=== PATIENT | male | born 1965 | race Caucasian/White ===

== ENCOUNTER → 2017-10-03 09:58 | Outpatient (CLI) | payer BC, SELFPAY ==
--- NOTE | 2017-10-03 10:10 | XR_ITS ---
XR finger RT min 2V COMPARISON: None HISTORY: Right thumb pain TECHNIQUE: 3 views right thumb FINDINGS: The first metacarpal proximal and distal phalanx appear intact with no evidence of recent or old fracture. The soft tissues are normal. There is no significant arthritic change. IMPRESSION: Negative right thumb
== END ==
PROVIDERS: PCP Family Medicine; Referring Provider Family Medicine; Visit Provider Family Medicine
DX: M79.644 Pain in right finger(s) (principal)
CPT/HCPCS: 73140

== ENCOUNTER 2019-11-25 13:50 | Observation (INO) | payer BC, SELFPAY ==
[2019-11-25 13:59] VITALS: BP 154/100; PULSE 93; RESP 16; TEMP 37.3; O2SAT 94; BMI 45.1
[2019-11-25 14:17] VITALS: BP 154/100; PULSE 93; RESP 16; TEMP 37.3; O2SAT 94; BMI 45.1
--- NOTE | 2019-11-25 14:27 | XR_ITS ---
PROCEDURE: XR CHEST 2V CLINICAL HISTORY: COUGH/SOA COMPARISON: CR CXR CHEST(2 VIEWS-NOT PORTABLE) from 04/26/2014 CR CXR CHEST(2 VIEWS-NOT PORTABLE) from 04/26/2016 FINDINGS: The cardiomediastinal silhouette and pulmonary vascularity are within normal limits. The lungs are clear without infiltrates, suspicious nodules, or pleural effusions. No acute bony abnormalities. IMPRESSION: No acute findings. The Dictated b Constantino Booth MD 11/25/2019 15:05 Constantino Booth MD in [place] 11/25/2019 15:05
--- NOTE | 2019-11-25 14:27 | PC.NURSE ---
RADIOLOGY NOTIFIED OF CHEST XRAY
--- NOTE | 2019-11-25 14:33 | HMH.EDUTC ---
[facility] [place] Disposition Clinical Impression: Dyspnea Qualifiers: Dyspnea type: unspecified Qualified Code(s): R06.00 - Dyspnea, unspecified Disposition: Still a Patient Condition on Discharge: Undetermined Referrals: Didier Sal MD [Primary Care Provider] - Time of Disposition: 14:51 Medical Decision Making - Albert Inquiry Pt receiving controlled substance: No Vital Signs: 11/25/19 13:59 11/25/19 14:17 Temperature 99.2 F 99.2 F Temperature Source Oral Oral Pulse Rate [Right] 93 H 93 H Respiratory Rate 16 16 Blood Pressure [Right Arm] 154/100 H 154/100 H Blood Pressure Mean [Right Arm] 118 118 Blood Pressure Source [Right Arm] Automatic Cuff Blood Pressure Position [Right Arm] Sitting Sitting 02 Sat by Pulse Oximetry 94 L 94 L Oxygen Delivery Method Room Air Room Air Orders (Tests/Meds): ED MEDICATIONS Discontinued Medications Generic Name Dose Route Start Last Admin Trade Name Freq PRN Reason Stop Dose Admin Albuterol/Ipratropium 3 ml 11/25/19 14:09 11/25/19 14:13 Duoneb 3ml Neb IH 11/25/19 14:10 3 ml ONCE ONE Administration ORDERS Category Date Time Status Chest XR 2 view (NOT portable) [XR chest 2V] Stat Exams 11/25/19 14:27 Ordered Medical Decision Narrative: Patient felt somewhat better after DuoNeb, but then sent for CXR. Had episode upon return where he could not catch his breath. Transferred to ER for cardiac workup. [facility] [place] HPI - General Stated complaint: trouble swallowing Time Seen by Provider: 11/25/19 14:33 Mode of Arrival: Ambulatory Source of Information: Patient Limitations: No Limitations Description of Symptoms (Recalled from Triage Doc. by RN): pt advises he was eating breakfast this morning and started having a raspy voice and sore throat. Advises since then he has also alicia having some acid reflux and feels like he can't breath. But denies any SOA HEENT Symptoms (Recalled from RN notes): Yes Resp Symptoms (Recalled from RN notes): Yes Skin Symptoms (Recalled from RN notes): No MS Symptoms (Recalled from RN notes): No Functional Status (Recalled from RN notes): WNL - History of Present Illness Provider Complaint: Patient eating breakfast this am and started having sore throat, scratchy throat, raspy voice. Some difficulty swallowing. Used inhaler with a little relief. No fever. No cough. Denies ear pain. Denies vomiting or diarrhea. Has acid reflux and that is maybe a little worse. Onset (ago): day(s) (1) Relieving factors: none Exacerbating factors: none Associated symptoms: denies other symptoms Treatments prior to arrival: none - Related Data Allergies Allergy/AdvReac Type Severity Reaction Status Date / Time No Known Allergies Allergy Unverified 04/07/17 14:04 - Worker's Comp Is this a Worker's Comp case?: No [facility] History - Hepatitis A Screen Drug use history?: No High risk sexual behaviors?: No History of sexually transmitted infection?: No Currently employed?: No Childcare worker?: No Do you have indoor plumbing?: Yes Do you have electricity?: Yes Attestation statement:: This patient has been screened for Hepatitis A risk factors. I have reviewed the patient's past medical history: Yes - Social History Alcohol Intake: never Occupational Status: other ROS Obtained: Yes All systems reviewed & no additional complaints - ENT Ears, Nose, Mouth, and Throat: Reports pain with swallowing, Reports sore throat, Reports throat swelling Physical Exam - General General appearance: alert, in no apparent distress - Head Head exam: atraumatic, normocephalic, normal inspection - Eye Eye exam: Present: normal appearance, PERRL, EOMI - ENT ENT exam: Present: normal exam, normal oropharynx, mucous membranes moist, TM's normal bilaterally, normal external ear exam - Neck Neck exam: Present: normal inspection, full ROM, trachea midline. Absent: meningismus, lymphadenopathy - Chest Chest inspection: Present: nor
[2019-11-25 14:47] VITALS: BP 154/85; PULSE 87; RESP 16; TEMP 36.8; O2SAT 97; BMI 45.1
--- NOTE | 2019-11-25 14:50 | PC.NURSE ---
PATIENT C/O SOA AND INABILITY TO CATCH HIS BREATH. SEND TO ER PER YOLI WATSON FOR FURTHER EVALUATION. Delon DIETZ RN NOTIFIED
--- NOTE | 2019-11-25 14:54 | HMH.EDGENADL ---
ED Disposition Clinical Impression: Epiglottitis Sinusitis Qualifiers: Sinusitis location: sphenoidal Chronicity: acute Recurrence: recurrent Qualified Code(s): J01.31 - Acute recurrent sphenoidal sinusitis Disposition: Admitted as Observation Condition on Discharge: Good - Critical Care Critical Care Time: No Attestation: On 11/25/19, the high probability of a clinically significant, sudden or life threatening deterioration of the following system(s) required my full and direct attention, intervention and personal management. The time I documented below is in addition to time spent performing reported procedures but includes the following listed in this critical care notation. Medical Decision Making - Medical Records Medical records reviewed: Yes: I reviewed the patient's medical records. - Albert Inquiry Pt receiving controlled substance: No Vital Signs: 11/25/19 13:59 11/25/19 14:17 11/25/19 14:47 Temperature 99.2 F 99.2 F 98.2 F Temperature Source Oral Oral Oral Pulse Rate [Right] 93 H 93 H 87 Respiratory Rate 16 16 16 Blood Pressure [Right Arm] 154/100 H 154/100 H 154/85 H Blood Pressure Mean [Right Arm] 118 118 108 Blood Pressure Source [Right Arm] Automatic Cuff Automatic Cuff Blood Pressure Position [Right Arm] Sitting Sitting Sitting 02 Sat by Pulse Oximetry 94 L 94 L 97 Oxygen Delivery Method Room Air Room Air Room Air 11/25/19 18:06 Temperature Temperature Source Pulse Rate [Right] 93 H Respiratory Rate 16 Blood Pressure [Right Arm] 158/99 H Blood Pressure Mean [Right Arm] 118 Blood Pressure Source [Right Arm] Blood Pressure Position [Right Arm] Sitting 02 Sat by Pulse Oximetry 98 Oxygen Delivery Method Room Air - Lab Data Lab results reviewed: Yes: I reviewed the patient's lab results. Lab Results 11/25/19 15:06: WBC 13.5 H, RBC 5.71, Hgb 17.3, Hct 51.2, MCV 89.7, MCH 30.3, MCHC 33.8, RDW 14.7, Plt Count 217, MPV 7.4, Neut % (Auto) 77.9, Lymph % (Auto) 15.7, Metcalfe % (Auto) 4.4, Eos % (Auto) 1.5, Baso % (Auto) 0.5, Neut # (Auto) 10.5 H, Lymph # (Auto) 2.1, Metcalfe # (Auto) 0.6, Eos # (Auto) 0.2, Baso # (Auto) 0.1 11/25/19 15:06: Sodium 136, Potassium 4.4, Chloride 105, Carbon Dioxide 23, Anion Gap 12.4, BUN 16, Creatinine 0.80, Estimated Creat Clear 110, Estimated GFR 101, Est GFR ( Amer) 122, Glucose 126 H, Calcium 8.9, Total Bilirubin 0.5, AST 26, ALT 27, Alkaline Phosphatase 67, Troponin I < 0.01, Total Protein 7.5, Albumin 4.0, Globulin 3.5 H, Albumin/Globulin Ratio 1.1 11/25/19 15:17: Group A Strep Rapid Negative Result diagrams: 11/25/19 15:06 11/25/19 15:06 Orders (Tests/Meds): ED MEDICATIONS Generic Name Dose Route Start Last Admin Trade Name Freq PRN Reason Stop Dose Admin Ceftriaxone Sodium 1 gm/ 50 mls @ 100 mls/hr 11/25/19 18:15 11/25/19 18:27 Sodium Chloride IV 12/09/19 18:14 100 mls/hr Q24H LUZ Administration Protocol Sodium Chloride 8 ml 11/25/19 15:12 Sodium Chloride 0.9% 10ml Vial IV 12/25/19 15:11 NEEDED PRN dilute pepcid Discontinued Medications Generic Name Dose Route Start Last Admin Trade Name Freq PRN Reason Stop Dose Admin Albuterol/Ipratropium 3 ml 11/25/19 14:09 11/25/19 14:13 Duoneb 3ml Neb IH 11/25/19 14:10 3 ml ONCE ONE Administration Famotidine 20 mg 11/25/19 15:12 11/25/19 15:18 Pepcid 20mg/2ml Vial IV 11/25/19 15:13 20 mg ONCE ONE Administration Azithromycin 500 mg/ Sodium 250 mls @ 250 mls/hr 11/25/19 15:12 11/25/19 15:18 Chloride IV 11/25/19 15:13 250 mls/hr ONCE ONE Administration Protocol Ioversol 75 ml 11/25/19 17:35 11/25/19 17:36 Rad-Optiray 350 100ml Vial IV 11/25/19 17:36 75 ml ONCE ONE Administration Protocol Methylprednisolone Sodium Succinate 125 mg 11/25/19 15:12 11/25/19 15:18 Solu-Medrol 125mg/2ml Vial IV 11/25/19 15:13 125 mg ONCE ONE Administration Sodium Chloride 10 ml 11/25/19 17:35 11/25/19 17:36 R
--- NOTE | 2019-11-25 15:10 | ECG_ITS ---
APPROVED REPORT Exam: Resting ECG HR:78 bpm ECG Measurements Heart Rate 78 AXES OR 198 P 20 QRSd 88 QRS 38 QT 376 T 86 QTc 428 <Conclusion> Normal sinus rhythm Nonspecific T wave abnormality Abnormal ECG Electronically signed by : Jarod Raman, 11/26/2019 08:26:10
--- NOTE | 2019-11-25 15:11 | XR_ITS ---
PROCEDURE: XR SOFT TISSUE NECK CLINICAL INDICATION: sore throat, soa COMPARISON: No exams were available for comparison FINDINGS: There is mild prominence of the epiglottis. No prevertebral soft tissue thickening or prevertebral mass. No subglottic narrowing. No soft tissue gas IMPRESSION: Mild prominence of the epiglottis please correlate with clinical findings otherwise negative Dictated b Constantino Booth MD 11/25/2019 17:18 Constantino Booth MD in [facility] 11/25/2019 17:18
[2019-11-25 15:16] LABS: Basophils # 0.1 K/mm3 (0-0.2); Basophils % 0.5 % (0.1-2.0); Eosinophils # 0.2 K/mm3 (0.0-0.4); Eosinophils % 1.5 % (0.1-12.0); Hematocrit 51.2 % (42.0-52.0); Hemoglobin 17.3 g/dL (14.1-18.0); Lymphocytes # 2.1 K/mm3 (0.7-4.5); Lymphocytes % 15.7 % (10-50); Mean Corpuscular HGB Conc 33.8 g/dL (31.8-35.4); Mean Corpuscular Hemoglobin 30.3 pg (27.0-31.2); Mean Corpuscular Volume 89.7 fl (80-94); Mean Platelet Volume 7.4 fl (7.4-10.4); Monocytes # 0.6 K/mm3 (0.1-1.0); Monocytes % 4.4 % (1.7-9.3); Neutrophils # 10.5 K/mm3 (1.8-7.8); Neutrophils % 77.9 % (37.0-80.0); Platelet Count 217 K/mm3 (142-424); Red Blood Count 5.71 M/mm3 (4.60-6.20); Red Cell Distribution Width 14.7 % (11.5-17.5); White Blood Count 13.5 K/mm3 (4.8-10.8)
[2019-11-25 15:24] LABS: Chloride 105 mmol/L (98-107); Potassium 4.4 mmoL/L (3.5-5.1); Sodium 136 mmol/L (136-145)
[2019-11-25 15:27] LABS: Alanine Aminotransferase 27 U/L (12-78); Albumin/Globulin Ratio 1.1 (1.1-1.8); Alkaline Phosphatase 67 U/L (38-126); Anion Gap 12.4 mEq/L (5-15); Aspartate Amino Transferase 26 U/L (17-59); Bilirubin,Total 0.5 mg/dl (0.2-1.3); Blood Urea Nitrogen 16 mg/dl (9-20); Calcium 8.9 mg/dl (8.4-10.2); Carbon Dioxide 23 mmol/L (22.0-30.0); Creatinine Clearance Estimated 110 mL/min (50-200); Estimated Glomerular Filt Rate 101 ml/min (>60); GFR (African American) 122 ML/MIN (>60); Globulin 3.5 g/dL (1.3-3.2); Glucose 126 mg/dl (74-100); Total Protein,Serum 7.5 g/dl (6.3-8.2)
[2019-11-25 15:40] LABS: Strep Scrn Group A (Rapid) Negative (Negative)
[2019-11-25 15:41] LABS: Troponin I < 0.01 ng/ml (0.00-0.034)
--- NOTE | 2019-11-25 15:42 | PC.NURSE ---
pt going to rad
--- NOTE | 2019-11-25 17:20 | CT_ITS ---
PROCEDURE: CT SOFT TISSUE NECK W CON CLINICAL HISTORY: possible epiglottitis Sore throat, shortness of air, enlarged epiglottis on plain film COMPARISON: No exams were available for comparison TECHNIQUE: Oral Contrast: None IV Contrast: 75 mL Optiray 350 Axial images obtained with sagittal and coronal reformats. All CT scans at the facility use one or more dose reduction, viz: automated exposure control, ma/kV adjustment per patient size (including targeted exams where dose is matched to indication, i.e. head), or iterative reconstruction technique. FINDINGS: There is an air-fluid level in the sphenoid sinus. Unremarkable nasopharynx. There is mild mucosal thickening of the oropharynx. The epiglottis is slightly prominent. No subglottic narrowing evident. Scattered small nodes are present in the neck. No evidence of tonsillar abscess. Lung apices are clear IMPRESSION: 1. Mildly enlarged epiglottis which could be due to some mild underlying inflammation. 2. No evidence of para tonsillar abscess 3. Sphenoid sinusitis Dictated b Constantino Booth MD 11/26/2019 07:29 Constantino Booth MD in [place] 11/26/2019 07:29
--- NOTE | 2019-11-25 18:04 | PC.NURSE ---
speaking with DOREEN
--- NOTE | 2019-11-25 18:05 | PC.NURSE ---
Dr. Sal pagesunita
[2019-11-25 18:06] VITALS: BP 158/99; PULSE 93; RESP 16; O2SAT 98
--- NOTE | 2019-11-25 18:19 | PC.NURSE ---
paged dr arechiga
--- NOTE | 2019-11-25 18:25 | PC.NURSE ---
speaking with Dr. Sal
--- NOTE | 2019-11-25 18:28 | PC.NURSE ---
called house for bed assignment
--- NOTE | 2019-11-25 18:34 | PC.NURSE ---
notified lab of covid swabfor admission
--- NOTE | 2019-11-25 18:38 | PC.NURSE ---
lab at bedside to do covid swab
[2019-11-25 18:50] LABS: Adenovirus,PCR Not Detected (NotDetected); Bordetella Pertussis Not Detected (NotDetected); Chlamydophila Pneumoniae, PCR Not Detected (NotDetected); Coronavirus 19, PCR Not Detected (NotDetected); Coronavirus 229E Not Detected (NotDetected); Coronavirus NL63 Not Detected (NotDetected); Coronavirus OC43 Not Detected (NotDetected); Coronovirus HKU1,PCR Not Detected (NotDetected); Human Metapneumovirus Not Detected (NotDetected); Influenza A, PCR Not Detected (NotDetected); Influenza AH1, 2009 Not Detected (NotDetected); Influenza AH1, PCR Not Detected (NotDetected); Influenza AH3,PCR Not Detected (NotDetected); Influenza B, PCR Not Detected (NotDetected); Mycoplasma Pneumoniae, PCR Not Detected (NotDetected); Parainfluenza 1, PCR Not Detected (NotDetected); Parainfluenza 2, PCR Not Detected (NotDetected); Parainfluenza 3, PCR Not Detected (NotDetected); Parainfluenza 4, PCR Not Detected (NotDetected); Respiratory Syncytial Virus Not Detected (NotDetected); Rhinovirus/Enterovirus Not Detected (NotDetected)
[2019-11-25 20:39] VITALS: BP 152/84; PULSE 82; RESP 16; TEMP 36.8; O2SAT 98
[2019-11-25 20:50] VITALS: BP 158/89; PULSE 90; RESP 20; TEMP 36.6; O2SAT 96; BMI 47.9
--- NOTE | 2019-11-25 20:50 | PC.NURSE ---
patient arrived to floor with assistance from helena WEBB
[2019-11-26 03:48] VITALS: BP 166/93; PULSE 84; RESP 22; TEMP 36.6; O2SAT 96
--- NOTE | 2019-11-26 04:39 | PC.NURSE ---
Pt slept well since admission w/o reported complaints to staff. Pt using CPAP from home. Family remains at bedside. Airway in patent and pt is tolerating IV solu. VSS.
[2019-11-26 05:33] VITALS: BMI 47.9
[2019-11-26 08:00] VITALS: BP 145/77; PULSE 89; RESP 18; TEMP 36.6; O2SAT 96
--- NOTE | 2019-11-26 08:17 | HMH.HPDC ---
General - General Admission date:: 11/25/19 Discharge date: 11/26/19 *Admission Date: 11/25/19 *Chief complaint: sore throat, shortness of breath *History of present illness: Mr. Vu is a 54-year-old male with a history of sleep apnea, tobacco use, GERD, and eczema. He has been feeling poorly for the last few weeks. He states he always struggles with sinus congestion and a few weeks ago had an episode of shortness of breath that was relieved with his inhaler. He states yesterday morning he felt fine, but as the day progressed, he developed a sore throat and a raspy voice. He then developed a cough and had some episodes where he felt like his throat was swelling and he could not breathe. He took some Motrin which did not help. He had an episode where he felt he could move no air and decided he needed to go to the emergency room. He was evaluated and his chest x-ray was normal. He was given a neb treatment. He then had a neck x-ray showing a swollen epiglottis. He had a CT of the neck showing a mildly enlarged epiglottis with some underlying inflammation. There were no peritonsillar abscesses. It also showed sphenoid sinusitis. The patient was admitted and given steroids and IV antibiotics. This morning he is feeling much better and is anxious to go home. He has had no further episodes of shortness of breath and feels like the swelling in his throat has resolved. [facility] History I have reviewed the patient's past medical history: Yes Medical History: Reports:: Gastroesophageal Reflux Disease(GERD) *Have you ever received a pneumonia vaccine?: No *Have you received a flu vaccine this season?: No Other Medical History: Reports: Other (Sleep apnea, Tobacco use, chronic left knee pain, eczema, ED) Other Surgeries: Yes: Other (Right hand tendon repair, decompression right elbow) - *Social History Last grade of school completed: Some college Smoking Status: Current every day smoker Tobacco Type: cigarettes # Packs/Day (cigarettes): 1 Alcohol Intake: never *Occupational Status:: employed Household Members: spouse, children *Travel in the last 8 weeks: None Family Hx:: Cancer, Diabetes, Heart Attack, Stroke Review of Systems - Constitutional Denies chills, Denies fever(s), Denies weakness - Eyes Denies blurry vision, Denies double vision - ENT Reports hoarseness, Reports nasal congestion, Reports sinus pressure, Reports sore throat, Reports throat swelling - *Cardiovascular Reports shortness of breath, Denies chest pain - *Respiratory Reports cough, Reports shortness of breath - *Gastrointestinal Reports heartburn, Denies abdominal pain, Denies loose stools, Denies nausea, Denies vomiting - *Genitourinary Denies difficulty urinating, Denies painful urination - *Musculoskeletal Reports joint pain (chronic) - *Neurologic Denies headache(s), Denies dizziness, Denies weakness Exam Vital signs and Labs for Last 24 Hours: Temp Pulse Resp BP Pulse Ox 97.8 F 84 22 166/93 H 96 11/26/19 03:48 11/26/19 03:48 11/26/19 03:48 11/26/19 03:48 11/26/19 03:48 Laboratory Results - last 24 hr 11/25/19 15:06: WBC 13.5 H, RBC 5.71, Hgb 17.3, Hct 51.2, MCV 89.7, MCH 30.3, MCHC 33.8, RDW 14.7, Plt Count 217, MPV 7.4, Neut % (Auto) 77.9, Lymph % (Auto) 15.7, Tillman % (Auto) 4.4, Eos % (Auto) 1.5, Baso % (Auto) 0.5, Neut # (Auto) 10.5 H, Lymph # (Auto) 2.1, Tillman # (Auto) 0.6, Eos # (Auto) 0.2, Baso # (Auto) 0.1 11/25/19 15:06: Sodium 136, Potassium 4.4, Chloride 105, Carbon Dioxide 23, Anion Gap 12.4, BUN 16, Creatinine 0.80, Estimated Creat Clear 110, Estimated GFR 101, Est GFR ( Amer) 122, Glucose 126 H, Calcium 8.9, Total Bilirubin 0.5, AST 26, ALT 27, Alkaline Phosphatase 67, Troponin I < 0.01, Total Protein 7.5, Albumin 4.0, Globulin 3.5 H, Albumin/Globulin Ratio 1.1 11/25/19 15:17: Group A Strep Rapid Negative 11/25/19 18:37: Chlamy pneumoniae PCR Not detected, Adenovirus (PCR) Not detected, B. pertussis DNA (P
--- NOTE | 2019-11-26 08:45 | P.CONPHA_ITS ---
[facility] Pharmacy VTE Monitoring - Patient Demographics Admission date: 11/25/19 Report Date: 11/26/19 Time: 08:45 Allergies/Adverse Reactions: Patient Allergies No Known Allergies Allergy (Unverified 04/07/17 14:04) Height: 1.78 m Weight: 151.953 kg Patient Problems: Current Active Problems Epiglottitis (Acute) Sinusitis (Acute) - VTE Risk Labs: VTE Related Lab Results Hgb 17.3 g/dL (14.1-18.0) 11/25/19 15:06 Hct 51.2 % (42.0-52.0) 11/25/19 15:06 Plt Count 217 K/mm3 (142-424) 11/25/19 15:06 BUN 16 mg/dl (9-20) 11/25/19 15:06 Creatinine 0.80 mg/dl (0.66-1.25) 11/25/19 15:06 Estimated Creat Clear 110 mL/min (50-200) 11/25/19 15:06 VTE Score: 6 VTE Risk Level: Moderate Risk - Prophylaxis VTE Prophylaxis Ordered?: Yes Types of VTE Prophylaxis: TEDS Knee High Location of Applied Device: Bilateral Lower Extremeties
--- NOTE | 2019-11-26 10:39 | HMH.PHAINT ---
DISCHARGE COUNSELING COMPLETED.
== END 2019-11-26 09:41 | disposition home or self-care (01) ==
LOC: UTC 14:03 → ER 14:46 → 2ND 20:52
PROVIDERS: Admitting Provider Family Medicine; Emergency Provider Emergency Medicine; PCP Family Medicine; Visit Provider Family Medicine
DX: J05.10 Acute epiglottitis without obstruction (principal); J32.9 Chronic sinusitis, unspecified; Z72.0 Tobacco use; Z79.899 Other long term (current) drug therapy
CPT/HCPCS: 70360; 70491; 71046; 80053; 84484; 85025; 87430; 87581; 87633; 87798; 93005; 96365; 96367; 96375; 99284; G0378; J0456; Q9967

== ENCOUNTER → 2019-12-22 15:02 | Outpatient (POV) | payer BC, SELFPAY ==
[2019-12-22 15:48] VITALS: BP 177/124; PULSE 91; RESP 20; TEMP 36.5; O2SAT 94; BMI 47.3
--- NOTE | 2019-12-22 15:49 | HMH.PMCON ---
Assessment and Plan (1) Knee pain, left Current visit: Yes Status: Chronic Category: Medical Code(s): M25.562 - Pain in left knee (2) Osteoarthritis of left knee Current visit: Yes Status: Chronic Category: Medical Code(s): M17.12 - Unilateral primary osteoarthritis, left knee - Assessment and plan all Dx Assessment and Plan for all problems:: We will schedule the patient for a left intra-articular knee injection. If the patient's pain returns, he and I did discuss possible left knee RFA. We will plan to see him back in the clinic after his injection to reassess his symptoms. He has been instructed to contact clinic if he has any concerns before his next appointment. The patient and I specifically discussed risk factors for COVID19. These risks include, but are not limited to age greater than 60, heart or lung disease, diabetes, immunosuppression, and travel. We also discussed NSAIDs may worsen COVID19 infection or symptoms. Patient should not use NSAIDs to treat COVID19 signs or symptoms. Patient was also informed that any type of corticosteroid of any form (oral or injection) will decrease the patient's immune system response and may increase the likelihood of COVID19 infection and symptoms[address] Dr. Fatima has reviewed this note and agrees with this plan of care. This note was dictated using voice recognition software and make contain errors or omissions. HPI - Data of Consult Patient: new to practice Consult date: 12/22/19 Requesting Physician: Joan Louie APRN Primary Care Provider: Didier Sal MD - Consult Narrative Reason for consult: Left knee pain History of present illness: Mr. Vu is a 54 year old male presents today for consultation for left knee pain. Patient says this pain has been ongoing for greater than 2 years. Patient says he has not had any type of trauma, falls, or injury. He says that his pain is left medial on his knee. He has tried oral anti-inflammatories with no relief. Patient says that he was stepping down from a ladder and stepped in the wrong direction making his knee pain worse. He says that it is temporarily relieved with ice and heat therapy. He did try an intra-articular knee injection in the past and it did give him short-term relief up to 80%, however, for only 1 day. Patient does rate his pain a 6 out of 10 today. He has tried physical therapy along with a continued home stretching program. He does have imaging of his knee. CC: Joan Louie APRN [facility] History I have reviewed the patient's past medical history: Yes Medical History: Reports:: Arrhythmia, Gastroesophageal Reflux Disease(GERD) *Have you ever received a pneumonia vaccine?: No *Have you received a flu vaccine this season?: No Other Medical History: Reports: Other (Sleep apnea, Tobacco use, chronic left knee pain, eczema, ED) Other Surgeries: Yes: Other (Right hand tendon repair, decompression right elbow) - *Social History Last grade of school completed: Advanced degree Smoking Status: Current every day smoker Tobacco Type: cigarettes # Packs/Day (cigarettes): 1 Alcohol Intake: never *Occupational Status:: employed Housing: house Household Members: spouse, children *Travel in the last 8 weeks: None Family Hx:: Unable to obtain Review of Systems - Constitutional Comments: Review of Systems General: No recent weight changes, no fever, no sleep disturbances Respiratory: No cough, no shortness of air, no recurring pulmonary infections Cardiovascular/peripheral vascular: No chest pain, no palpitations, no edema, no shortness of breath Gastrointestinal: No new onset incontinence, normal bowel movements reported Genitourinary: No new onset incontinence Musculoskeletal: Knee pain left Psychiatric: Normal mood/affect Neurological: [Denies weakness in extremities], [denies balance issues] Meds Home Medications Medication Instructions Recorded Confirmed Type Gluco
== END ==
PROVIDERS: PCP Family Medicine; Visit Provider Clinical Nurse Specialist Family Health
DX: M17.12 Unilateral primary osteoarthritis, left knee (principal)
CPT/HCPCS: 99202

== ENCOUNTER → 2020-02-29 12:14 | Outpatient (CLI) | payer BC, SELFPAY ==
[2020-02-29 15:10] LABS: Coronavirus 19 IgG Antibody Positive (Negative); Coronavirus 19 IgM Antibody Negative (Negative)
== END ==
PROVIDERS: Visit Provider Family Medicine
DX: Z01.818 Encounter for other preprocedural examination (principal); G47.33 Obstructive sleep apnea (adult) (pediatric)
CPT/HCPCS: 36415; 86328

== ENCOUNTER → 2020-03-01 20:05 | Outpatient (CLI) | payer BC, SELFPAY | PROVIDERS: PCP Family Medicine; Visit Provider Family Medicine | DX: G47.33 Obstructive sleep apnea (adult) (pediatric) (principal); R06.83 Snoring | CPT/HCPCS: 95811 ==

== ENCOUNTER 2020-04-23 09:58 | Emergency (ER) | payer BC, SELFPAY ==
[2020-04-23 10:30] VITALS: BP 176/98; PULSE 74; RESP 19; TEMP 36.9; O2SAT 96; BMI 45.1
--- NOTE | 2020-04-23 10:57 | HMH.EDUTC ---
[facility] [place] Impression: Sinusitis Qualifiers: Sinusitis location: unspecified location Chronicity: unspecified Qualified Code(s): J32.9 - Chronic sinusitis, unspecified Disposition: Home, Self-Care Condition on Discharge: Good Instructions: Sinusitis, DI for Sinusitis Additional Instructions: *Monitor Temp, Over the counter Motrin or Tylenol as directed/as needed Tylenol every 4 hours and Motrin every 6 hours (as long as your family doctor has told you that you can take it) for fever or pain. and straight to ER if unable to lower temp less than 101.0 after medication given *Warm salt water gargles may help to soothe the throat *Throat Lozenges *Warm fluids like tea with honey may help to soothe the throat *Sleep elevated *Humidifier/Vaporizer *Flonase 2 sprays in each nostril daily but be aware that it may take 2-3 days before you notice improvement *Continue with previously prescribed medications and we added Cefdinir Start this medication as soon as possible Follow up IMMEDIATELY for new or worsening symptoms or no Noticeable improvement over the next 48-72 hours. 911 for difficulty breathing or swallowing You were tested for today for COVID19 your test result should be back in the next 24-48 hours, you may call to the [facility] to see if your test results are back in the next 48 hours [phone] [facility] hours are 9am-9pm You was given a handout with instructions for Self Quarantine and Self isolation for while you wait on test results and what to do if they are positive If you are positive the Health Dept will be contacting you also Prescriptions: Cefdinir [Omnicef 300mg Capsule] 300 mg PO BID #20 cap Transmission Status: Received [id number] Referrals: Bert Rodney MD [Primary Care Provider] - As needed Time of Disposition: 11:07 Medical Decision Making - Albert Inquiry Pt receiving controlled substance: No Albert was queried for this patient: No Vital Signs: 04/23/20 10:30 04/23/20 11:09 Temperature 98.4 F 98.4 F Temperature Source Oral Pulse Rate 74 Pulse Rate [Right Brachial] 74 Respiratory Rate 19 19 Blood Pressure 176/98 H Blood Pressure [Right Arm] 176/98 H Blood Pressure Mean [Right Arm] 124 Blood Pressure Source [Right Arm] Automatic Cuff Blood Pressure Position [Right Arm] Sitting 02 Sat by Pulse Oximetry 96 Oxygen Delivery Method Room Air Orders (Tests/Meds): ED MEDICATIONS Discontinued Medications Generic Name Dose Route Start Last Admin Trade Name Jayden PRN Reason Stop Dose Admin Methylprednisolone Sodium Succinate 125 mg 04/23/20 11:03 04/23/20 11:06 Methylprednisolone Sod Succ 125mg Vial IM 04/23/20 11:04 125 mg ONCE ONE Administration Medical Decision Narrative: Patient states that he has bad sinus infections several times a year and has had to be admitted in the past with them so he come in before they got too bad this time to try to get them under control. Patient currently taking Zpack and has one day left and Medrol dose pack Discussed with pharmacy and agreed will give SoluMedrol 125mg IM x 1 dose and add Cefdnir to medications to try to help clear infection [facility] [place] - General Stated complaint: SOA Time Seen by Provider: 04/23/20 10:57 Mode of Arrival: Ambulatory Source of Information: Patient Limitations: No Limitations Description of Symptoms (Recalled from Triage Doc. by RN): PATIENT C/O SOA AND COUGH X 3 DAYS HEENT Symptoms (Recalled from RN notes): Yes Resp Symptoms (Recalled from RN notes): Yes Skin Symptoms (Recalled from RN notes): No MS Symptoms (Recalled from RN notes): No Functional Status (Recalled from RN notes): WNL - History of Present Illness Provider Complaint: Patient state that he was recently treated for Sinus infection and was given Zpack and steriods State that he was having headaches like he commonly has with sinus infection so then they called him in some Tramadol States that helped with h
[2020-04-23 11:09] VITALS: BP 176/98; PULSE 74; RESP 19; TEMP 36.9; O2SAT 96
== END 2020-04-23 11:39 | disposition home or self-care (01) ==
PROVIDERS: Emergency Provider Nurse Practitioner; PCP Family Medicine
DX: Z20.822 Contact with and (suspected) exposure to COVID-19 (principal); J32.9 Chronic sinusitis, unspecified; K21.9 Gastro-esophageal reflux disease without esophagitis
CPT/HCPCS: 96372; 99202; G0463; U0003

== ENCOUNTER 2020-05-06 14:34 | Emergency (ER) | payer BC, SELFPAY ==
[2020-05-06 14:40] VITALS: BP 162/96; PULSE 84; RESP 22; TEMP 36.5; O2SAT 97; BMI 45.1
--- NOTE | 2020-05-06 15:22 | HMH.EDUTC ---
[facility] [place] Clinical Impression: Exposure to COVID-19 virus, COPD with exacerbation Disposition: Home, Self-Care Condition on Discharge: Good Instructions: DI for COVID-19 (Suspected or Confirmed ), Preventing the Spread of Coronavirus Discharge Instructions Additional Instructions: Drink plenty of fluids. Take tylenol for pain or fever. Return if you begin to have difficulty breathing. Follow up with your regular doctor. GO TO THE ER FOR ANY WORSENING SYMPTOMS Don't start the antibiotics and steroids unless you get sicker. Prescriptions: methylPREDNISolone [Medrol] 4 mg PO DIRECTED 6 Days #21 tab.[email or web address] Transmission Status: [id number] Azithromycin [Z-Doe 250mg Tab*] 250 mg PO UD DOSE PK #6 tab Transmission Status: Received by [id number] Referrals: Didier Sal MD [Primary Care Provider] - Time of Disposition: 15:28 Medical Decision Making - Medical Records Medical records reviewed: No: I reviewed the patient's medical records. - Albert Inquiry Pt receiving controlled substance: No Vital Signs: 05/06/20 14:40 05/06/20 15:27 Temperature 97.7 F 97.7 F Temperature Source Oral Pulse Rate 84 Pulse Rate [Right Brachial] 84 Respiratory Rate 22 22 Blood Pressure 162/96 H Blood Pressure [Right Arm] 162/96 H Blood Pressure Mean [Right Arm] 118 Blood Pressure Source [Right Arm] Automatic Cuff Blood Pressure Position [Right Arm] Sitting 02 Sat by Pulse Oximetry 97 Oxygen Delivery Method Room Air Orders (Tests/Meds): ED MEDICATIONS Discontinued Medications Generic Name Dose Route Start Last Admin Trade Name Urbanoq PRN Reason Stop Dose Admin Methylprednisolone Sodium Succinate 125 mg 05/06/20 15:39 05/06/20 15:40 Methylprednisolone Sod Succ 125mg Vial IM 05/06/20 15:40 125 mg ONCE ONE Administration ORDERS Category Date Time Status Covid-19 Nasal PCR ([facility]) Routine Lab 05/06/20 14:55 Received [facility] [place] HPI - General Stated complaint: Covid Test Time Seen by Provider: 05/06/20 15:22 Mode of Arrival: Ambulatory Source of Information: Patient Limitations: No Limitations Description of Symptoms (Recalled from Triage Doc. by RN): COVID TEST FOR POSSIBLE EXPOSURE. DENIES SYMPTOMS HEENT Symptoms (Recalled from RN notes): No Resp Symptoms (Recalled from RN notes): No Skin Symptoms (Recalled from RN notes): No MS Symptoms (Recalled from RN notes): No Functional Status (Recalled from RN notes): WNL - History of Present Illness Provider Complaint: He is here for a covid test. He has been exposed approx 4 days ago. He states that he is having a head ache and worsening cough over the past 2 days. He has a history of copd and he has exacerbations this time of year almost every year anyway. - Related Data Home Medications Medication Instructions Recorded Confirmed Glucosam/Joel-Msm1/C/Montez/Bosw 1 cap PO DAILY 11/25/19 11/25/19 [Osteo Bi-Flex Caplet] Meloxicam 7.5 mg PO DAILY 11/25/19 11/25/19 Previous Rx's Medication Instructions Recorded Azithromycin [Zithromax 250mg 250 mg PO DIRECTED #6 tab 11/26/19 tab] Cefdinir [Omnicef 300mg Capsule] 300 mg PO BID #14 cap 11/26/19 dexAMETHasone [Dexamethasone] 2 mg PO BID #10 tab 11/26/19 Cefdinir [Omnicef 300mg Capsule] 300 mg PO BID #20 cap 04/23/20 Azithromycin [Z-Doe 250mg Tab*] 250 mg PO UD DOSE PK #6 tab 05/06/20 methylPREDNISolone [Medrol] 4 mg PO DIRECTED 6 Days #21 05/06/20 tab.[email or web address] Allergies Allergy/AdvReac Type Severity Reaction Status Date / Time No Known Allergies Allergy Verified 04/23/20 10:56 - Worker's Comp Is this a Worker's Comp case?: No [facility] History - Hepatitis A Screen Drug use history?: No High risk sexual behaviors?: No History of sexually transmitted infection?: No Currently employed?: No Childcare worker?: No Do you have indoor plumbing?: Yes Do you have electricity?: Yes Attestation statement:: Th
[2020-05-06 15:27] VITALS: BP 162/96; PULSE 84; RESP 22; TEMP 36.5; O2SAT 97
== END 2020-05-06 15:55 | disposition home or self-care (01) ==
PROVIDERS: Emergency Provider Nurse Practitioner Family; PCP Family Medicine
DX: Z20.822 Contact with and (suspected) exposure to COVID-19 (principal); J44.1 Chronic obstructive pulmonary disease with (acute) exacerbation; K21.9 Gastro-esophageal reflux disease without esophagitis; F17.210 Nicotine dependence, cigarettes, uncomplicated
CPT/HCPCS: 96372; 99202; G0463; U0003

== ENCOUNTER 2020-07-16 17:20 | Emergency (ER) | payer BC, SELFPAY ==
[2020-07-16 17:21] VITALS: BP 207/123; PULSE 69; RESP 20; TEMP 36.6; O2SAT 91; BMI 50.2
--- NOTE | 2020-07-16 17:26 | ECG_ITS ---
APPROVED REPORT Exam: Resting ECG HR:66 bpm ECG Measurements Heart Rate 66 AXES [place] 200 P 16 QRSd 90 QRS 47 QT 392 T 58 QTc 410 Conclusion Normal sinus rhythm Normal ECG Electronically signed by : Jarod Raman, 07/18/2020 13:24:06
--- NOTE | 2020-07-16 17:28 | HMH.EDGENADL ---
ED Disposition Condition on Discharge: Good - Critical Care Critical Care Time: No <Shahid Leos - Last Filed: 07/16/20 19:45> <Jam Swenson - Last Filed: 07/16/20 21:48> Clinical Impression: Bronchitis Dyspnea Qualifiers: Dyspnea type: shortness of breath Qualified Code(s): R06.02 - Shortness of breath Hypertension Qualifiers: Hypertension type: unspecified Qualified Code(s): I10 - Essential (primary) hypertension Disposition: Home, Self-Care Instructions: DI for Shortness of Breath Additional Instructions: see pcp for follow up in am Referrals: Didier Sal MD [Primary Care Provider] - Attestation: On 07/16/20, the high probability of a clinically significant, sudden or life threatening deterioration of the following system(s) required my full and direct attention, intervention and personal management. The time I documented below is in addition to time spent performing reported procedures but includes the following listed in this critical care notation. Medical Decision Making - Medical Records Medical records reviewed: Yes: I reviewed the patient's medical records. - Albert Inquiry Pt receiving controlled substance: No - Lab Data Result diagrams: 07/16/20 17:42 07/16/20 17:42 <DericShahid - Last Filed: 07/16/20 19:45> - Lab Data Lab results reviewed: Yes: I reviewed the patient's lab results. Result diagrams: 07/16/20 17:42 07/16/20 17:42 - JAIME Score for Non-Stemi Age of Patient: 50-59 years old Heart Rate: 50-69 bpm Systolic Blood Pressure: 200 mmhg or higher Serum Creatinine: 0.80-1.19 mg/dl CHF Killip Class: I-No CHF Other Risk Factors: None Non-Stemi Risk Score: 51 <Jam Swenson - Last Filed: 07/16/20 21:48> Vital Signs: 07/16/20 17:21 07/16/20 17:40 07/16/20 18:01 Temperature 97.9 F Temperature Source Oral Pulse Rate 52 L 65 Pulse Rate [Left Radial] 69 Respiratory Rate 20 13 25 H Blood Pressure 187/96 H Blood Pressure [Right Arm] 207/123 H Blood Pressure Mean 140 Blood Pressure Mean [Right Arm] 151 Blood Pressure Source [Right Arm] Automatic Cuff Blood Pressure Position [Right Arm] Sitting 02 Sat by Pulse Oximetry 91 L 94 L 93 L Oxygen Delivery Method Room Air 07/16/20 18:15 Temperature Temperature Source Pulse Rate 64 Pulse Rate [Left Radial] Respiratory Rate 12 Blood Pressure Blood Pressure [Right Arm] Blood Pressure Mean Blood Pressure Mean [Right Arm] Blood Pressure Source [Right Arm] Blood Pressure Position [Right Arm] 02 Sat by Pulse Oximetry 97 Oxygen Delivery Method - Lab Data Lab Results 07/16/20 17:42: WBC 12.7 H, RBC 5.47, Hgb 16.4, Hct 48.4, MCV 88.5, MCH 29.9, MCHC 33.8, RDW 14.8, Plt Count 225, MPV 8.0, Neut % (Auto) 65.9, Lymph % (Auto) 25.8, [place] % (Auto) 5.2, Eos % (Auto) 2.4, Baso % (Auto) 0.7, Neut # (Auto) 8.4 H, Lymph # (Auto) 3.3, [place] # (Auto) 0.7, Eos # (Auto) 0.3, Baso # (Auto) 0.1 07/16/20 17:42: Sodium 138, Potassium 3.9, Chloride 109 H, Carbon Dioxide 21 L, Anion Gap 11.9, BUN 14, Creatinine 0.80, Estimated Creat Clear 109, Estimated GFR 101, Est GFR ( Amer) 122, Glucose 165 H, Calcium 9.1, Total Bilirubin 0.5, AST 23, ALT 31, Alkaline Phosphatase 65, Troponin I < 0.01, Total Protein 7.6, Albumin 4.2, Globulin 3.4 H, Albumin/Globulin Ratio 1.2 07/16/20 17:42: NT-Pro-B Natriuret Pep 137 H 07/16/20 17:42: Chlamy pneumoniae PCR Not detected, Adenovirus (PCR) Not detected, B. pertussis DNA (PCR) Not detected, Coronavirus OC43 (PCR) Not detected, Coronavirus HKU1 (PCR) Not detected, Coronavirus 229E (PCR) Not detected, SARS-CoV-2 (PCR) Not detected, Coronavirus NL63 (PCR) Not detected, Human Metapneumovir PCR Not detected, Influenza A (H1) PCR Not detected, Influ A (H1N1/09) PCR Not detected, Influenza A (H3) PCR Not detected, Influenza Type A (PCR) Not detected, Influenza Type B (PCR) Not detected, M. pneumoniae (PCR) Not detected, Parainfluenza 1 (PCR) Not detected, Parainfl
[2020-07-16 17:40] VITALS: PULSE 52; RESP 13; O2SAT 94
--- NOTE | 2020-07-16 17:49 | XR_ITS ---
PROCEDURE: XR CHEST PORTABLE CLINICAL HISTORY: dyspnea COMPARISON: CR CXR CHEST(2 VIEWS-NOT PORTABLE) from 04/26/2014 CR CXR CHEST(2 VIEWS-NOT PORTABLE) from 04/26/2016 CR XR CHEST 2V from 11/25/[address] ANGIO CHEST from 07/16/2020 FINDINGS: AP portable view of the chest demonstrates no focal consolidation, pleural effusions or pneumothorax. The heart is mildly enlarged, likely accentuated by AP technique. Central pulmonary vasculature is within normal limits. Visualized osseous structures are unremarkable. IMPRESSION: No focal consolidation or pleural effusions. Dictated by: Vilma Galdamez 07/17/2020 09:21 Vilma Galdamez in [place] 07/17/2020 09:21
--- NOTE | 2020-07-16 17:49 | CT_ITS ---
PROCEDURE: CT ANGIO CHEST CLINCIAL INDICATION: dyspnea with L sided rib pain COMPARISON: No exams were available for comparison TECHNIQUE: IV Contrast: 70ML Isovue 370 Axial images obtained with sagittal and coronal reformats. All CT scans at the facility use one or more dose reduction, viz: automated exposure control, ma/kV adjustment per patient size (including targeted exams where dose is matched to indication, i.e. head), or iterative reconstruction technique. FINDINGS: Limited study due to phase of IV contrast and significant beam hardening artifact over the pulmonary arteries. There is no evidence of occlusive pulmonary emboli in the bilateral main pulmonary arteries. Nonocclusive emboli cannot be excluded on the segmental and subsegmental branches. The heart size is normal. No pericardial effusions. Atherosclerotic vascular calcification of the coronary arteries are noted. There is no significant mediastinal or hilar adenopathy. No focal consolidation, pleural effusions or pneumothorax. Minor bibasal atelectasis noted. Calcified granuloma in the right lower lobe. Minor peribronchial thickening of the bilateral lower lobe bronchials, may represent [id number] airway disease. The central tracheobronchial tree is patent. No suspicious lung nodules are noted. Degenerative changes of the visualized thoracic spine. IMPRESSION: Limited study due to phase of IV contrast. No central pulmonary embolism. Minor peribronchial thickening of the bilateral lower lobe bronchials, may represent [id number] airway disease. Dictated by: Vilma Galdamez 07/17/2020 09:33 Vilma Galdamez in [place] 07/17/2020 09:33
[2020-07-16 18:01] VITALS: BP 187/96; PULSE 65; RESP 25; O2SAT 93
[2020-07-16 18:03] LABS: Chloride 109 mmol/L (98-107); Potassium 3.9 mmoL/L (3.5-5.1); Sodium 138 mmol/L (136-145)
[2020-07-16 18:04] LABS: Basophils # 0.1 K/mm3 (0-0.2); Basophils % 0.7 % (0.1-2.0); Eosinophils # 0.3 K/mm3 (0.0-0.4); Eosinophils % 2.4 % (0.1-12.0); Hematocrit 48.4 % (42.0-52.0); Hemoglobin 16.4 g/dL (14.1-18.0); Lymphocytes # 3.3 K/mm3 (0.7-4.5); Lymphocytes % 25.8 % (10-50); Mean Corpuscular HGB Conc 33.8 g/dL (31.8-35.4); Mean Corpuscular Hemoglobin 29.9 pg (27.0-31.2); Mean Corpuscular Volume 88.5 fl (80-94); Monocytes # 0.7 K/mm3 (0.1-1.0); Monocytes % 5.2 % (1.7-9.3); Neutrophils # 8.4 K/mm3 (1.8-7.8); Neutrophils % 65.9 % (37.0-80.0); Platelet Count 225 K/mm3 (142-424); Red Blood Count 5.47 M/mm3 (4.60-6.20); Red Cell Distribution Width 14.8 % (11.5-17.5); White Blood Count 12.7 K/mm3 (4.8-10.8)
[2020-07-16 18:06] LABS: Alanine Aminotransferase 31 U/L (12-78); Albumin Level 4.2 g/dl (3.5-5.0); Albumin/Globulin Ratio 1.2 (1.1-1.8); Alkaline Phosphatase 65 U/L (38-126); Anion Gap 11.9 mEq/L (5-15); Aspartate Amino Transferase 23 U/L (17-59); Bilirubin,Total 0.5 mg/dl (0.2-1.3); Blood Urea Nitrogen 14 mg/dl (9-20); Carbon Dioxide 21 mmol/L (22.0-30.0); Creatinine Clearance Estimated 109 mL/min (50-200); Estimated Glomerular Filt Rate 101 ml/min (>60); GFR (African American) 122 ML/MIN (>60); Globulin 3.4 g/dL (1.3-3.2); Total Protein,Serum 7.6 g/dl (6.3-8.2)
[2020-07-16 18:07] LABS: Calcium 9.1 mg/dl (8.4-10.2); Glucose 165 mg/dl (74-100)
[2020-07-16 18:15] VITALS: PULSE 64; RESP 12; O2SAT 97
[2020-07-16 18:16] LABS: NT Pro Brain Natriuretic Pep. 137 pg/mL (0-125)
[2020-07-16 18:19] LABS: Troponin I < 0.01 ng/ml (0.00-0.034)
[2020-07-16 18:56] LABS: Adenovirus,PCR Not Detected (NotDetected); Bordetella Pertussis Not Detected (NotDetected); Chlamydophila Pneumoniae, PCR Not Detected (NotDetected); Coronavirus 19, PCR Not Detected (NotDetected); Coronavirus 229E Not Detected (NotDetected); Coronavirus NL63 Not Detected (NotDetected); Coronavirus OC43 Not Detected (NotDetected); Coronovirus HKU1,PCR Not Detected (NotDetected); Human Metapneumovirus Not Detected (NotDetected); Influenza A, PCR Not Detected (NotDetected); Influenza AH1, 2009 Not Detected (NotDetected); Influenza AH1, PCR Not Detected (NotDetected); Influenza AH3,PCR Not Detected (NotDetected); Influenza B, PCR Not Detected (NotDetected); Mycoplasma Pneumoniae, PCR Not Detected (NotDetected); Parainfluenza 1, PCR Not Detected (NotDetected); Parainfluenza 2, PCR Not Detected (NotDetected); Parainfluenza 3, PCR Not Detected (NotDetected); Parainfluenza 4, PCR Not Detected (NotDetected); Respiratory Syncytial Virus Not Detected (NotDetected); Rhinovirus/Enterovirus Not Detected (NotDetected)
[2020-07-16 19:00] VITALS: PULSE 62; O2SAT 97
--- NOTE | 2020-07-16 20:53 | PC.NURSE ---
at bedside. 2nd troponin drawn and sent to lab.
[2020-07-16 21:30] LABS: Troponin I < 0.01 ng/ml (0.00-0.034)
[2020-07-16 21:50] VITALS: BP 174/90; PULSE 61; RESP 22; TEMP 36.6; O2SAT 98
== END 2020-07-16 22:04 | disposition home or self-care (01) ==
PROVIDERS: Emergency Medicine; Emergency Provider Emergency Medicine; PCP Family Medicine
DX: R06.02 Shortness of breath (principal); I16.0 Hypertensive urgency; J44.9 Chronic obstructive pulmonary disease, unspecified; K21.9 Gastro-esophageal reflux disease without esophagitis; F17.210 Nicotine dependence, cigarettes, uncomplicated
CPT/HCPCS: 71045; 71275; 80053; 83880; 84484; 85025; 87581; 87633; 87798; 93005; 99283; Q9967

== ENCOUNTER → 2020-10-16 09:58 | Outpatient (CLI) | payer BC, SELFPAY ==
--- NOTE | 2020-10-16 10:11 | CA_ITS ---
APPROVED REPORT EXAM: Comprehensive 2D, Doppler, and color-flow Echocardiogram Dressage Instructor: YOBANY Reyes, RVS Ht: 5 ft 10 in Wt: 320lbs BSA: 2.55 BP: 187/96 mmHg Indications: COPD, Shortness of Breath, Obesity, Hypertension, Smoker Echo Enhancing Agent Comments: Technically limited exam due to extreme body habitus with lung impedence 2D Dimensions IVSd 0.98 cm LVEF (Visual) 61.00 % PWd 1.01 cm LA Volume 77.10 mL LVDd 5.65 cm LA Volume Index 30.20 mL/m2 (M/F) 16-34 LVDs 3.78 cm Left Atrium 4.13 cm LVOT 1.92 cm (M/F) 1.5-2.5 M-Mode Dimensions RVDd 4.43 cm (0.9-2.6) LA Diam 3.81 cm (1.9-4.0) LVDd 4.92 cm (3.5-5.7) Ao Diam 4.04 cm (2.0-3.7) LVDs 3.40 cm (3.5-5.7) IVSd 1.25 cm (0.6-1.1) PWd 1.34 cm (0.6-1.1) EF (Teich) 58.40% EPSs 0.54 cm FS 30.90% EDV (Teich) 113.90 mL TAPSE 1.78 (<1.7) ESV (Teich) 47.40 mL LV Diastology E Decel Time 203.00 (160-240 msec) E/A Ratio 1.07 MED E' 6.50 (< 7 cm/sec) MED A' 7.70 cm/s E'/MED E' Ratio 12.26 (>14) LAT E' 8.30 (<10 cm/sec) LAT A' 11.60 cm/s E/LAT E' Ratio 9.60 (>14) Aortic Valve LVOT Max 104.00 (70-110 cm/s) LVOT VTI 22.16 cm AoV Peak Jose. 120.00 (50-130 cm/s) AO Peak GR. 5.80 mmHg AO Mean GR. 2.90 (<5 mmHg) AO VTI 20.46 (18-25 cm) MAMTA (VTI) 3.14 (2.5-4.5 cm2) Mitral Valve MV A Velocity 75.00 (40-130 cm/s) E/A Ratio 1.07 MV Decel. Time 203.00 (160-240 ms) Pulmonary Valve PV Peak Velocity 101.00 (50-150 cm/s) Tricuspid Valve TR P. Velocity 120.00 cm/s Left Ventricle Left atrium is mildly enlarged, left ventricle is normal size, mild concentric left ventricular hypertrophy, visually estimated ejection fraction 55% with no regional wall motion abnormality, grade 1 diastolic dysfunction seen without tissue Doppler evidence of raise left atrial pressure. Right Ventricle Right atrium and right ventricle mildly enlarged with normal contractility. Aortic Valve Aortic valve is minimally thickened and fibrosed, there is no aortic stenosis or aortic insufficiency. Mitral Valve Mitral valve grossly normal, there is trace mitral regurgitation. Tricuspid Valve Tricuspid grossly normal, there is trace tricuspid regurgitation, tricuspid regurgitation jet velocity is inadequate for calculation of the right ventricular systolic pressure. Pulmonic Valve Pulmonic valve is poorly visualized. Great Vessels Aortic root is normal size. Pericardium No significant pericardial effusion noted. Conclusion 1. Normal left ventricular size, preserved left ventricular systolic function, visually estimated ejection fraction 55% with no regional wall motion abnormality, there is mild concentric left ventricular hypertrophy seen. Grade 1 diastolic dysfunction seen without tissue Doppler evidence of raise left atrial pressure. 2. Trace mitral and tricuspid regurgitation. 3. No significant pericardial effusion noted. Electronically signed by : Sea Gaitan, 10/16/2020 18:30:08
== END ==
PROVIDERS: PCP Family Medicine; Visit Provider Physician Assistant
DX: R06.02 Shortness of breath (principal)
CPT/HCPCS: 93306; 94060; 94726; 94729

== ENCOUNTER → 2020-11-16 09:35 | Outpatient (CLI) | payer BC, SELFPAY ==
--- NOTE | 2020-11-16 10:13 | XR_ITS ---
PROCEDURE: XR HIP RT 2-3V W/PELVIS CLINICAL INDICATION: RT HIP PAIN COMPARISON: No exams were available for comparison FINDINGS: Minimal osteoarthritic changes noted of the right hip. No acute fracture or dislocation. No lytic or blastic change. AP view of the pelvis also shows mild osteoarthritis of the left hip. IMPRESSION: Mild osteoarthritis of the hips Dictated by: Constantino Booth MD 11/16/2020 12:39 Constantino Booth MD in [place] 11/16/2020 12:39
--- NOTE | 2020-11-16 10:13 | XR_ITS ---
PROCEDURE: XR KNEE RT 3V CLINICAL INDICATION: RT KNEE PAIN COMPARISON: CR KNEE3L KNEE-3 VIEWS-LT from 11/08/2015 FINDINGS: No fracture or dislocation. No lytic or blastic change. There is normal mineralization. There are mild osteoarthritic changes of the medial compartment with slight decrease in the joint space minimal osteophyte formation medially. Other findings:None. IMPRESSION: Mild osteoarthritis medial compartment Dictated by: Constantino Booth MD 11/16/2020 12:40 Constantino Booth MD in [place] 11/16/2020 12:40
[2020-11-16 10:30] LABS: Basophils # 0.1 K/mm3 (0-0.2); Basophils % 0.9 % (0.1-2.0); Eosinophils # 0.3 K/mm3 (0.0-0.4); Eosinophils % 2.3 % (0.1-12.0); Hematocrit 51.4 % (42.0-52.0); Hemoglobin 17.6 g/dL (14.1-18.0); Mean Corpuscular HGB Conc 34.3 g/dL (31.8-35.4); Mean Corpuscular Hemoglobin 29.6 pg (27.0-31.2); Mean Corpuscular Volume 86.2 fl (80-94); Mean Platelet Volume 7.9 fl (7.4-10.4); Monocytes # 0.6 K/mm3 (0.1-1.0); Monocytes % 4.3 % (1.7-9.3); Neutrophils # 8.6 K/mm3 (1.8-7.8); Neutrophils % 68.5 % (37.0-80.0); Platelet Count 222 K/mm3 (142-424); Red Blood Count 5.96 M/mm3 (4.60-6.20); Red Cell Distribution Width 14.6 % (11.5-17.5); White Blood Count 12.6 K/mm3 (4.8-10.8)
[2020-11-16 11:38] LABS: Alanine Aminotransferase 30 U/L (12-78); Albumin Level 4.2 g/dl (3.5-5.0); Albumin/Globulin Ratio 1.3 (1.1-1.8); Alkaline Phosphatase 79 U/L (38-126); Anion Gap 13.8 mEq/L (5-15); Aspartate Amino Transferase 27 U/L (17-59); Bilirubin,Total 0.8 mg/dl (0.2-1.3); Blood Urea Nitrogen 22 mg/dl (9-20); Carbon Dioxide 24 mmol/L (22.0-30.0); Chloride 106 mmol/L (98-107); Chol/HDL Ratio 4.8 (1-3.5); Cholesterol 188 mg/dl (140-200); Estimated Glomerular Filt Rate 88 ml/min (>60); GFR (African American) 106 ML/MIN (>60); Globulin 3.3 g/dL (1.3-3.2); Glucose 116 mg/dl (74-100); HDL Cholesterol 39 mg/dl (40-60); Potassium 4.8 mmoL/L (3.5-5.1); Sodium 139 mmol/L (136-145); Total Protein,Serum 7.5 g/dl (6.3-8.2); Triglycerides 201 mg/dl (30-150); VLDL Cholesterol 40 mg/dL (0-40)
[2020-11-16 11:49] LABS: NT Pro Brain Natriuretic Pep. 61.2 pg/mL (0-125)
[2020-11-16 11:50] LABS: Direct LDL Cholesterol 105.37 mg/dL (100-129)
[2020-11-16 12:10] LABS: Prostate Specific Ag Screen 0.9 ng/ml (0.0-4.0); Thyroid Stimulating Hormone 2.11 uIU/mL (0.465-4.68)
== END ==
PROVIDERS: PCP Family Medicine; Visit Provider Physician Assistant
DX: M25.551 Pain in right hip (principal); M25.561 Pain in right knee
CPT/HCPCS: 36415; 73502; 73562; 80053; 80061; 83880; 84443; 85025; G0103

== ENCOUNTER → 2021-01-09 08:25 | Outpatient (CLI) | payer BC, SELFPAY ==
--- NOTE | 2021-01-09 08:29 | XR_ITS ---
PROCEDURE: XR KNEE RT 4V CLINICAL INDICATION: right knee pain COMPARISON: CR KNEE3L KNEE-3 VIEWS-LT from 11/08/2015 CR XR KNEE RT 3V from 11/16/2020 FINDINGS: No fracture or dislocation. No lytic or blastic change. There is normal mineralization. Mild osteoarthritic changes are present involving the medial compartment. Other findings:Tiny area of calcification overlying the inferior aspect of the patellar tendon nonspecific. IMPRESSION: Mild osteoarthritis not significantly changed Dictated by: Constantino Booth MD 01/09/2021 12:22 Constantino Booth MD in [place] 01/09/2021 12:22
== END ==
PROVIDERS: PCP Family Medicine; Visit Provider Orthopaedic Surgery
DX: M25.561 Pain in right knee (principal)
CPT/HCPCS: 73564

== ENCOUNTER → 2021-03-02 10:26 | Outpatient (CLI) | payer BC, SELFPAY ==
--- NOTE | 2021-03-02 10:26 | MR_ITS ---
PROCEDURE INFORMATION: Exam: MR Right Lower Extremity Joint Without Contrast, Knee Exam date and time: 03/02/2021 10:26 AM Age: 56 years old Clinical indication: Pain; Knee; Right; Additional info: Right knee pain, evaluate for meniscal tear TECHNIQUE: Imaging protocol: MR of the Right lower extremity joint without contrast. Exam focused on the knee. COMPARISON: CR XR KNEE RT 4V 01/09/2021 8:34 AM FINDINGS: Bones and cartilage: Mild tricompartmental osteoarthritis. Moderate effusion. Small Pelayo's cyst. Joint spaces: No joint effusion. Medial meniscus: There is a horizontal oblique tear extending to superior articular surface of the posterior horn of the medial meniscus. The body of the meniscus is extruded medial to the joint line and partially macerated. Lateral meniscus: Unremarkable. No tear. Anterior cruciate ligament: Unremarkable. No tear. Posterior cruciate ligament: Unremarkable. No tear. Medial capsule and supporting structures: Unremarkable. No tear. Lateral capsule and supporting structures: Unremarkable. No tear. Extensor mechanism of knee: Unremarkable. No tear. Muscles: Unremarkable. Soft tissues: Unremarkable. IMPRESSION: 1. There is a horizontal oblique tear extending to superior articular surface of the posterior horn of the medial meniscus. The body of the meniscus is extruded medial to the joint line and partially macerated. 2. Mild tricompartmental osteoarthritis. 3. Moderate effusion. Small Pelayo's cyst.
== END ==
PROVIDERS: PCP Family Medicine; Visit Provider Orthopaedic Surgery
DX: M17.11 Unilateral primary osteoarthritis, right knee (principal)
CPT/HCPCS: 73721

== ENCOUNTER → 2021-04-05 15:27 | Outpatient (CLI) | payer BC, SELFPAY ==
[2021-04-05 16:08] LABS: Adenovirus,PCR Not Detected (NotDetected); Bordetella Pertussis Not Detected (NotDetected); Chlamydophila Pneumoniae, PCR Not Detected (NotDetected); Coronavirus 19, PCR Not Detected (NotDetected); Coronavirus 229E Not Detected (NotDetected); Coronavirus NL63 Not Detected (NotDetected); Coronavirus OC43 Not Detected (NotDetected); Coronovirus HKU1,PCR Not Detected (NotDetected); Human Metapneumovirus Not Detected (NotDetected); Influenza A, PCR Not Detected (NotDetected); Influenza AH1, 2009 Not Detected (NotDetected); Influenza AH1, PCR Not Detected (NotDetected); Influenza AH3,PCR Not Detected (NotDetected); Influenza B, PCR Not Detected (NotDetected); Mycoplasma Pneumoniae, PCR Not Detected (NotDetected); Parainfluenza 1, PCR Not Detected (NotDetected); Parainfluenza 2, PCR Not Detected (NotDetected); Parainfluenza 3, PCR Not Detected (NotDetected); Parainfluenza 4, PCR Not Detected (NotDetected); Respiratory Syncytial Virus Not Detected (NotDetected); Rhinovirus/Enterovirus Not Detected (NotDetected)
[2021-04-05 16:24] LABS: Basophils # 0.1 K/mm3 (0-0.2); Basophils % 0.6 % (0.1-2.0); Eosinophils # 0.2 K/mm3 (0.0-0.4); Eosinophils % 1.8 % (0.1-12.0); Hematocrit 48.6 % (42.0-52.0); Hemoglobin 16.9 g/dL (14.1-18.0); Lymphocytes # 3.2 K/mm3 (0.7-4.5); Lymphocytes % 26.9 % (10-50); Mean Corpuscular HGB Conc 34.7 g/dL (31.8-35.4); Mean Corpuscular Hemoglobin 29.9 pg (27.0-31.2); Mean Corpuscular Volume 86.2 fl (80-94); Mean Platelet Volume 8.8 fl (7.4-10.4); Monocytes # 0.5 K/mm3 (0.1-1.0); Monocytes % 4.5 % (1.7-9.3); Neutrophils # 7.8 K/mm3 (1.8-7.8); Neutrophils % 66.2 % (37.0-80.0); Platelet Count 255 K/mm3 (142-424); Red Blood Count 5.63 M/mm3 (4.60-6.20); Red Cell Distribution Width 14.2 % (11.5-17.5); White Blood Count 11.8 K/mm3 (4.8-10.8)
== END ==
PROVIDERS: PCP Family Medicine; Visit Provider Physician Assistant
DX: Z20.822 Contact with and (suspected) exposure to COVID-19 (principal)
CPT/HCPCS: 36415; 85025; 87581; 87632; 87798; C9803; U0003; U0005

== ENCOUNTER 2021-11-11 11:10 | Emergency (ER) | payer BC, SELFPAY ==
[2021-11-11 11:55] VITALS: BP 157/100; PULSE 68; RESP 20; TEMP 36.9; O2SAT 95; BMI 45.9
--- NOTE | 2021-11-11 12:15 | HMH.EDUTC ---
[facility] [place] Disposition Clinical Impression: Skin problem Disposition: Home, Self-Care Condition on Discharge: Good Instructions: DI for Boils, Acetaminophen (Alternative Therapy), Ibuprofen Additional Instructions: *Start antibiotic(s) immediately and be sure to take as ordered for the FULL length of time although you may be feeling better or start to see improvement in the next 24-48 hours *Monitor closely. Outlined redness so that you can monitor easier. Follow up immediately for new or worsening symptoms including but not limited to redness, swelling, streaking from site fever or chills. *Warm compress 15 minutes 3-4 times day *Never squeeze or pop these on your own. Seek immediate medical attention next time this occurs *Monitor Temp. Tylenol every 4 hours as needed and ibuprofen every 6 hours as needed (as long as your primary care doctor has told you that it is ok to take both. For fever, aches, pain. ER if no less that 101 despite Tylenol and ibuprofen Follow up with your family doctor/primary care physician in the next 48-72 hours if no improvement Follow up with Dermatology as recommended Straight to ER if any life threatening symptoms Prescriptions: clindamycin HCL [Cleocin HCl] 300 mg PO Q8H 7 Days #21 cap Transmission Status: Received by [facility] #[id number] Referrals: Didier Sal MD [Primary Care Provider] - As needed Will Lerma MD [Referring] - As needed Medical Decision Making - Albert Inquiry Pt receiving controlled substance: No Albert was queried for this patient: No Vital Signs: 11/11/21 11:55 11/11/21 12:44 Temperature 98.4 F 98.4 F Temperature Source Oral Pulse Rate 68 Pulse Rate [Right Brachial] 68 Respiratory Rate 20 20 Blood Pressure 157/100 H Blood Pressure [Right Arm] 157/100 H Blood Pressure Mean [Right Arm] 119 Blood Pressure Source [Right Arm] Automatic Cuff Blood Pressure Position [Right Arm] Sitting 02 Sat by Pulse Oximetry 95 Oxygen Delivery Method Room Air - Physician Consults Physician Consulted: Dr Lerma Time: 12:37 Reason -: Other (Dermatology) Comment/Response: Spoke with Staff at [facility] Dermatology and referral faxed will discuss and call back [facility] [place] HPI - General Stated complaint: boil/abcess Time Seen by Provider: 11/11/21 12:15 Mode of Arrival: Ambulatory Source of Information: Patient Limitations: No Limitations Description of Symptoms (Recalled from Triage Doc. by RN): PATIENT C/O BOIL TO HEAD X 3 DAYS HEENT Symptoms (Recalled from RN notes): Yes Resp Symptoms (Recalled from RN notes): No Skin Symptoms (Recalled from RN notes): No MS Symptoms (Recalled from RN notes): No Functional Status (Recalled from RN notes): WNL - History of Present Illness Provider Complaint: Patient states that he has raised area on back of head State that he has had some of the areas on the back of his head for years and has been having areas like this on and off for years and seen derm once but they was unsure what it was States that he tried to poke the area but all that came out was blood no pus - Related Data Home Medications Medication Instructions Recorded Confirmed Glucosam/Joel-Msm1/C/Montez/Bosw 1 cap PO DAILY 11/25/19 03/12/21 [Osteo Bi-Flex Caplet] Meloxicam 7.5 mg PO DAILY 11/25/19 03/12/21 furosemide 20 mg tablet 20 mg PO Q OTHER DAY 01/09/21 03/12/21 lisinopril 5 mg tablet 5 mg PO DAILY 01/09/21 03/12/21 tramadol 50 mg tablet 50 mg PO DAILY 01/09/21 03/12/21 Previous Rx's Medication Instructions Recorded clindamycin HCL [Cleocin HCl] 300 mg PO Q8H 7 Days #21 cap 11/11/21 Allergies Allergy/AdvReac Type Severity Reaction Status Date / Time No Known Allergies Allergy Verified 03/12/21 14:16 - Worker's Comp Is this a Worker's Comp case?: No [facility] History - Hepatitis A Screen Attestation statement:: This patient has been screened for Hepatitis A risk factors. I have reviewed the patient's past medical history: Yes Medic
[2021-11-11 12:44] VITALS: BP 157/100; PULSE 68; RESP 20; TEMP 36.9; O2SAT 95
== END 2021-11-11 12:48 | disposition home or self-care (01) ==
PROVIDERS: Emergency Provider Nurse Practitioner; PCP Family Medicine
DX: L98.9 Disorder of the skin and subcutaneous tissue, unspecified (principal)
CPT/HCPCS: 99212; G0463

== ENCOUNTER → 2023-01-17 08:26 | Outpatient (CLI) | payer BC, SELFPAY ==
[2023-01-17 09:44] LABS: Basophils # 0.1 K/mm3 (0-0.2); Basophils % 0.4 % (0.1-2.0); Eosinophils # 0.1 K/mm3 (0.0-0.4); Eosinophils % 0.6 % (0.1-12.0); Hematocrit 56.8 % (42.0-52.0); Lymphocytes # 3.1 K/mm3 (0.7-4.5); Lymphocytes % 22.8 % (10-50); Mean Corpuscular HGB Conc 31.8 g/dL (31.8-35.4); Mean Corpuscular Hemoglobin 27.9 pg (27.0-31.2); Mean Corpuscular Volume 87.6 fl (80-94); Mean Platelet Volume 8.7 fl (7.4-10.4); Monocytes % 7.7 % (1.7-9.3); Neutrophils # 9.2 K/mm3 (1.8-7.8); Neutrophils % 68.4 % (37.0-80.0); Platelet Count 251 K/mm3 (142-424); Red Blood Count 6.48 M/mm3 (4.60-6.20); Red Cell Distribution Width 15.6 % (11.5-17.5); White Blood Count 13.4 K/mm3 (4.8-10.8)
[2023-01-17 09:48] LABS: Alanine Aminotransferase 22 U/L (12-78); Albumin Level 4.4 g/dl (3.5-5.0); Albumin/Globulin Ratio 1.4 (1.1-1.8); Alkaline Phosphatase 47 U/L (38-126); Anion Gap 12.7 mEq/L (5-15); Aspartate Amino Transferase 19 U/L (17-59); Bilirubin,Total 0.6 mg/dl (0.2-1.3); Blood Urea Nitrogen 27 mg/dl (9-20); Carbon Dioxide 29 mmol/L (22.0-30.0); Chloride 103 mmol/L (98-107); Chol/HDL Ratio 4.5 (1-3.5); Cholesterol 184 mg/dl (140-200); Estimated Glomerular Filt Rate 77 ml/min (>60); GFR (African American) 94 ML/MIN (>60); Globulin 3.1 g/dL (1.3-3.2); Glucose 105 mg/dl (74-100); HDL Cholesterol 41 mg/dl (40-60); Potassium 4.7 mmoL/L (3.5-5.1); Sodium 140 mmol/L (136-145); Total Protein,Serum 7.5 g/dl (6.3-8.2); Triglycerides 126 mg/dl (30-150); Uric Acid 5.5 mg/dl (3.5-8.5); VLDL Cholesterol 25 mg/dL (0-40)
[2023-01-17 10:17] LABS: Thyroid Stimulating Hormone 2.04 uIU/mL (0.465-4.68)
[2023-01-17 10:31] LABS: Creatinine,Urine Random 25 mg/dL (Not Estab.); Hemoglobin A1C 5.5 % (4.0-6.0)
[2023-01-17 10:38] LABS: Microalbumin < 6.000 mg/L (0-16.7)
== END ==
LOC: LAB 08:27
PROVIDERS: PCP Family Medicine; Visit Provider Family Medicine
DX: E11.9 Type 2 diabetes mellitus without complications (principal); E87.1 Hypo-osmolality and hyponatremia; I10 Essential (primary) hypertension; Z72.0 Tobacco use; Z79.84 Long term (current) use of oral hypoglycemic drugs
CPT/HCPCS: 36415; 80053; 80061; 82043; 82570; 83036; 84443; 84550; 85025

== ENCOUNTER 2023-04-16 08:35 | Observation (INO) | payer BC, SELFPAY ==
[2023-04-16] VITALS (17 sets, daily range): BP systolic 129–178; BP diastolic 76–98; PULSE 55–67; RESP 13–24; TEMP 36.7–36.8; O2SAT 95–98; BMI 40.1; BMI 40.4
--- NOTE | 2023-04-16 08:35 | ECG_ITS ---
APPROVED REPORT Exam: Resting ECG HR:60 bpm ECG Measurements Heart Rate 60 AXES VT 210 P 49 QRSd 89 QRS 68 QT 383 T 73 QTc 383 Conclusion SINUS RHYTHM WITH FIRST DEGREE AV BLOCK ABNORMAL ECG UNCONFIRMED REPORT Electronically signed by : Jarod Raman MD 04/17/2023 07:48:19
--- NOTE | 2023-04-16 08:46 | XR_ITS ---
FINAL REPORT CLINICAL HISTORY: cp COMPARISON: 11/25/2019 FINDINGS: The heart size is at the upper limits of normal. The mediastinum is normal. There is no focal infiltrate or edema. There are mild chronic appearing changes noted bilaterally, stable since the prior exam. There are no pleural effusions. There is no pneumothorax. There is no osseous abnormality. IMPRESSION: No acute cardiopulmonary process Reviewed, Interpreted and Dictated by Pepe Stark MD Transcribed by Stephanie Becerra Authenticated and [facility]
--- NOTE | 2023-04-16 08:46 | CT_ITS ---
FINAL REPORT TECHNIQUE: thin section axial CT with and without IV contrast supplemented with multiplanar 3-D reconstruction of the head. This study was performed with techniques to keep radiation doses as low as reasonably achievable, (ALARA)individualized dose reduction techniques using automated exposure control or adjustment of mA and/or kV according to the patient's size were employed. CLINICAL HISTORY: dizziness/COLLADO behind R eye COMPARISON: None FINDINGS: CTA: The cranial circulation is unremarkable. There is no significant stenosis, aneurysm or occlusion. IMPRESSION: No acute process. Reviewed, Interpreted and Dictated by Pepe Stark MD Transcribed by Stephanie Becerra Authenticated and [facility]
--- NOTE | 2023-04-16 08:46 | CT_ITS ---
FINAL REPORT TECHNIQUE: NASCET technique utilized for stenosis evaluation. CLINICAL HISTORY: dizziness/COLLADO behind R eye COMPARISON: None FINDINGS: RIGHT CAROTID: No significant stenosis is seen of the cervical common or internal carotid artery. There is mild calcification present in the proximal right internal carotid artery. LEFT CAROTID: No significant stenosis seen of the cervical common or internal carotid artery. There is mild calcification present in the proximal left internal carotid artery. VERTEBRALS: The vertebrals are patent, with a dominant left vertebral artery. No significant stenosis is present. IMPRESSION: No significant arterial abnormality. Reviewed, Interpreted and Dictated by Pepe Stark MD Transcribed by Stephanie Becerra Authenticated and . [facility]
--- NOTE | 2023-04-16 08:46 | CT_ITS ---
FINAL REPORT TECHNIQUE: multiple axial CT images were performed from the foramen magnum to the vertex without enhancement. CLINICAL HISTORY: dizziness/COLLADO behind R eye COMPARISON: None FINDINGS: There is mild to moderate atrophy present, greater than expected for the patient's chronologic age. There is no evidence of hemorrhage. No masses are identified. No extra-axial fluid is seen. No parenchymal abnormalities are present. There is mild mucoperiosteal thickening in the maxillary and sphenoid sinuses without air-fluid levels. IMPRESSION: Mild to moderate atrophy, somewhat greater than expected for the patient's chronologic age. Reviewed, Interpreted and Dictated by Pepe Stark MD Transcribed by Stephanie Becerra Authenticated and . [facility]
--- NOTE | 2023-04-16 08:50 | HMH.EDCP ---
Discharge Plan Disposition Patient Disposition: Admitted Condition: Good Prescriptions Prescriptions: No Action lisinopril 5 mg tablet 5 mg PO DAILY tramadol 50 mg tablet 50 mg PO DAILY furosemide 20 mg tablet 20 mg PO Q OTHER DAY clindamycin HCl 300 MG capsule 300 mg PO Q8H 7 Days Qty: 21 0RF meloxicam 7.5 MG tablet 7.5 mg PO DAILY [id number] 1 EACH tablet 1 cap PO DAILY Referrals Follow up/Referrals: Didier Sal MD [Primary Care Provider] - See instructions Clinical Impressions Clinical Impression: Dizziness Chest pain Qualifiers: Chest pain type: unspecified Qualified Code(s): R07.9 - Chest pain, unspecified Discharge ED Provider: Bhakti Kinney General Chief Complaint: Chest Pain Stated Complaint: Chest Pain Time Seen by Provider: 04/16/23 08:42 History of Present Illness HPI narrative: This 58-year-old male presents to the ER with concerns of chest pain, upper back pain, dizziness. Patient states he has had a small dizzy spell for years and was previously diagnosed with vertigo. He states that for the last 3 days he has been having worse dizzy spells than normal including when he sits down. He also states he is having upper back aches and generalized chest discomfort radiating to both arms.. He denies shortness of breath. He states the dizziness is worse with walking. Patient states he came to the ER today because he felt like he was going to fall over at work. He does not have a known history of cardiac abnormalities, he does take blood pressure medication. No history of known hyperlipidemia. He additionally states he had an episode of significant sweating 2 days ago associated with his symptoms. Patient states he is not having any nausea or vomiting. He states initially he thought his symptoms were related to potentially having influenza as they felt flulike, however he is concerned something else is going on. He additionally describes a headache behind his eyes with pressure specifically behind his right eye. Related Data Home Medications Medication Instructions Recorded Confirmed glucosamine 750 dm-yyedvfmvwnk-vos 1 cap PO DAILY Pain 11/25/19 03/12/21 no1 644 mg-C 30 mg-luz 1 mg tablet meloxicam 7.5 mg tablet 7.5 mg PO DAILY Pain/INFLAMMATION 11/25/19 03/12/21 furosemide 20 mg tablet 20 mg PO Q OTHER DAY 01/09/21 03/12/21 lisinopril 5 mg tablet 5 mg PO DAILY 01/09/21 03/12/21 tramadol 50 mg tablet 50 mg PO DAILY 01/09/21 03/12/21 Previous Rx's Medication Instructions Recorded clindamycin HCl 300 mg capsule 300 mg PO Q8H 7 days #21 caps 11/11/21 Allergies Allergy/AdvReac Type Severity Reaction Status Date / Time No Known Allergies Allergy Verified 03/12/21 14:16 [facility] Disclaimer: The information contained in this section may have been updated after the patient was seen, as this information can be updated by other users. Social History Smoking Status: Never smoker alcohol intake: never current occupational status: other Travel in the last 8 weeks: None household members: spouse and children housing: house current occupation: [employer] current occupational exposures/hazards: No caffeine: Yes ROS Obtained: Yes All systems reviewed & no additional complaints except as documented Constitutional Constitutional: Denies chills, Denies fever(s), Denies headache(s), Reports malaise and Denies weakness Eyes Eyes: Denies change in vision ENT Ears, Nose, Mouth, and Throat: Reports dizziness, Denies headache(s), Denies nasal congestion and Denies sore throat Cardiovascular Cardiovascular: Reports chest pain, Denies dyspnea and Denies leg edema Respiratory Respiratory: Denies cough and Denies dyspnea Gastrointestinal Gastrointestingal: Denies constipation, diarrhea, nausea or vomiting Genitourinary Male Genitourinary: Denies difficulty urinating Musculoskeletal Musculoskeletal: Denies arthralgias, Reports back pain, Reports myalgias, Denies numbness and Denies tingling Integumentary/Breasts Skin/Breast: Denies change in pigmentation Neurologic Neurologic: Reports dizziness, Denies headache(s), Denies numbness, Denies tingling and Denies weakness Physical Exam General General appearance: alert and in no apparent distress Head Head exam: atraumatic and normocephalic Eye Eye exam: Present PERRL, EOMI and other (Equal lateral nystagmus both directions, no vertical nystagmus) ENT ENT exam: Present mucous membranes moist Neck Neck exam: Present normal inspection and full ROM Chest Chest inspection: Present symmetric chest wall rise Respiratory Respiratory exam: Present normal lung sounds bilaterally; Absent respiratory distress, wheezes or stridor Cardiovascular Cardiovascular exam: Present regular rate and normal rhythm Abdominal Exam Abdominal exam: Present soft; Absent distention, tenderness, guarding or rebound Extremities Exam Extremities exam: Present full ROM Back Exam Back exam: Absent tenderness Neurological Exam Neurological exam: Present alert, oriented X3, CN II-XII intact and other (Negative pronator drift, normal [id number], normal [id number]); Absent motor sensory deficit Psychiatric Psychiatric exam: Present normal affect and normal mood Skin Skin exam: Present warm and dry HEART Score HEART Score HEART Score assessment performed?: Yes History (anamnesis): Moderately suspicious ECG: Non-specific disturbance Age: 45-65 years Risk factors: 1-2 risk factors Troponin: </= normal limit HEART Score: 4 Critical Care Critical Care Time Critical Care Time: No Medical Decision Making Albert Inquiry Pt receiving controlled substance: No Vital Signs Vital Signs: 04/16/23 08:42 04/16/23 09:00 04/16/23 09:31 Temperature 98.2 F Temperature Source Oral Pulse Rate 62 61 Pulse Rate [Left Radial] 60 Respiratory Rate 20 18 Blood Pressure 159/92 H 151/90 H Blood Pressure [Right Arm] 178/98 H Blood Pressure Mean 103 108 Blood Pressure Mean [Right Arm] 124 02 Sat by Pulse Oximetry 98 96 96 Oxygen Delivery Method Room Air Room Air Room Air 04/16/23 10:14 04/16/23 10:31 04/16/23 11:42 Temperature Temperature Source Pulse Rate 58 L 60 63 Pulse Rate [Left Radial] Respiratory Rate 18 Blood Pressure 147/87 H 163/90 H 151/94 H Blood Pressure [Right Arm] Blood Pressure Mean 101 105 113 Blood Pressure Mean [Right Arm] 02 Sat by Pulse Oximetry 97 96 95 Oxygen Delivery Method Room Air Room Air 04/16/23 12:01 04/16/23 13:20 04/16/23 13:31 Temperature Temperature Source Pulse Rate 60 60 60 Pulse Rate [Left Radial] Respiratory Rate 20 20 18 Blood Pressure 169/95 H 136/82 129/83 Blood Pressure [Right Arm] Blood Pressure Mean 114 100 95 Blood Pressure Mean [Right Arm] 02 Sat by Pulse Oximetry 95 95 95 Oxygen Delivery Method 04/16/23 14:01 Temperature Temperature Source Pulse Rate 60 Pulse Rate [Left Radial] Respiratory Rate 18 Blood Pressure 147/89 H Blood Pressure [Right Arm] Blood Pressure Mean 106 Blood Pressure Mean [Right Arm] 02 Sat by Pulse Oximetry 96 Oxygen Delivery Method Room Air Lab Data Labs: Lab Results 04/16/23 08:53: WBC 10.6, RBC 6.18, Hgb 18.0, Hct 54.0 H, MCV 87.5, MCH 29.1, MCHC 33.3, RDW 15.4, Plt Count 213, MPV 8.5, Neut % (Auto) 67.3, Lymph % (Auto) 22.8, Spink % (Auto) 7.3, Eos % (Auto) 2.0, Baso % (Auto) 0.6, Neut # (Auto) 7.2, Lymph # (Auto) 2.4, Spink # (Auto) 0.8, Eos # (Auto) 0.2, Baso # (Auto) 0.1, Sodium 137, Potassium 4.8, Chloride 106, Carbon Dioxide 23, Anion Gap 12.8, BUN 19, Creatinine 0.90, Estimated Creat Clear 163, Estimated GFR 87, Est GFR ( Amer) 105, Glucose 106 H, Calcium 8.5, Total Bilirubin 0.8, AST 31, ALT 27, Alkaline Phosphatase 52, Troponin I < 0.01, Total Protein 7.8, Albumin 4.5, Globulin 3.3 H, Albumin/Globulin Ratio 1.4 04/16/23 09:09: SARS-CoV-2 (PCR) Not detected, Influenza A Untype (PCR) Not detected, Influenza Type B (PCR) Not detected 04/16/23 13:12: Troponin I < 0.01, C-Reactive Protein 13.9 H 04/16/23 08:53 04/16/23 08:53 Response Orders (Tests/Meds): ED MEDICATIONS Generic Name Dose Route Start Last Admin Trade Name Freq PRN Reason Stop Dose Admin Metoprolol Tartrate 5 mg 04/16/23 11:49 Metoprolol Tartrate 5mg/5ml Vial IV Q15M PRN CTA Coronary Procedure Sodium Chloride 10 ml 04/16/23 10:05 04/16/23 10:06 Sodium Chloride 0.9% 10ml Syr (Rad Only) IV 05/16/23 10:04 10 ml NEEDED PRN Administration Maintain IV Site Discontinued Medications Generic Name Dose Route Start Last Admin Trade Name Freq PRN Reason Stop Dose Admin Aspirin 324 mg 04/16/23 08:46 04/16/23 09:23 Aspirin 81mg Chewable Tablet PO 04/16/23 08:47 324 mg ONCE ONE Administration Lactated Ringer's 1,000 mls @ 999 mls/hr 04/16/23 08:46 04/16/23 09:23 Lactated Ringer's 1000 Ml Bag IV 04/16/23 09:46 999 mls/hr .Q1H1M ONE Administration Sodium Chloride 1,000 mls @ 999 mls/hr 04/16/23 12:00 04/16/23 13:03 Sod Chlor 0.9% 1000ml Bag IV 04/16/23 13:00 999 mls/hr .Q1H1M LUZ Administration Iopamidol 100 ml 04/16/23 10:05 04/16/23 10:06 Iopamidol-370 (76%);100ml Bottle IV 04/16/23 10:06 100 ml ONCE ONE Administration Iopamidol 85 ml 04/16/23 12:53 04/16/23 12:54 Iopamidol-370 (76%);100ml Bottle IV 04/16/23 12:54 85 ml ONCE ONE Administration Metformin HCl 1,000 mg 04/16/23 12:06 04/16/23 13:00 Metformin 500mg Tablet PO 04/16/23 12:07 1,000 mg ONCE ONE Administration Metoprolol Tartrate 0 mg 04/16/23 11:49 04/16/23 13:02 Metoprolol Tartrate 50mg Tablet PO 04/16/23 11:50 50 mg ONCE ONE Administration Protocol Nicotine 21 mg 04/16/23 15:00 Nicotine 21mg/24hr Patch TD 04/16/23 15:01 ONCE ONE Nitroglycerin 0 mg 04/16/23 11:49 04/16/23 12:26 Nitroglycerin 0.4mg Sl Tablet SL 04/16/23 11:50 0.4 mg ONCE ONE Administration Protocol Sodium Chloride 50 ml 04/16/23 10:05 04/16/23 10:06 0.9 % Sodium Chloride 50 Ml Vial IV 04/16/23 10:06 50 ml ONCE ONE Administration Sodium Chloride 50 ml 04/16/23 12:53 04/16/23 12:54 0.9 % Sodium Chloride 50 Ml Vial IV 04/16/23 12:54 50 ml ONCE ONE Administration Sodium Chloride 10 ml 04/16/23 12:53 04/16/23 12:54 Sodium Chloride 0.9% 10ml Syr (Rad Only) IV 04/16/23 12:54 10 ml ONCE ONE Administration ORDERS Category Date Time Status CT angio coronary artery Stat Cat Scan 04/16/23 11:[address] angio head Stat Cat Scan 04/16/23 08:[address] angio neck Stat Cat Scan 04/16/23 08:[address] head/brain wo con Stat Cat Scan 04/16/23 08:46 Completed Cardiology Consult [Consult to Cardiology] [CONS] Cons 04/16/23 11:17 Active Routine CXR --portable [XR chest portable] Stat Exams 04/16/23 08:46 Completed CBC w/Auto Diff [Complete Blood Count Auto Diff] Stat Lab 04/16/23 08:53 Completed CMP [Comprehensive Metabolic Panel] Stat Lab 04/16/23 08:53 Completed CRP [C-Reactive Protein] Stat Lab 04/16/23 13:12 Completed Erythrocyte Sedimentation Rate Stat Lab 04/16/23 14:28 Received Rapid PCR Covid and Flu A/B Stat Lab 04/16/23 09:09 Completed Trop I [Troponin I] Stat Lab 04/16/23 08:53 Completed Troponin I Q3H Lab 04/16/23 13:12 Completed Troponin I Q3H Lab 04/16/23 15:00 Ordered CA echo doppler complete Routine Y 04/16/23 11:49 Completed ECG initial Besson Routine Y 04/16/23 08:35 Completed ECG repeat same Besson Routine Y 04/16/23 09:05 Completed MDM Narrative Medical Decision Narrative: In summary, this 58year old male presents to the emergency department today with concerns of chest pain, back pain, dizziness for the last 3 days. He also describes generalized malaise and a headache behind his right eye. On initial evaluation patient is hemodynamically stable, afebrile, resting comfortably though he states he feels unwell. Patient has lateral nystagmus in both directions, no focal neurologic deficits, cardiopulmonary exam reassuring. Differential diagnosis includes but is not limited to ACS, viral syndrome, BPPV, I also considered posterior stroke but did not make the patient a stroke alert because the symptoms have been going on for multiple days, electrolyte abnormality, dehydration. Based on these concerns, I ordered appropriate labs, imaging, viral testing, cardiac workup. ECG personally interpreted demonstrates sinus rhythm, rate 60, normal axis, patient has trace ST elevation in lead II, 3, aVF without reciprocal changes. Repeat EKG 30 minutes later is stable, no dynamic changes, sinus bradycardia, rate 56, similar elevations in lead II, 3, aVF without reciprocal changes. Normal axis. Patient received aspirin, IV fluids for treatment. Labs personally reviewed demonstrate CBC with no leukocytosis or anemia, CMP with no actionable electrolyte abnormalities, blood glucose 106, no findings of kidney or liver dysfunction, initial troponin less than 0.01, COVID, influenza negative. XR personally interpreted demonstrates no acute intrathoracic abnormality on my personal interpretation, see radiology read for final interpretation. CT imaging personally interpreted demonstrate no acute intracranial abnormality such as a bleed or mass, I do not appreciate any obvious stenosis or other vascular abnormality on CTA head or neck. See radiology reads for full interpretations. CT head does demonstrate findings consistent with sinusitis which is consistent with patient stating he has pressure behind his eyes, however he does not have fevers or other findings that necessitate antibiotic treatment. I had an interactive discussion with cardiology. They are recommending cardiac CT and echo. Patient was placed in ED observation at 1130 for these tests as well as serial troponin which will help determine disposition. Patient was reevaluated frequently and on the electric tool repairer while awaiting results. Repeat troponin shows the second troponin to also be less than 0.01, no significant delta. Cardiac CT was reviewed and discussed with cardiology. They are concerned that it demonstrates significant LAD disease and patient has a high calcium score. After these findings, they would like to admit the patient for cardiac cath tomorrow and recommend admission to the hospitalist. I discussed this plan with Dr. Rodney who is admitting on behalf of Dr. Sal and he is in agreement with this. Patient is amenable to this plan. He will be admitted. Total time in observation was 3 hours and 30 minutes.
[2023-04-16 09:05] LABS: Basophils # 0.1 K/mm3 (0-0.2); Lymphocytes # 2.4 K/mm3 (0.7-4.5); Red Cell Distribution Width 15.4 % (11.5-17.5)
--- NOTE | 2023-04-16 09:05 | ECG_ITS ---
APPROVED REPORT Exam: Resting ECG HR:56 bpm ECG Measurements Heart Rate 56 AXES VT 211 P 27 QRSd 93 QRS 66 QT 406 T 73 QTc 398 Conclusion SINUS BRADYCARDIA WITH FIRST DEGREE AV BLOCK ABNORMAL ECG UNCONFIRMED REPORT Electronically signed by : Jarod Raman MD 04/17/2023 07:48:13
[2023-04-16 09:10] LABS: Chloride 106 mmol/L (98-107)
[2023-04-16 09:11] LABS: Potassium 4.8 mmoL/L (3.5-5.1); Sodium 137 mmol/L (136-145)
[2023-04-16 09:13] LABS: Alanine Aminotransferase 27 U/L (12-78); Aspartate Amino Transferase 31 U/L (17-59); Blood Urea Nitrogen 19 mg/dl (9-20); Creatinine Clearance Estimated 163 mL/min (50-200); Estimated Glomerular Filt Rate 87 ml/min (>60); GFR (African American) 105 ML/MIN (>60)
[2023-04-16 09:14] LABS: Albumin Level 4.5 g/dl (3.5-5.0); Albumin/Globulin Ratio 1.4 (1.1-1.8); Alkaline Phosphatase 52 U/L (38-126); Anion Gap 12.8 mEq/L (5-15); Bilirubin,Total 0.8 mg/dl (0.2-1.3); Calcium 8.5 mg/dl (8.4-10.2); Carbon Dioxide 23 mmol/L (22.0-30.0); Globulin 3.3 g/dL (1.3-3.2); Glucose 106 mg/dl (74-100); Total Protein,Serum 7.8 g/dl (6.3-8.2)
[2023-04-16 09:18] LABS: Coronavirus 19, PCR Not Detected (NotDetected); Influenza A, PCR Not Detected (NotDetected); Influenza B, PCR Not Detected (NotDetected)
[2023-04-16] MEDS: LACTATED RINGERS 1000ML 1,000 ML 999 ML IV (09:23)
[2023-04-16] MEDS: ASPIRIN 81MG CHEWABLE TABLET 324 MG PO (09:23)
[2023-04-16 09:27] LABS: Basophils % 0.6 % (0.1-2.0); Eosinophils # 0.2 K/mm3 (0.0-0.4); Lymphocytes % 22.8 % (10-50); Mean Corpuscular HGB Conc 33.3 g/dL (31.8-35.4); Mean Corpuscular Hemoglobin 29.1 pg (27.0-31.2); Mean Corpuscular Volume 87.5 fl (80-94); Mean Platelet Volume 8.5 fl (7.4-10.4); Monocytes # 0.8 K/mm3 (0.1-1.0); Monocytes % 7.3 % (1.7-9.3); Neutrophils # 7.2 K/mm3 (1.8-7.8); Neutrophils % 67.3 % (37.0-80.0); Platelet Count 213 K/mm3 (142-424); Red Blood Count 6.18 M/mm3 (4.60-6.20); White Blood Count 10.6 K/mm3 (4.8-10.8)
[2023-04-16 09:31] LABS: Troponin I < 0.01 ng/ml (0.00-0.034)
[2023-04-16] MEDS: SODIUM CHLORIDE 0.9% 10ML SYR (RAD ONLY) 10 ML IV ×2 (10:06→12:54)
[2023-04-16] MEDS: IOPAMIDOL-370 (76%);100ML BOTTLE 100 ML IV (10:06)
[2023-04-16] MEDS: 0.9 % SODIUM CHLORIDE 50 ML VIAL IV ×2 (10:06→12:54)
--- NOTE | 2023-04-16 11:17 | PC.NURSE ---
called for cards consult
--- NOTE | 2023-04-16 11:38 | PC.NURSE ---
Ginger was at bedside
--- NOTE | 2023-04-16 11:49 | CA_ITS ---
APPROVED REPORT EXAM: Comprehensive 2D, Doppler, and color-flow Echocardiogram Clerical Adviser: Elvie Soliz RVT Ht: 5 ft 10 in Wt: 280lbs BSA: 2.41 BP: 151/94 mmHg Indications: CP,DIZZINESS,SMOKER,HTN TDS-PT BODY HABITUS AND OVERLAYING LUNG 2D Dimensions LA Volume 88.20 mL LA Volume Index 36.60 mL/m2 (M/F) 16-34 M-Mode Dimensions RVDd 3.52 cm (0.9-2.6) LA Diam 4.23 cm (1.9-4.0) LVDd 5.35 cm (3.5-5.7) LVDs 3.52 cm (3.5-5.7) IVSd 1.88 cm (0.6-1.1) PWd 1.08 cm (0.6-1.1) EF (Teich) 62.70% FS 34.20% EDV (Teich) 138.30 mL TAPSE 3.17 (<1.7) ESV (Teich) 51.60 mL LV Diastology E Decel Time 200 (160-240 msec) E/A Ratio 0.7 Aortic Valve MAMTA Index 1.90 cm2/m2 AoV Peak Jose. 146.0 (50-130 cm/s) AO Peak GR. 8.60 mmHg AO Mean GR. 4.70 (<5 mmHg) AO VTI 32.2 (18-25 cm) MAMTA (VTI) 4.70 (2.5-4.5 cm2) Mitral Valve MV E Max Jose. 58.0 (40-130 cm/s) MV A Velocity 79.0 (40-130 cm/s) E/A Ratio 0.74 MV PHT 59.0 ms Pulmonary Valve PV Peak Velocity 105.0 (50-150 cm/s) Left Ventricle The left ventricle is normal size. The left ventricular systolic function is normal. The left ventricular ejection fraction is within the normal range. There is increased LV wall thickness. There is normal LV segmental wall motion. The left ventricular diastolic function is normal. LVEF is 65%. Right Ventricle The right ventricle is normal size. The right ventricular systolic function is normal. Atria The left atrium size is normal. The right atrium size is normal. There is no Doppler evidence of interatrial shunt. Aortic Valve The aortic valve opens well. The aortic valve is trileaflet. There is no aortic valvular stenosis. Trace aortic regurgitation. Mitral Valve The mitral valve is normal in structure. Trace mitral regurgitation. Tricuspid Valve The tricuspid valve leaflets are thin and pliable. Trace tricuspid regurgitation. There is insufficient TR jet to estimate RVSP. Pulmonic Valve The pulmonary valve is normal in structure. Trace pulmonic regurgitation. Great Vessels The aortic root is normal in size. The ascending aorta is normal in size. IVC is normal in size and collapses >50% with inspiration. Pericardium There is no pericardial effusion. Other Information Study Quality: Technically Difficult Conclusion Technically difficult study due to poor acoustic windows. Normal biventricular systolic function. No significant valvular stenosis or regurgitation. No evidence of dissection in the aortic root or proximal segment of the ascending aorta. Electronically signed by : Joanie Moran MD 04/16/2023 22:08:54
--- NOTE | 2023-04-16 11:53 | CT_ITS ---
APPROVED REPORT Sales Systems Engineer: CLINICAL INDICATION Chest Pain TECHNIQUE Image Acquisition: A 128 slice MDCT scanner ([employer] View) was used for data acquisition. A noncontrast coronary calcium scan was performed. A CT attenuation threshold of 130 Hounsfield units (HU) was used for the detection of calcium in contiguous voxels of 1 sq mm in area to be counted as individual lesions. Bolus tracking in the ascending aorta with a threshold of 180 HU was performed. Immediately afterwards, ECG synchronized cardiac CT was then performed from the cardiac base to apex using retrospective gating with ECG tube current modulation. A total of 85 mL of Isovue 370 mg/mL contrast medium was administered at 5 mL/sec followed by a saline flush using a biphasic injection protocol. A tube voltage of 120 KVp was used. The patient received the following medications prior to the cardiac CT. 0.8 mg of sublingual nitroglycerin The average heart rate at the time of acquisition was 60 bpm and regular. Image Reconstruction Transaxial images were reconstructed at 0.67 mm slide thickness. Data was reviewed interactively on an advanced workstation capable of 2 and 3-dimensional displays in all conventional reconstruction formats, including multiplanar reformations, maximum intensity projections, curved multiplanar reformations, and volume rendered reconstructions. When applicable, selected routine images describing the relevant coronary anatomy and pathology were saved and sent to PACS. Complications None Technical Quality Overall image quality was poor. Coronary artery opacification was suboptimal Total DLP (Dose-Length Product) is 1626.1 mGy-cm. The reported value represents the total of one or more individual components during the CT acquisition of this date and at this time, and as such, the same value may appear in more than one CT report depending on the interpreting/reporting physicians. COMPARISON None FINDINGS CT Coronary Calcium Scoring LMA (Left Main Artery) = 0 LAD (Left Anterior Descending) = 86 LCX (Left Coronary Circumflex) = 2 RCA (Right Coronary Artery) = 17 Total Calcium Score = 105 using the AJ-130 method. The observed calcium score of 105 is at 76th percentile for subjects of the same age, sex, and race/ethnicity. The interpretation of the calcium heart score is based on the following continuum*: 0 = no calcified plaque detected (risk of coronary artery disease is very low ??? less than 5%) 1-10 = calcium detected in extremely minimal levels (risk of coronary diseases is still low ??? less than 10%) 11-100 = mild levels of plaque detected with certainty (mild or minimal narrowing of heart arteries is likely) 101-400 = definite,at least moderate levels of plaque detected (relatively high risk of a heart attack within 3-5 years) >401-999 = extensive levels of plaque detected (high risk of heart attack, high levels of vascular disease are present, high likelihood of at least one significant coronary narrowing) *The calcium heart score quantifies the burden of coronary calcification/plaque in the coronary arteries. The calcium heart score is not able to evaluate the presence or burden of non-calcified (i.e. soft) plaque. There is no identifiable calcification in the aortic valve, mitral annulus or mitral valve, pericardium, or myocardium. Coronary CT Angiography The coronary arterial system is right dominant. Quantitative Stenosis Grading: Left Main (LM): The left main originates normally from the left sinus of Valsalva. The LM bifurcates into the left anterior descending artery and left circumflex artery. The LM is patent with no evidence of atherosclerosis. Left Anterior Descending (LAD) and Diagonal Branches: The LAD gives off 3 diagonal branches. There is mixed calcified/non-calcified plaque in the proximal and mid LAD present, as well as the ostial and , with up to approximately 50-70% stenosis noted in the mid-LAD segment. This degree of luminal stenosis may be underestimated as visualized on the CT, considering the suboptimal CT quality and opacification. The remainder of the LAD and its branches are patent with no evidence of atherosclerosis. There is no evidence of LAD bridge. Left Circumflex (LCX) and Obtuse Marginals (OM): The LCX gives off 2 Obtuse Marginal (OM) branches. There is minimal calcification in the LCX with no evidence of luminal stenosis. Right Coronary Artery (RCA): The RCA originates normally from the right sinus of Valsalva. The RCA gives off a posterior descending artery (PDA) and posterolateral (PL) branches. There is calcification in the proximal and distal RCA, but overall no evidence of significant luminal stenosis. Non-Coronary Cardiac Findings: Analysis of the left ventricular (LV) structure and function was performed after 3-D reconstruction of the LV from axial images, with user-corrected automatic contouring for assessment of LV volumes and user-defined reconstruction from oblique planes for measurement of 3-D cardiac structure and function. LVEDV: 239 mL LVESV: 64 mL SV: 175 mL LVEF: 73 % -The left ventricle is in size with normal left ventricular systolic function. -There is no left atrial appendage filling defect. Two right pulmonary veins and two left pulmonary veins drain normally into the left atrium. -No pericardial thickening or calcification. -Central and branch pulmonary arteries in the [id number] are unremarkable. -Thoracic aorta within the visualized thoracic aortic-branches in the [id number] is unremarkable. Extracardiac Structures No significant extra-cardiac findings. IMPRESSION -Suboptimal study due to poor image quality and suboptimal opacification. -Presence of coronary calcification with an Agatston score = 105 using the AJ-130 method. -The observed calcium score of 105 is at 76th percentile for subjects of the same age, sex, and race/ethnicity. -Possible evidence of significant flow-limiting atherosclerosis of the LAD. -CAD-RADS 4A. Management recommendations per ACC/AHA guidelines*, as clinically appropriate. *Recommendations: CAD RADS 0: Reassurance. Consider non-atherosclerotic causes of chest pain. CAD RADS 1: Consider non-atherosclerotic causes of chest pain. Consider preventive therapy and risk factor modification. CAD RADS 2: Consider non-atherosclerotic causes of chest pain. Consider preventive therapy and risk factor modification, particularly for patients with nonobstructive plaque in multiple segments. CAD RADS 3: Consider further functional testing. Consider symptom-guided anti-ischemic and preventive pharmacotherapy as well as risk factor modification per published guideline statements. CAD RADS 4A: Consider further functional testing or invasive coronary angiography with revascularization per published guideline statements. Consider symptom-guided anti-ischemic and preventive pharmacotherapy as well as risk factor modification per published guideline statements. CAD RADS 4B: Invasive coronary angiography recommended with revascularization per published guideline statements. Consider symptom-guided anti-ischemic and preventive pharmacotherapy as well as risk factor modification per published guideline statements. CAD RADS 5: Consider invasive angiography and/or viability assessment with revascularization per published guideline statements. Consider symptom-guided anti-ischemic and preventive pharmacotherapy as well as risk factor modification per published guideline statements. CRITICAL RESULT None COMMUNICATION Per this written report The coronary and cardiac findings of this CCTA were reviewed, reported, and signed by Jan Moran MD (Regional Engineer) Conclusion Electronically signed by : Joanie Moran MD 04/16/2023 14:48:09
[2023-04-16] MEDS: NITROGLYCERIN 0.4MG SL TABLET SL (12:26)
--- NOTE | 2023-04-16 12:40 | EXP.CARD.CON ---
History of Present Illness History of Present Illness Consult date: 04/16/23 Requesting physician: Bhakti Kinney Chief complaint: chest pain History of present illness: 58-year-old white male with past medical history of hypertension, adl-jlintnf-bgnivajiy diabetes mellitus and 1 pack/day smoker greater than 20 years presented to emergency department with complaints of chest pain,upper back pain and dizziness x 3 days. Patient reports pain is sharp in nature and radiates to back and bilateral arms present both with activity and rest. Dizziness has been intermittent x 3 days and worse this morning prompting him to come to ER. Upon presentation to ER patient was found to be hypertensive with a systolic blood pressure greater than 170. EKG shows sinus bradycardia with a first-degree AV block rate 56 without acute ischemic changes noted. Labs as follow: WBC 10.6, hemoglobin 18, sodium 137, potassium 4.8, creatinine 0.9, troponin 0.01. Chest x-ray and CTA head/neck negative for acute process. Cardiology was asked to evaluate patient while in ER. [facility] Disclaimer: The information contained in this section may have been updated after the patient was seen, as this information can be updated by other users. Medical History (Updated 04/16/23 @ 15:58 by SHIRLEY Ojeda) Arthritis Diastolic dysfunction Eczema GERD (gastroesophageal reflux disease) Hyperlipidemia Obesity Sleep apnea Tobacco use Type 2 diabetes mellitus Surgical History (Updated 04/16/23 @ 15:58 by SHIRLEY Ojeda) History of medial meniscus repair of right knee S/P decompression of ulnar nerve at elbow Family History (Updated 04/16/23 @ 15:58 by SHIRLEY Ojeda) Other Cancer Social History Smoking Status: Never smoker alcohol intake: never current occupational status: other Travel in the last 8 weeks: None household members: spouse and children housing: house current occupation: [employer] current occupational exposures/hazards: No caffeine: Yes Review of Systems Constitutional Constitutional: Denies headache(s) and Denies weakness ENT Ears, Nose, Mouth, and Throat: Reports dizziness and Denies headache(s) *Cardiovascular Cardiovascular: Reports chest pain *Musculoskeletal Musculoskeletal: Denies numbness and Denies tingling *Neurologic Neurologic: Reports dizziness, Denies headache(s), Denies numbness, Denies tingling and Denies weakness Exam Data for Last 24 hours Vital signs and Labs for Last 24 Hours: Temp Pulse Resp BP Pulse Ox O2 Del Method 98.2 F 63 18 151/94 H 95 Room Air 04/16/23 08:42 04/16/23 11:42 04/16/23 11:42 04/16/23 11:42 04/16/23 11:42 04/16/23 10:31 Laboratory Results - last 24 hr 04/16/23 08:53: WBC 10.6, RBC 6.18, Hgb 18.0, Hct 54.0 H, MCV 87.5, MCH 29.1, MCHC 33.3, RDW 15.4, Plt Count 213, MPV 8.5, Neut % (Auto) 67.3, Lymph % (Auto) 22.8, Wilkinson % (Auto) 7.3, Eos % (Auto) 2.0, Baso % (Auto) 0.6, Neut # (Auto) 7.2, Lymph # (Auto) 2.4, Wilkinson # (Auto) 0.8, Eos # (Auto) 0.2, Baso # (Auto) 0.1, Sodium 137, Potassium 4.8, Chloride 106, Carbon Dioxide 23, Anion Gap 12.8, BUN 19, Creatinine 0.90, Estimated Creat Clear 163, Estimated GFR 87, Est GFR ( Amer) 105, Glucose 106 H, Calcium 8.5, Total Bilirubin 0.8, AST 31, ALT 27, Alkaline Phosphatase 52, Troponin I < 0.01, Total Protein 7.8, Albumin 4.5, Globulin 3.3 H, Albumin/Globulin Ratio 1.4 04/16/23 09:09: SARS-CoV-2 (PCR) Not detected, Influenza A Untype (PCR) Not detected, Influenza Type B (PCR) Not detected I & O for Last 24 hours: Intake & Output 04/13/23 04/14/23 04/15/23 04/16/23 23:59 23:59 23:59 23:59 Weight 280 lb Constitutional Constitutional: no acute distress *Routine Respiratory Exam Respiratory: Present CTA bilaterally and symmetric chest movement *Routine Cardiovascular Exam Cardiovascular: Present RRR, Normal S1 and Normal S2 *Routine Abdominal Exam Abdominal: Present soft and normoactive bowel sounds; Absent tenderness *Routine Extremities Exam Extremities: Present full ROM and normal capillary refill; Absent edema *Routine Skin Exam Skin: Present intact, dry and warm Detailed Neck Exam: Thyroids Thyroid: Absent bruit Meds Home Medications and Allergies Home Medications Medication Instructions Recorded Confirmed Type glucosamine 750 [id number] 1 cap PO DAILY Pain 11/25/19 03/12/21 History no1 644 mg-C 30 mg-luz 1 mg tablet meloxicam 7.5 mg tablet 7.5 mg PO DAILY Pain/INFLAMMATION 11/25/19 03/12/21 History furosemide 20 mg tablet 20 mg PO Q OTHER DAY 01/09/21 03/12/21 History lisinopril 5 mg tablet 5 mg PO DAILY 01/09/21 03/12/21 History tramadol 50 mg tablet 50 mg PO DAILY 01/09/21 03/12/21 History clindamycin HCl 300 mg capsule 300 mg PO Q8H 7 days #21 caps 11/11/21 Rx New Prescriptions to Start Prescriptions: Allergies Allergy/AdvReac Type Severity Reaction Status Date / Time No Known Allergies Allergy Verified 03/12/21 14:16 Assessment and Plan *Assessment and plan (1) Hypertension: Status: Acute Qualifiers: Hypertension type: unspecified Qualified Code(s): I10 - Essential (primary) hypertension Category: Medical Code(s): I10 - Essential (primary) hypertension (2) Chest pain: Status: Acute Category: Medical Code(s): R07.9 - Chest pain, unspecified (3) Unstable angina: Status: Acute Category: Medical Code(s): I20.0 - Unstable angina (4) Tobacco use: Status: Acute Category: Social Hx Code(s): Z72.0 - Tobacco use (5) Diabetes mellitus: Status: Acute Category: Medical Code(s): E11.9 - Type 2 diabetes mellitus without complications (6) Obesity: Status: Acute Category: Medical Code(s): E66.9 - Obesity, unspecified (7) Hyperlipidemia: Status: Acute Category: Medical Code(s): E78.5 - Hyperlipidemia, unspecified Plan Unstable angina CCS 3 -EKG negative for acute ischemic changes -Trop negative -CCTA 04/16: Calcium score 105 with possible flow-limiting disease to LAD noted -Recommend admission for unstable angina and abnormal CCTA with plan for left heart catheterization tomorrow morning. Discussed risk versus benefits with patient he is agreeable to proceed. -Echocardiogram is pending Hypertension -Uncontrolled with systolic greater than 160 -Increase lisinopril to 20 mg p.o. daily -CCTA was performed and is negative for acute dissection Diabetes mellitus -Consider addition of Jardiance 10 mg p.o. daily Hyperlipidemia -LDL goal less than 55, LDL is 110. -Start high-dose statin Current tobacco use -Smoking cessation advised CV summary 04/08/2023: Patient will be admitted and will proceed with left heart catheterization tomorrow to further evaluate for ischemic disease. Echocardiogram is pending.
[2023-04-16] MEDS: IOPAMIDOL-370 (76%);100ML BOTTLE 85 ML IV (12:54)
[2023-04-16] MEDS: METFORMIN 500MG TABLET 1000 MG PO (13:00)
[2023-04-16] MEDS: METOPROLOL TARTRATE 50MG TABLET PO (13:02)
[2023-04-16] MEDS: 0.9 % SODIUM CHLORIDE 1000ML 1,000 ML 999 ML IV (13:03)
[2023-04-16 13:49] LABS: Troponin I < 0.01 ng/ml (0.00-0.034)
[2023-04-16 14:32] LABS: C-Reactive Protein 13.9 mg/L (0-4)
[2023-04-16 15:25] LABS: Erythrocyte Sedimentation Rate 11 mm/hr (0-20)
--- NOTE | 2023-04-16 15:48 | P.HP_ITS ---
History of Present Illness *Admission Date: 04/16/23 *Reason for visit:: chest pain *History of present illness: 58-year-old white male with past medical history of hypertension, [id number] diabetes mellitus and 1 pack/day smoker greater than 20 years presented to emergency department with complaints of chest pain,upper back pain and dizziness x 3 days. Patient reports pain is sharp in nature and radiates to back and bilateral arms present both with activity and rest. Dizz iness has been intermittent x 3 days and worse this morning prompting him to come to ER. Upon presentation to ER patient was found to be hypertensive with a systolic blood pressure greater than 170. EKG shows sinus bradycardia with a first-degree AV block rate 56 without acute ischemic changes noted. Labs as follow: WBC 10.6, hemoglobin 18, sodium 137, potassium 4.8, creatinine 0.9, troponin 0.01. Chest x-ray and CTA head/neck negative for acute process. Cardiology was asked to evaluate patient while in ER. (above as per Cardiology) [facility] Disclaimer: The information contained in this section may have been updated after the patient was seen, as this information can be updated by other users. Medical History (Updated 04/16/23 @ 16:54 by TRACEY Rios) Allergies Arthritis Diastolic dysfunction Eczema GERD (gastroesophageal reflux disease) Hyperlipidemia Obesity Sleep apnea Tobacco use Type 2 diabetes mellitus Surgical History (Updated 04/16/23 @ 16:54 by TRACEY Rios) History of esophagogastroduodenoscopy (EGD) History of medial meniscus repair of right knee S/P decompression of ulnar nerve at elbow Family History (Updated 04/16/23 @ 16:54 by TRACEY Rios) Liver cancer Colon cancer Family history of diabetes mellitus type II Lung cancer Cancer Social History (Updated 04/16/23 @ 16:54 by TRACEY Rios) Smoking Status: Current every day smoker tobacco type: cigarettes packs per day: 1 alcohol intake: never current occupational status: employed and other Travel in the last 8 weeks: None household members: spouse and children housing: house current occupation: [employer] current occupational exposures/hazards: No caffeine: Yes Review of Systems Constitutional Constitutional: Reports excessive sweating, Reports fatigue, Reports headache(s) and Denies weakness Eyes Eyes: Denies blurry vision and Denies diplopia ENT Ears, Nose, Mouth, and Throat: Reports dizziness, Reports headache(s), Reports nasal congestion and Reports sinus pressure *Cardiovascular Cardiovascular: Reports chest pain, Reports diaphoresis, Reports dyspnea, Reports leg edema and Reports lightheadedness *Respiratory Respiratory: Denies chest congestion, Reports cough and Reports dyspnea *Gastrointestinal Gastrointestinal: Denies abdominal pain, Denies diarrhea, Denies nausea and Denies vomiting *Genitourinary Genitourinary: Denies difficulty urinating and Denies dysuria *Musculoskeletal Musculoskeletal: Reports muscle weakness, Denies myalgias, Denies numbness and Denies tingling *Neurologic Neurologic: Reports dizziness, Reports headache(s), Denies numbness, Denies tingling and Denies weakness Endocrine Endocrine: Reports excessive sweating and Reports fatigue Meds Home Medications and Allergies Home Medications Medication Instructions Recorded Confirmed Type furosemide 20 mg tablet 20 mg PO DAILY 01/09/21 04/16/23 History lisinopril 5 mg tablet 20 mg PO DAILY 01/09/21 04/16/23 History albuterol sulfate 90 mcg/actuation See Rx Instructions .Route .COMPLEX 04/16/23 04/16/23 History aerosol inhaler empagliflozin 25 mg tablet 25 mg PO DAILY 04/16/23 04/16/23 History (Jardiance) ipratropium 20 mcg-albuterol 100 1 puff inhalation Q4H 04/16/23 04/16/23 History mcg/actuation mist for inhalation (Combivent Respimat) loratadine 10 mg tablet 10 mg PO DAILY PRN Allergy Symptoms 04/16/23 04/16/23 History metformin 1,000 mg tablet,extended 1,000 mg PO DAILY 04/16/23 04/16/23 History release 24hr (osmotic) metformin 500 mg tablet,extended 500 mg PO HS 04/16/23 04/16/23 History release 24 hr metoprolol succinate 100 mg 100 mg PO DAILY 04/16/23 04/16/23 History tablet,extended release 24 hr montelukast 10 mg tablet 10 mg PO HS 04/16/23 04/16/23 History New Prescriptions to Start Prescriptions: Allergies Allergy/AdvReac Type Severity Reaction Status Date / Time No Known Allergies Allergy Verified 03/12/21 14:16 Exam Data for Last 24 hours Vital signs and Labs for Last 24 Hours: Temp Pulse Resp BP Pulse Ox O2 Del Method 98.2 F 60 18 147/89 H 96 Room Air 04/16/23 08:42 04/16/23 14:01 04/16/23 14:01 04/16/23 14:01 04/16/23 14:01 04/16/23 14:01 Laboratory Results - last 24 hr 04/16/23 08:53: WBC 10.6, RBC 6.18, Hgb 18.0, Hct 54.0 H, MCV 87.5, MCH 29.1, MCHC 33.3, RDW 15.4, Plt Count 213, MPV 8.5, Neut % (Auto) 67.3, Lymph % (Auto) 22.8, [place] % (Auto) 7.3, Eos % (Auto) 2.0, Baso % (Auto) 0.6, Neut # (Auto) 7.2, Lymph # (Auto) 2.4, [place] # (Auto) 0.8, Eos # (Auto) 0.2, Baso # (Auto) 0.1, Sodium 137, Potassium 4.8, Chloride 106, Carbon Dioxide 23, Anion Gap 12.8, BUN 19, Creatinine 0.90, Estimated Creat Clear 163, Estimated GFR 87, Est GFR ( Amer) 105, Glucose 106 H, Calcium 8.5, Total Bilirubin 0.8, AST 31, ALT 27, Alkaline Phosphatase 52, Troponin I < 0.01, Total Protein 7.8, Albumin 4.5, Globulin 3.3 H, Albumin/Globulin Ratio 1.4 04/16/23 09:09: SARS-CoV-2 (PCR) Not detected, Influenza A Untype (PCR) Not detected, Influenza Type B (PCR) Not detected 04/16/23 13:12: Troponin I < 0.01, C-Reactive Protein 13.9 H 04/16/23 14:28: ESR 11 I & O for Last 24 hours: Intake & Output 04/14/23 04/15/23 04/16/23 04/17/23 11:59 11:59 11:59 11:59 Weight 280 lb Constitutional Constitutional: no acute distress *Routine HEENT Exam Head: Present normocephalic and atraumatic Eye: Present EOMI and PERRL ENT: Present mucous membranes moist *Routine Neck Exam Neck: Present supple and full ROM *Routine Respiratory Exam Respiratory: Present CTA bilaterally *Routine Cardiovascular Exam Cardiovascular: Present RRR *Routine Abdominal Exam Abdominal: Present soft and normoactive bowel sounds; Absent tenderness *Routine Rectal Exam Rectal:: deferred *Routine Genitalia Exam Genitalia:: deferred *Routine Extremities Exam Extremities: Absent cyanosis, clubbing or edema *Routine Skin Exam Skin: Present intact; Absent erythema *Routine Neurological Exam Neurological: Present alert and oriented X3 H&P: Result Impressions CXR - No acute cardiopulmonary process Head CT - Mild to moderate atrophy, somewhat greater than expected for the patient's chronologic age. Head CTA - No acute process. Neck CTA - No significant arterial abnormality. Coronary CT angiography?poor study due to poor image quality, calcium score is 105, possible evidence of significant flow-limiting atherosclerosis of the LAD Assessment and Plan *Assessment and plan (1) Unstable angina: Status: Acute Category: Medical Code(s): I20.0 - Unstable angina (2) Dizziness: Status: Acute Category: Medical Code(s): R42 - Dizziness and giddiness (3) Chest pain: Status: Acute Qualifiers: Chest pain type: unspecified Qualified Code(s): R07.9 - Chest pain, unspecified Category: Medical Code(s): R07.9 - Chest pain, unspecified (4) Type 2 diabetes mellitus: Status: Acute Category: Medical Code(s): E11.9 - Type 2 diabetes mellitus without complications (5) Hyperlipidemia: Status: Acute Category: Medical Code(s): E78.5 - Hyperlipidemia, unspecified (6) Obesity: Status: Acute Category: Medical Code(s): E66.9 - Obesity, unspecified (7) Tobacco use: Status: Acute Category: Social Hx Code(s): Z72.0 - Tobacco use Plan Cardiology plans to do a heart cath tomorrow. Will discuss further care with Dr. Rodney.
[2023-04-16] MEDS: NICOTINE 21MG/24HR PATCH 21 MG TD (15:52)
[2023-04-16 15:58] LABS: Troponin I < 0.01 ng/ml (0.00-0.034)
[2023-04-16] MEDS: LISINOPRIL 20MG TABLET 20 MG PO (16:04)
--- NOTE | 2023-04-16 16:16 | PC.NURSE ---
SPOKE TO SAMMI IN ADMISSIONS TO PLACE PATIENT IN A BED ASSIGNMENT, ROOM 200.
--- NOTE | 2023-04-16 16:21 | PC.NURSE ---
report called to weston on second floor
[2023-04-16] MEDS: ATORVASTATIN 40MG TABLET 80 MG PO (20:32)
[2023-04-16] MEDS: ACETAMINOPHEN 325MG TAB 650 MG PO (21:11)
[2023-04-17] VITALS (19 sets, daily range): BP systolic 132–176; BP diastolic 59–104; PULSE 52–71; RESP 1–20; TEMP 36.4–36.9; O2SAT 2–98; BMI 39.2
--- NOTE | 2023-04-17 04:08 | PC.NURSE ---
HAS USED HIS CPAP ALL NIGHT. NAD. NPO SINCE MN. SPOUSE AT BEDSIDE.
[2023-04-17] MEDS: AMLODIPINE 5MG TABLET 5 MG PO (06:42)
--- NOTE | 2023-04-17 06:44 | PC.NURSE ---
PATIENTS BP ELEVATED, 159/111. DR DOMINGO AND DR TRAMMELL NOTIFIED. RECEIVED ORDER FROM DR DOMINGO TO ADMINISTER AMLODIPINE 5 MG PO NOW X 1 DOSE.
--- NOTE | 2023-04-17 07:12 | HMH.PHAINT1 ---
Pharmacy Intervention Comments: MEDICATION RECONCILIATION COMPLETED ON PATIENT USING EXTERNAL FILL HISTORY FROM PHARMACY. -LIEN MARTIN, MAGALYD
--- NOTE | 2023-04-17 07:17 | IR_ITS ---
APPROVED REPORT Patient Location: Inpatient Gallery Intern: ABILIO Rich RT (R) PROCEDURES Left heart catheterization Left ventriculogram Selective coronary angiogram Drug-eluting stent deployment to the mid LAD INDICATION Coronary artery disease, Unstable angina, Informed consent was obtained prior to the procedure. COMPLICATIONS NONE Estimated Blood Loss: LESS THAN 10 ML TECHNIQUE One percent lidocaine used to anesthetize the right anterior aspect of the wrist. The right radial artery was accessed via the Seldinger technique. A 6 Brazilian sheath was placed in the right radial artery. 2.5 mg of Verapamil, 800 mcg of nitroglycerin, 1mg Lidocaine and 5000 U Heparin were given through the arterial sheath. The papa catheter was also used to perform left heart catheterization, left ventriculogram and selective coronary angiogram. At the end the diagnostic angiogram therapeutic heparin was administered giving a therapeutic ACT and the guide catheter was placed in left main artery followed by Choice PT extra-support wire being placed down the LAD. A 3.5 x 18 mm [place] frontier stent was deployed at 16 flex reducing the stenosis. Proximally there was significant stepdown from the stent which accentuated the mid LAD stenosis. An additional 4 mm x 18 mm [place] frontier stent was placed proximal to the for stent yet still overlapping it and deployed at 20 flex. The balloon was advanced and deployed at 14 flex between the 2 stents. Stenosis was then identified distal to the 3.5 mm stent which resolved after the administration of 1000 mcg of intracoronary nitroglycerin. A 3.75 x 8 mm noncompliant balloon was then deployed in the midportion of the 3.5 mm stent deployed at 22 flex to post dilate the stenotic area. ARNOLDO-3 flow was present before and after the procedure. At the end of the procedure the apparatus was removed the sheath was removed and hemostasis was achieved using TR banding patient was transferred to the postop holding in stable condition ANGIOGRAPHIC RESULTS The left main artery Normal The left anterior descending artery Has proximal mild 10% stenosis with a mid vessel concentric 70 to 80% stenosis distal to the third diagonal artery. There is an additional 60 to 70% stenosis immediately distal to the fourth diagonal artery and the distal LAD. The circumflex artery Is nondominant and has 10 and 20% diffuse stenoses The right coronary artery Is a massively large dominant vessel and has proximal and mid vessel 10 to 20% stenoses The [place] ventriculogram reveals Hyperdynamic at 70 to 75% The left ventricular end-diastolic pressure Severely elevated at 30 mmHg IMPRESSION Severe mid LAD disease as described above Successful stenting of the mid LAD severe disease reduced to less than 10% with 2 contiguous drug-eluting stents Hyperdynamic ventricle Severely elevated LVEDP PLAN 1. Dual antiplatelet therapy with Effient and aspirin 2. LDL less than 55 to be achieved with high intensity statin 3. Recommend sleep study 4. Refer to heme-onc for polycythemia 5. Renal ultrasound to evaluate for possible renal mass causing the polycythemia 6. Recommend sleep study for suspected obstructive sleep apnea causing the polycythemia 7. Cardiac rehabilitation 8. Avoidance of tobacco products 9. Control of hypertension Electronically signed by : Vinayak Lambert MD 04/17/2023 14:45:41
[2023-04-17] MEDS: ACETAMINOPHEN 325MG TAB 650 MG PO (07:50)
--- NOTE | 2023-04-17 08:01 | P.PN_ITS ---
Subjective *Date: 04/17/23 *Time: 08:41 Interval history: Patient states he is still having some chest pain off and on. The dizziness is better. He did not rest well. Has been NPO this am for heart cath. He would like a nicotine patch. Medical Exam Vital signs and Labs for Last 24 Hours: Vital Signs Temp Pulse Pulse Resp BP BP Pulse Ox 04/17/23 07:53 04/17/23 06:27 04/17/23 05:00 04/17/23 04:00 65 04/17/23 04:00 97.6 F 64 18 167/97 H 97 04/17/23 03:00 04/17/23 00:56 04/17/23 00:00 61 04/17/23 00:00 98.0 F 63 20 147/85 H 95 04/16/23 23:00 04/16/23 21:00 04/16/23 20:00 96 04/16/23 20:00 98.3 F 67 20 150/81 H 96 04/16/23 16:14 04/16/23 18:35 04/16/23 17:00 04/16/23 16:37 98.2 F 61 16 162/93 H 97 04/16/23 15:31 13 164/89 H 04/16/23 15:25 24 162/89 H 04/16/23 15:01 13 160/97 H 04/16/23 14:31 55 L 134/76 95 04/16/23 16:33 98.0 F 60 17 164/89 H 04/16/23 14:01 60 18 147/89 H 96 04/16/23 13:31 60 18 129/83 95 04/16/23 13:20 60 20 136/82 95 04/16/23 12:01 60 20 169/95 H 95 04/16/23 11:42 63 18 151/94 H 95 04/16/23 10:31 60 163/90 H 96 04/16/23 10:14 58 L 147/87 H 97 04/16/23 09:31 61 151/90 H 96 04/16/23 09:00 62 18 159/92 H 96 04/16/23 08:42 98.2 F 60 20 178/98 H 98 O2 Del Method 04/17/23 07:53 Room Air 04/17/23 06:27 Room Air 04/17/23 05:00 CPAP 04/17/23 04:00 04/17/23 04:00 CPAP 04/17/23 03:00 CPAP 04/17/23 00:56 CPAP 04/17/23 00:00 04/17/23 00:00 CPAP 04/16/23 23:00 CPAP 04/16/23 21:00 CPAP 04/16/23 20:00 Room Air 04/16/23 20:00 Room Air 04/16/23 16:14 Room Air 04/16/23 18:35 Room Air 04/16/23 17:00 Room Air 04/16/23 16:37 Room Air 04/16/23 15:31 04/16/23 15:25 04/16/23 15:01 04/16/23 14:31 Room Air 04/16/23 16:33 Room Air 04/16/23 14:01 Room Air 04/16/23 13:31 04/16/23 13:20 04/16/23 12:01 04/16/23 11:42 04/16/23 10:31 Room Air 04/16/23 10:14 Room Air 04/16/23 09:31 Room Air 04/16/23 09:00 Room Air 04/16/23 08:42 Room Air Intake and Output 04/16/23 04/17/23 04/17/23 19:59 03:59 11:59 Intake Total 240 / 480 240 / 480 Output Total 0 / 0 Balance 240 / 480 240 / 480 0 / 480 Intake: Intake, Oral Amount 240 / 480 240 / 480 Output: Output, Urine Amount 0 / 0 Other: Number of Unmeasured Voids 1 Weight 282 lb 1 oz 273 lb 14.4 oz Patient Weight 04/17/23 11:59 Weight 273 lb 14.4 oz Laboratory Results - last 24 hr 04/16/23 08:53: WBC 10.6, RBC 6.18, Hgb 18.0, Hct 54.0 H, MCV 87.5, MCH 29.1, MCHC 33.3, RDW 15.4, Plt Count 213, MPV 8.5, Neut % (Auto) 67.3, Lymph % (Auto) 22.8, [place] % (Auto) 7.3, Eos % (Auto) 2.0, Baso % (Auto) 0.6, Neut # (Auto) 7.2, Lymph # (Auto) 2.4, [place] # (Auto) 0.8, Eos # (Auto) 0.2, Baso # (Auto) 0.1, Sodium 137, Potassium 4.8, Chloride 106, Carbon Dioxide 23, Anion Gap 12.8, BUN 19, Creatinine 0.90, Estimated Creat Clear 163, Estimated GFR 87, Est GFR ( Amer) 105, Glucose 106 H, Calcium 8.5, Total Bilirubin 0.8, AST 31, ALT 27, Alkaline Phosphatase 52, Troponin I < 0.01, Total Protein 7.8, Albumin 4.5, Globulin 3.3 H, Albumin/Globulin Ratio 1.4 04/16/23 09:09: SARS-CoV-2 (PCR) Not detected, Influenza A Untype (PCR) Not detected, Influenza Type B (PCR) Not detected 04/16/23 13:12: Troponin I < 0.01, C-Reactive Protein 13.9 H 04/16/23 14:28: ESR 11 04/16/23 15:10: Troponin I < 0.01 I & O for Labs for Last 24 Hours: Intake & Output 04/14/23 04/15/23 04/16/23 04/17/23 11:59 11:59 11:59 11:59 Intake Total 480 / 480 Output Total 0 / 0 Balance 480 / 480 Weight 280 lb 273 lb 14.4 oz Constitutional: Present no acute distress Respiratory: Present CTA bilaterally Cardiac: Present Reg Rate and Rhythm GI: Present soft and normal bowel sounds; Absent distention or tenderness Extremities: Absent edema, clubbing or cyanosis Skin: Present intact Neuro: Present alert and awake Assessment and Plan *Assessment and plan (1) Unstable angina: Status: Acute Category: Medical Code(s): I20.0 - Unstable angina (2) Dizziness: Status: Acute Category: Medical Code(s): R42 - Dizziness and giddiness (3) Chest pain: Status: Acute Qualifiers: Chest pain type: unspecified Qualified Code(s): R07.9 - Chest pain, unspecified Category: Medical Code(s): R07.9 - Chest pain, unspecified (4) Type 2 diabetes mellitus: Status: Acute Category: Medical Code(s): E11.9 - Type 2 diabetes mellitus without complications (5) Hyperlipidemia: Status: Acute Category: Medical Code(s): E78.5 - Hyperlipidemia, unspecified (6) Obesity: Status: Acute Category: Medical Code(s): E66.9 - Obesity, unspecified (7) Tobacco use: Status: Acute Category: Social Hx Code(s): Z72.0 - Tobacco use Plan Awaiting heart cath. Will order a nicotine patch. Dr. Sal entry - Saw patient, agree with above note.
--- NOTE | 2023-04-17 08:10 | PC.NURSE ---
primary tech note: nurse notified about pt's 0800 BP.
[2023-04-17] MEDS: NICOTINE 21MG/24HR PATCH 21 MG TD (09:11)
[2023-04-17] MEDS: LISINOPRIL 20MG TABLET 20 MG PO ×2 (09:15→11:47)
--- NOTE | 2023-04-17 09:36 | EXP.CARD.PN ---
Subjective Subjective Date: 04/17/23 Time: 08:00 Principal diagnosis: unstable angina, abnormal testing Interval history: Patient doing well this morning. Reports has had ongoing chest pressure throughout the evening. Blood pressure is acceptable. Morning labs reviewed. Patient is awaiting left heart catheterization. Troponins remain negative. Exam Data for Last 24 hours Vital signs and Labs for Last 24 Hours: Temp Pulse Resp BP Pulse Ox O2 Del Method 98.4 F 67 18 153/98 H 93 L Room Air 04/17/23 08:00 04/17/23 08:00 04/17/23 08:00 04/17/23 08:00 04/17/23 08:00 04/17/23 08:00 Laboratory Results - last 24 hr 04/16/23 09:09: SARS-CoV-2 (PCR) Not detected, Influenza A Untype (PCR) Not detected, Influenza Type B (PCR) Not detected 04/16/23 13:12: Troponin I < 0.01, C-Reactive Protein 13.9 H 04/16/23 14:28: ESR 11 04/16/23 15:10: Troponin I < 0.01 I & O for Last 24 hours: Intake & Output 04/14/23 04/15/23 04/16/23 04/17/23 23:59 23:59 23:59 23:59 Intake Total 240 / 480 240 / 240 Output Total 0 / 0 Balance 240 / 480 240 / 240 Weight 282 lb 1 oz 273 lb 14.4 oz Constitutional Constitutional: no acute distress *Routine Respiratory Exam Respiratory: Present CTA bilaterally and symmetric chest movement *Routine Cardiovascular Exam Cardiovascular: Present RRR, Normal S1 and Normal S2 *Routine Abdominal Exam Abdominal: Present soft and normoactive bowel sounds; Absent tenderness *Routine Extremities Exam Extremities: Present full ROM and normal capillary refill; Absent edema *Routine Skin Exam Skin: Present intact, dry and warm Detailed Neck Exam: Thyroids Thyroid: Absent bruit Progress Note: A&P Assessment and plan (1) Unstable angina: Status: Acute (2) Dizziness: Status: Acute (3) Chest pain: Status: Acute (4) Type 2 diabetes mellitus: Status: Acute (5) Hyperlipidemia: Status: Acute (6) Obesity: Status: Acute (7) Tobacco use: Status: Acute Assessment and Plan Assessment and Plan for All Diagnoses:: Unstable angina CCS 3 -EKG negative for acute ischemic changes -Trop negative -CCTA 04/16: Calcium score 105 with possible flow-limiting disease to LAD noted -Left heart catheterization scheduled for this morning. Discussed risk versus benefits with patient he is agreeable to proceed. -Echocardiogram 03/2023: Normal biventricular systolic function, no significant valvular stenosis or regurgitation, no evidence of dissection in the aortic root or proximal segment of the ascending aorta Hypertension -Uncontrolled with systolic greater than 160 -Increase lisinopril to 20 mg p.o. daily -CCTA was performed and is negative for acute dissection Diabetes mellitus -Consider addition of Jardiance 10 mg p.o. daily Hyperlipidemia -LDL goal less than 55, LDL is 110. -Start high-dose statin Current tobacco use -Smoking cessation advised CV summary 04/17/2023: We will proceed with left heart catheterization today to further evaluate chest pain given patient's history of hypertension and abnormal CCTA.
--- NOTE | 2023-04-17 11:36 | PC.NURSE ---
Ginger notified of BP 176/101. New orders received. Give Lisinopril 20 mg PO once now.
--- NOTE | 2023-04-17 12:22 | PC.NURSE ---
primary tech note: nurse notified of patient's 1200 vital signs
[2023-04-17] MEDS: diphenhydrAMINE 50MG/ML VIAL 50 MG IV (14:06)
[2023-04-17] MEDS: HEPARIN 1,000 UNITS/ML 10ML VIAL (CATH LAB) 10000 UNIT IV ×2 (14:06→14:25)
[2023-04-17] MEDS: VERAPAMIL 2.5MG/ML 2ML VIAL 2.5 MG IV (14:06)
[2023-04-17] MEDS: NITROGLYCERIN 800MCG/8ML SYR (CATH LAB) 800 MCG IA (14:06)
[2023-04-17] MEDS: FENTANYL 100MCG/2ML VIAL 50 MCG IV (14:07)
[2023-04-17] MEDS: LIDOCAINE 1% 10ML MDV 20 ML IJ (14:07)
[2023-04-17] MEDS: MIDAZOLAM HCL 1MG/1ML 5ML VIAL 1 MG IV (14:07)
[2023-04-17] MEDS: HEPARIN 1,000 UNITS/500ML NS (CATH LAB) 3000 UNIT IV (14:07)
[2023-04-17] MEDS: 0.9 % SODIUM CHLORIDE 500 ML 25 ML IV (14:07)
[2023-04-17] MEDS: ASPIRIN 325MG TABLET 325 MG PO (14:59)
[2023-04-17] MEDS: PRASUGREL 10MG TAB 60 MG PO (14:59)
[2023-04-17] MEDS: IOPAMIDOL-370 (76%);100ML BOTTLE 110 ML IV (15:09)
[2023-04-17 15:13] LABS: CATHL Activated Clotting Time 371 SEC (74-125)
[2023-04-17] MEDS: MORPHINE 4MG/ML SYRINGE 4 MG IV ×4 (15:15→20:14)
--- NOTE | 2023-04-17 15:23 | ECG_ITS ---
APPROVED REPORT Exam: Resting ECG HR:56 bpm ECG Measurements Heart Rate 56 AXES AR 192 P 10 QRSd 90 QRS 40 QT 414 T 57 QTc 406 Conclusion SINUS BRADYCARDIA BORDERLINE ECG UNCONFIRMED REPORT Electronically signed by : Jarod Raman MD 04/18/2023 08:43:48
--- NOTE | 2023-04-17 15:56 | PC.NURSE ---
Pt continues to C/O chest pain with a rating of 9. Pt states it feels like something heavy is on his chest. director of labor and delivery called. New orders received per Petra for Echo. MD Lambert will be up to see pt.
--- NOTE | 2023-04-17 15:57 | CA_ITS ---
APPROVED REPORT EXAM: Limited 2D Echocardiogram Flash Welder: Elvie Soliz RVT Ht: 5 ft 10 in Wt: 273lbs BSA: 2.38 BP: 146/80 mmHg Indications: S/P CATH LOOK FOR PERICARDIAL EFFUSION,CP M-Mode Dimensions RVDd 1.84 cm (0.9-2.6) LA Diam 4.23 cm (1.9-4.0) LVDd 5.02 cm (3.5-5.7) LVDs 2.92 cm (3.5-5.7) IVSd 1.18 cm (0.6-1.1) PWd 0.92 cm (0.6-1.1) EF (Teich) 72.50% FS 41.80% EDV (Teich) 119.30 mL ESV (Teich) 32.80 mL Other Information Study Quality: Fair Conclusion This is a limited TTE to evaluate for pericardial effusions. Limited windows were obtained. The left ventricle is normal in size. There is marked increase in LV wall thickness (IVSd 1.9 cm). There is normal LV systolic function. No regional wall motion abnormalities are noted. LVEF is 65%. No evidence of systolic anterior motion (PETER) of the MV leaflets. In the setting of marked increased LV wall thickness, further outpatient evaluation is recommended with cardiac MRI (HCM protocol). Electronically signed by : Joanie Moran MD 04/18/2023 23:56:46
--- NOTE | 2023-04-17 16:20 | PC.NURSE ---
New orders received from MD Lambert. Morphine 4 mg IV Q1hr prn for pain.
[2023-04-17] MEDS: NITROGLYCERIN 1 GM OINTMENT TD (17:45)
--- NOTE | 2023-04-17 18:51 | PC.NURSE ---
radial site closure device removed without complications
[2023-04-17] MEDS: ATORVASTATIN 40MG TABLET 80 MG PO (20:15)
--- NOTE | 2023-04-17 20:51 | PC.NURSE ---
patient c/o CP and SOA at 2019 - administered morphine per JUN and applied 2L NC for comfort - O2 sat @ 95% IV replaced - new 20g in LFA saline locked
[2023-04-18] VITALS: BP 156/91; PULSE 58; PULSE 66; RESP 18; TEMP 36.6; O2SAT 95
[2023-04-18 01:30] VITALS: BP 135/88; PULSE 56; RESP 16; O2SAT 93
[2023-04-18] MEDS: MORPHINE 4MG/ML SYRINGE 4 MG IV ×2 (02:46→07:39)
[2023-04-18] MEDS: NITROGLYCERIN 1 GM OINTMENT TD ×2 (02:54→09:30)
--- NOTE | 2023-04-18 02:55 | PC.NURSE ---
pt c/o CP after awakening and ambulating to the toilet. morphine was administered per MAR, then nitro paste was administered to the right chest. patient reports relief.
[2023-04-18 04:00] VITALS: BP 135/72; PULSE 56; PULSE 60; RESP 18; TEMP 36.8; O2SAT 95; BMI 39.2
[2023-04-18] MEDS: ACETAMINOPHEN 325MG TAB 650 MG PO (04:31)
[2023-04-18 06:52] LABS: Chloride 104 mmol/L (98-107); Sodium 133 mmol/L (136-145)
[2023-04-18 06:53] LABS: Potassium 3.9 mmoL/L (3.5-5.1)
[2023-04-18 06:55] LABS: Basophils # 0.1 K/mm3 (0-0.2); Basophils % 0.5 % (0.1-2.0); Blood Urea Nitrogen 23 mg/dl (9-20); Creatinine Clearance Estimated 159 mL/min (50-200); Eosinophils # 0.2 K/mm3 (0.0-0.4); Eosinophils % 1.5 % (0.1-12.0); Estimated Glomerular Filt Rate 87 ml/min (>60); GFR (African American) 105 ML/MIN (>60); Hematocrit 52.5 % (42.0-52.0); Hemoglobin 17.7 g/dL (14.1-18.0); Lymphocytes # 2.1 K/mm3 (0.7-4.5); Lymphocytes % 18.4 % (10-50); Mean Corpuscular HGB Conc 33.7 g/dL (31.8-35.4); Mean Corpuscular Hemoglobin 29.4 pg (27.0-31.2); Mean Corpuscular Volume 87.2 fl (80-94); Mean Platelet Volume 7.8 fl (7.4-10.4); Monocytes # 0.8 K/mm3 (0.1-1.0); Monocytes % 7.3 % (1.7-9.3); Neutrophils # 8.4 K/mm3 (1.8-7.8); Neutrophils % 72.4 % (37.0-80.0); Platelet Count 224 K/mm3 (142-424); Red Blood Count 6.03 M/mm3 (4.60-6.20); Red Cell Distribution Width 15.4 % (11.5-17.5); White Blood Count 11.6 K/mm3 (4.8-10.8)
[2023-04-18 06:56] LABS: Anion Gap 11.9 mEq/L (5-15); Calcium 8.4 mg/dl (8.4-10.2); Carbon Dioxide 21 mmol/L (22.0-30.0); Glucose 109 mg/dl (74-100)
[2023-04-18 08:00] VITALS: BP 165/91; PULSE 50; PULSE 65; RESP 20; TEMP 36.3; O2SAT 95
--- NOTE | 2023-04-18 09:06 | P.PN_ITS ---
Subjective *Date: 04/18/23 *Time: 09:06 Interval history: Patient feels much better this morning. NTG helped his pain. Medical Exam Vital signs and Labs for Last 24 Hours: Vital Signs Temp Pulse Pulse Resp BP BP Pulse Ox 04/18/23 08:00 04/18/23 08:00 97.4 F L 65 20 165/91 H 95 04/18/23 04:00 98.3 F 56 L 18 135/72 95 04/18/23 04:00 60 04/18/23 00:00 66 04/18/23 01:30 56 L 16 135/88 93 L 04/17/23 21:00 58 L 16 139/73 95 04/17/23 20:00 55 L 16 152/85 H 95 04/17/23 19:00 58 L 16 132/59 L 96 04/18/23 00:00 97.9 F 58 L 18 156/91 H 95 04/17/23 20:00 60 04/18/23 06:22 04/18/23 04:51 04/18/23 03:00 04/18/23 01:00 04/17/23 23:00 04/17/23 20:00 55 L 2 L 04/17/23 20:50 04/17/23 18:00 56 L 16 140/86 96 04/17/23 18:48 04/17/23 17:29 54 L 16 159/85 H 98 04/17/23 17:00 04/17/23 17:04 55 L 16 155/70 H 95 04/17/23 16:30 55 L 16 140/73 96 04/17/23 16:00 60 04/17/23 16:00 52 L 17 167/73 H 95 04/17/23 15:45 52 L 1 L 161/93 H 95 04/17/23 15:30 56 L 17 141/76 H 95 04/17/23 15:15 98.2 F 57 L 17 135/83 95 04/17/23 15:00 60 18 139/83 95 04/17/23 14:55 60 18 159/85 H 95 04/17/23 14:55 60 04/17/23 14:50 60 18 168/100 H 95 04/17/23 12:11 70 04/17/23 12:39 04/17/23 12:00 98.2 F 71 18 176/104 H 93 L 04/17/23 10:56 O2 Del Method O2 Flow Rate 04/18/23 08:00 Room Air 96 04/18/23 08:00 Room Air 04/18/23 04:00 Nasal Cannula 2 04/18/23 04:00 04/18/23 00:00 04/18/23 01:30 Nasal Cannula 2 04/17/23 21:00 Nasal Cannula 2 04/17/23 20:00 04/17/23 19:00 Room Air 04/18/23 00:00 Room Air 04/17/23 20:00 04/18/23 06:22 Room Air 04/18/23 04:51 Nasal Cannula 2 04/18/23 03:00 Room Air 04/18/23 01:00 CPAP 04/17/23 23:00 CPAP 04/17/23 20:00 Room Air, Nasal Cannula 04/17/23 20:50 Nasal Cannula 2 04/17/23 18:00 Room Air 04/17/23 18:48 Room Air 04/17/23 17:29 Room Air 04/17/23 17:00 Room Air 04/17/23 17:04 Room Air 04/17/23 16:30 Nasal Cannula 1 04/17/23 16:00 04/17/23 16:00 Nasal Cannula 1 04/17/23 15:45 Nasal Cannula 1 04/17/23 15:30 Nasal Cannula 1.5 04/17/23 15:15 Room Air 04/17/23 15:00 04/17/23 14:55 04/17/23 14:55 04/17/23 14:50 04/17/23 12:11 04/17/23 12:39 Room Air 04/17/23 12:00 Room Air 04/17/23 10:56 Room Air Intake and Output 04/17/23 04/18/23 04/18/23 23:59 07:59 15:59 Intake Total 590 / 1090 260 / 620 360 / 620 Output Total 0 / 200 0 / 0 0 / 0 Balance 590 / 890 260 / 620 360 / 620 Intake: Intake, Oral Amount 590 / 1070 240 / 600 360 / 600 Intake, Other Amount 20 / 20 Output: Output, Urine Amount 0 / 200 0 / 0 0 / 0 Other: Intake, Other Source Saline Solution Number of Voids 0 Number of Unmeasured Voids 1 1 Weight 273 lb 14.084 oz Patient Weight 04/18/23 23:59 Weight 273 lb 14.084 oz Laboratory Results - last 24 hr 04/17/23 15:18: Activated Clotting Time 371 H* 04/18/23 06:14: WBC 11.6 H, RBC 6.03, Hgb 17.7, Hct 52.5 H, MCV 87.2, MCH 29.4, MCHC 33.7, RDW 15.4, Plt Count 224, MPV 7.8, Neut % (Auto) 72.4, Lymph % (Auto) 18.4, [place] % (Auto) 7.3, Eos % (Auto) 1.5, Baso % (Auto) 0.5, Neut # (Auto) 8.4 H, Lymph # (Auto) 2.1, [place] # (Auto) 0.8, Eos # (Auto) 0.2, Baso # (Auto) 0.1, Sodium 133 L, Potassium 3.9, Chloride 104, Carbon Dioxide 21 L, Anion Gap 11.9, BUN 23 H, Creatinine 0.90, Estimated Creat Clear 159, Estimated GFR 87, Est GFR ( Amer) 105, Glucose 109 H, Calcium 8.4 I & O for Labs for Last 24 Hours: Intake & Output 04/15/23 04/16/23 04/17/23 04/18/23 23:59 23:59 23:59 23:59 Intake Total 240 / 480 830 / 1090 620 / 620 Output Total 200 / 200 0 / 0 Balance 240 / 480 630 / 890 620 / 620 Weight 282 lb 1 oz 273 lb 14.4 oz 273 lb 14.084 oz Constitutional: Present no acute distress Respiratory: Present normal respiratory effort Cardiac: Present Reg Rate and Rhythm GI: Present normal bowel sounds; Absent tenderness Extremities: Present normal inspection and full ROM Skin: Present intact; Absent erythema Neuro: Present Grossly Intact and moves all extremities Assessment and Plan *Assessment and plan (1) Unstable angina: Status: Acute Category: Medical Code(s): I20.0 - Unstable angina (2) Dizziness: Status: Acute Category: Medical Code(s): R42 - Dizziness and giddiness (3) Chest pain: Status: Acute Qualifiers: Chest pain type: unspecified Qualified Code(s): R07.9 - Chest pain, unspecified Category: Medical Code(s): R07.9 - Chest pain, unspecified (4) Type 2 diabetes mellitus: Status: Acute Qualifiers: Diabetes mellitus tank terminal gauger insulin use: without tank terminal gauger use Diabetes mellitus complication status: without complication Qualified Code(s): E11.9 - Type 2 diabetes mellitus without complications Category: Medical Code(s): E11.9 - Type 2 diabetes mellitus without complications (5) Hyperlipidemia: Status: Acute Qualifiers: Hyperlipidemia type: mixed hyperlipidemia Qualified Code(s): E78.2 - Mixed hyperlipidemia Category: Medical Code(s): E78.5 - Hyperlipidemia, unspecified (6) Obesity: Status: Acute Qualifiers: Obesity type: due to excess calories Obesity classification: adult class 2 (BMI 35 - 39.9) Serious obesity comorbidity presence: unspecified whether serious comorbidity present Body mass index: BMI 39.0-39.9 Qualified Code(s): E66.09 - Other obesity due to excess calories; Z68.39 - Body mass index [BMI] 39.0-39.9, adult Category: Medical Code(s): E66.9 - Obesity, unspecified (7) Tobacco use: Status: Acute Category: Social Hx Code(s): Z72.0 - Tobacco use (8) CAD (coronary artery disease): Status: Acute Qualifiers: Coronary Disease-Associated Artery/Lesion type: [place] artery [place] vs. transplanted heart: [place] heart Associated angina: with unstable angina Qualified Code(s): I25.110 - Atherosclerotic heart disease of [place] coronary artery with unstable angina pectoris Category: Medical Code(s): I25.10 - Atherosclerotic heart disease of [place] coronary artery without angina pectoris Plan Patient doing well after having 2 stents placed in [place] yesterday. OK for discharge today, f/u with cardiology in 1 week and at [facility] in 3 weeks. Discussed smoking cessation.
[2023-04-18] MEDS: PRASUGREL 10MG TAB 10 MG PO (09:29)
[2023-04-18] MEDS: LISINOPRIL 20MG TABLET 20 MG PO (09:29)
[2023-04-18] MEDS: NICOTINE 21MG/24HR PATCH 21 MG TD (09:29)
[2023-04-18] MEDS: ASPIRIN EC 81MG TABLET 81 MG PO (09:29)
--- NOTE | 2023-04-18 10:02 | HMH.PHAINT1 ---
Pharmacy Intervention Comments: DISCHARGE MEDICATION COUNSELING PROVIDED. DISCUSSED STARTING THE FOLLOWING: -ASPIRIN (BLOOD THINNER, DAILY, TAKE WITH FOOD, BLEED/BRUISE RISK/APPEARANCE, BUMP HEAD = GO TO ER TO RULE OUT BLEED) -CEFDINIR (ANTIBIOTIC, TWICE DAILY, TAKE WITH FOOD, N/V/D POSSIBLE) -ISOSORBIDE MONO (FOR CHEST PAIN, DAILY, DIZZINESS/LIGHTHEADEDNESS/LOW BP, HEADACHE POSSIBLE) -NICOTINE PATCH (FOR SMOKING CESSATION, DAILY, REMOVE OLD PATCH BEFORE PLACING NEW ONE, ROTATE SITES DAILY, IRRITATION/REDNESS/PAIN AT APPLICATION SITE, REMOVE PRIOR TO IMAGING) -NITROGLYCERIN (FOR CHEST PAIN, EVERY 5 MINUTES X 3 DOSES NEEDED FOR CHEST PAIN, CALL EMS IF CP UNRESOLVED) -PRASUGREL (BLOOD THINNER, DAILY, BLEED/BRUISE RISK/APPEARANCE, BUMP HEAD = GO TO ER TO RULE OUT BLEED, SHORTNESS OF BREATH POSSIBLE) -ROSUVASTATIN (FOR CHOLESTEROL, DAILY, BEST AT BEDTIME, WATCH FOR MUSCLE PAIN/WEAKNESS AND DISCUSS WITH MD IF THIS OCCURS) PATIENT VERBALIZED NO QUESTIONS AT THIS TIME.
--- NOTE | 2023-04-22 14:59 | CARE MANAGER ---
Unable to call patient about hospital discharge as he was readmitted.
--- NOTE | 2023-04-24 22:52 | EXP.DC.SUM ---
General Admission date:: 04/16/23 Discharge date: 04/18/23 HPI HPI HPI: 58-year-old white male with past medical history of hypertension, ewh-[id number] diabetes mellitus and 1 pack/day smoker greater than 20 years presented to emergency department with complaints of chest pain,upper back pain and dizziness x 3 days. Patient reports pain is sharp in nature and radiates to back and bilateral arms present both with activity and rest. Dizziness has been intermittent x 3 days and worse this morning prompting him to come to ER. Upon presentation to ER patient was found to be hypertensive with a systolic blood pressure greater than 170. EKG shows sinus bradycardia with a first-degree AV block rate 56 without acute ischemic changes noted. Labs as follow: WBC 10.6, hemoglobin 18, sodium 137, potassium 4.8, creatinine 0.9, troponin 0.01. Chest x-ray and CTA head/neck negative for acute process. Cardiology was asked to evaluate patient while in ER. (above as per Cardiology) Hospital Course Hospital Course Hospital Course: The patient's chest x-ray showed nothing acute, his head CT showed mild to moderate atrophy, his head CTA and neck CTA showed no abnormality, his coronary CT angiography showed a calcium score 105 with possible evidence of significant flow-limiting atherosclerosis of the LAD. He was admitted with plans to do a heart cath. The heart cath was performed on 04/17/2023. The patient had severe mid LAD disease and had 2 stents placed. He had a hyperdynamic ventricle and a severely elevated LVEDP. Cardiology recommended dual antiplatelet therapy with Effient and aspirin, high intensity statin, sleep study, hematology referral for polycythemia, a renal ultrasound to evaluate for possible renal mass causing the polycythemia, and cardiac rehabilitation along with avoidance of tobacco products. The patient did continue with some chest pain off and on. His dizziness improved. The patient had a limited echo which showed an LVEF of 65% and a marked increase in left ventricular wall thickness. He did have to receive some nitroglycerin for chest pain post cath. By 04/18/2023, he was feeling better and the nitroglycerin did help with the chest pain. It was felt he could be discharged with follow-up with cardiology in 1 week. Smoking cessation was discussed with the patient. Exam Data for Last 24 hours Vital signs and Labs for Last 24 Hours: Temp Pulse Resp BP Pulse Ox O2 Del Method O2 Flow Rate 97.4 F L 65 20 165/91 H 95 Room Air 96 04/18/23 08:00 04/18/23 08:00 04/18/23 08:00 04/18/23 08:00 04/18/23 08:00 04/18/23 08:00 04/18/23 08:00 Narrative: Constitutional Constitutional: no acute distress *Routine HEENT Exam Head: Present normocephalic and atraumatic Eye: Present EOMI and PERRL ENT: Present mucous membranes moist *Routine Neck Exam Neck: Present supple and full ROM *Routine Respiratory Exam Respiratory: Present CTA bilaterally *Routine Cardiovascular Exam Cardiovascular: Present RRR *Routine Abdominal Exam Abdominal: Present soft and normoactive bowel sounds; Absent tenderness *Routine Rectal Exam Rectal:: deferred *Routine Genitalia Exam Genitalia:: deferred *Routine Extremities Exam Extremities: Absent cyanosis, clubbing or edema *Routine Skin Exam Skin: Present intact; Absent erythema *Routine Neurological Exam Neurological: Present alert and oriented X3 DS: Diagnosis Discharge Diagnosis (1) Unstable angina: Status: Acute Code(s): I20.0 - Unstable angina (2) Dizziness: Status: Acute Code(s): R42 - Dizziness and giddiness (3) Chest pain: Status: Acute Code(s): R07.9 - Chest pain, unspecified Qualifiers: Chest pain type: unspecified Qualified Code(s): R07.9 - Chest pain, unspecified (4) Type 2 diabetes mellitus: Status: Acute Code(s): E11.9 - Type 2 diabetes mellitus without complications Qualifiers: Diabetes mellitus care home insulin use: without care home use Diabetes mellitus complication status: without complication Qualified Code(s): E11.9 - Type 2 diabetes mellitus without complications (5) Hyperlipidemia: Status: Acute Code(s): E78.5 - Hyperlipidemia, unspecified Qualifiers: Hyperlipidemia type: mixed hyperlipidemia Qualified Code(s): E78.2 - Mixed hyperlipidemia (6) Obesity: Status: Acute Code(s): E66.9 - Obesity, unspecified Qualifiers: Obesity type: due to excess calories Obesity classification: adult class 2 (BMI 35 - 39.9) Serious obesity comorbidity presence: unspecified whether serious comorbidity present Body mass index: BMI 39.0-39.9 Qualified Code(s): E66.09 - Other obesity due to excess calories; Z68.39 - Body mass index [BMI] 39.0-39.9, adult (7) Tobacco use: Status: Acute Code(s): Z72.0 - Tobacco use (8) CAD (coronary artery disease): Status: Acute Code(s): I25.10 - Atherosclerotic heart disease of [place] coronary artery without angina pectoris Qualifiers: Coronary Disease-Associated Artery/Lesion type: [place] artery [place] vs. transplanted heart: [place] heart Associated angina: with unstable angina Qualified Code(s): I25.110 - Atherosclerotic heart disease of [place] coronary artery with unstable angina pectoris Meds Home Medications and Allergies Home Medications Medication Instructions Recorded Confirmed Type furosemide 20 mg tablet 20 mg PO DAILY 01/09/21 04/21/23 History albuterol sulfate 90 mcg/actuation 2 puff inhalation Q6HP PRN 04/16/23 04/21/23 History aerosol inhaler Shortness Of Breath empagliflozin 25 mg tablet 25 mg PO DAILY 04/16/23 04/21/23 History (Jardiance) ipratropium 20 mcg-albuterol 100 1 puff inhalation DAILYP PRN 04/16/23 04/22/23 History mcg/actuation mist for inhalation Breathing Problems (Combivent Respimat) loratadine 10 mg tablet 10 mg PO DAILY 04/16/23 04/21/23 History metformin 500 mg tablet,extended 1,000 mg PO DAILYDM Diabetes 04/16/23 04/22/23 History release 24 hr metoprolol succinate 100 mg 100 mg PO DAILY 04/16/23 04/21/23 History tablet,extended release 24 hr montelukast 10 mg tablet 10 mg PO PM 04/16/23 04/21/23 History lisinopril 20 mg tablet 20 mg PO DAILY 04/17/23 04/21/23 History aspirin 81 mg tablet,delayed 81 mg PO DAILY #30 tabs 04/18/23 04/21/23 Rx release cefdinir 300 mg capsule 300 mg PO Q12H #14 caps 04/18/23 04/21/23 Rx isosorbide mononitrate 30 mg 30 mg PO DAILY #30 tabs 04/18/23 04/21/23 Rx tablet,extended release 24 hr nitroglycerin 0.4 mg sublingual 0.4 mg sublingual Q5M PRN chest 04/18/23 04/21/23 Rx tablet pain #20 tabs prasugrel 10 mg tablet (Effient) 10 mg PO DAILY #30 tabs 04/18/23 04/21/23 Rx rosuvastatin 20 mg tablet 20 mg PO DAILY #30 tabs 04/18/23 04/21/23 Rx metformin 500 mg tablet,extended 500 mg PO 1200 04/22/23 04/22/23 History release 24 hr nicotine 21 mg/24 hr daily 1 patch topical DAILY 04/22/23 04/22/23 History transdermal patch New Prescriptions to Start Prescriptions: aspirin [place] cefdinir [place] isosorbide mononitrate [place] nitroglycerin [place] prasugrel [Effient] [place] rosuvastatin [place] Allergies Allergy/AdvReac Type Severity Reaction Status Date / Time green tea Allergy Anaphylaxis Verified 04/21/23 18:05 Discharge Plan Disposition Patient Disposition: Home, Self-Care Condition: Good Follow up Plan Follow up with: Didier Sal MD [Primary Care Provider] - 05/08/23 (Please call the office for a follow up appt. ) Vinayak Lambert MD [Staff Physician] - 1 week (The office will call you with a follow up appt. ) Prescriptions/Medication Reconciliation: New aspirin 81 mg tablet,delayed release (DR/EC) 81 mg PO DAILY Qty: 30 0RF prasugrel [Effient] 10 mg tablet 10 mg PO DAILY Qty: 30 0RF isosorbide mononitrate 30 mg tablet extended release 24 hr 30 mg PO DAILY Qty: 30 0RF nitroglycerin 0.4 mg tablet, sublingual 0.4 mg sublingual Q5M PRN (Reason: chest pain) Qty: 20 0RF Rx Instructions: do not exceed 3 doses per episode rosuvastatin 20 mg tablet 20 mg PO DAILY Qty: 30 0RF cefdinir 300 mg capsule 300 mg PO Q12H Qty: 14 0RF Continued furosemide 20 mg tablet 20 mg PO DAILY metoprolol succinate 100 mg Tablet Extended Release 24 Hr 100 mg PO DAILY montelukast 10 mg Tablet 10 mg PO PM albuterol sulfate 90 mcg/actuation HFA aerosol inhaler 2 puff inhalation Q6HP PRN (Reason: Shortness Of Breath) Patient Comments: INHALE 1 PUFF BY MOUTH EVERY 4 HOURS NEEDED metformin 500 mg Tablet Extended Release 24 Hr 1,000 mg PO DAILYDM Rx Instructions: Take 1000mg in morning and 500mg at lunch loratadine 10 mg Tablet 10 mg PO DAILY Jardiance 25 mg Tablet 25 mg PO DAILY Combivent Respimat 20-100 mcg/actuation Mist 1 puff INHALATION DAILYP PRN (Reason: Breathing Problems) lisinopril 20 mg tablet 20 mg PO DAILY Patient Comments: TAKE 1 TABLET BY MOUTH EVERY DAY No Action nicotine 21 mg/24 hr patch 24 hour 1 patch topical DAILY Patient Comments: APPLY 1 PATCH ON THE SKIN DAILY DIRECTED metformin 500 mg tablet extended release 24 hr 500 mg PO 1200 Patient Comments: TAKE 3 TABLETS BY MOUTH EVERY DAY Other Ambulatory Orders: Blood Urea Nitrogen (Routine) Timeframe: 1 Week Facility: [facility] - Location: Laboratory Ordered By: Vinayak Lambert Creatinine,Serum (Routine) Timeframe: 1 Week Facility: [facility] - Location: Laboratory Ordered By: Vinayak Lambert Hemoglobin and Hematocrit (Routine) Timeframe: 1 Week Facility: [facility] - Location: Laboratory Ordered By: Vinayak Lambert Problem Reconciliation Problems Reviewed?: Yes Patient Discharge Instructions ACTIVITY: Limited activity DIET: continue same diet Patient Instructions: DI for Angina, DI for Cardiac Catheterization, DI for Surgical Site Infection Providers Primary Care Provider: Didier Sal Admit Provider: Bert Rodney Attending Provider: Didier Sal
== END 2023-04-18 10:07 | disposition home or self-care (01) ==
LOC: ER 15:09 → 2ND 16:15
PROVIDERS: Internal Medicine; Nurse Practitioner; Admitting Provider Family Medicine; Emergency Provider Emergency Medicine; PCP Family Medicine; Visit Provider Family Medicine
DX: I10 Essential (primary) hypertension (principal); R07.9 Chest pain, unspecified; I25.110 Atherosclerotic heart disease of native coronary artery with unstable angina pectoris; F17.210 Nicotine dependence, cigarettes, uncomplicated; E11.9 Type 2 diabetes mellitus without complications; E66.9 Obesity, unspecified; E78.5 Hyperlipidemia, unspecified; Z68.39 Body mass index [BMI] 39.0-39.9, adult; Z79.84 Long term (current) use of oral hypoglycemic drugs; Z79.899 Other long term (current) drug therapy
CPT/HCPCS: 36415; 70450; 70496; 70498; 71045; 75571; 75574; 80048; 80053; 84484; 85025; 85347; 85651; 86140; 87636; 92928; 93005; 93306; 93308; 93458; 99152; 99153; 99285; C1725; C1760; C1769; C1876; C9600; G0378; J1644; Q9967

== ENCOUNTER 2023-04-21 14:49 | Observation (INO) | payer BC, SELFPAY ==
[2023-04-21] VITALS (9 sets, daily range): BP systolic 00–164; BP diastolic 00–89; PULSE 55–68; RESP 16–20; TEMP 36.6; O2SAT 93–98; BMI 38.7; BMI 39.9
--- NOTE | 2023-04-21 14:55 | ED_ITS ---
Discharge Plan Disposition Patient Disposition: Admitted Chief Complaint: Headache Clinical Impressions Clinical Impression: Myocardial injury, Slurred speech Discharge ED Provider: Eliecer Gill HPI <Eliecer Gill MD - Last Filed: 04/21/23 15:21> General Chief Complaint: Headache Stated Complaint: Weakness Time Seen by Provider: 04/21/23 14:55 History of Present Illness HPI narrative: 58-year-old male history of hypertension, hyperlipidemia, CAD, type 2 diabetes, recent heart catheterization and 2 stents placed last week presenting with shortness of breath, headache, right upper extremity pain, left lower extremity cramping. Patient states that he has had cramping in his right upper and left lower extremities since admission to the hospital. His blood pressure has been up and down, not stable, per him and his . Patient started taking new medications for his heart 1 day prior to arrival, started having bad laura aura. Primarily in the left side, but radiates down his neck. Denies weakness anywhere in his body. States that when his blood pressure gets high he feels as if he has slurred speech and feels short of breath. Not currently having the symptoms. Related Data Home Medications Medication Instructions Recorded Confirmed furosemide 20 mg tablet 20 mg PO DAILY Fluid 01/09/21 04/21/23 albuterol sulfate 90 mcg/actuation 2 puff inhalation Q6HP PRN 04/16/23 04/21/23 aerosol inhaler Shortness Of Breath empagliflozin 25 mg tablet 25 mg PO DAILY Diabetes 04/16/23 04/21/23 (Jardiance) ipratropium 20 mcg-albuterol 100 1 puff inhalation QID Breathing 04/16/23 04/21/23 mcg/actuation mist for inhalation Problems (Combivent Respimat) loratadine 10 mg tablet 10 mg PO DAILY Allergy Symptoms 04/16/23 04/21/23 metformin 1,000 mg tablet,extended 1,000 mg PO DAILY Diabetes 04/16/23 04/21/23 release 24hr (osmotic) metformin 500 mg tablet,extended 500 mg PO HS Diabetes 04/16/23 04/21/23 release 24 hr metoprolol succinate 100 mg 100 mg PO DAILY High Blood Pressure 04/16/23 04/21/23 tablet,extended release 24 hr montelukast 10 mg tablet 10 mg PO PM Breathing Problems 04/16/23 04/21/23 lisinopril 20 mg tablet 20 mg PO DAILY High Blood Pressure 04/17/23 04/21/23 Previous Rx's Medication Instructions Recorded aspirin 81 mg tablet,delayed 81 mg PO DAILY #30 tabs 04/18/23 release cefdinir 300 mg capsule 300 mg PO Q12H #14 caps 04/18/23 isosorbide mononitrate 30 mg 30 mg PO DAILY #30 tabs 04/18/23 tablet,extended release 24 hr nitroglycerin 0.4 mg sublingual 0.4 mg sublingual Q5M PRN chest 04/18/23 tablet pain #20 tabs prasugrel 10 mg tablet (Effient) 10 mg PO DAILY #30 tabs 04/18/23 rosuvastatin 20 mg tablet 20 mg PO DAILY #30 tabs 04/18/23 Allergies Allergy/AdvReac Type Severity Reaction Status Date / Time No Known Allergies Allergy Verified 03/12/21 14:16 PFS <Eliecer Gill MD - Last Filed: 04/21/23 15:21> PFS Disclaimer: The information contained in this section may have been updated after the patient was seen, as this information can be updated by other users. Medical History (Updated 04/21/23 @ 16:40 by Abdi Irwin MD) Allergies Arthritis CAD (coronary artery disease) Diastolic dysfunction Eczema GERD (gastroesophageal reflux disease) Hyperlipidemia Obesity Sleep apnea Tobacco use Type 2 diabetes mellitus Surgical History (Updated 04/16/23 @ 16:54 by TRACEY Rios) History of esophagogastroduodenoscopy (EGD) History of medial meniscus repair of right knee S/P decompression of ulnar nerve at elbow Family History (Updated 04/16/23 @ 16:54 by TRACEY Rios) Other Cancer Colon cancer Family history of diabetes mellitus type II Liver cancer Lung cancer Social History (Updated 04/16/23 @ 16:54 by TRACEY Rios) Smoking Status: Unknown if ever smoked alcohol intake: never current occupational status: employed and other Travel in the last 8 weeks: None household members: spouse and children housing: house current occupation: [employer] current occupational exposures/hazards: No caffeine: Yes <Eliecer Gill MD - Last Filed: 04/21/23 15:21> ROS Obtained: Yes All systems reviewed & no additional complaints except as documented Physical Exam <Eliecer Gill MD - Last Filed: 04/21/23 15:21> General General appearance: alert Neck Neck exam: Present trachea midline Chest Chest inspection: Present normal inspection and symmetric chest wall rise Respiratory Respiratory exam: Present normal lung sounds bilaterally; Absent respiratory distress, wheezes, stridor, accessory muscle use or prolonged expiratory phase Cardiovascular Cardiovascular exam: Present regular rate and normal rhythm Extremities Exam Extremities exam: Present other (Tender and bruised from catheterization, but pulses intact); Absent edema Neurological Exam Neurological exam: Present alert, oriented X3 and CN II-XII intact Skin Skin exam: Present warm and dry; Absent cyanosis, diaphoresis or pallor HEART Score <Eliecer Gill MD - Last Filed: 04/21/23 15:21> HEART Score HEART Score assessment performed?: No Critical Care <Eliecer Gill MD - Last Filed: 04/21/23 15:21> Critical Care Time Critical Care Time: No <Abdi Irwin MD - Last Filed: 04/21/23 16:40> Critical Care Time Critical Care Time: Yes Attestation: On 04/21/23, the high probability of a clinically significant, sudden or life threatening deterioration of the following system(s) required my full and direct attention, intervention and personal management. The time I documented below is in addition to time spent performing reported procedures but includes the following listed in this critical care notation. Total Time Total Critical Care Time: 35 Medical Decision Making <Eliecer Gill MD - Last Filed: 04/21/23 15:21> Medical Records Medical records reviewed: Yes I reviewed the patient's medical records. Albert Inquiry Pt receiving controlled substance: No Albert was queried for this patient: No Vital Signs Vital Signs: 04/21/23 14:50 04/21/23 15:06 04/21/23 15:30 Temperature 97.9 F Temperature Source Oral Pulse Rate 65 62 Pulse Rate [Right Radial] 68 Respiratory Rate 16 Blood Pressure 164/87 H 153/84 H Blood Pressure [Right Arm] 00/00 L Blood Pressure Source [Right Arm] Automatic Cuff Blood Pressure Position [Right Arm] Sitting 02 Sat by Pulse Oximetry 98 96 96 Oxygen Delivery Method Room Air Room Air 04/21/23 16:00 04/21/23 16:30 Temperature Temperature Source Pulse Rate 61 60 Pulse Rate [Right Radial] Respiratory Rate Blood Pressure 156/80 H 145/81 H Blood Pressure [Right Arm] Blood Pressure Source [Right Arm] Blood Pressure Position [Right Arm] 02 Sat by Pulse Oximetry 96 96 Oxygen Delivery Method Lab Data Labs: Lab Results 04/21/23 15:05: WBC 10.8, RBC 5.99, Hgb 17.8, Hct 52.3 H, MCV 87.3, MCH 29.7, MCHC 34.1, RDW 15.1, Plt Count 220, MPV 10.3, Neut % (Auto) 64.8, Lymph % (Auto) 25.2, [place] % (Auto) 6.6, Eos % (Auto) 2.4, Baso % (Auto) 0.9, Neut # (Auto) 7.0, Lymph # (Auto) 2.7, [place] # (Auto) 0.7, Eos # (Auto) 0.3, Baso # (Auto) 0.1, Sodium 139, Potassium 4.0, Chloride 105, Carbon Dioxide 28, Anion Gap 10.0, BUN 19, Creatinine 0.80, Estimated Creat Clear 176, Estimated GFR 100, Est GFR ( Amer) 121, Glucose 106 H, Calcium 8.5, Total Bilirubin 0.5, AST 27, ALT 25, Alkaline Phosphatase 55, Troponin I 0.68 H, NT-Pro-B Natriuret Pep 330 H, Total Protein 7.2, Albumin 4.3, Globulin 2.9, Albumin/Globulin Ratio 1.5 04/21/23 15:05 04/21/23 15:05 Response Orders (Tests/Meds): ED MEDICATIONS Discontinued Medications Generic Name Dose Route Start Last Admin Trade Name Jayden PRN Reason Stop Dose Admin Aspirin 324 mg 04/21/23 15:00 04/21/23 15:19 Aspirin 81mg Chewable Tablet PO 04/21/23 15:01 324 mg ONCE ONE Administration Hydralazine HCl 10 mg 04/21/23 14:56 04/21/23 15:05 Hydralazine 20mg/Ml Vial IV 04/21/23 14:57 10 mg ONCE ONE Administration ORDERS Category Date Time Status CT head/brain wo con Stat Cat Scan 04/21/23 14:56 Completed XR chest portable Stat Exams 04/21/23 14:56 Completed Brain Natriuretic Peptide Stat Lab 04/21/23 15:05 Completed Complete Blood Count Auto Diff Stat Lab 04/21/23 15:05 Completed Comprehensive Metabolic Panel Stat Lab 04/21/23 15:05 Completed Troponin I Q3H Lab 04/21/23 18:00 Ordered Troponin I Q3H Lab 04/21/23 21:00 Ordered Troponin I Stat Lab 04/21/23 15:05 Completed ECG initial Besson Routine Y 04/21/23 15:01 Completed MDM Narrative Medical Decision Narrative: 58-year-old male history of hypertension, hyperlipidemia, CAD, type 2 diabetes, recent heart catheterization and 2 stents placed last week presenting with shortness of breath, headache, right upper extremity pain, left lower extremity cramping. Patient states that he has had cramping in his right upper and left lower extremities since admission to the hospital. His blood pressure has been up and down, not stable, per him and his . Patient started taking new medications for his heart 1 day prior to arrival, started having bad migraines. Primarily in the left side, but radiates down his neck. Denies weakness anywhere in his body. States that when his blood pressure gets high he feels as if he has slurred speech and feels short of breath. Not currently having the symptoms. To be noted the patient recently catheterization numerous medication changes which is clouding this presentation. History was obtained via conversation with patient and . On arrival, patient hemodynamically stable, alert, oriented x4, appropriate, GCS 15, moving all extremities spontaneously, pupils equal and reactive to light. Full physical exam performed and significant for NIHSS 0. Cardiac exam within normal limits. Patient is hypertensive 200/100. Nontachycardic. Pulses equal and symmetric. Right upper extremity is bruised and tender, but appears within normal limits otherwise. Abdomen soft nontender. Differential includes migraine, hypertensive headache, hypertensive crisis, ACS, NC, intracranial hemorrhage, among others. Patient was given hydralazine 10 mg IV for symptomatic management and correction of underlying abnormalities. Patient was placed in observation beginning at 3 PM in order to reevaluate after medications, delta troponins and determine need for admission versus home-going. The patient was provided hydralazine, serial exams, troponins while awaiting results. Prior to labs and imaging returning, printed off to oncoming physician, Dr. Irwin. <Abdi Irwin MD - Last Filed: 04/21/23 16:40> Vital Signs Vital Signs: 04/21/23 14:50 04/21/23 15:06 04/21/23 15:30 Temperature 97.9 F Temperature Source Oral Pulse Rate 65 62 Pulse Rate [Right Radial] 68 Respiratory Rate 16 Blood Pressure 164/87 H 153/84 H Blood Pressure [Right Arm] 00/00 L Blood Pressure Source [Right Arm] Automatic Cuff Blood Pressure Position [Right Arm] Sitting 02 Sat by Pulse Oximetry 98 96 96 Oxygen Delivery Method Room Air Room Air 04/21/23 16:00 04/21/23 16:30 Temperature Temperature Source Pulse Rate 61 60 Pulse Rate [Right Radial] Respiratory Rate Blood Pressure 156/80 H 145/81 H Blood Pressure [Right Arm] Blood Pressure Source [Right Arm] Blood Pressure Position [Right Arm] 02 Sat by Pulse Oximetry 96 96 Oxygen Delivery Method Lab Data Lab results reviewed: Yes I reviewed the patient's lab results. Labs: Lab Results 04/21/23 15:05: WBC 10.8, RBC 5.99, Hgb 17.8, Hct 52.3 H, MCV 87.3, MCH 29.7, MCHC 34.1, RDW 15.1, Plt Count 220, MPV 10.3, Neut % (Auto) 64.8, Lymph % (Auto) 25.2, [place] % (Auto) 6.6, Eos % (Auto) 2.4, Baso % (Auto) 0.9, Neut # (Auto) 7.0, Lymph # (Auto) 2.7, [place] # (Auto) 0.7, Eos # (Auto) 0.3, Baso # (Auto) 0.1, Sodium 139, Potassium 4.0, Chloride 105, Carbon Dioxide 28, Anion Gap 10.0, BUN 19, Creatinine 0.80, Estimated Creat Clear 176, Estimated GFR 100, Est GFR ( Amer) 121, Glucose 106 H, Calcium 8.5, Total Bilirubin 0.5, AST 27, ALT 25, Alkaline Phosphatase 55, Troponin I 0.68 H, NT-Pro-B Natriuret Pep 330 H, Total Protein 7.2, Albumin 4.3, Globulin 2.9, Albumin/Globulin Ratio 1.5 Response Orders (Tests/Meds): ED MEDICATIONS Discontinued Medications Generic Name Dose Route Start Last Admin Trade Name Freq PRN Reason Stop Dose Admin Aspirin 324 mg 04/21/23 15:00 04/21/23 15:19 Aspirin 81mg Chewable Tablet PO 04/21/23 15:01 324 mg ONCE ONE Administration Hydralazine HCl 10 mg 04/21/23 14:56 04/21/23 15:05 Hydralazine 20mg/Ml Vial IV 04/21/23 14:57 10 mg ONCE ONE Administration ORDERS Category Date Time Status CT head/brain wo con Stat Cat Scan 04/21/23 14:56 Completed XR chest portable Stat Exams 04/21/23 14:56 Completed Brain Natriuretic Peptide Stat Lab 04/21/23 15:05 Completed Complete Blood Count Auto Diff Stat Lab 04/21/23 15:05 Completed Comprehensive Metabolic Panel Stat Lab 04/21/23 15:05 Completed Troponin I Q3H Lab 04/21/23 18:00 Ordered Troponin I Q3H Lab 04/21/23 21:00 Ordered Troponin I Stat Lab 04/21/23 15:05 Completed ECG initial [place] Routine Y 04/21/23 15:01 Completed MDM Narrative Medical Decision Narrative: 58-year-old male history of hypertension, hyperlipidemia, CAD, type 2 diabetes, recent heart catheterization and 2 stents placed last week presenting with shortness of breath, headache, right upper extremity pain, left lower extremity cramping. Patient states that he has had cramping in his right upper and left lower extremities since admission to the hospital. His blood pressure has been up and down, not stable, per him and his . Patient started taking new medications for his heart 1 day prior to arrival, started having bad migraines. Primarily in the left side, but radiates down his neck. Denies weakness anywhere in his body. States that when his blood pressure gets high he feels as if he has slurred speech and feels short of breath. Not currently having the symptoms. To be noted the patient recently catheterization numerous medication changes which is clouding this presentation. History was obtained via conversation with patient and . On arrival, patient hemodynamically stable, alert, oriented x4, appropriate, GCS 15, moving all extremities spontaneously, pupils equal and reactive to light. F ull physical exam performed and significant for NIHSS 0. Cardiac exam within normal limits. Patient is hypertensive 200/100. Nontachycardic. Pulses equal and symmetric. Right upper extremity is bruised and tender, but appears within normal limits otherwise. Abdomen soft nontender. Differential includes migraine, hypertensive headache, hypertensive crisis, ACS, NC, intracranial hemorrhage, among others. Patient was given hydralazine 10 mg IV for symptomatic management and correction of underlying abnormalities. Patient was placed in observation beginning at 3 PM in order to reevaluate after medications, delta troponins and determine need for admission versus home-going. The patient was provided hydralazine, serial exams, troponins while awaiting results. Prior to labs and imaging returning, printed off to oncoming physician, Dr. Irwin. This is Dr. Irwin I took over from Dr. León around 4 PM. I personally evaluated the patient and did a comprehensive neurologic exam on him which is normal NIH of 0 nonfocal specifically no evidence of any dysarthria. However patient subjectively claims that he is having some difficulty speaking and slurring his speech. CT scan performed given his headache and his neurologic complaint which I personally evaluated which shows no acute intracranial hemorrhage however radiology is concern for possible subacute infarct for this reason we will keep the patient for an inpatient MRI. Additionally patient's troponin appears very mildly elevated which is nonspecific in the setting of a recent left heart cath. No evidence of acute ongoing ischemia EKG is nonischemic this is not consistent with a stent rethrombosis likely secondary to microinfarction or vasospasm after recent stenting. Nonetheless we will get serial troponins. He is not in any discomfort at the moment I spoke with Dr. Aden who is on-call for Dr. Sal who agreed to admit the patient for further evaluation and treatment. I also discussed the case with Dr. Lambert who agrees with this plan.
--- NOTE | 2023-04-21 14:56 | XR_ITS ---
FINAL REPORT CLINICAL HISTORY: soa recent cath COMPARISON: None FINDINGS: SINGLE VIEW CHEST The heart size is normal. The mediastinum is within normal limits. No acute pulmonary abnormality is identified. There is no evidence of pneumothorax. The bony thorax is intact. IMPRESSION: No acute cardiopulmonary process. Reviewed, Interpreted and Dictated by Esteban Figueroa III, MD Transcribed by Stephanie Becerra Authenticated and [facility]
--- NOTE | 2023-04-21 14:56 | CT_ITS ---
FINAL REPORT CLINICAL HISTORY: COLLADO recent cath, rule out bleed COMPARISON: 04/16/2023 FINDINGS: Axial images of the head were obtained without contrast. Coronal and sagittal reformatted images were also obtained.This study was performed with techniques to keep radiation doses as low as reasonably achievable (ALARA). Individualized dose reduction techniques using automated exposure control or adjustment of mA and/or kV according to the patient's size were employed. There is no evidence of intracranial hemorrhage or mass. There is a new right periventricular low-attenuation focus consistent with a acute or subacute infarct. This measures 14 mm in diameter. The ventricular size is within normal limits. There is no evidence of shift of the midline structures. No abnormal extra axial fluid collection is identified. No skull abnormality is seen on the bone window images. There is mild mucosal thickening in multiple paranasal sinuses. IMPRESSION: New right periventricular low-attenuation focus, measuring 14 mm in diameter, likely acute or subacute infarct. Recommend MRI of the head for further evaluation. Reviewed, Interpreted and Dictated by Esteabn Figueroa III, MD Transcribed by Stephanie Becerra Authenticated and [facility]
--- NOTE | 2023-04-21 15:01 | ECG_ITS ---
APPROVED REPORT Exam: Resting ECG HR:69 bpm ECG Measurements Heart Rate 69 AXES NV 191 P 38 QRSd 90 QRS 66 QT 373 T 72 QTc 391 Conclusion SINUS RHYTHM NORMAL ECG UNCONFIRMED REPORT Electronically signed by : Jarod Raman MD 04/23/2023 20:37:49
[2023-04-21] MEDS: HYDRALAZINE 20MG/ML VIAL 10 MG IV (15:05)
--- NOTE | 2023-04-21 15:13 | PC.NURSE ---
PT GONE TO CT
--- NOTE | 2023-04-21 15:16 | PC.NURSE ---
Pt returned from RAD
[2023-04-21 15:17] LABS: Basophils # 0.1 K/mm3 (0-0.2); Basophils % 0.9 % (0.1-2.0); Eosinophils # 0.3 K/mm3 (0.0-0.4); Eosinophils % 2.4 % (0.1-12.0); Hematocrit 52.3 % (42.0-52.0); Hemoglobin 17.8 g/dL (14.1-18.0); Lymphocytes # 2.7 K/mm3 (0.7-4.5); Lymphocytes % 25.2 % (10-50); Mean Corpuscular HGB Conc 34.1 g/dL (31.8-35.4); Mean Corpuscular Hemoglobin 29.7 pg (27.0-31.2); Mean Corpuscular Volume 87.3 fl (80-94); Mean Platelet Volume 10.3 fl (7.4-10.4); Monocytes # 0.7 K/mm3 (0.1-1.0); Monocytes % 6.6 % (1.7-9.3); Neutrophils % 64.8 % (37.0-80.0); Platelet Count 220 K/mm3 (142-424); Red Blood Count 5.99 M/mm3 (4.60-6.20); Red Cell Distribution Width 15.1 % (11.5-17.5); White Blood Count 10.8 K/mm3 (4.8-10.8)
[2023-04-21] MEDS: ASPIRIN 81MG CHEWABLE TABLET 324 MG PO (15:19)
[2023-04-21 15:24] LABS: Alanine Aminotransferase 25 U/L (12-78); Albumin Level 4.3 g/dl (3.5-5.0); Albumin/Globulin Ratio 1.5 (1.1-1.8); Alkaline Phosphatase 55 U/L (38-126); Aspartate Amino Transferase 27 U/L (17-59); Bilirubin,Total 0.5 mg/dl (0.2-1.3); Blood Urea Nitrogen 19 mg/dl (9-20); Calcium 8.5 mg/dl (8.4-10.2); Carbon Dioxide 28 mmol/L (22.0-30.0); Chloride 105 mmol/L (98-107); Creatinine Clearance Estimated 176 mL/min (50-200); Estimated Glomerular Filt Rate 100 ml/min (>60); GFR (African American) 121 ML/MIN (>60); Globulin 2.9 g/dL (1.3-3.2); Glucose 106 mg/dl (74-100); Sodium 139 mmol/L (136-145); Total Protein,Serum 7.2 g/dl (6.3-8.2)
[2023-04-21 15:36] LABS: NT Pro Brain Natriuretic Pep. 330 pg/mL (0-125)
[2023-04-21 15:37] LABS: Troponin I 0.68 ng/ml (0.00-0.034)
--- NOTE | 2023-04-21 15:56 | PC.NURSE ---
Dr. Irwin at BS to update pt/visitor on POC
--- NOTE | 2023-04-21 16:42 | PC.NURSE ---
Report called to ALEX Bonds at this time.
[2023-04-21] MEDS: PRASUGREL 10MG TAB 10 MG PO (18:58)
[2023-04-21] MEDS: NICOTINE 21MG/24HR PATCH 21 MG TD (20:54)
[2023-04-21 21:07] LABS: Troponin I 0.69 ng/ml (0.00-0.034)
[2023-04-21 23:51] LABS: Troponin I 0.75 ng/ml (0.00-0.034)
[2023-04-22] VITALS: BP 156/97; PULSE 63; PULSE 68; RESP 17; TEMP 36.9; O2SAT 95
[2023-04-22] MEDS: ACETAMINOPHEN 325MG TAB 650 MG PO ×2 (00:01→13:01)
[2023-04-22 04:00] VITALS: BP 131/80; PULSE 61; PULSE 64; RESP 17; TEMP 37; O2SAT 96; BMI 40.1
--- NOTE | 2023-04-22 04:46 | PC.NURSE ---
Pt is A&Ox4 and currently tolerating RA. Pt has complained of right wrist pain and discomfort this shift. gave pt an icepack and advised pt to prop on pillow while sleeping. Pt was treated per MAR and denies pain at this time. lab called for critical troponin levels of 0.69, and 0.75 both of which were reported to MD concrete foreman. at bedside. Pt denies pain and needs at this time.
[2023-04-22 05:22] LABS: POC Glucose,Bedside 97 (70-110)
--- NOTE | 2023-04-22 07:00 | MR_ITS ---
FINAL REPORT CLINICAL HISTORY: ACUTE STROKE. slurred speech FINDINGS: Multiplanar MR imaging of the brain was performed without contrast. There is no evidence of intracranial hemorrhage or mass. The ventricular size is normal. There is increased T2 signal in the cerebral white matter consistent with mild to moderate chronic ischemic/gliotic changes. There is no evidence of shift of the midline structures. No abnormal extra-axial fluid collection is identified. There is a 13 mm focus of restricted diffusion in the right centrum semiovale consistent with an acute infarct. Normal major vessel vascular flow voids are seen. IMPRESSION: Acute infarct in the right centrum semiovale. Reviewed, Interpreted and Dictated by Esteban Figueroa III, MD Transcribed by Deisy Campos Authenticated and [facility]
[2023-04-22 07:21] LABS: Basophils # 0.1 K/mm3 (0-0.2); Basophils % 0.8 % (0.1-2.0); Eosinophils # 0.2 K/mm3 (0.0-0.4); Eosinophils % 2.5 % (0.1-12.0); Hematocrit 52.4 % (42.0-52.0); Hemoglobin 17.4 g/dL (14.1-18.0); Lymphocytes # 2.3 K/mm3 (0.7-4.5); Lymphocytes % 24.7 % (10-50); Mean Corpuscular HGB Conc 33.3 g/dL (31.8-35.4); Mean Corpuscular Hemoglobin 29.4 pg (27.0-31.2); Mean Corpuscular Volume 88.3 fl (80-94); Mean Platelet Volume 8.4 fl (7.4-10.4); Monocytes # 0.7 K/mm3 (0.1-1.0); Monocytes % 7.1 % (1.7-9.3); Neutrophils # 5.9 K/mm3 (1.8-7.8); Neutrophils % 64.8 % (37.0-80.0); Platelet Count 189 K/mm3 (142-424); Red Blood Count 5.93 M/mm3 (4.60-6.20); Red Cell Distribution Width 15.2 % (11.5-17.5); White Blood Count 9.1 K/mm3 (4.8-10.8)
[2023-04-22 07:32] LABS: Anion Gap 9.9 mEq/L (5-15); Blood Urea Nitrogen 16 mg/dl (9-20); Calcium 8.4 mg/dl (8.4-10.2); Carbon Dioxide 23 mmol/L (22.0-30.0); Chloride 106 mmol/L (98-107); Creatinine Clearance Estimated 183 mL/min (50-200); Estimated Glomerular Filt Rate 100 ml/min (>60); GFR (African American) 121 ML/MIN (>60); Glucose 96 mg/dl (74-100); Potassium 3.9 mmoL/L (3.5-5.1); Sodium 135 mmol/L (136-145)
[2023-04-22 07:38] VITALS: BP 162/86; PULSE 72; RESP 17; TEMP 36.6; O2SAT 95
--- NOTE | 2023-04-22 08:37 | HMH.PHAINT1 ---
Pharmacy Intervention Comments: Home med list verified with patient's at bedside, list of medications provided by , and external pharmacy list.
[2023-04-22] MEDS: PRASUGREL 10MG TAB 10 MG PO (08:52)
[2023-04-22] MEDS: NICOTINE 21MG/24HR PATCH 21 MG TD (08:52)
[2023-04-22] MEDS: METOPROLOL SUCCINATE XL 100MG TABLET 100 MG PO (11:49)
[2023-04-22] MEDS: LORATADINE 10MG TABLET 10 MG PO (11:49)
[2023-04-22] MEDS: LISINOPRIL 20MG TABLET 20 MG PO (11:49)
[2023-04-22] MEDS: EMPAGLIFLOZIN 10MG TABLET 20 MG PO (11:49)
[2023-04-22] MEDS: TRAMADOL 50MG TABLET 50 MG PO (11:49)
--- NOTE | 2023-04-22 12:01 | EXP.HP ---
History of Present Illness *Admission Date: 04/21/23 *Reason for visit:: headache, slurred speech *History of present illness: 58-year-old male history of hypertension, hyperlipidemia, CAD, type 2 diabetes, recent heart catheterization and 2 stents placed last week presenting with shortness of breath, headache, right upper extremity pain, left lower extremity cramping. Patient states that he has had cramping in his right upper and left lower extremities since admission to the hospital. His blood pressure has been up and down, not stable, per him and his . Patient started taking new medications for his heart 1 day prior to arrival, started having bad migraines. Primarily in the left side, but radiates down his neck. Denies weakness anywhere in his body. States that when his blood pressure gets high he feels as if he has slurred speech and feels short of breath. Not currently having the symptoms. (above as per ER physician) Has had slurred speech off and on since last Thursday. On Thursday, he noticed liquid falling out of his mouth on the left side. [facility] Disclaimer: The information contained in this section may have been updated after the patient was seen, as this information can be updated by other users. Medical History (Updated 04/22/23 @ 12:06 by SHIRLEY Ojeda) Allergies Arthritis CAD (coronary artery disease) Diastolic dysfunction Eczema GERD (gastroesophageal reflux disease) Hyperlipidemia Obesity Sleep apnea Tobacco use Type 2 diabetes mellitus Surgical History (Updated 04/22/23 @ 12:04 by SHIRLEY Ojeda) History of esophagogastroduodenoscopy (EGD) History of medial meniscus repair of right knee S/P decompression of ulnar nerve at elbow Status post coronary artery stent placement Family History Liver cancer Colon cancer Family history of diabetes mellitus type II Lung cancer Cancer Social History (Updated 04/22/23 @ 14:19 by SHIRLEY Ojeda) Smoking Status: Current every day smoker tobacco type: cigarettes packs per day: 1 alcohol intake: never current occupational status: employed and other Travel in the last 8 weeks: None household members: spouse and children housing: house current occupation: [employer] current occupational exposures/hazards: No caffeine: Yes Review of Systems Constitutional Constitutional: Reports fatigue, Denies fever(s), Reports headache(s) and Reports weakness Eyes Eyes: Denies blurry vision and Denies diplopia ENT Ears, Nose, Mouth, and Throat: Reports headache(s), Reports nasal congestion, Denies sore throat and Reports vertigo *Cardiovascular Cardiovascular: Reports chest pain, Reports dyspnea, Denies irregular heart rhythm, Denies leg edema and Denies palpitations *Respiratory Respiratory: Reports cough and Reports dyspnea *Gastrointestinal Gastrointestinal: Denies abdominal pain, Denies loose stools, Denies nausea and Denies vomiting *Genitourinary Genitourinary: Denies difficulty urinating and Denies dysuria *Musculoskeletal Musculoskeletal: Denies arthralgias and Denies muscle weakness *Neurologic Neurologic: Reports abnormal speech, Reports headache(s), Reports vertigo and Reports weakness Endocrine Endocrine: Reports fatigue and Denies palpitations Meds Home Medications and Allergies Home Medications Medication Instructions Recorded Confirmed Type furosemide 20 mg tablet 20 mg PO DAILY 01/09/21 04/21/23 History albuterol sulfate 90 mcg/actuation 2 puff inhalation Q6HP PRN 04/16/23 04/21/23 History aerosol inhaler Shortness Of Breath empagliflozin 25 mg tablet 25 mg PO DAILY 04/16/23 04/21/23 History (Jardiance) ipratropium 20 mcg-albuterol 100 1 puff inhalation DAILYP PRN 04/16/23 04/22/23 History mcg/actuation mist for inhalation Breathing Problems (Combivent Respimat) loratadine 10 mg tablet 10 mg PO DAILY 04/16/23 04/21/23 History metformin 500 mg tablet,extended 1,000 mg PO DAILYDM Diabetes 04/16/23 04/22/23 History release 24 hr metoprolol succinate 100 mg 100 mg PO DAILY 04/16/23 04/21/23 History tablet,extended release 24 hr montelukast 10 mg tablet 10 mg PO PM 04/16/23 04/21/23 History lisinopril 20 mg tablet 20 mg PO DAILY 04/17/23 04/21/23 History aspirin 81 mg tablet,delayed 81 mg PO DAILY #30 tabs 04/18/23 04/21/23 Rx release cefdinir 300 mg capsule 300 mg PO Q12H #14 caps 04/18/23 04/21/23 Rx isosorbide mononitrate 30 mg 30 mg PO DAILY #30 tabs 04/18/23 04/21/23 Rx tablet,extended release 24 hr nitroglycerin 0.4 mg sublingual 0.4 mg sublingual Q5M PRN chest 04/18/23 04/21/23 Rx tablet pain #20 tabs prasugrel 10 mg tablet (Effient) 10 mg PO DAILY #30 tabs 04/18/23 04/21/23 Rx rosuvastatin 20 mg tablet 20 mg PO DAILY #30 tabs 04/18/23 04/21/23 Rx metformin 500 mg tablet,extended 500 mg PO 1200 04/22/23 04/22/23 History release 24 hr nicotine 21 mg/24 hr daily 1 patch topical DAILY 04/22/23 04/22/23 History transdermal patch New Prescriptions to Start Prescriptions: Allergies Allergy/AdvReac Type Severity Reaction Status Date / Time green tea Allergy Anaphylaxis Verified 04/21/23 18:05 Exam Data for Last 24 hours Vital signs and Labs for Last 24 Hours: Temp Pulse Resp BP Pulse Ox O2 Del Method 97.9 F 72 17 162/86 H 95 Room Air 04/22/23 07:38 04/22/23 07:38 04/22/23 07:38 04/22/23 07:38 04/22/23 07:38 04/22/23 11:00 Laboratory Results - last 24 hr 04/21/23 15:05: WBC 10.8, RBC 5.99, Hgb 17.8, Hct 52.3 H, MCV 87.3, MCH 29.7, MCHC 34.1, RDW 15.1, Plt Count 220, MPV 10.3, Neut % (Auto) 64.8, Lymph % (Auto) 25.2, Price % (Auto) 6.6, Eos % (Auto) 2.4, Baso % (Auto) 0.9, Neut # (Auto) 7.0, Lymph # (Auto) 2.7, Price # (Auto) 0.7, Eos # (Auto) 0.3, Baso # (Auto) 0.1, Sodium 139, Potassium 4.0, Chloride 105, Carbon Dioxide 28, Anion Gap 10.0, BUN 19, Creatinine 0.80, Estimated Creat Clear 176, Estimated GFR 100, Est GFR ( Amer) 121, Glucose 106 H, Calcium 8.5, Total Bilirubin 0.5, AST 27, ALT 25, Alkaline Phosphatase 55, Troponin I 0.68 H, NT-Pro-B Natriuret Pep 330 H, Total Protein 7.2, Albumin 4.3, Globulin 2.9, Albumin/Globulin Ratio 1.5 04/21/23 18:22: Troponin I 0.69 H 04/21/23 23:15: Troponin I 0.75 H 04/22/23 05:15: POC Glucose 97 04/22/23 06:27: WBC 9.1, RBC 5.93, Hgb 17.4, Hct 52.4 H, MCV 88.3, MCH 29.4, MCHC 33.3, RDW 15.2, Plt Count 189, MPV 8.4, Neut % (Auto) 64.8, Lymph % (Auto) 24.7, Price % (Auto) 7.1, Eos % (Auto) 2.5, Baso % (Auto) 0.8, Neut # (Auto) 5.9, Lymph # (Auto) 2.3, Price # (Auto) 0.7, Eos # (Auto) 0.2, Baso # (Auto) 0.1, Sodium 135 L, Potassium 3.9, Chloride 106, Carbon Dioxide 23, Anion Gap 9.9, BUN 16, Creatinine 0.80, Estimated Creat Clear 183, Estimated GFR 100, Est GFR ( Amer) 121, Glucose 96, Calcium 8.4 I & O for Last 24 hours: Intake & Output 04/20/23 04/21/23 04/22/23 04/23/23 11:59 11:59 11:59 11:59 Intake Total 630 / 630 Output Total 0 / 0 Balance 630 / 630 Weight 280 lb 3.32 oz Constitutional Constitutional: no acute distress *Routine HEENT Exam Head: Present normocephalic and atraumatic Eye: Present EOMI and PERRL ENT: Present mucous membranes moist *Routine Neck Exam Neck: Present supple and full ROM *Routine Respiratory Exam Respiratory: Present CTA bilaterally *Routine Cardiovascular Exam Cardiovascular: Present RRR *Routine Abdominal Exam Abdominal: Present soft and normoactive bowel sounds; Absent tenderness *Routine Rectal Exam Rectal:: deferred *Routine Genitalia Exam Genitalia:: deferred *Routine Extremities Exam Extremities: Absent cyanosis, clubbing or edema *Routine Skin Exam Skin: Present intact; Absent erythema *Routine Neurological Exam Neurological: Present alert, oriented X3 and CN II-XII intact; Absent sensory deficit, motor deficit, facial asymmetry or normal speech (Patient has to speak very slowly or his words become slurred) H&P: Result Impressions CXR - nothing acute Head CT -New right periventricular low-attenuation focus, measuring 14 mm in diameter, likely acute or subacute infarct. Recommend MRI of the head for further evaluation. Brain MRI - Acute infarct in the right centrum semiovale. Assessment and Plan *Assessment and plan (1) Acute CVA (cerebrovascular accident): Status: Acute Category: Medical Code(s): I63.9 - Cerebral infarction, unspecified (2) Myocardial injury: Status: Acute Category: Medical Code(s): I5A - Non-ischemic myocardial injury (non-traumatic) (3) Slurred speech: Status: Acute Category: Medical Code(s): R47.81 - Slurred speech (4) Status post coronary artery stent placement: Status: Acute Category: Surgical Code(s): Z95.5 - Presence of coronary angioplasty implant and graft (5) CAD (coronary artery disease): Status: Acute Qualifiers: Associated angina: with unstable angina Coronary Disease-Associated Artery/Lesion type: [place] artery [place] vs. transplanted heart: [place] heart Qualified Code(s): I25.110 - Atherosclerotic heart disease of [place] coronary artery with unstable angina pectoris Category: Medical Code(s): I25.10 - Atherosclerotic heart disease of [place] coronary artery without angina pectoris (6) Tobacco use: Status: Acute Category: Social Hx Code(s): Z72.0 - Tobacco use (7) Obesity: Status: Acute Qualifiers: Body mass index: BMI 39.0-39.9 Obesity classification: adult class 2 (BMI 35 - 39.9) Obesity type: due to excess calories Serious obesity comorbidity presence: unspecified whether serious comorbidity present Qualified Code(s): E66.09 - Other obesity due to excess calories; Z68.39 - Body mass index [BMI] 39.0-39.9, adult Category: Medical Code(s): E66.9 - Obesity, unspecified (8) Hyperlipidemia: Status: Acute Qualifiers: Hyperlipidemia type: mixed hyperlipidemia Qualified Code(s): E78.2 - Mixed hyperlipidemia Category: Medical Code(s): E78.5 - Hyperlipidemia, unspecified (9) Type 2 diabetes mellitus: Status: Acute Qualifiers: Diabetes mellitus complication status: without complication Diabetes mellitus nut sorter operator insulin use: without long-term use Qualified Code(s): E11.9 - Type 2 diabetes mellitus without complications Category: Medical Code(s): E11.9 - Type 2 diabetes mellitus without complications (10) Diabetes mellitus: Status: Acute Category: Medical Code(s): E11.9 - Type 2 diabetes mellitus without complications (11) Hypertension: Status: Acute Qualifiers: Hypertension type: unspecified Qualified Code(s): I10 - Essential (primary) hypertension Category: Medical Code(s): I10 - Essential (primary) hypertension Plan MRI shows patient has had an infarct. He has no residual effects other than his tongue feels swollen on the left side and he is having difficulty with speech and swallowing. Will have speech therapy evaluate. He may be able to be discharged later today. Will need to limit salt, control BP, stop smoking, and add exercise. Will discuss further care with Dr. Sal. Dr. Sal entry - Saw patient, agree with above note.
--- NOTE | 2023-04-22 15:08 | HMH.SLDYSPHA ---
Speech & Language Evaluation Speech/Language Dysphagia Evaluation Start: 04/22/23 14:57 Freq: ONCE Status: Active Protocol: Document 04/22/23 14:57 AV (Rec: 04/22/23 15:07 DILLONOLGA [email or web address]) Dysphagia Assess/Goals/Plan Assessment Date of Evaluation: 04/22/23 Evaluation Type Initial Certification Assessment/Problems stroke protocol per MD order Does Patient Qualify for Service Yes Qualify/Failure Comment Based on CSE and informal cog- lx assessment, swallowing and mastication/manipulation of the bolus appear to be WFL, pt expressed concerns with slurred speech and CORRESPONDENCE SECTION SUPERVISOR will address throughout admission. Recommendations PHYSICIAN CERTIFICATION: The specified therapy services are required, authorized, and reviewed every 30 days. Pt will be seen # times/week 2 for # weeks 4 Diet Recommendations Normal Liquid Type Recommendations Normal/Thin SL Swallow Guidelines Alt bite w/sip thru meal, Standard Aspiration Prec.,Eat at slow rate Dysphagia Swallow Precautions/Strategies Sitting Upright (90 deg),Small Bites and Sips,Alternate Liquids/Solids Plan Anticipate reaching STG in # weeks 2 Anticipate reaching LTG in # weeks 4 Pt/Guardian verbally ack understanding Yes of dx/prognosis/goals G -code Required No STG-Other Comment/Non-Specific Pt will complete DDK drills to increase intelligibility with 80% accuracy across three consecutive sessions, Pt will complete oral motor exercises to increase oral motor strength across 10 drills with 80% accuracy across three consecutive sessions. Education Instructions provided Discussed CSE results, diet recommendations, and how to address slurring with pt and both of which expressed understanding. Pt/Caregiver able to recall information Able to recall/restate Reinforcement needed No Speech & Language HPI History Present Illness Description of Patient Problem CORRESPONDENCE SECTION SUPERVISOR pulled following information, 58-year-old male history of hypertension, hyperlipidemia, CAD, type 2 diabetes, recent heart catheterization and 2 stents placed last week presenting with shortness of breath, headache, right upper extremity pain, left lower extremity cramping. Patient states that he has had cramping in his right upper and left lower extremities since admission to the hospital. His blood pressure has been up and down, not stable, per him and his . Patient started taking new medications for his heart 1 day prior to arrival, started having bad migraines. Primarily in the left side, but radiates down his neck. Denies weakness anywhere in his body. States that when his blood pressure gets high he feels as if he has slurred speech and feels short of breath. Not currently having the symptoms. (above as per ER physician) Has had slurred speech off and on since last Thursday. On Thursday, he noticed liquid falling out of his mouth on the left side. Brain MRI impressions: Acute infarct in the right centrum semiovale. Rehab Services Assessed Speech therapy Is this evaluation r/t stroke? Yes Language Primary Language Bulgarian General Information General Current Food Consistancy Regular,Thin Liquids Dentition Upper & Lower Dentures Oxygen Status Room Air Patient Orientation Person,Place,Time,Situation Ability to Follow Directions Excellent Communication Ability Mild Impairment Dysphagia:Food Presentation Evaluation Food Type Pureed,Mechanical Soft,Regular ,Liquid,Pudding Dysphagia Evaluation Summary Pt was seen sitting upright at the bedside and he was A&O x4 . He was given all bolus consistencies x3 to address fatigue and observe for consistency. He was given the following with no overt s/sxs of aspiration: thin liquids ( open cup/straw sip, two consecutive sips from open cup /straw sips), puree ( applesauce), pudding, mechanical soft (nutrigrain bar), and regular solids ( grhaam cracker). He had difficulty completing DDK rate drills and some oral motor tasks. It is recommended he be seen for speech intelligibility and slurred speech. Stroke Dysphagia Assessment PHYSICIAN CERTIFICATION: I certify the specified therapy services for Alfred Vu are required, authorized, and reviewed every 30 days.
[2023-04-22 15:20] VITALS: BP 159/93; PULSE 55; RESP 18; TEMP 36.5; O2SAT 96
[2023-04-22 16:00] VITALS: PULSE 55
--- NOTE | 2023-04-23 13:08 | CARE MANAGER ---
Called and spoke with patient regarding recent discharge. Patient states he is doing well, no concerns at time of call. plans to call and schedule f/u appts today.
--- NOTE | 2023-04-24 23:10 | EXP.DC.SUM ---
General Admission date:: 04/21/23 Discharge date: 04/22/23 HPI HPI HPI: 58-year-old male history of hypertension, hyperlipidemia, CAD, type 2 diabetes, recent heart catheterization and 2 stents placed last week presenting with shortness of breath, headache, right upper extremity pain, left lower extremity cramping. Patient states that he has had cramping in his right upper and left lower extremities since admission to the hospital. His blood pressure has been up and down, not stable, per him and his . Patient started taking new medications for his heart 1 day prior to arrival, started having bad migraines. Primarily in the left side, but radiates down his neck. Denies weakness anywhere in his body. States that when his blood pressure gets high he feels as if he has slurred speech and feels short of breath. Not currently having the symptoms. (above as per ER physician) Has had slurred speech off and on since last Thursday. On Thursday, he noticed liquid falling out of his mouth on the left side. Hospital Course Hospital Course Hospital Course: The patient's chest x-ray showed nothing acute. He had a head CT which showed a new right periventricular low-attenuation focus measuring 14 mm in diameter. The radiologist felt this was likely an acute or subacute infarct and recommended an MRI of the head. The patient had a brain MRI which did show an acute infarct in the right centrum semiovale. He had no extremity weakness but did have some residual effects where the left side of his tongue felt swollen and he was having some difficulty with speech and swallowing. Speech therapy was ordered to evaluate the patient. Dr. Sal had a long discussion with him about limiting salt, controlling blood pressure, smoking cessation, and adding exercise. He was seen and evaluated by speech therapy and had no signs of aspiration but did have difficulty completing DDK rate drills and oral motor tasks. It was recommended he be seen for speech intelligibility and slurred speech on an outpatient basis. He will follow-up with Dr. Sal in the office. Exam Data for Last 24 hours Vital signs and Labs for Last 24 Hours: Temp Pulse Resp BP Pulse Ox O2 Del Method 97.7 F 55 L 18 159/93 H 96 Room Air 04/22/23 15:20 04/22/23 16:00 04/22/23 15:20 04/22/23 15:20 04/22/23 15:20 04/22/23 15:20 I & O for Last 24 hours: Intake & Output 04/22/23 04/23/23 04/24/23 04/25/23 11:59 11:59 11:59 11:59 Intake Total 630 / 630 470 / 470 Output Total 0 / 0 Balance 630 / 630 470 / 470 Weight 280 lb 3.32 oz Narrative: Constitutional Constitutional: no acute distress *Routine HEENT Exam Head: Present normocephalic and atraumatic Eye: Present EOMI and PERRL ENT: Present mucous membranes moist *Routine Neck Exam Neck: Present supple and full ROM *Routine Respiratory Exam Respiratory: Present CTA bilaterally *Routine Cardiovascular Exam Cardiovascular: Present RRR *Routine Abdominal Exam Abdominal: Present soft and normoactive bowel sounds; Absent tenderness *Routine Rectal Exam Rectal:: deferred *Routine Genitalia Exam Genitalia:: deferred *Routine Extremities Exam Extremities: Absent cyanosis, clubbing or edema *Routine Skin Exam Skin: Present intact; Absent erythema *Routine Neurological Exam Neurological: Present alert, oriented X3 and CN II-XII intact; Absent sensory deficit, motor deficit, facial asymmetry or normal speech (Patient has to speak very slowly or his words become slurred) DS: Diagnosis Discharge Diagnosis (1) Acute CVA (cerebrovascular accident): Status: Acute Code(s): I63.9 - Cerebral infarction, unspecified (2) Myocardial injury: Status: Acute Code(s): I5A - Non-ischemic myocardial injury (non-traumatic) (3) Slurred speech: Status: Acute Code(s): R47.81 - Slurred speech (4) Status post coronary artery stent placement: Status: Acute Code(s): Z95.5 - Presence of coronary angioplasty implant and graft (5) CAD (coronary artery disease): Status: Acute Code(s): I25.10 - Atherosclerotic heart disease of [place] coronary artery without angina pectoris Qualifiers: Coronary Disease-Associated Artery/Lesion type: [place] artery [place] vs. transplanted heart: [place] heart Associated angina: with unstable angina Qualified Code(s): I25.110 - Atherosclerotic heart disease of [place] coronary artery with unstable angina pectoris (6) Tobacco use: Status: Acute Code(s): Z72.0 - Tobacco use (7) Obesity: Status: Acute Code(s): E66.9 - Obesity, unspecified Qualifiers: Obesity type: due to excess calories Obesity classification: adult class 2 (BMI 35 - 39.9) Serious obesity comorbidity presence: unspecified whether serious comorbidity present Body mass index: BMI 39.0-39.9 Qualified Code(s): E66.09 - Other obesity due to excess calories; Z68.39 - Body mass index [BMI] 39.0-39.9, adult (8) Hyperlipidemia: Status: Acute Code(s): E78.5 - Hyperlipidemia, unspecified Qualifiers: Hyperlipidemia type: mixed hyperlipidemia Qualified Code(s): E78.2 - Mixed hyperlipidemia (9) Type 2 diabetes mellitus: Status: Acute Code(s): E11.9 - Type 2 diabetes mellitus without complications Qualifiers: Diabetes mellitus salvage determiner insulin use: without longterm use Diabetes mellitus complication status: without complication Qualified Code(s): E11.9 - Type 2 diabetes mellitus without complications (10) Diabetes mellitus: Status: Acute Code(s): E11.9 - Type 2 diabetes mellitus without complications (11) Hypertension: Status: Acute Code(s): I10 - Essential (primary) hypertension Qualifiers: Hypertension type: unspecified Qualified Code(s): I10 - Essential (primary) hypertension Meds Home Medications and Allergies Home Medications Medication Instructions Recorded Confirmed Type furosemide 20 mg tablet 20 mg PO DAILY 01/09/21 04/21/23 History albuterol sulfate 90 mcg/actuation 2 puff inhalation Q6HP PRN 04/16/23 04/21/23 History aerosol inhaler Shortness Of Breath empagliflozin 25 mg tablet 25 mg PO DAILY 04/16/23 04/21/23 History (Jardiance) ipratropium 20 mcg-albuterol 100 1 puff inhalation DAILYP PRN 04/16/23 04/22/23 History mcg/actuation mist for inhalation Breathing Problems (Combivent Respimat) loratadine 10 mg tablet 10 mg PO DAILY 04/16/23 04/21/23 History metformin 500 mg tablet,extended 1,000 mg PO DAILYDM Diabetes 04/16/23 04/22/23 History release 24 hr metoprolol succinate 100 mg 100 mg PO DAILY 04/16/23 04/21/23 History tablet,extended release 24 hr montelukast 10 mg tablet 10 mg PO PM 04/16/23 04/21/23 History lisinopril 20 mg tablet 20 mg PO DAILY 04/17/23 04/21/23 History aspirin 81 mg tablet,delayed 81 mg PO DAILY #30 tabs 04/18/23 04/21/23 Rx release cefdinir 300 mg capsule 300 mg PO Q12H #14 caps 04/18/23 04/21/23 Rx isosorbide mononitrate 30 mg 30 mg PO DAILY #30 tabs 04/18/23 04/21/23 Rx tablet,extended release 24 hr nitroglycerin 0.4 mg sublingual 0.4 mg sublingual Q5M PRN chest 04/18/23 04/21/23 Rx tablet pain #20 tabs prasugrel 10 mg tablet (Effient) 10 mg PO DAILY #30 tabs 04/18/23 04/21/23 Rx rosuvastatin 20 mg tablet 20 mg PO DAILY #30 tabs 04/18/23 04/21/23 Rx metformin 500 mg tablet,extended 500 mg PO 1200 04/22/23 04/22/23 History release 24 hr nicotine 21 mg/24 hr daily 1 patch topical DAILY 04/22/23 04/22/23 History transdermal patch New Prescriptions to Start Prescriptions: Allergies Allergy/AdvReac Type Severity Reaction Status Date / Time green tea Allergy Anaphylaxis Verified 04/21/23 18:05 Discharge Plan Disposition Patient Disposition: Home, Self-Care Condition: Fair Follow up Plan Follow up with: Didier Sal MD [Primary Care Provider] - 2 weeks Vinayak Lambert MD [Staff Physician] - 1 week (CALL 04/23/2023 FOR FOLOW UP ) Prescriptions/Medication Reconciliation: Continued furosemide 20 mg tablet 20 mg PO DAILY nicotine 21 mg/24 hr patch 24 hour 1 patch topical DAILY Patient Comments: APPLY 1 PATCH ON THE SKIN DAILY DIRECTED metformin 500 mg tablet extended release 24 hr 500 mg PO 1200 Patient Comments: TAKE 3 TABLETS BY MOUTH EVERY DAY metoprolol succinate 100 mg Tablet Extended Release 24 Hr 100 mg PO DAILY montelukast 10 mg Tablet 10 mg PO PM albuterol sulfate 90 mcg/actuation HFA aerosol inhaler 2 puff inhalation Q6HP PRN (Reason: Shortness Of Breath) Patient Comments: INHALE 1 PUFF BY MOUTH EVERY 4 HOURS NEEDED metformin 500 mg Tablet Extended Release 24 Hr 1,000 mg PO DAILYDM Rx Instructions: Take 1000mg in morning and 500mg at lunch loratadine 10 mg Tablet 10 mg PO DAILY Jardiance 25 mg Tablet 25 mg PO DAILY Combivent Respimat 20-100 mcg/actuation Mist 1 puff INHALATION DAILYP PRN (Reason: Breathing Problems) lisinopril 20 mg tablet 20 mg PO DAILY Patient Comments: TAKE 1 TABLET BY MOUTH EVERY DAY aspirin 81 mg tablet,delayed release (DR/EC) 81 mg PO DAILY Qty: 30 0RF prasugrel [Effient] 10 mg tablet 10 mg PO DAILY Qty: 30 0RF isosorbide mononitrate 30 mg tablet extended release 24 hr 30 mg PO DAILY Qty: 30 0RF nitroglycerin 0.4 mg tablet, sublingual 0.4 mg sublingual Q5M PRN (Reason: chest pain) Qty: 20 0RF Rx Instructions: do not exceed 3 doses per episode rosuvastatin 20 mg tablet 20 mg PO DAILY Qty: 30 0RF cefdinir 300 mg capsule 300 mg PO Q12H Qty: 14 0RF Problem Reconciliation Problems Reviewed?: Yes Patient Discharge Instructions ACTIVITY: Limited activity DIET: low salt diet and cardiac Additional Instructions: Patient needs to have outpatient speech therapy at [facility] Patient Instructions: DI for Stroke-Ischemic Providers Primary Care Provider: Didier Sal Admit Provider: Jarod Raman Attending Provider: Didier Sal
== END 2023-04-22 17:49 | disposition home or self-care (01) ==
LOC: ER 15:38 → 2ND 16:40
PROVIDERS: Admitting Provider Internal Medicine Adolescent Medicine; Emergency Provider Emergency Medicine; PCP Family Medicine; Visit Provider Family Medicine
DX: I5A Non-ischemic myocardial injury (non-traumatic) (principal); R13.19 Other dysphagia; R47.81 Slurred speech; R53.1 Weakness; Z95.5 Presence of coronary angioplasty implant and graft; I25.110 Atherosclerotic heart disease of native coronary artery with unstable angina pectoris; F17.210 Nicotine dependence, cigarettes, uncomplicated; E66.09 Other obesity due to excess calories; I63.89 Other cerebral infarction; E11.9 Type 2 diabetes mellitus without complications; I10 Essential (primary) hypertension; Z68.41 Body mass index [BMI] 40.0-44.9, adult; Z79.899 Other long term (current) drug therapy
CPT/HCPCS: 36415; 70450; 70551; 71045; 80048; 80053; 82962; 83880; 84484; 85025; 92610; 93005; 99285; G0378

== ENCOUNTER 2023-06-04 09:30 | Outpatient (CLI) | payer BC, SELFPAY ==
--- NOTE | 2023-06-04 10:02 | MR_ITS ---
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 TECHNIQUE Image Acquisition: Cardiac magnetic resonance (CMR) was performed on Siemens Espree MRI 1.5T scanner. Software platform sequences were performed using the Siemens [employer] MR B19 platform. A set of three-plane, low-resolution, large [id number] localizers were initially acquired. Then axial, coronal, sagittal TrueFISP, as well as axial HASTE images, were obtained. These were followed by gated TrueFISP breathold cinematic sequences obtained in the short axis with 8 mm slices and 2 mm gaps, 2-chamber (vertical long axis), 3-chamber, 4-chamber (horizontal long axis). Functional parameters were calculated by offline analysis on an independent workstation ([employer] Imaging Platform, [employer]). Contrast: Not administered, per patient request (patient declined administration of IV gadolinium). FINDINGS MORPHOLOGY AND FUNCTION Left ventricle: The left ventricle is normal in size. The indexed left ventricular end-diastolic volume (LVEDVi) is 58 ml/m2 (reference range 57-105 ml/m2 in males, 56-96 ml/m2 in females). Normal left ventricular systolic function is present. There is increased left ventricular wall thickness, measuring up to 14.9 mm in the basal anteroseptal LV wall. There are no regional wall motion abnormalities noted. LVEF is calculated at 66.6% (reference range 57-77%). Right ventricle: The right ventricle is normal in size. The indexed right ventricular end-diastolic volume (RVEDVi) is 69 ml/m2 (reference range 61-121 ml/m2 in males, 48-112 ml/m2 in females). Normal right ventricular systolic function is present. RVEF is calculated at 57.3% (reference range 52-72% in males, 51-71% in females). Atria: The left atrium is normal in size. The maximum indexed left atrial volume is 30 ml/m2 (reference range 26-52 ml/m2 in males, 27-53 ml/m2 in females). The right atrium is normal in size. The maximum indexed right atrial volume is 23 ml/m2 (reference range 18-90 ml/m2). Aorta: The diameter of the aortic annulus is normal, measuring 24 mm (coronal view reference range 21-30 mm in males, 19-27 mm in females). The diameter of the aortic sinus is normal, measuring 30 mm (coronal view reference range 25-42 mm in males, 24-36 mm in females). The diameter of the sinotubular junction is normal, measuring 29 mm (coronal view reference range 18-32 mm in males, 18-28 mm in females). The diameters of the ascending and descending thoracic aorta are normal. Main pulmonary artery: The main pulmonary artery diameter is normal. Pericardium: The pericardial thickness is normal. The pericardial thickness measures 3.1 cm (normal < 4.0 cm). There is no pericardial effusion. VALVES Mitral regurgitation is present. Systolic anterior motion of the mitral valve is not visualized. Ratio of pulmonary to systemic flow, Qp:Qs ratio = 1.1 (normal < or = 1.2), demonstrating no evidence of hemodynamically significant shunt. TISSUE CHARACTERIZATION Myocardial Fibrosis and/or edema: cannot be assessed as the patient declined administration of IV gadolinium. Therefore, no LGE data is available. OTHER No other significant findings are noted. However, this exam is focused on the cardiac structure and function. IMPRESSION Normal LV size with normal LV systolic function. LVEDVi= 58 ml/m2 and LVEF= 66.6%. Asymmetric increase in LV wall thickness, up to 14.9 mm in the basal anteroseptal LV wall. Normal RV size with normal RV systolic function. RVEDVi= 69 ml/m2 and RVEF= 57.3%. No atrial enlargement. Mitral regurgitation is present. No evidence of systolic anterior motion (PETER) of the MV leaflets. Ratio of pulmonary to systemic flow, Qp:Qs ratio = 1.1 (normal < or = 1.2), demonstrating no evidence of hemodynamically significant shunt. LGE data is not available as the patient declined administration of IV gadolinium. The above findings suggest the presence of normal biventricular systolic function with marked increase in LV wall thickness, closely approaching - but not conclusively meeting - HCM criteria, up to 14.9 mm (i.e. < 15 mm) noted in the basal anteroseptal LV wall. The results are concerning for possible infiltrative disease, but are not fully diagnostic in the absence of gadoinium kinetics assessment (patient had declined administration of IV gadolinium). IV gadolinium evaluation vs. serial imaging/clinical evaluation is strongly recommended. COMPARISON None CRITICAL RESULT None COMMUNICATION Per this written report The findings of this cardiac MR were reviewed, reported, and signed by Jan Moran MD (Digital Marketing Lead). Conclusion Electronically signed by : Joanie Moran MD 06/12/2023 20:33:47
[2023-06-04 10:21] LABS: Blood Urea Nitrogen 22 mg/dl (9-20); Estimated Glomerular Filt Rate 77 ml/min (>60); GFR (African American) 93 ML/MIN (>60)
[2023-06-04 10:57] LABS: Hematocrit 52.3 % (42.0-52.0); Hemoglobin 17.6 g/dL (14.1-18.0)
== END 2023-06-04 23:59 ==
PROVIDERS: Internal Medicine; PCP Family Medicine; Visit Provider Internal Medicine
DX: I11.9 Hypertensive heart disease without heart failure (principal); I25.10 Atherosclerotic heart disease of native coronary artery without angina pectoris; I25.2 Old myocardial infarction; Q20.8 Other congenital malformations of cardiac chambers and connections; R06.00 Dyspnea, unspecified; R07.9 Chest pain, unspecified; Z95.5 Presence of coronary angioplasty implant and graft; E11.9 Type 2 diabetes mellitus without complications; E78.5 Hyperlipidemia, unspecified; E66.9 Obesity, unspecified; Z68.41 Body mass index [BMI] 40.0-44.9, adult; Z79.84 Long term (current) use of oral hypoglycemic drugs; F17.210 Nicotine dependence, cigarettes, uncomplicated
CPT/HCPCS: 36415; 75557; 82565; 84520; 85014; 85018

== ENCOUNTER 2023-12-26 07:53 | Outpatient (CLI) | payer BC, SELFPAY ==
--- NOTE | 2023-12-26 08:26 | XR_ITS ---
PROCEDURE INFORMATION: Exam: XR Chest Exam date and time: 12/26/2023 8:18 AM Age: 58 years old Clinical indication: Cough and shortness of breath; Additional info: Cough, congestion, SOA TECHNIQUE: Imaging protocol: Radiologic exam of the chest. Views: 2 views. COMPARISON: CR XR CHEST PORTABLE 04/21/2023 3:10 PM FINDINGS: Lungs: Unremarkable. No consolidation. Pleural spaces: Unremarkable. No pleural effusion. No pneumothorax. Heart/Mediastinum: Unremarkable. No cardiomegaly. Bones/joints: Unremarkable. IMPRESSION: No acute findings.
== END 2023-12-26 23:59 | disposition home or self-care (01) ==
LOC: RAD 07:55
PROVIDERS: PCP Family Medicine; Visit Provider Family Medicine
DX: R93.89 Abnormal findings on diagnostic imaging of other specified body structures (principal)
CPT/HCPCS: 71046

== ENCOUNTER 2024-02-04 10:07 | Outpatient (CLI) | payer BC, SELFPAY ==
--- NOTE | 2024-02-04 10:08 | MR_ITS ---
APPROVED REPORT Senior Informatica Etl Developer: CLINICAL INDICATION Increased LV wall thickness. HCM evaluation. CMR re-evaluation with presence of gadolinium. TECHNIQUE Image Acquisition: Cardiac magnetic resonance (CMR) was performed on Siemens Espree MRI 1.5T scanner. Software platform sequences were performed using the Siemens TrademarkFly MR B19 platform. A set of three-plane, low-resolution, large [id number] localizers were initially acquired. Then axial, coronal, sagittal TrueFISP, as well as axial HASTE images, were obtained. These were followed by gated TrueFISP breathold cinematic sequences obtained in the short axis with 8 mm slices and 2 mm gaps, 2-chamber (vertical long axis), 3-chamber, 4-chamber (horizontal long axis). A bolus of contrast was injected intravenously with first-pass sequences obtained in the short axis and four-chamber planes. After approximately 10 minutes, a TI manager photo sequence was performed to determine the optimal TI time. Using the optimized TI time, delayed contrast enhancement segmented inversion???recovery TurboFLASH sequences were obtained in the short axis, 2-chamber, 3-chamber, and 4-chamber projections. 2D-velocity phase mapping was performed. Functional parameters were calculated by offline analysis on an independent workstation ([employer] Imaging Platform, Revolution PrepIJoobili). Contrast: ProHance??? (Gadoteridol) FINDINGS MORPHOLOGY AND FUNCTION Left ventricle: The left ventricle is normal in size. The indexed left ventricular end-diastolic volume (LVEDVi) is 66 ml/m2 (reference range 57-105 ml/m2 in males, 56-96 ml/m2 in females). Normal left ventricular systolic function is present. There is marked asymmetric increase in the LV wall thickness. Maximum LV wall thickness is 15.3 mm in the basal septal LV wall. There are no regional wall motion abnormalities noted. LVEF is calculated at 66.3% (reference range 57-77%). Right ventricle: The right ventricle is normal in size. The indexed right ventricular end-diastolic volume (RVEDVi) is 73 ml/m2 (reference range 61-121 ml/m2 in males, 48-112 ml/m2 in females). Normal right ventricular systolic function is present. RVEF is calculated at 52.0% (reference range 52-72% in males, 51-71% in females). Atria: The left atrium is normal in size. The maximum indexed left atrial volume is 29 ml/m2 (reference range 26-52 ml/m2 in males, 27-53 ml/m2 in females). The right atrium is normal in size. The maximum indexed right atrial volume is 45 ml/m2 (reference range 18-90 ml/m2). Aorta: The diameter of the aortic annulus is normal, measuring 25 mm (coronal view reference range 21-30 mm in males, 19-27 mm in females). The diameter of the aortic sinus is normal, measuring 33 mm (coronal view reference range 25-42 mm in males, 24-36 mm in females). The diameter of the sinotubular junction is normal, measuring 29 mm (coronal view reference range 18-32 mm in males, 18-28 mm in females). The diameters of the ascending and descending thoracic aorta are normal. Main pulmonary artery: The main pulmonary artery diameter is normal. Pericardium: The pericardial thickness is normal. The pericardial thickness measures 1.5 mm (normal < 4.0 mm). There is no pericardial effusion. VALVES The valvular morphologies in the visualized sequences appear normal. There is no significant valvular stenosis or regurgitation of the mitral, aortic, tricuspid, or pulmonic valve noted visually. Systolic anterior motion of the mitral valve is not visualized. Ratio of pulmonary to systemic flow, Qp:Qs ratio = 1.0. (normal < or = 1.2, hemodynamically significant shunt > 1.5), demonstrating no evidence of hemodynamically significant shunt. TISSUE CHARACTERIZATION Resting Perfusion: Normal myocardial blood flow at rest. No evidence of resting hypoperfusion. Myocardial Fibrosis and/or edema: Abnormal gadolinium kinetics are present. Late gadolinium enhancement (LGE) is noted in the posterior RV insertion point. There is also patchy LGE noted in the basal septal and inferior septal LV cain. The total LGE burden is < 5% of the total myocyte thickness. OTHER No other significant findings are noted. However, this exam is focused on the cardiac structure and function. IMPRESSION Normal LV size with normal LV systolic function. LVEDVi= 66 ml/m2 and LVEF= 66.3%. marked asymmetric increase in the LV wall thickness. Maximum LV wall thickness is 15.3 mm in the basal septal LV wall. No evidence of systolic anterior motion (PETER) of the MV leaflets or LVOT obstruction at rest. Normal RV size with normal RV systolic function. RVEDVi= 73 ml/m2 and RVEF= 52.0%. No atrial enlargement. Late gadolinium enhancement (LGE) is noted in the posterior RV insertion point. There is also patchy LGE noted in the basal septal and inferior septal LV cain. The total LGE burden is < 5% of the total myocyte thickness. Perfusion analysis demonstrates normal blood flow at rest with no evidence of resting hypoperfusion. Ratio of pulmonary to systemic flow, Qp:Qs ratio = 1.0 (normal < or = 1.2, hemodynamically significant shunt > 1.5), demonstrating no evidence of hemodynamically significant shunt. Overall, this study meets CMR criteria for hypertrophic cardiomyopathy (HCM), including presence of asymmetric increase in LV wall thickness, meeting HCM criteria (i.e. > 15 mm) with maximum thickness noted in the basal septal LV wall up to 15.3 mm, as well as presence of patchy septal LGE (< 5% of total LGE burden) and LGE in the RV insertion point. This study does not demonstrate CMR criteria for ICD for primary prevention. Heart rhythm monitoring and exercise stress echo are suggested. Genetic testing is recommended. Screening of first-degree family members with TTE is also recommended. COMPARISON This CMR is compared to prior study from 06/04/2013, during which CMR was performed without contrast (patient had declined), which showed borderline increase in LV wall thickness up to 14.9 mm. LGE data could not be evaluated in the setting of no contrast administration. Overall, compared to the prior study, the overall findings are unchanged. The additional data from LGE, including presence and patchy distribution + LGE of RV insertion point, further confirms the diagnosis of HCM. CRITICAL RESULT None COMMUNICATION Per this written report The findings of this cardiac MR were reviewed, reported, and signed by Jan Moran MD (Physician Office Nurse). Conclusion Electronically signed by : Joanie Moran MD 02/09/2024 00:54:28
[2024-02-04] MEDS: GADOTERIDOL INJ 20ML SYRINGE 20 ML IV (11:48)
[2024-02-04] MEDS: GADOTERIDOL INJ 10ML SYRINGE 9 ML IV (11:48)
[2024-02-04] MEDS: 0.9 % SODIUM CHLORIDE 50 ML VIAL 25 ML IV (11:48)
[2024-02-04] MEDS: SODIUM CHLORIDE 0.9% 10ML SYR (RAD ONLY) 10 ML IV (11:48)
== END 2024-02-04 23:59 | disposition home or self-care (01) ==
LOC: RAD 10:08
PROVIDERS: PCP Family Medicine; Visit Provider Physician Assistant
DX: I42.1 Obstructive hypertrophic cardiomyopathy (principal); Q20.8 Other congenital malformations of cardiac chambers and connections; I25.110 Atherosclerotic heart disease of native coronary artery with unstable angina pectoris
CPT/HCPCS: 75561; A9576

== ENCOUNTER 2024-02-09 09:18 | Outpatient (CLI) | payer BC, SELFPAY | END 2024-02-09 23:59 | disposition home or self-care (01) | PROVIDERS: PCP Family Medicine; Visit Provider Physician Assistant | DX: I51.7 Cardiomegaly (principal); I42.1 Obstructive hypertrophic cardiomyopathy; Q20.8 Other congenital malformations of cardiac chambers and connections; I25.110 Atherosclerotic heart disease of native coronary artery with unstable angina pectoris | CPT/HCPCS: 93270 ==

== ENCOUNTER 2024-02-17 07:51 | Outpatient (CLI) | payer BC, SELFPAY ==
--- NOTE | 2024-02-17 | CA_ITS ---
APPROVED REPORT Test Engineering Intern: Conclusion Electronically signed by : Joanie Moran MD 02/18/2024 14:38:12
--- NOTE | 2024-02-17 07:54 | CA_ITS ---
APPROVED REPORT EXAM: Comprehensive 2D, Doppler, and color-flow Echocardiogram Psychology Instructor: RT Dora(R) Ht: 5 ft 10 in Wt: 302lbs BSA: 2.49 BP: 131/83 mmHg Indications: COPD, ex smoker, occasional palpitations, fatigue, HTN, hyperlipidemia, CAD( 2 cardiac stents 03/2023). Modified stress echo to assess gradients secondary to abn cardiac testing. Stress Test Details HR Max Heart Rate (APMHR): 162 bpm Target HR (85% APMHR): 138 bpm BP ECG Echo Findings The Pre-Stress Echocardiogram showed normal left ventricular contractility with an estimated Ejection Fraction of about 65%. There is no evidence of LVOT obstruction at rest. The Post-Stress Echocardiogram showed Hyperdynamic left ventricular contractility with an estimated Ejection Fraction of about 70%. There is no provokable LVOT obstruction at peak stress. Other Information Study Quality: Fair Conclusion Normal biventricular LV function with good augmentation at peak stress. No evidence of LVOT obstruction at rest. No provokable LVOT gradient at peak stress. Electronically signed by : Joanie Moran MD 02/22/2024 01:34:07
== END 2024-02-17 23:59 | disposition home or self-care (01) ==
LOC: RT 07:52
PROVIDERS: PCP Family Medicine; Visit Provider Physician Assistant
DX: I51.7 Cardiomegaly (principal); I42.1 Obstructive hypertrophic cardiomyopathy; Q20.8 Other congenital malformations of cardiac chambers and connections; I25.110 Atherosclerotic heart disease of native coronary artery with unstable angina pectoris
CPT/HCPCS: 93017; 93018; 93350

== ENCOUNTER 2024-05-26 09:16 | Day surgery (SDC) | payer BC, SELFPAY ==
[2024-05-24 13:42] VITALS: BMI 42.0
[2024-05-26 10:04] VITALS: BP 134/86; PULSE 72; RESP 18; TEMP 36.4; O2SAT 96; BMI 40.3
[2024-05-26 10:08] LABS: POC Glucose,Bedside 109 (70-110)
[2024-05-26] MEDS: LACTATED RINGERS 1000ML 1,000 ML 50 ML IV (10:15)
--- NOTE | 2024-05-26 10:29 | P.PNANES_ITS ---
[facility] Disclaimer: The information contained in this section may have been updated after the patient was seen, as this information can be updated by other users. Medical History (Updated 05/26/24 @ 10:08 by Gypsy Carlson RN) Sleep apnea COPD (chronic obstructive pulmonary disease) History of stroke Deviated septum Preop cardiovascular exam History of non-ST elevation myocardial infarction (NSTEMI) HTN (hypertension) Left ventricular cardiac abnormality Coronary artery disease CAD (coronary artery disease) Allergies Diastolic dysfunction Arthritis GERD (gastroesophageal reflux disease) Eczema Sleep apnea Type 2 diabetes mellitus Hyperlipidemia Obesity Tobacco use Chest pain Skin problem Bronchitis Dyspnea Exposure to COVID-19 virus Knee pain, left Sinusitis Epiglottitis Surgical History (Updated 05/26/24 @ 10:08 by Gypsy Carlson RN) H/O hand surgery History of coronary artery stent placement Status post coronary artery stent placement History of esophagogastroduodenoscopy (EGD) S/P decompression of ulnar nerve at elbow History of medial meniscus repair of right knee Family History Other Cancer Colon cancer Family history of diabetes mellitus type II Liver cancer Lung cancer Social History (Updated 05/26/24 @ 10:08 by Gypsy Carlson RN) Smoking Status: Current every day smoker tobacco type: cigarettes packs per day: 1 alcohol intake: never substance use type: denies use current occupational status: employed Travel in the last 8 weeks: None household members: spouse and children housing: house current occupation: [employer] current occupational exposures/hazards: No caffeine: Yes [facility] Anesthesia Checklist Patient Identification Patient Identification: Arm Band Structural Data Admitted From: Home Planned Operative Procedure/s: EGD/Colonoscopy Consent for Planned Operative Procedure(s) Verified: Yes Verified Documents: Surgical Consent, History and Physical and Cardiac Clearance NPO Status Verified Time NPO: 06:30 (finished prep) Additional verifications Anesthesia Reactions: No Airway Assessment Mallampati Score:: Class II C-Spine Mobility Assessed: Yes TMJ Mobility Assessed: Yes Dentition: Edentulous Neurological Assessment Level of Consciousness: Awake, Alert and Appropriate Anesthesia Plan Anesthesia Risk discussed: Yes Anesthesia Plan: Verified ASA Class: III Anesthesia Type: MAC
--- NOTE | 2024-05-26 11:22 | P.HP_ITS ---
History of Present Illness *Admission Date: 05/26/24 *Reason for visit:: Choking/family history of colon cancer *History of present illness: Mr. Vu is a 59-year-old gentleman who is here for diagnostic upper endoscopy secondary to choking and GERD and screening colonoscopy secondary to family history (father and paternal aunt). He has never had a colonoscopy. The examination is deemed medically necessary for EGD and colonoscopy. The patient has been seen, interviewed and examined prior to the procedure by both myself and the anesthesia provider. [facility] Disclaimer: The information contained in this section may have been updated after the patient was seen, as this information can be updated by other users. Medical History (Updated 05/26/24 @ 10:08 by Gypsy Carlson RN) Sleep apnea COPD (chronic obstructive pulmonary disease) History of stroke Deviated septum Preop cardiovascular exam History of non-ST elevation myocardial infarction (NSTEMI) HTN (hypertension) Left ventricular cardiac abnormality Coronary artery disease CAD (coronary artery disease) Allergies Diastolic dysfunction Arthritis GERD (gastroesophageal reflux disease) Eczema Sleep apnea Type 2 diabetes mellitus Hyperlipidemia Obesity Tobacco use Chest pain Skin problem Bronchitis Dyspnea Exposure to COVID-19 virus Knee pain, left Sinusitis Epiglottitis Surgical History (Updated 05/26/24 @ 10:08 by Gypsy Carlson RN) H/O hand surgery History of coronary artery stent placement Status post coronary artery stent placement History of esophagogastroduodenoscopy (EGD) S/P decompression of ulnar nerve at elbow History of medial meniscus repair of right knee Family History Other Cancer Colon cancer Family history of diabetes mellitus type II Liver cancer Lung cancer Social History (Updated 05/26/24 @ 10:30 by Oneal Silverman CRNA) Smoking Status: Current every day smoker tobacco type: cigarettes packs per day: 1 alcohol intake: never substance use type: denies use current occupational status: employed Travel in the last 8 weeks: None household members: spouse and children housing: house current occupation: [employer] current occupational exposures/hazards: No caffeine: Yes Have you lived/traveled outside [place] in past 30 days?: No Contact w/someone who lives/traveled outside [place] past 30 days?: No Exposure to someone with infectious disease in past 14 days?: No Do you have a fever (greater than 100.4 F or 38 C)?: No Have you tested positive for COVID-19: Yes Exposed to someone with COVID-19 in past 14 days?: No Do you have a sore throat?: No Do you have a cough?: No Do you have any weakness?: No Are you experiencing any nausea/vomitting?: No Do you have any diarrhea?: No Are you experiencing any unusual bleeding?: No Do you have any muscle aches/pain?: No Do you have any abdominal pain?: No Are you experiencing loss of taste or smell?: No Other Medical History Have you received the Flu Vaccine for this season: No Have you received the Pneumonia Vaccine: No Review of Systems Review of Systems Review of systems (narrative): Negative *Cardiovascular Comments: Negative *Gastrointestinal Comments: Negative *Genitourinary Comments: Negative *Musculoskeletal Comments: Negative *Neurologic Comments: Negative Meds Home Medications and Allergies Home Medications ?Medication ?Instructions ?Recorded ?Confirmed ?Type albuterol sulfate 90 mcg/actuation 2 puff inhalation Q6HP PRN 04/16/23 05/26/24 History aerosol inhaler Shortness Of Breath empagliflozin 25 mg tablet 25 mg PO DAILY 04/16/23 05/26/24 History (Jardiance) ipratropium 20 mcg-albuterol 100 1 puff inhalation DAILYP PRN 04/16/23 05/26/24 History mcg/actuation mist for inhalation Breathing Problems (Combivent Respimat) loratadine 10 mg tablet 10 mg PO DAILY 04/16/23 05/26/24 History metformin 500 mg tablet,extended 1,000 mg PO DAILYDM Diabetes 04/16/23 05/26/24 History release 24 hr montelukast 10 mg tablet 10 mg PO PM 04/16/23 05/26/24 History nitroglycerin 0.4 mg sublingual 0.4 mg sublingual Q5M PRN chest 04/18/23 05/26/24 Rx tablet pain #20 tabs metformin 500 mg tablet,extended 500 mg PO 1200 04/22/23 05/26/24 History release 24 hr nicotine 21 mg/24 hr daily 1 patch topical DAILY 04/22/23 05/26/24 History transdermal patch furosemide 20 mg tablet 20 mg PO DAILY #90 tabs 04/27/23 05/26/24 Rx metoprolol succinate 100 mg 100 mg PO DAILY #90 tabs 04/27/23 05/26/24 Rx tablet,extended release 24 hr rosuvastatin 20 mg tablet 20 mg PO DAILY #90 tabs 04/27/23 05/26/24 Rx amlodipine 5 mg tablet 5 mg PO DAILY #90 tabs 06/11/23 05/26/24 Rx famotidine 40 mg tablet 40 mg PO BID 01/13/24 05/26/24 History irbesartan 300 mg tablet 300 mg PO DAILY 01/13/24 05/26/24 History fluticasone propionate 50 1 spray intranasal ONCE PRN . 02/09/24 05/26/24 History mcg/actuation nasal spray,suspension albuterol sulfate 2.5 mg/3 mL 2.5 mg (3 mL) inhalation Q4H PRN 03/22/24 05/26/24 Rx (0.083 %) solution for nebulization wheezing #75 mL [id number] 140 gram-sod sulfate 9 500 ml PO .COMPLEX colonscopy #3 ea 05/16/24 05/26/24 Rx gram-NaCl 5.2gram-KCl-C oral pwdr packs (Plenvu) aspirin 81 mg tablet,delayed 81 mg PO DAILY #30 tabs 05/19/24 05/26/24 Rx release (Adult Low Dose Aspirin) prasugrel HCl 10 mg tablet 10 mg PO DAILY 05/26/24 05/26/24 History (Effient) New Prescriptions to Start Prescriptions: Allergies Allergy/AdvReac Type Severity Reaction Status Date / Time dexamethasone Allergy Mild Other Verified 05/26/24 09:55 green tea Allergy Anaphylaxis Verified 05/26/24 09:55 isosorbide mon AdvReac Mild headache Uncoded 05/19/24 10:57 Exam Data for Last 24 hours Vital signs and Labs for Last 24 Hours: Temp Pulse Resp BP Pulse Ox O2 Del Method 97.5 F L 72 18 134/86 96 Room Air 05/26/24 10:04 05/26/24 10:04 05/26/24 10:04 05/26/24 10:04 05/26/24 10:04 05/26/24 10:04 Laboratory Results - last 24 hr 05/26/24 09:59: POC Glucose 109 I & O for Last 24 hours: Intake & Output 05/23/24 05/24/24 05/25/24 02/06/25 23:59 23:59 23:59 23:59 Weight 293 lb 281 lb *Routine HEENT Exam Head: Present normocephalic Eye: Present EOMI and PERRL ENT: Present mucous membranes moist *Routine Neck Exam Neck: Present supple *Routine Respiratory Exam Respiratory: Present CTA bilaterally *Routine Cardiovascular Exam Cardiovascular: Present RRR *Routine Abdominal Exam Abdominal: Present soft and normoactive bowel sounds; Absent tenderness *Routine Rectal Exam Rectal:: deferred *Routine Genitalia Exam Genitalia:: deferred *Routine Extremities Exam Extremities: Absent cyanosis, clubbing or edema *Routine Skin Exam Skin: Present warm; Absent rash *Routine Neurological Exam Neurological: Present alert and oriented X3 Assessment and Plan *Assessment and plan (1) Choking: Status: Acute Category: Medical Code(s): T17.308A - Unspecified foreign body in larynx causing other injury, initial encounter (2) Family history of colon cancer: Status: Acute Category: Medical Code(s): Z80.0 - Family history of malignant neoplasm of digestive organs (3) Bloating: Status: Acute Category: Medical Code(s): R14.0 - Abdominal distension (gaseous) Plan A/P: 1. Choking for upper endoscopy and family history with no prior screening for colonoscopy is the preprocedural diagnosis. The patient will be anesthetized/sedated using MAC sedation. The patient has been seen and examined. Cardiac and lung assessment prior to the examination is stable. Proceed with planned EGD and colonoscopy
[2024-05-26 11:30] VITALS: O2SAT 97
--- NOTE | 2024-05-26 11:47 | HMH.PROCNOTE ---
[facility] Procedure Note Date: 05/26/24 Time: 11:47 Procedure Note:: Upper Endoscopy Procedure Report: Esophagogastroduodenoscopy with cold biopsies and TTS balloon dilation Endoscopost: Jackson Painter II, MD Referring Physician: Didier Sal MD Date of Procedure: May 26, 2024 Equipment: Olympus GIF 190 standard upper endoscope Sedation: MAC sedation Indications: Mr. Vu is a 59-year-old gentleman with chronic GERD. The patient has been experiencing choking. He does take famotidine 40 mg daily but is still having heartburn and reflux throughout the day. Norma-Baker helps some. He does state that he had an upper endoscopy 10 years ago. He does drink a sixpack or more of beer every other day until about a year ago and has reduced this. He did have a stroke in April 2023. He states that when he sits back a certain way, he feels as if a flap closes and gets choking and feels difficulty catching his breath. He reports no globus sensation or dysphagia. Procedure: Prior to the procedure, a history and physical exam was performed, and patient's medications and allergies were reviewed. The risks, benefits and alternatives of the sedation and procedure were discussed with the patient. All questions were answered and informed consent was obtained. The patient was brought to the procedure room. Patient identification and proposed procedure were verified by the physician and the nurse. The patient was placed in a left lateral decubitus position and the scope was passed under direct vision. Throughout the procedure, the patient's blood pressure, pulse, and oxygen saturations were monitored continuously. The upper GI endoscopy was accomplished without difficulty. The patient tolerated the procedure well. Findings: The scope was passed directly into the upper esophagus and advanced to the third portion of the duodenum. The post bulbar duodenum and duodenal bulb were normal with normal mucosa and conniventes. The scope was withdrawn through a normal duodenal bulb and pylorus into the stomach. There was bile reflux with moderate linear reactive gastropathy of the antrum. There was mild chronic gastritis of the body and fundus. Biopsies were taken along the lesser curvature to rule out H. pylori. Upon retroflexion there was a 2 cm hiatal hernia. The scope was then withdrawn into the esophagus. There were 3 tongues of Chan's esophagus that extended 2 cm from the GE junction and several biopsies were obtained. There was no evidence of reflux esophagitis. There were tertiary contractions and evidence of moderate esophageal dysmotility. The entire esophagus was dilated to 60 Pashto/20 mm with a TTS hydrostatic balloon. There was mild resistance at the cricopharyngeus. There was a small Zenker's diverticulum in the posterior pharynx. The remainder of the esophageal mucosa was normal. Impression: 1. Small Zenker's diverticulum 2. Cricopharyngeal spasm 3. 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 Nonerosive GERD with moderate esophageal dysmotility and small 2 cm hiatal hernia 5. Bile reflux with linear reactive gastropathy and mild chronic gastritis Plan: I will follow-up the biopsies. I would recommend adding omeprazole to his regimen. I will discuss the findings with the patient and family and proceed with screening colonoscopy.
--- NOTE | 2024-05-26 12:05 | P.PCN_ITS ---
[facility] Procedure Note Date: 05/26/24 Time: 12:05 Procedure Note:: Colonoscopy Procedure Report: Colonoscopy with cold snare polypectomy Endoscopist: Jackson Painter II, MD Referring physician: Didier Sal MD Date of Procedure: May 26, 2024 Equipment: Olympus 190 variable stiffness pediatric colonoscope Sedation: MAC sedation Indication: Mr. Vu is a 59-year-old gentleman who is here for initial screening colonoscopy. His father had colon cancer in his 70s and his paternal aunt was diagnosed with colon cancer in her 60s. He has regular bowel function but does get some intermittent constipation and straining a couple of times weekly. He reports no rectal bleeding, change in bowel habits, abdominal pain or weight loss. Procedure: Prior to the procedure, a history and physical exam was performed, and patient's medications and allergies were reviewed. The risks, benefits and alternatives of the sedation and procedure were discussed with the patient. All questions were answered and informed consent was obtained. The patient was brought to the procedure room. Patient identification and proposed procedure were verified by the physician and the nurse. The patient was placed in a left lateral decubitus position and the scope was passed under direct vision. Throughout the procedure, the patient's blood pressure, pulse, and oxygen saturations were monitored continuously. The colonoscopy was accomplished without difficulty. The patient tolerated the procedure well. Findings: On digital rectal examination there was normal rectal tone. There were no external hemorrhoids. The prostate was 2-3+, mildly firm but symmetric without nodules. The colonoscope was introduced through the anal canal to the rectum and advanced to the cecum. The ileocecal valve and appendiceal orifice were identified. The scope was advanced a short distance into the ileum which appeared grossly normal. The scope was then withdrawn into the colon. There were 2 polyps (transverse x 1 (4 mm) and descending x 1 (4 mm)). These were both removed via cold snare polypectomy. The cecum, ascending and transverse colon and mucosa were grossly normal. There were scattered diverticuli throughout the descending and sigmoid colon (LEFT colon). The rectum itself was normal. Upon retroflexion within the rectum there were 2 internal hemorrhoids. The preparation was excellent throughout with [place] Preparation Score of 9. The cecal time was 13 minutes. Impression: 1. Diminutive colonic polyps x 2 2. Left-sided diverticulosis 3. Grade 2 internal hemorrhoids Plan: I will follow-up the polyp histology and recommend repeat surveillance colonoscopy again in 5 years based upon the adenomatous polyps and family history. I would encourage psyllium bulking fiber supplementation or fiber bowel regimen on a long-term daily maintenance basis.
[2024-05-26 12:12] VITALS: BP 99/61; PULSE 65; RESP 16; TEMP 36.5; O2SAT 92
[2024-05-26 12:21] VITALS: BP 113/70; PULSE 60; RESP 16; O2SAT 95
[2024-05-26 12:31] VITALS: BP 125/70; PULSE 63; RESP 16; O2SAT 96
[2024-05-26 12:41] VITALS: BP 132/76; PULSE 65; RESP 16; O2SAT 96
== END 2024-05-26 12:46 | disposition home or self-care (01) ==
PROVIDERS: PCP Family Medicine; Visit Provider Internal Medicine Gastroenterology
PROC: 0DJ08ZZ Inspection of Upper Intestinal Tract, Via Natural or Artificial Opening Endoscopic (ICD-10-PCS; CPT 45378; principal; 2024-05-26 11:00)
DX: T17.308A Unspecified foreign body in larynx causing other injury, initial encounter (principal); Z80.0 Family history of malignant neoplasm of digestive organs; R14.0 Abdominal distension (gaseous); K21.9 Gastro-esophageal reflux disease without esophagitis; K22.70 Barrett's esophagus without dysplasia; K31.9 Disease of stomach and duodenum, unspecified; K29.70 Gastritis, unspecified, without bleeding; K22.4 Dyskinesia of esophagus; K44.9 Diaphragmatic hernia without obstruction or gangrene; J39.2 Other diseases of pharynx; K22.5 Diverticulum of esophagus, acquired; K63.5 Polyp of colon; K57.30 Diverticulosis of large intestine without perforation or abscess without bleeding; K64.1 Second degree hemorrhoids; Z72.0 Tobacco use
CPT/HCPCS: 43239; 43249; 45385; 82962; C1726; J2704; J7120

== ENCOUNTER 2024-11-26 16:30 | Outpatient (CLI) | payer BC, SELFPAY ==
--- OUTSIDE RECORDS SUMMARY | 2024-11-28 11:53 | XMS_ITS | Clinical Summary ---
Author Organization [facility] Address [address] [place], [place] [address] Care Team Providers Care Test Baker Name Role Phone None, Physician Primary Care Provider Unavailabl e Allergies Active Allergy Reactions Criticality Noted Date Comments Green Tea Sunshine Ext 06/07/2019 Medications * This document contains [...] Name:ZAYRA ROJAS Date of :1965 Address: [address] [place] [address] Payer ID:[id number] Group ID:Not on file Type:Indemnity Address: [address] [address] [place] [address] Advance Directives Documents on File Type Date Recorded Patient Manager Medical Affairs Expl anation Power of Commanding Officer Traffic Division 08/30/2015 5:22 PM Care Teams Test Baker Relationship Specialty Start Date End Date None, Physician PCP - General 08/30/15
== END 2024-11-26 23:59 | disposition home or self-care (01) ==
LOC: LAB.DROPOF 11-28 11:52
PROVIDERS: PCP Nurse Practitioner Family; Visit Provider Nurse Practitioner Family
DX: M54.9 Dorsalgia, unspecified (principal)
CPT/HCPCS: 87086

== ENCOUNTER 2024-11-28 04:59 | Emergency (ER) | payer BC, SELFPAY ==
--- OUTSIDE RECORDS SUMMARY | 2024-01-30 06:00 | XMS_ITS ---
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 Name Role Phone Didier Sal Primary Care Provider Allergies No Known Allergies Results Component Value Reference Range Notes Glucose (In-House) Reviewed date:02/02/2024 01:51:57 PM Interpretation:115 Performing Lab: Notes/Report: 115 blood glucose 115 74 - 106 mg/dL Glycohemoglobin A1c (in hous e) Reviewed date:02/02/2024 01:51:57 PM Interpretation:5.9% Performing Lab: Notes/Report: 5.9% glycohemoglobin 5.9% 5 - 6.5 % P-Comprehensive Metabolic Pa margie (CMP) Reviewed date:02/02/2024 01:51:57 PM Interpretation:K+ 5.4, gluc 113, bun 21 Performing Lab: Notes/Report: Test performed by [employer] [facility] , [address], [place] [address] Kieran Quiñones MD, [employer] CLIA: [id number] Sodium 140 135-145 mmol/L Potassium 5.4 3.5-5.3 mmol/L Chloride 103 97-108 mmol/L CO2 24 22-32 mmol/L Glucose 113 65-99 mg/dL BUN 21 6-20 mg/dL Creatinine 1.04 0.70-1.30 mg/dL Calcium 9.1 8.6-10.4 mg/dL eGFR by Creatinine 83 >59 mL/min/1.73m2 Protein 7.1 6.0-8.3 g/dL Albumin 4.4 3.5-5.3 g/dL Alkaline Phosphatase 59 40-129 IU/L ALT (SGPT) 18 <5-55 IU/L AST (SGOT) 16 <5-46 IU/L Bilirubin, Total 0.4 <0.2-1.2 mg/dL A/G Ratio 1.6 1.1-2.5 P-Lipid Panel Reviewed date:02/02/2024 01:51:57 PM Interpretation:trigs 220, hdl 36 Performing Lab: Notes/Report: Test performed by [facility], [address] , [address], [place] [address] Kieran Quiñones MD, [employer] CLIA: [id number] Cholesterol 132 <200 mg/dL Triglycerides 220 <150 mg/dL HDL Cholesterol 36 >39 mg/dL Cholesterol / HDL Ratio 3.67 0.00-4.99 Ratio Non-HDL Cholesterol 96 <130 mg/dL LDL Cholesterol (Calculation) 52 <130 mg/dL LDL Cholesterol Levels* Less than 100 mg/dL Optimal 100 to 129 mg/dL Near Optimal/ Above Optimal 130 to 159 mg/dL Borderline High 160 to 189 mg/dL High 190 mg/dL and above Very High * Categories as recommended by the 2004 ATPIII guidelines LDL/HDL Ratio 1.4 <3.3 Ratio LDL Cholesterol Patient History Test Date: 07/13/2023 LDL Results: 43 Units: mg/dL % Change: - Test Date: 01/30/2024 LDL Results: 52 Units: mg/dL % Change: +20% P-Magnesium Reviewed date:02/02/2024 01:51:57 PM Interpretation:Normal Performing Lab: Notes/Report: Test performed by [employer] [address] [place], [place] [address] [place] , [place] [address] Kieran Quiñones MD, [employer] CLIA: [id number] Magnesium 2.4 1.6-2.4 mg/dL P-Phosphorus Reviewed date:02/02/2024 01:51:57 PM Interpretation:Normal Performing Lab: Notes/Report: Test performed by [employer] [address] [place] [address] , [place] [address] Kieran Quiñones MD, [employer] CLIA: [id number] Phosphorus 3.9 2.5-4.5 mg/dL P-PSA Reviewed date:02/02/2024 01:51:57 PM Interpretation:Normal Performing Lab: Notes/Report: Test performed by [employer] [address] [place] [address] , [address], [place] [address] Kieran Quiñones MD, [employer] CLIA: [id number] PSA 1.18 <4.00 ng/mL Please note this is an ultrasensitive PSA assay with a lower limit of detection of 0.014 ng/mL. This test is performed by the Rickey ECLIA methodology. Values obtained with different assay methods or kits cannot be directly compared. P-TSH reflex to FT4 Reviewed date:02/02/2024 01:51:57 PM Interpretation:Normal Performing Lab: Notes/Report: Test performed by [employer] [address] [facility] , [address], [place] [address] Kieran Quiñones MD, [employer] CLIA: [id number] TSH reflex to FT4 2.43 0.43-5.25 mU/L P-Microalbumin/Creatinine, R andom Urine Sample Reviewed date:02/02/2024 01:51:57 PM Interpretation:satisfactory Performing Lab: Notes/Report: Test performed by [employer] [address] [facility] , [address], [place] [address] Kieran Quiñones MD, [employer] CLIA: [id number] Albumin/Creatinine Ratio, Urine See Comment 0-30 ug/mg Unable to calculate Urine Albumin/Creatinine Ratio when urine creatinine or urine albumin fall outside established reportable range. Microalbumin, Urine, Random <0.3 Creatinine, Urine 40.9 REASON FOR VISIT check up with fasting labs Medications Medication SIG (Take, Route, Frequency, Duration) Notes Start Date End Date Status amLODIPine Besylate 10 MG 1 tablet Orall y Once a day; Duration: 30 day(s) Active Montelukast Sodium 10 MG 1 tab(s) orally once a day; Duration: 90 days Active Jardiance 25 MG 1 tablet Orally Once a day; Duration: 90 days Active Metoprolol Succinate ER 100 MG 1 tablet Orally Once a day; Duration: 90 days Active metFORMIN HCl ER 500 MG TAKE 3 TABLETS B Y MOUTH DAILY; Duration: 90 Active Combivent Respimat 20-100 MCG/ACT 1 puff(s) inhaled 4 times a day; Duration: 90 days Active Fluticasone Propionate 50 MCG/ACT 1 spray in each nostril Nasally Once a day; Duration: 90 days 10/23/2023 Active Famotidine 40 MG 1 tablet at bedtime Orally Once a day; Duration: 90 days 05/04/2023 Active Irbesartan 300 MG 1 tablet Orally Once a day; Duration: 90 days Active Prasugrel HCl 10 MG as directed Orally o nce daily; Duration: 90 days Active Rosuvastatin Calcium 20 MG 1 tablet Oral ly Once a day; Duration: 90 days Active Loratadine 10 MG 1 tab(s) orally once a day; Duration: 90 days Active Aspirin 81 81 MG 1 tablet Orally Once a day Active Furosemide 20 MG 1 tab(s) orally once a day; Duration: 90 days Active Nitroglycerin 0.4 MG as directed Sublingual Active Sildenafil Citrate 20 MG 1 to 5 tab(s) o rally once daily as needed 01/06/2022 Active Meloxicam 15 MG 1 tab(s) orally once a day; Duration: 30 days Active Albuterol Sulfate HFA 108 (90 Base) MCG/ACT 1 puff Inhalation every 4 hrs, prn 12/25/2022 Active CareTouch CPAP & BIPAP Hose 1 DIRECTED 05/04/19 18 Active Nicotine Step 1 21 MG/24HR 1 patch to sk in Transdermal Once a day; Duration: 30 day(s) Active Vital Signs Blood pressure systolic 130 mm Hg 01/30/20 24 Blood pressure diastolic 80 mm Hg 024 Heart Rate 59 /min 01/30/2024 Height 68.50 in 01/30/2024 Weight 301 lbs 01/30/2024 BMI 45.10 kg/m2 01/30/2024 Encounters Encounter Location Date [facility] [address] [id number] 01/30/2024 Didier Sal Type 2 diabetes sabrina itus without complication, without long-term current use of insulin E11.9 ; Hyperlipidemia, unspecified hyperlipidemia type E78.5 ; Hypertriglyceridemia E78.1 ; Essential (primary) hypertension I10 ; Allergic rhinitis, unspecified seasonality, unspecified trigger J30.9 ; Cramp in lower leg R25.2 ; Morbid obesity E66.01 and Prostate cancer screening Z12.5 Assessments Encounter Date Diagnosis (ICD Code) Assessment Notes Treatment Notes Treatment Clinical Notes Section Notes 01/30/2024 Type 2 diabetes sabrina itus without complication, without long-term current use of insulin (ICD-10 - E11.9) 01/30/2024 Hyperlipidemia, unspecified hyperlipidemia type (ICD-10 - E78.5) 01/30/2024 Hypertriglyceridemia (ICD-10 - E78.1) 01/30/2024 Essential (primary) hypertension (ICD-10 - I10) 01/30/2024 Allergic rhinitis, unspecified seasonality, unspecified trigger (ICD-10 - J30.9) 01/30/2024 Cramp in lower leg (ICD-10 - R25.2) 01/30/2024 Morbid obesity (ICD- 10 - E66.01) 01/30/2024 Prostate cancer screening (ICD-10 - Z12.5) Plan Of Treatment Medication Medication Name Sig Start Date Stop Date Notes Montelukast Sodium 10 MG 1 tab(s) orally once a day; Duration: 90 days Jardiance 25 MG 1 tablet Orally Once a day; Duration: 90 days Metoprolol Succinate ER 100 MG 1 tablet Orally Once a day; Duration: 90 days Next Appt Details Follow Up: 6 Months, Reason: Provider Name:Didier Fry ry, 01/24/2025 09:45:00 AM, [address], [address], [place], [place], [id number], Progress Notes * ENRIQUETA AMAROOB: 6 (59 yo M)Acc No.[id number]:01/30/2024 Progress Notes Patient: MARILOU ALLISON Provider: Andrew Sal M.D. :1965 A ge:58 Y S ex:Male Date:01/30/2024 Address:[facility] [place], [id number] Subjective: * Chief Complaints: * 1 . Check up with fasting labs. * HPI: E ndocrinology: Maintenance P clementina presents today for a check up with fasting labs. Pt sts that he has no new concerns or complaints at this time. Pt sts that he needs a refill of Metoprolol, Montelukast and Jardiance. 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 G astroenterology: Acid Reflux P t sts that the Famotidine does not seem to be helping and he always has heartburn after taking his medications. He would like to know if this can be increased or if there is another antacid that may help. * ROS: D ERMATOLOGY: no R randall. n o H lee ann. G ASTROENTEROLOGY: no N ausea. n o V omiting. n o D iarrhea.? U ROLOGY: no D ifficulty urinating. n [...] Decompression , Percutaneous coronary intervention . * Family History: F ather: alive, lung [...] tab(s) orally once a day , Taking Aspirin 81 81 MG Tablet Delayed Release 1 tablet Orally Once a day , Taking Rosuvastatin Calcium 20 MG Tablet 1 tablet Orally Once a day , Taking Prasugrel HCl 10 MG Tablet as directed Orally once daily , Taking Loratadine 10 MG Tablet 1 tab(s) orally once a day , Taking Combivent Respimat 20-100 MCG/ACT Aerosol Solution 1 puff(s) inhaled 4 times a day , Taking Metoprolol Succinate ER 100 MG Tablet Extended Release 24 Hour 1 tablet Orally Once a day , Taking Fluticasone Propionate 50 MCG/ACT Suspension 1 spray in each nostril Nasally Once a day , Taking Jardiance 25 MG Tablet 1 tablet Orally Once a day , Taking Famotidine 40 MG Tablet 1 tablet at bedtime Orally Once a day , Taking Irbesartan 300 MG Tablet 1 tablet Orally Once a day , Taking metFORMIN HCl ER 500 MG Tablet Extended Release 24 Hour TAKE 3 TABLETS BY MOUTH DAILY , Discontinued Promethazine-DM 6.25-15 MG/5ML Syrup 5 ml Orally every 6 hrs, prn , Medication List reviewed and reconciled with the patient * Allergies: N .K.D.A. Objective: * Vitals: W t:301, Temp:98.1, BP:130/80, HR:59, O2 Sat:96% on RA, Nurse:NATALIE, Ht: 68.50, BMI:45.10. * Examination: E ndocrinology: General Appearance: N AD. H eart: R SR. L ungs:?clear to auscultation. E xtremities: n o leg edema. Assessment: * Assessment: 1. T ype 2 diabetes mellitus without complication, without long-term current use of insulin - E11.9 (Primary) 2 . H yperlipidemia, unspecified hyperlipidemia type - E78.5 3 . H ypertriglyceridemia - E78.1 4 . E ssential (primary) hypertension - I10 5 . A llergic rhinitis, unspecified seasonality, unspecified trigger - J30.9 6 . C ramp in lower leg - R25.2 7 . M orbid obesity - E66.01 8 . P rostate cancer screening - Z12.5 Plan: * Treatment: Value Reference Range A /G Ratio 1.6 1.1-2.5 - * A lbumin 4.4 3.5-5.3 - g/dL * A lkaline Phosphatase 59 40-129 - IU/L * A LT (SGPT) 18 <5-55 - IU/L * A ST (SGOT) 16 <5-46 - IU/L * B ilirubin, Total 0.4 <0.2-1.2 - mg/dL * B UN 21 H 6-20 - mg/dL * C alcium 9.1 8.6-10.4 - mg/dL * C hloride 103 97-108 - mmol/L * C O2 24 22-32 - mmol/L * C reatinine 1.04 0.70-1.30 - mg/dL * G lucose 113 H 65-99 - mg/dL * P otassium 5.4 H 3.5-5.3 - mmol/L * S odium 140 135-145 - mmol/L * P rotein 7.1 6.0-8.3 - g/dL * e GFR by Creatinine 83 >59 - mL/min/1.73m2 * Rosalinda Chew 02/02/2024 1:51 :48 PM >See phone encounter ?LAB: P-TSH reflex to FT4 (Collection Date & Time - 01/30/2024 08:49 AM)? Normal* Value Reference Range T SH reflex to FT4 2.43 0.43-5.25 - mU/L * Rosalinda Chew 02/02/2024 1:51 :48 PM >See phone encounter ?LAB: P-Microalbumin/Creatinine, Random Urine Sample (Collection Date & Time - 01/30/2024 08:49 AM)?satisfactory* Value Reference Range A lbumin/Creatinine Ratio, Urine See Comment L 0-30 - ug /mg * C reatinine, Urine 40.9 - mg/dL * M icroalbumin, Urine, Random <0.3 - mg/dL * JeevanRosalinda 02/02/2024 1:51 :48 PM >See phone encounter ?LAB: Glucose (In-House) (Collection Date & Time - 01/30/2024)?115* Value Reference Range b lood glucose 115 74 - 106 mg/dL * Makayla Carter 01/30/2024 10: 03:30 AM > Rosalinda Chew 02/02/2024 1:51:48 PM >See phone encounter ?LAB: Glycohemoglobin A1c (in house) (Collection Date & Time - 01/30/2024)? 5.9%* Value Reference Range g lycohemoglobin 5.9% 5 - 6.5 % * Makayla Carter 01/30/2024 10: 03:50 AM > Rosalinda Chew 02/02/2024 1:51:48 PM >See phone encounter 2.?Hyperlipidemia, unspecified hyperlipidemia type?LAB: P-Comprehensive Metabolic Panel (CMP) (Collection Date & Time - 01/30/2024 08:49 AM)?K+ 5.4, gluc 113, bun 21* Value Reference Range A /G Ratio 1.6 1.1-2.5 - * A lbumin 4.4 3.5-5.3 - g/dL * A lkaline Phosphatase 59 40-129 - IU/L * A LT (SGPT) 18 <5-55 - IU/L * A ST (SGOT) 16 <5-46 - IU/L * B ilirubin, Total 0.4 <0.2-1.2 - mg/dL * B UN 21 H 6-20 - mg/dL * C alcium 9.1 8.6-10.4 - mg/dL * C hloride 103 97-108 - mmol/L * C O2 24 22-32 - mmol/L * C reatinine 1.04 0.70-1.30 - mg/dL * G lucose 113 H 65-99 - mg/dL * P otassium 5.4 H 3.5-5.3 - mmol/L * S odium 140 135-145 - mmol/L * P rotein 7.1 6.0-8.3 - g/dL * e GFR by Creatinine 83 >59 - mL/min/1.73m2 * Rosalinda Chew 02/02/2024 1:51 :48 PM >See phone encounter ?LAB: P-Lipid Panel (Collection Date & Time - 01/30/2024 08:49 AM)?trigs 220, hdl 36* Value Reference Range C holesterol / HDL Ratio 3.67 0.00-4.99 - Ratio * C holesterol 132 <200 - mg/dL * H DL Cholesterol 36 L >39 - mg/dL * L DL Cholesterol (Calculation) 52 <130 - mg/d L * L DL/HDL Ratio 1.4 <3.3 - Ratio * N on-HDL Cholesterol 96 <130 - mg/dL * T riglycerides 220 H <150 - mg/dL * Rosalinda Chew 02/02/2024 1:51 :48 PM >See phone encounter 3.?Hypertriglyceridemia?LAB: P-Lipid Panel (Collection Date & Time - 01/30/2024 08:49 AM)?trigs 220, hdl 36* Value Reference Range C holesterol / HDL Ratio 3.67 0.00-4.99 - Ratio * C holesterol 132 <200 - mg/dL * H DL Cholesterol 36 L >39 - mg/dL * L DL Cholesterol (Calculation) 52 <130 - mg/d L * L DL/HDL Ratio 1.4 <3.3 - Ratio * N on-HDL Cholesterol 96 <130 - mg/dL * T riglycerides 220 H <150 - mg/dL * Rosalinda Chew 02/02/2024 1:51 :48 PM >See phone encounter 4.?Essential (primary) hypertension? Refill Metoprolol Succinate ER Tablet Extended Release 24 Hour, 100 MG, 1 tablet, Orally, Once a day, 90 days, 90, Refills 1.?LAB: P-Comprehensive Metabolic Panel (CMP) (Collection Date & Time - 01/30/2024 08:49 AM)?K+ 5.4, gluc 113, bun 21* Value Reference Range A /G Ratio 1.6 1.1-2.5 - * A lbumin 4.4 3.5-5.3 - g/dL * A lkaline Phosphatase 59 40-129 - IU/L * A LT (SGPT) 18 <5-55 - IU/L * A ST (SGOT) 16 <5-46 - IU/L * B ilirubin, Total 0.4 <0.2-1.2 - mg/dL * B UN 21 H 6-20 - mg/dL * C alcium 9.1 8.6-10.4 - mg/dL * C hloride 103 97-108 - mmol/L * C O2 24 22-32 - mmol/L * C reatinine 1.04 0.70-1.30 - mg/dL * G lucose 113 H 65-99 - mg/dL * P otassium 5.4 H 3.5-5.3 - mmol/L * S odium 140 135-145 - mmol/L * P rotein 7.1 6.0-8.3 - g/dL * e GFR by Creatinine 83 >59 - mL/min/1.73m2 * Rosalinda Chew 02/02/2024 1:51 :48 PM >See phone encounter 5.?Allergic rhinitis, unspecified seasonality, unspecified trigger? Refill Montelukast Sodium Tablet, 10 MG, 1 tab(s), orally, once a day, 90 days, 90, Refills 1.??6.?Cramp in lower leg?LAB: P-Magnesium (Collection Date & Time - 01/30/2024 08:49 AM)?Normal* Value Reference Range M agnesium 2.4 1.6-2.4 - mg/dL * Rosalinda Chew 02/02/2024 1:51 :48 PM >See phone encounter ?LAB: P-Phosphorus (Collection Date & Time - 01/30/2024 08:49 AM)?Normal* Value Reference Range P hosphorus 3.9 2.5-4.5 - mg/dL * Rosalinda Chew 02/02/2024 1:51 :48 PM >See phone encounter 7.?Prostate cancer screening?LAB: P-PSA (Collection Date & Time - 01/30/2024 08:49 AM)?Normal* Value Reference Range P SA 1.18 <4.00 - ng/mL * Rosalinda Chew 02/02/2024 1:51 :48 PM >See phone encounter * Procedure Codes: 8 2950 GLUCOSE TEST, 17847 GLYCATED HEMOGLOBIN TEST, Modifiers: QW * Follow Up: 6 Months * Images: Billing Information: * Visit Code: 33057 Office Visit, Est Pt., Level 4. * Procedure Codes: 35185 GLUCOSE TEST. 65442 GLYCATED HEMOGLOBIN TEST. Modifiers: QW * Electronic signature of Annika Sal MD on 11/28/2024 at 05:06 AM EDT Sign off status: Pending * Provider: Andrew Sal M.D. Date: 1 Generated for Mike islas/Arlene/eTransmitting on: 0 11/28/2024 05:06 AM EDT History and Physical Notes * HPI (History of Present Illness) Category Sub-Category Detail Notes Category Not es Endocrinology Maintenance Pt presents toda y for a check up with fasting labs. Pt sts that he has no new concerns or complaints at this time. 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 He would like to know if this can be increased or if there is another antacid that may help Examination Category Sub-Category Detail Notes Category Not es Endocrinology Heart: RSR Lungs: clear to auscultatio n Extremities: no leg edema General Appearance: NAD
--- OUTSIDE RECORDS SUMMARY | 2024-02-17 05:10 | XMS_ITS ---
Author Organization [facility] Address [address] [facility] [address] [place] [id number] Care Team Providers Care Associate Professor Of Economics Name Role Phone Didier Sal Primary Care Provider [phone] Results Component Value Reference Range Notes P-Potassium Reviewed date:02/18/2024 10:02:31 AM Interpretation:Normal Performing Lab: Notes/Report: Test performed by [facility] [address] [place] [address] , [address], [place] [address] Kieran Quiñones MD, Guide Plant CLIA: [id number] Potassium 5.1 3.5-5.3 mmol/L REASON FOR VISIT blood work Medications Medication SIG (Take, Route, Frequency, Duration) Notes Start Date End Date Status Irbesartan 300 MG 1 tablet Orally Once a day; Duration: 90 days Active metFORMIN HCl ER 500 MG TAKE 3 TABLETS B Y MOUTH DAILY; Duration: 90 Active Montelukast Sodium 10 MG 1 tab(s) orally once a day; Duration: 90 days Active Metoprolol Succinate ER 100 MG 1 tablet Orally Once a day; Duration: 90 days Active Jardiance 25 MG 1 tablet Orally Once a day; Duration: 90 days Active Fluticasone [...] once a day; Duration: 90 days Active Combivent Respimat 20-100 MCG/ACT 1 puff(s) inhaled 4 times a day; Duration: 90 days Active CareTouch CPAP & BIPAP Hose 1 DIRECTED 05/04/19 Active Albuterol Sulfate HFA 108 (90 Base) MCG/ACT 1 puff Inhalation every 4 hrs, prn 12/25/2022 Active Furosemide 20 MG 1 tab(s) orally once a day; Duration: 90 days Active Aspirin 81 81 MG 1 tablet Orally Once a day Active Rosuvastatin Calcium 20 MG 1 tablet Oral ly Once a day; Duration: 90 days Active amLODIPine Besylate 10 MG 1 tablet Orall y Once a day; Duration: 30 day(s) Active Nicotine Step 1 21 MG/24HR 1 patch to sk in Transdermal Once a day; Duration: 30 day(s) Active Nitroglycerin 0.4 MG as directed Sublingual Active Meloxicam 15 MG 1 tab(s) orally once a day; Duration: 30 days Active Sildenafil Citrate 20 MG 1 to 5 tab(s) o rally once daily as needed 01/06/2022 Active Encounters Encounter Location Date Provider Diagnosis [facility] [address] [place] [id number] 02/17/2024 Didier Sal Hyperkalemia E87.5 Assessments Encounter Date Diagnosis (ICD Code) Assessment Notes Treatment Notes Treatment Clinical Notes Section Notes 02/17/2024 Hyperkalemia (ICD-10 - E87.5) Plan Of Treatment Next Appt Details Provider Name:Didier Fry ry, 01/24/2025 09:45:00 AM, [address], [address], [place], [phone], Progress Notes * ENRIQUETA AMAROOB: 6 (59 yo M)Acc No.[id number]:02/17/2024 Patient: MARILOU ALLISON Provider: Andrew Sal M.D. :1965 A ge:59 Y S ex:Male Date:02/17/2024 Address:[address] [place] [address] S, [id number] Subjective: * Chief Complaints: * 1 . Blood work. * Medical History: * Medications: T aking amLODIPine Besylate 10 [...] Inhalation every 4 hrs, prn , Taking Furosemide 20 MG Tablet 1 [...] inhaled 4 times a day , Taking Fluticasone Propionate 50 MCG/ACT Suspension 1 spray in each nostril Nasally Once a day , Taking Famotidine 40 MG Tablet 1 tablet at bedtime Orally Once a day , Taking Irbesartan 300 MG Tablet 1 tablet Orally Once a day , Taking metFORMIN HCl ER 500 MG Tablet Extended Release 24 Hour TAKE 3 TABLETS BY MOUTH DAILY , Taking Montelukast Sodium 10 MG Tablet 1 tab(s) orally once a day , Taking Metoprolol Succinate ER 100 MG Tablet Extended Release 24 Hour 1 tablet Orally Once a day , Taking Jardiance 25 MG Tablet 1 tablet Orally Once a day , Medication List reviewed and reconciled with the patient Objective: * Vitals: Assessment: * Assessment: 1. H yperkalemia - E87.5 Plan: * Treatment: Value Reference Range P otassium 5.1 3.5-5.3 - mmol/L * Etta Macias 02/18/2024 10:02: 17 AM > Pt informed * Images: Billing Information: * Visit Code: * Procedure Codes: * Electronic signature of Annika Sal MD on 11/28/2024 at 05:07 AM EDT Sign off status: Pending * Provider: Andrew Sal M.D. Date: 1 Generated for Mike islas/Arlene/Jennifer on: 0 11/28/2024 05:07 AM EDT
--- OUTSIDE RECORDS SUMMARY | 2024-07-25 06:00 | XMS_ITS ---
Author Organization [facility] Address [address] [facility] [address] [place], [place] [id number] Care Team Providers Care Recreation Attendant Supervisor Name Role Phone Didier Sal Primary Care Provider Allergies No Known Allergies Results Component Value Reference Range Notes P-Comprehensive Metabolic Pa margie (CMP) Reviewed date:07/26/2024 12:28:19 PM Interpretation:gluc 117 Performing Lab: Notes/Report: Test performed by [facility] , [address], [place] [address] Kieran Quiñones MD, Farm Supervisor CLIA: [id number] Sodium 140 135-145 mmol/L Potassium 4.9 3.5-5.3 [...] Interpretation:5.8 Performing Lab: Notes/Report: Test performed by [facility] [address] [place] [address] Deborah Weems, [place] [address] Kieran Quiñones MD, Farm Supervisor CLIA: [id number] Hemoglobin A1C 5.8 <5.7 % The following HbA1c ranges recommended by the [place] Diabetes Association (ADA) may be used as an aid in the diagnosis of diabetes mellitus. HbA1c Suggested Diagnosis >=6.5% Diabetic 5.7% - 6.4% Pre-Diabetic <5.7% Non-Diabetic P-Lipid Panel Reviewed date:07/26/2024 12:28:20 PM Interpretation:trigs 175 Performing Lab: Notes/Report: Test performed by [facility] [address] [place] [address] Deborah Weems, [place] [address] Kieran Quiñones MD, Farm Supervisor CLIA: [id number] Cholesterol 131 <200 mg/dL Triglycerides 175 <150 [...] Interpretation:120 Performing Lab: Notes/Report: Test performed by [facility] [address] [place] [address] , [place] [address] Kieran Quiñones MD, Farm Supervisor CLIA: [id number] Estimated Average Glucose (eAG) 120 Estimated Average [...] Provider Diagnosis [facility] [address] [facility] [address] [place], [place] [phone] 07/25/2024 Didier Sal Type 2 diabetes sabrina itus without complication, unspecified whether chcf insulin use E11.9 ; Primary hypertension I10 ; Hypertriglyceridemia E78.1 ; RAKAN (obstructive sleep apnea) G47.33 and CAD in [place] artery I25.10 Assessments Encounter Date Diagnosis (ICD Code) Assessment Notes Treatment Notes Treatment Clinical Notes Section Notes 07/25/2024 Type 2 diabetes sabrina itus without complication, unspecified whether chcf insulin use (ICD-10 - E11.9) 07/25/2024 Primary hypertension (ICD-10 - I10) 07/25/2024 Hypertriglyceridemia (ICD-10 - E78.1) 07/25/2024 RAKAN (obstructive sle ep apnea) (ICD-10 - G47.33) Patient os doing well with CPAP and should continue using it every time he sleeps 07/25/2024 CAD in [place] artery (ICD-10 - I25.10) Plan Of Treatment [...] Fry ry, 01/24/2025 09:45:00 AM, [address] [facility] [address] [facility], [address], [place], [place], [id number], Progress Notes * AMARO SIGRIDMARIOOB: 6 (59 yo M)Acc No.[id number]:07/25/2024 Progress Notes Patient: MARILOU ALLISON Provider: Andrew Sal M.D. :1965 A ge:59 Y S ex:Male Date:07/25/2024 Address:[address] [place] [address] [place]UR[place], [id number] Subjective: * Chief Complaints: * 1 . [...] 2 diabetes mellitus without complication, unspecified whether chcf insulin use - E11.9 (Primary) 2 . P rimary hypertension - I10 3 . H ypertriglyceridemia - E78.1 4 . O SA (obstructive sleep apnea) - G47.33 5. C AD in [place] artery - I25.10 Plan: * Treatment: Value [...] using it every time he sleeps??5.?CAD in [place] artery? Continue Rosuvastatin Calcium Tablet, 20 MG, 1 tablet, Orally, Once a day;?Continue Prasugrel HCl Tablet, 10 MG, as directed, Orally, once daily.?? * Labs: * L ab: Estimated Average Glucose (Collection Date & Time - 07/25/2024 09:30 AM) 1 20 Value Reference Range E stimated Average Glucose 120 - mg/dL * [facility], IT support 07/26/2024 05:30:14 : This order was created by the Interface. Rosalinda Chew 07/26/2024 12:28:13 PM > See phone encounter * Procedure Codes: 3 044F HG A1C LEVEL LT 7.0%, 3074F SYST BP LT 130 MM HG, 3079F DIAST BP 80-89 MM HG * Follow Up: 6 Months * Images: Billing Information: * Visit Code: 08420 Office Visit, Est Pt., Level 4. * Procedure Codes: 3044F HG A1C LEVEL LT 7.0%. 3074F SYST BP LT 130 MM HG. 3079F DIAST BP 80-89 MM HG. * Electronic signature of Annika Sal MD on 11/28/2024 at 05:07 AM EDT Sign off status: Pending * Provider: Andrew Sal M.D. Date: 0 07/25/2024 Generated for Mike islas/Arlene/Saryitting on: 0 11/28/2024 05:07 AM EDT History and Physical Notes * [...]
--- NOTE | 2024-11-28 05:04 | HMH.EDGENADL ---
Discharge Plan Disposition Patient Disposition: Home, Self-Care Condition: Fair Prescriptions Prescriptions: New valacyclovir 1 gram tablet 1,000 mg PO Q8H 7 Days Qty: 21 0RF gabapentin 300 mg capsule 300 mg PO TID 10 Days Qty: 30 0RF gabapentin 300 mg capsule 300 mg PO TID 10 Days Qty: 30 0RF No Action fluticasone propionate 50 mcg/actuation spray,suspension 1 spray intranasal ONCE PRN (Reason: .) guaifenesin [Mucinex] 1,200 mg tablet extended release 12hr 1,200 mg PO BID Qty: 20 0RF metoprolol succinate 100 mg tablet extended release 24 hr 100 mg PO DAILY Qty: 90 3RF furosemide 20 mg tablet 20 mg PO DAILY Qty: 90 3RF irbesartan 300 mg tablet 300 mg PO DAILY aspirin [Adult Low Dose Aspirin] 81 mg tablet,delayed release (DR/EC) 81 mg PO DAILY Qty: 30 2RF lidocaine [Aspercreme (lidocaine)] 4 % adhesive patch,medicated 1 patch topical DAILY PRN (Reason: pain) Qty: 5 0RF cyclobenzaprine 5 mg tablet 5 mg PO HS PRN (Reason: muscle spasm) 4 Days Qty: 4 0RF albuterol sulfate 2.5 mg /3 mL (0.083 %) solution for nebulization 2.5 mg inhalation Q4H PRN (Reason: wheezing) Qty: 75 4RF amlodipine 5 mg tablet 5 mg PO DAILY Qty: 90 3RF rosuvastatin 20 mg tablet 20 mg PO DAILY Qty: 90 3RF nicotine 21 mg/24 hr patch 24 hour 1 patch topical DAILY Patient Comments: APPLY 1 PATCH ON THE SKIN DAILY DIRECTED omeprazole 40 mg capsule,delayed release(DR/EC) 40 mg PO DAILY Qty: 30 12RF Rx Instructions: Please take 1 capsule p.o. daily montelukast 10 mg Tablet 10 mg PO PM albuterol sulfate 90 mcg/actuation HFA aerosol inhaler 2 puff inhalation Q6HP PRN (Reason: Shortness Of Breath) Patient Comments: INHALE 1 PUFF BY MOUTH EVERY 4 HOURS NEEDED metformin 500 mg Tablet Extended Release 24 Hr 1,000 mg PO DAILYDM Rx Instructions: Take 1000mg in morning and 500mg at lunch loratadine 10 mg Tablet 10 mg PO DAILY Jardiance 25 mg Tablet 25 mg PO DAILY Combivent Respimat 20-100 mcg/actuation Mist 1 puff INHALATION DAILYP PRN (Reason: Breathing Problems) nitroglycerin 0.4 mg tablet, sublingual 0.4 mg sublingual Q5M PRN (Reason: chest pain) Qty: 20 0RF Rx Instructions: do not exceed 3 doses per episode Referrals Follow up/Referrals: Didier Sal MD [Primary Care Provider, Medical] - See instructions Activity Restrictions/Add. Instructions Additional Instructions/Restrictions: Return to the emergency department if you develop any fevers, worsening pain despite medications at home or change in the pain location. Please follow up with your primary care provider in 2-3 days. Please return to ED if your symptoms worsen, change in location, change in severity, new symptoms develop or if you become concerned for your health. 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 He presents today due to concerns for back pain now radiating to his chest. He was seen 2 days ago at urgent care and was prescribed lidocaine patch and Flexeril for musculoskeletal back pain. He reports that the pain has been worsening and now radiating around to his chest. He also reports a concomitant rash. It is red and has some blisters on the back that is draining. He denies any fevers. Denies any numbness weakness tingling that are new. He denies any change in the pain with exertion. He denies any shortness of breath. Denies any lower extremity edema. No history of blood clots. Related Data Home Medications ?Medication ?Instructions ?Recorded ?Confirmed albuterol sulfate 90 mcg/actuation 2 puff inhalation Q6HP PRN 04/16/23 11/26/24 aerosol inhaler Shortness Of Breath empagliflozin 25 mg tablet 25 mg PO DAILY 04/16/23 11/26/24 (Jardiance) ipratropium 20 mcg-albuterol 100 1 puff inhalation DAILYP PRN 04/16/23 11/26/24 mcg/actuation mist for inhalation Breathing Problems (Combivent Respimat) loratadine 10 mg tablet 10 mg PO DAILY 04/16/23 11/26/24 metformin 500 mg tablet,extended 1,000 mg PO DAILYDM Diabetes 04/16/23 11/26/24 release 24 hr montelukast 10 mg tablet 10 mg PO PM 04/16/23 11/26/24 nicotine 21 mg/24 hr daily 1 patch topical DAILY 04/22/23 11/26/24 transdermal patch irbesartan 300 mg tablet 300 mg PO DAILY 01/13/24 11/26/24 fluticasone propionate 50 1 spray intranasal ONCE PRN . 02/09/24 11/26/24 mcg/actuation nasal spray,suspension Previous Rx's ?Medication ?Instructions ?Recorded nitroglycerin 0.4 mg sublingual 0.4 mg sublingual Q5M PRN chest 04/18/23 tablet pain #20 tabs furosemide 20 mg tablet 20 mg PO DAILY #90 tabs 04/27/23 metoprolol succinate 100 mg 100 mg PO DAILY #90 tabs 04/27/23 tablet,extended release 24 hr albuterol sulfate 2.5 mg/3 mL 2.5 mg (3 mL) inhalation Q4H PRN 03/22/24 (0.083 %) solution for nebulization wheezing #75 mL aspirin 81 mg tablet,delayed 81 mg PO DAILY #30 tabs 05/19/24 release (Adult Low Dose Aspirin) omeprazole 40 mg capsule,delayed 40 mg PO DAILY #30 caps 05/26/24 release amlodipine 5 mg tablet 5 mg PO DAILY #90 tabs 05/27/24 guaifenesin 1,200 mg tablet, 1,200 mg PO BID #20 tabs 07/03/24 extended release 12 hr (Mucinex) rosuvastatin 20 mg tablet 20 mg PO DAILY #90 tabs 11/01/24 cyclobenzaprine 5 mg tablet 5 mg PO HS PRN muscle spasm 4 days 11/26/24 #4 tabs lidocaine 4 % topical patch 1 patch topical DAILY PRN pain #5 11/26/24 (Aspercreme (lidocaine)) ea gabapentin 300 mg capsule 300 mg PO TID 10 days #30 caps 11/28/24 gabapentin 300 mg capsule 300 mg PO TID 10 days #30 caps 11/28/24 valacyclovir 1 gram tablet 1,000 mg PO Q8H 7 days #21 tabs 11/28/24 Allergies Allergy/AdvReac Type Severity Reaction Status Date / Time dexamethasone Allergy Mild Other Verified 11/26/24 15:06 green tea Allergy Anaphylaxis Verified 11/26/24 15:06 isosorbide mon AdvReac Mild headache Uncoded 11/26/24 15:06 PFSH PFSH Disclaimer: The information contained in this section may have been updated after the patient was seen, as this information can be updated by other users. Medical History Sleep apnea COPD (chronic obstructive pulmonary disease) History of stroke Deviated septum right Preop cardiovascular exam History of non-ST elevation myocardial infarction (NSTEMI) HTN (hypertension) Left ventricular cardiac abnormality Coronary artery disease CAD (coronary artery disease) Allergies Diastolic dysfunction Arthritis GERD (gastroesophageal reflux disease) Eczema Sleep apnea Type 2 diabetes mellitus Hyperlipidemia Obesity Tobacco use Chest pain Skin problem Bronchitis Dyspnea Exposure to COVID-19 virus Knee pain, left Sinusitis Epiglottitis Surgical History H/O hand surgery right History of coronary artery stent placement Status post coronary artery stent placement History of esophagogastroduodenoscopy (EGD) S/P decompression of ulnar nerve at elbow History of medial meniscus repair of right knee Family History Other Cancer Colon cancer Family history of diabetes mellitus type II Liver cancer Lung cancer Social History Smoking Status: Never smoker alcohol intake: never substance use type: denies use current occupational status: employed Travel in the last 8 weeks?: None household members: spouse and children housing: house current occupation: [employer] current occupational exposures/hazards: No caffeine: Yes Have you lived/traveled outside [place] in past 30 days?: No Contact w/someone who lives/traveled outside US past 30 days?: No Exposure to someone with infectious disease in past 14 days?: No Do you have a fever (greater than 100.4 F or 38 C)?: No Have you tested positive for COVID-19?: No Exposed to someone with COVID-19 in past 14 days?: No Do you have a sore throat?: No Do you have a cough?: No Do you have any weakness?: No Do you have any diarrhea?: No Are you experiencing any unusual bleeding?: No Do you have any muscle aches/pain?: No Do you have any abdominal pain?: No Are you experiencing loss of taste or smell?: No Other Medical History Have you received the Flu Vaccine for this season: No Have you received the Pneumonia Vaccine: No ROS Obtained: Yes All systems reviewed & no additional complaints except as documented Physical Exam General General appearance: alert, in no apparent distress and obese Head Head exam: atraumatic and normocephalic Eye Eye exam: Present PERRL and EOMI ENT ENT exam: Present normal oropharynx Neck Neck exam: Present full ROM and trachea midline Chest Chest inspection: Present symmetric chest wall rise Expanded Chest Exam Male Torso:  1. Erythematous papular macular rash with vesicles that are in various stages of draining and bursting. Respiratory Respiratory exam: Present normal lung sounds bilaterally; Absent stridor Cardiovascular Cardiovascular exam: Present regular rate and normal rhythm Abdominal Exam Abdominal exam: Present soft; Absent distention or tenderness Extremities Exam Extremities exam: Present full ROM; Absent tenderness (Entire spine palpated. No step-offs deformities or midline tenderness.) Back Exam Back exam: Present tenderness and rashes Back 1 view image:  1. Neurological Exam Neurological exam: Present alert and oriented X3 Psychiatric Psychiatric exam: Present normal mood Skin Skin exam: Present warm and dry Medical Decision Making Medical Records Screening: Per USPSTF and CDC recommendations, given the prevalence of disease in our region, it is our hospital?s policy to screen for HIV and viral Hepatitis for all patients aged 18 and over and those with ongoing risk factors. Albert Inquiry Pt receiving controlled substance: No Vital Signs: 11/28/24 05:07 Temperature 98.2 F Temperature Source Oral Pulse Rate [Right Radial] 70 Respiratory Rate 16 Blood Pressure [Right Arm] 155/90 H Blood Pressure Mean [Right Arm] 111 Blood Pressure Source [Right Arm] Automatic Cuff Blood Pressure Position [Right Arm] Supine 02 Sat by Pulse Oximetry 95 Oxygen Delivery Method Room Air Medical Decision Narrative: In summary, this 59-year-old male presents to the emergency department today with back pain chest pain rash. On initial evaluation patient is afebrile hemodynamically stable and in no acute distress. On exam is warm well-perfused. On exam, his heart is regular rate and rhythm lung sounds good auscultation bilaterally. He has a notable dermatomal distribution of a vesiculobullous erythematous rash with some vesicles bursting. Clinically consistent with shingles varicella zoster. Does appear to be in the infectious phase. Given precautions about this. When I ask where his pain is, he points directly to the rash. Reports that the pain does not go elsewhere. Patient is at increased risk for ACS, however I have extremely low suspicion that this is what is causing his pain given that he is only pointing to where the rash is hurting him. Valtrex and gabapentin Toradol for pain.. Considered x-ray and hematologic labs, but favored that it would not add anything to the clinical picture as most consistent with shingles. I reviewed his previous labs and GFR which demonstrates a normal GFR, so he should be okay for normal 1 g 3 times daily of Valtrex at home and normal gabapentin doses. At this time it was felt that the patient was safe to be discharged home. The patient was in agreement with this plan. The patient was given strict return precautions prior to being discharged from the emergency department. Critical Care Critical Care Time Critical Care Time: No
[2024-11-28 05:07] VITALS: BP 155/90; PULSE 70; RESP 16; TEMP 36.8; O2SAT 95; BMI 40.1
--- OUTSIDE RECORDS SUMMARY | 2024-11-28 05:07 | XMS_ITS | Clinical Summary ---
Author Organization [facility] Address [address] [place], [place] [id number] Care Team Providers Care Tax Adjuster Name Role Phone None, Physician Primary Care Provider Unavailabl e Allergies Active Allergy Reactions Criticality Noted Date Comments Green Tea [place] Ext 06/07/2019 Medications * This document contains information received from the source organization and may not represent a complete record from that organization. dextromethorphan -guaiFENesin (MUCINEX DM) 30-600 MG Take 1 tablet by mouth every 12 (twelve) hours. Active benzonatate (TESSALON PERLES) 100 MG capsuleIndicatio ns:Wheezing,Lowe r respiratory infection (e.g., bronchitis, pneumonia, pneumonitis, pulmonitis),Seco ndary hypertension,Upp er respiratory tract infection, unspecified type Take 2 capsules by mouth 3 (three) times daily as needed for Cough. 30 capsule 0 Active promethazine-dex tromethorphan (PROMETHAZINE-DM ) 6.25-15 MG/5ML syrupIndications :Wheezing,Lower respiratory infection (e.g., bronchitis, pneumonia, pneumonitis, pulmonitis),Seco ndary hypertension,Upp er respiratory tract infection, unspecified type Take 5 mLs by mouth four times daily as needed for Cough. 118 mL 0 Active Active Problems No known active problems Social History Tobacco Use Types Packs/Day Years Used Date Smoking Tobacco: Every Day Smokeless Tobacco: Never Sex and Gender Information Value Date Recorded Sex Assigned at Not on file Legal Sex Male 5:11 PM EDT Gender Identity Not on file Sexual Orientation Not on file Last Filed Vital Signs Vital Sign Reading Time Taken Comments Blood Pressure 175/97 06/07/2019 11:25 AM EST Pulse 81 06/07/2019 11:25 AM EST Temperature 36.7 C (98.1 F) 06/07/2019 11:25 AM EST Respiratory Rate 20 06/07/2019 11:25 AM EST Oxygen Saturation 94% 06/07/2019 11:25 AM EST Inhaled Oxygen Concentration - - Weight 147 kg (324 lb 1.2 oz) 06/07/2019 11:25 A M EST Height 177.8 cm (5' 10 ) 05/26/2017 11:10 AM EST Body Mass Index 46.5 05/26/2017 11:10 AM EST Plan of Treatment Health Maintenance Due Date Last Done Comments CT Colonography 1966 Colonoscopy 1966 Colorectal Cancer Screening 1966 FIT-DNA 1966 FIT 1966 FOBT 1966 Sigmoidoscopy 1966 Hepatitis B (HepB) Vaccine ( 1 of 3 - 19+ 3-dose series) 1985 Tdap/Td Vaccine >11 yo (1 - Tdap) 1985 Pneumococcal Vaccines >50 yo (1 of 1 - PCV) 02/08/2016 Shingles (Shingrix) (1 of 2) 02/08/2016 Annual SDOH Screening 04/20/2024 Influenza Vaccine (#1) 2024 Haemophilus Influenzae Type B (Hib) Vaccine Aged Out No longer eligible b ased on patient's age to complete this topic Hepatitis A (HepA) Vaccine Aged Out N o longer eligible based on patient's age to complete this topic Meningococcal ACWY Aged Out No longer eligible based on patient's age to complete this topic Polio (IPV) Aged Out No longer eligi ble based on patient's age to complete this topic Rotavirus (RV) Vaccine Aged Out No lo nger eligible based on patient's age to complete this topic Insurance [employer] Member Subscriber Plan / Payer (Ef fective 2015-Present) Name:Alfred Amaro Relation to Subscriber:Employee Name:ZAYRA ROJAS Date of :1965 Address: [address] [place] [address] Payer ID:[id number] Group ID:Not on file Type:Indemnity Address: [address] [address] [place] [address] Advance Directives Documents on File Type Date Recorded 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
--- OUTSIDE RECORDS SUMMARY | 2024-11-28 05:08 | XMS_ITS | Patient Health Record ---
Author Organization [facility] Address [address] [place] [id number] Care Team Providers Care Meat Supervisor Name Role Phone Didier Sal Primary Care Provider [phone] Alyce Garcia Unavailable [phone] Allergies No Known Allergies Results Component Value [...] 21 Performing Lab: Notes/Report: Test performed by [facility], [employer] [address] , [address], [place] [address] Kieran Quiñones MD, Atmospheric Physicist CLIA: [id number] Sodium 140 135-145 mmol/L Potassium 5.4 3.5-5.3 [...] 36 Performing Lab: Notes/Report: Test performed by [facility], [address] , [address], [place] [address] Kieran Quiñones MD, Atmospheric Physicist CLIA: [id number] Cholesterol 132 <200 mg/dL Triglycerides 220 <150 [...] Interpretation:Normal Performing Lab: Notes/Report: Test performed by [facility] [address] [place] [address] , [facility], [place] [address] Kieran Quiñones MD, Atmospheric Physicist CLIA: [id number] Magnesium 2.4 1.6-2.4 mg/dL P-Phosphorus Reviewed date:02/02/2024 01:51:57 PM Interpretation:Normal Performing Lab: Notes/Report: Test performed by [facility] [address] [place] [address] , [address], [place] [address] Kieran Quiñones MD, Atmospheric Physicist CLIA: [id number] Phosphorus 3.9 2.5-4.5 mg/dL P-PSA Reviewed date:02/02/2024 01:51:57 PM Interpretation:Normal Performing Lab: Notes/Report: Test performed by [facility] [address] [place] [address] , [address], [place] [address] Kieran Quiñones MD, Atmospheric Physicist CLIA: [id number] PSA 1.18 <4.00 ng/mL Please note this is an ultrasensitive PSA assay with a lower limit of detection of 0.014 ng/mL. This test is performed by the Rickey ECLIA methodology. Values obtained with different assay methods or kits cannot be directly compared. P-TSH reflex to FT4 Reviewed date:02/02/2024 01:51:57 PM Interpretation:Normal Performing Lab: Notes/Report: Test performed by [facility], [address] , [address], [place] [address] Kieran Quiñones MD, Atmospheric Physicist CLIA: [id number] TSH reflex to FT4 2.43 0.43-5.25 mU/L P-Microalbumin/Creatinine, R andom Urine Sample Reviewed date:02/02/2024 01:51:57 PM Interpretation:satisfactory Performing Lab: Notes/Report: Test performed by [facility] [address] , [address], [place] [address] Kieran Quiñones MD, Atmospheric Physicist CLIA: [id number] Albumin/Creatinine Ratio, Urine See Comment 0-30 ug/mg Unable to calculate Urine Albumin/Creatinine Ratio when urine creatinine or urine albumin fall outside established reportable range. Microalbumin, Urine, Random <0.3 Creatinine, Urine 40.9 P-Potassium Reviewed date:02/18/2024 10:02:31 AM Interpretation:Normal Performing Lab: Notes/Report: Test performed by [facility] [address] , [address], [place] [id number] Kieran Quiñones MD, Atmospheric Physicist CLIA: [id number] Potassium 5.1 3.5-5.3 mmol/L P-Comprehensive Metabolic Pa margie (CMP) Reviewed date:07/26/2024 12:28:19 PM Interpretation:gluc 117 Performing Lab: Notes/Report: Test performed by [facility] [address] [place] [address] , [place] [address] Kieran Quiñones MD, Atmospheric Physicist CLIA: [id number] Sodium 140 135-145 mmol/L Potassium 4.9 3.5-5.3 [...] Interpretation:5.8 Performing Lab: Notes/Report: Test performed by [facility] [address] [place] [address] [place] [address] Kieran Quiñones MD, Atmospheric Physicist CLIA: [id number] Hemoglobin A1C 5.8 <5.7 % The following HbA1c ranges recommended by the [place] [employer] (ADA) may be used as an aid in the diagnosis of diabetes mellitus. HbA1c Suggested Diagnosis >=6.5% Diabetic 5.7% - 6.4% Pre-Diabetic <5.7% Non-Diabetic P-Lipid Panel Reviewed date:07/26/2024 12:28:20 PM Interpretation:trigs 175 Performing Lab: Notes/Report: Test performed by [facility] [address] [place] [address] [place] [address] Kieran Quiñones MD, Atmospheric Physicist CLIA: [id number] Cholesterol 131 <200 mg/dL Triglycerides 175 <150 [...] Interpretation:120 Performing Lab: Notes/Report: Test performed by [facility] [address] , [address], [place] [address] Kieran Quiñones MD, Atmospheric Physicist CLIA: [id number] Estimated Average Glucose (eAG) 120 Estimated Average Glucose (eAG) is calculated using the equation eAG = (28.7 x HbA1c) - 46.7 based on the guidelines established by the ADA. If the patient has certain diseases including kidney disease, sickle cell anemia, thalassemia, or is taking medications such as dapsone, erythropoietin, or iron, eAG should not be evaluated. X ray : Chest Reviewed date:12/28/2023 05:13:19 PM Interpretation:No acute findings Performing Lab: Notes/Report: No acute findings Reason For Referral No Information Medications Medication SIG (Take, Route, Frequency, Duration) Notes Start Date End Date Status Furosemide 20 MG TAKE 1 TABLET BY JOHN TH EVERY DAY; Duration: 90 Active Irbesartan 300 MG 1 tablet Orally Once a day; Duration: 90 days Active Rosuvastatin Calcium 20 MG 1 tablet Oral ly Once a day; Duration: 90 days Active Metoprolol Succinate ER 100 MG TAKE 1 TABLET BY MOUTH DAILY; Duration: 90 Active Loratadine 10 MG TAKE 1 TABLET BY JOHN TH EVERY DAY; Duration: 90 Active Meloxicam 15 MG 1 tab(s) orally once a day; Duration: 30 days Active Combivent Respimat 20-100 MCG/ACT 1 puff(s) inhaled 4 times a day; Duration: 90 days Active Nitroglycerin 0.4 MG as directed Sublingual Active Jardiance 25 MG 1 tablet Orally Once a day Active Nicotine Step 1 21 MG/24HR 1 patch to sk in Transdermal Once a day; Duration: 30 day(s) Active Montelukast Sodium 10 MG 1 tab(s) orally once a day; Duration: 90 days Active metFORMIN HCl ER 500 MG TAKE 3 TABLETS B Y MOUTH DAILY; Duration: 90 Active amLODIPine Besylate 10 MG 1 tablet Orall y Once a day Active Fluticasone Propionate 50 MCG/ACT ADMINISTER 1 SPRAY IN EACH NOSTRIL ONCE DAILY; Duration: 90 Active CareTouch CPAP & BIPAP Hose 1 DIRECTED 05/04/19 18 Active Aspirin 81 81 MG 1 tablet Orally Once a day; Duration: 90 days Active Prasugrel HCl 10 MG as directed Orally o nce daily Active Sildenafil Citrate 20 MG 1 to 5 tab(s) o rally once daily as needed 01/06/2022 Active Albuterol Sulfate HFA 108 (90 Base) MCG/ACT INHALE 1 PUFF BY MOUTH EVERY 4 HOURS NEEDED; Duration: 30 Active Immunizations Vaccine Route Administration Date Status Comme nts Fluzone Quad (6months&older) IM Intramuscular 01/10/2023 Administered Fluzone PF Quad (6-35 months) Unknown 12/01/2020 Administered COVID 19 Pfizer Unknown 11/10/2020 Administered COVID 19 Pfizer Unknown 12/01/2020 Administered Problems Problem Type SNOMED Code ICD Code Onset Dates Problem Status W/U Status Risk Notes Problem Essential hypertension (61567078) Essential (primary) hypertension (I10) Active confirmed Problem Morbid obesity (330614646) Morbid obesity (E66.01) Active confirmed Problem Hypertriglyceridemia (005744320) Hypertriglyceridemia (E78.1) Active confirmed Problem Seasonal allergy (447244767) Seasonal allergies (J30.2) Active confirmed Problem Psoriasis (6739644) Psoriasis (L40.9) Active co nfirmed Problem Unstable angina (6054762) Unstable angina (I20.0) Active confirmed Problem Granuloma annulare (00202371) Granuloma annulare (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) Active confirmed Problem Excessive thirst (69489148) Polydipsia (R63.1) Active confirmed Problem Male erectile disorder (885594125) Male erectile disorder (N52.9) Active confirmed Problem Chronic pain (22808251) Other chronic pain (G89.29) Active confirmed Problem Obstructive sleep apnea syndrome (46698554) Obstructive sleep apnea syndrome (G47.33) Active confirmed Problem Gastroesophageal reflux disease (053467071) Gastroesophageal reflux disease, esophagitis presence not specified (K21.9) Active confirmed Problem Erectile dysfunction (disorder) (096281435) Erectile dysfunction, unspecified erectile dysfunction type (N52.9) Active confirmed Problem Anemia (629512783) Anemia, unspe cified type (D64.9) Active confirmed Problem Obstructive sleep apnea syndrome (65087292) RAKAN (obstructive sleep apnea) (G47.33) Active confirmed Problem Body mass index 40+ - morbidly obese (945722098) BMI 40.0-44.9, adult (Z68.41) Active confirmed Problem Osteoarthritis of knee (246736231) Primary osteoarthritis of left knee (M17.12) Active confirmed Problem Hyperlipidaemia (62383142) Hyperlipidemia, unspecified hyperlipidemia type (E78.5) Active confirmed Problem Tobacco user (027487635) Cigarette nicotine dependence without complication (F17.210) Active confirmed Problem Skin infection (35091295) Skin infection (L08.9) Active confirmed Problem Cerebrovascular accident (193512827) Cerebrovascular accident (CVA), unspecified mechanism (I63.9) Active confirmed Problem Type II diabetes mellitus without complication (918382559) Type 2 diabetes mellitus without complication, without long-term current use of insulin (E11.9) Active confirmed Problem Pain in limb (10964776) Pain in thumb joint with movement of right hand (M79.644) Active confirmed Problem Atherosclerotic hear t disease of [place] coronary artery without angina pectoris (081065405585775) Atherosclerosis of [place] coronary artery without angina pectoris, unspecified whether [place]lam[place] or transplanted heart (I25.10) Active confirmed Problem Ischemic stroke (175314603) Ischemic stroke (I63.9) Active confirmed Problem Tobacco use (842973605) Tobacco use disorder (F17.200) Active confirmed Problem MRSA (Methicillin resistant Staphylococcus aureus) infection (826612026) MRSA (methicillin resistant Staphylococcus aureus) infection (A49.02) Active confirmed Problem Pruritus ani (25819750) Perianal pruritus (L29.0) Active confirmed Problem Allergic rhinitis (60031535) Allergic rhinitis, unspecified seasonality, unspecified trigger (J30.9) Active confirmed Problem Type II diabetes mellitus without complication (999205942) Type 2 diabetes mellitus without complication, unspecified whether termite treater insulin use (E11.9) Active confirmed Problem Plain X-ray of chest abnormal (finding) (1206834906) Abnormal CXR (R93.89) Active confirmed Problem Arthritis of right knee (5495484586813977) Arthritis of knee, right (M17.11) Active confirmed Problem Diastolic dysfunctio n (6430494) Diastolic dysfunction (I51.89) Active confirmed Problem Coronary arteriosclerosis (disorder) (09847950) CAD in [place] artery (I25.10) Active confirmed Problem Primary hypertension (47720447) Primary hypertension (I10) Active confirmed Problem Mild chronic obstructive pulmonary disease (209704610) Mild chronic obstructive pulmonary disease (J44.9) Active confirmed Vital Signs Heart Rate 68 /min 07/25/2024 Blood pressure diastolic 82 mm Hg 07/25/2024 Height 68.50 in 07/25/2024 Blood pressure systolic 120 mm Hg 07/25/2024 Weight 291.2 lbs 07/25/2024 BMI 43.63 kg/m2 07/25/2024 Encounters Encounter Location Date Provider Diagnosis [facility] [address] [facility] [address] [place], [place] [id number] 01/30/2024 Didier Sal Type 2 diabetes sabrina itus without complication, without long-term current use of insulin E11.9 ; Hyperlipidemia, unspecified hyperlipidemia type E78.5 ; Hypertriglyceridemia E78.1 ; Essential (primary) hypertension I10 ; Allergic rhinitis, unspecified seasonality, unspecified trigger J30.9 ; Cramp in lower leg R25.2 ; Morbid obesity E66.01 and Prostate cancer screening Z12.5 [facility] [address] [place], [place] [id number] 02/17/2024 Didier Stanhope Hyperkalemia E87.5 [facility] [address] [place], [place] [id number] 07/25/2024 Didier Stanhope Type 2 diabetes sabrina itus without complication, unspecified whether termite treater insulin use E11.9 ; Primary hypertension I10 ; Hypertriglyceridemia E78.1 ; RAKAN (obstructive sleep apnea) G47.33 and CAD in [place] artery I25.10 [facility] [address] [place], [place] [id number] 12/08/2023 Didier Stanhope Abnormal CXR R93.89 [facility] [address] [place], [place] [id number] 12/10/2023 Didier Stanhope Heartburn R12 [facility] [address] [place], [place] [id number] 02/02/2024 Didier Stanhope [facility] [address] [place], [place] [id number] 03/09/2024 Alyce Crowdy [facility] [address] [place], [place] [id number] 04/22/2024 Alyce Crowdy [facility] [address] [place], [place] [id number] 05/27/2024 Didier Stanhope Ischemic stroke I63. 9 [facility] [address] [place] [id number] 06/10/2024 Didier Stanhope [facility] [address] [place], [place] [id number] 07/05/2024 Didier Stanhope [facility] [address] [place] [id number] 07/26/2024 Didier Sal Assessments Encounter Date Diagnosis (ICD Code) Assessment Notes Treatment Notes Treatment Clinical Notes Section Notes 12/08/2023 Abnormal CXR (ICD-10 - R93.89) 12/10/2023 Heartburn (ICD-10 - R12) 01/30/2024 Hyperlipidemia, unspecified hyperlipidemia type (ICD-10 - E78.5) 01/30/2024 Type 2 diabetes sabrina itus without complication, without long-term current use of insulin (ICD-10 - E11.9) 05/27/2024 Ischemic stroke (ICD -10 - I63.9) 07/25/2024 Type 2 diabetes sabrina itus without complication, unspecified whether termite treater insulin use (ICD-10 - E11.9) 07/25/2024 Primary hypertension (ICD-10 - I10) 02/17/2024 Hyperkalemia (ICD-10 - E87.5) 07/25/2024 Hypertriglyceridemia (ICD-10 - E78.1) 01/30/2024 Hypertriglyceridemia (ICD-10 - E78.1) 01/30/2024 Essential (primary) hypertension (ICD-10 - I10) 07/25/2024 RAKAN (obstructive sle ep apnea) (ICD-10 - G47.33) Patient os doing well with CPAP and should continue using it every time he sleeps 07/25/2024 CAD in klam[place] artery (ICD-10 - I25.10) 01/30/2024 Allergic rhinitis, unspecified seasonality, unspecified trigger (ICD-10 - J30.9) 01/30/2024 Cramp in lower leg (ICD-10 - R25.2) 01/30/2024 Morbid obesity (ICD- 10 - E66.01) 01/30/2024 Prostate cancer screening (ICD-10 - Z12.5) Plan Of Treatment Next Appt Details Provider Name:Didier strange, 01/24/2025 09:45:00 AM, [address], [address], [place], [id number], Insurance Providers Payer Name Payer Address Payer Phone Subscriber Number Group Number Insured Name Patient Relationship to Insured Coverage Start Date Coverage End Date LUIS MANUEL [employer] [address] [place] [id number] MARILOU AMARO Self - patient is the insured Medications Administered Medication Instructions Date of Administration Dosage Notes Dexamethasone 03/03/2014 1 mL Dexamethasone 04/26/2014 1 mL pt requeste sunita that he get a shot in the arm Dexamethasone 11/08/2015 1 mL Dexamethasone 06/28/2016 1 mL Medical (General) History Medical History History ICD Code Type 2 Diabetes Sleep Apnea Tobacco Abuse LT Knee Meniscus Repair LT Knee Pain Eczema Erectile Dysfunction Esophageal Reflux Arthritis, Multiple Joints Diastolic Dysfunction CVA Coronary Artery Disease, PCI with 2 sten ts placed Surgical History Surgery Date(Month/Year) RT Hand, Torn Tendons 2004 RT Elbow Decompression Percutaneous coronary intervention 2023 EGD 2024 colonoscopy 2024 Hospitalization History Reason Date(Month/Year)
[2024-11-28] MEDS: GABAPENTIN 300MG CAPSULE 300 MG PO (05:38)
[2024-11-28] MEDS: KETOROLAC 30MG/ML VIAL 15 MG IM (05:38)
[2024-11-28 05:49] VITALS: BP 127/62; PULSE 62; RESP 16; TEMP 36.8; O2SAT 100
== END 2024-11-28 05:50 | disposition home or self-care (01) ==
PROVIDERS: Emergency Provider Emergency Medicine; PCP Family Medicine
DX: B02.9 Zoster without complications (principal)
CPT/HCPCS: 96372; 99283; J1885

== ENCOUNTER 2024-12-28 14:09 | Emergency (ER) | payer BC, SELFPAY ==
--- OUTSIDE RECORDS SUMMARY | 2024-01-30 06:00 | XMS_ITS ---
Author Organization [facility] Address [address] [facility] [address] [place] [id number] Care Team Providers Care Acid Crane Operator Name Role Phone Didier Sal Primary Care Provider [phone] Allergies No Known Allergies Results Component Value [...] 21 Performing Lab: Notes/Report: Test performed by [facility] , [address], [place] [address] Kieran Quiñones MD, Cardiovascular Tech CLIA: [id number] Sodium 140 135-145 mmol/L Potassium 5.4 3.5-5.3 [...] 36 Performing Lab: Notes/Report: Test performed by [facility], [address] , [address], [place] [address] Kieran Quiñones MD, Cardiovascular Tech CLIA: [id number] Cholesterol 132 <200 mg/dL Triglycerides 220 <150 [...] Interpretation:Normal Performing Lab: Notes/Report: Test performed by [facility] [address] [place], [place] [address] [place] , [place] [address] Kieran Quiñones MD, Cardiovascular Tech CLIA: [id number] Magnesium 2.4 1.6-2.4 mg/dL P-Phosphorus Reviewed date:02/02/2024 01:51:57 PM Interpretation:Normal Performing Lab: Notes/Report: Test performed by [facility] [address] [place] [address] , [place] [address] Kieran Quiñones MD, Cardiovascular Tech CLIA: [id number] Phosphorus 3.9 2.5-4.5 mg/dL P-PSA Reviewed date:02/02/2024 01:51:57 PM Interpretation:Normal Performing Lab: Notes/Report: Test performed by [facility] [address] [place] [address] , [address], [place] [address] Kieran Quiñones MD, Cardiovascular Tech CLIA: [id number] PSA 1.18 <4.00 ng/mL Please note this is an ultrasensitive PSA assay with a lower limit of detection of 0.014 ng/mL. This test is performed by the Rickey ECLIA methodology. Values obtained with different assay methods or kits cannot be directly compared. P-TSH reflex to FT4 Reviewed date:02/02/2024 01:51:57 PM Interpretation:Normal Performing Lab: Notes/Report: Test performed by [facility] [address] [facility] , [address], [place] [address] Kieran Quiñones MD, Cardiovascular Tech CLIA: [id number] TSH reflex to FT4 2.43 0.43-5.25 mU/L P-Microalbumin/Creatinine, R andom Urine Sample Reviewed date:02/02/2024 01:51:57 PM Interpretation:satisfactory Performing Lab: Notes/Report: Test performed by [facility] [address] [facility] , [address], [place] [address] Kieran Quiñones MD, Cardiovascular Tech CLIA: [id number] Albumin/Creatinine Ratio, Urine See Comment 0-30 ug/mg [...] 01/30/2024 Encounters Encounter Location Date Provider [facility] [address] [id number] 01/30/2024 Didier Sal Type 2 diabetes sabrina [...] [address], [address], [place], [place], [id number], Progress Notes * ENRIQUETA AMAROOB: 6 (59 yo M)Acc No.[id number]:01/30/2024 Progress Notes Patient: MARILOU ALLISON Provider: Andrew Sal M.D. :1965 A ge:58 Y S ex:Male Date:01/30/2024 Address:[facility] [place], [id number] Subjective: * Chief Complaints: * 1 . Check up with fasting labs. * HPI: E ndocrinology: Maintenance P clementina presents today for a check up with fasting labs. Pt sts that he has no new concerns or complaints at this time. Pt sts that he needs a refill of Metoprolol, Montelukast and Jardiance. C ardiology: Gauger Chief P t sts that he is supposed [...] Temp:98.1, BP:130/80, HR:59, O2 Sat:96% on RA, Nurse:NATLAIE, Ht: 68.50, BMI:45.10. * Examination: E ndocrinology: [...] * Procedure Codes: 8 2950 GLUCOSE TEST, [address] GLYCATED HEMOGLOBIN TEST, Modifiers: QW * Follow Up: 6 Months * Images: Billing Information: * Visit Code: 16765 Office Visit, Est Pt., Level 4. * Procedure Codes: 51557 GLUCOSE TEST. 77316 GLYCATED HEMOGLOBIN TEST. Modifiers: QW * Electronic signature of Annika Sal MD on 12/28/2024 at 02:20 PM EDT Sign off status: Pending * Provider: Andrew Sal M.D. Date: 1 Generated for Mike islas/Arlene/eTransmitting on: 0 12/28/2024 02:20 PM EDT History and Physical Notes * HPI (History of Present Illness) Category Sub-Category Detail Notes Category Not es Endocrinology Maintenance Pt presents toda y for a check up with fasting labs. Pt sts that he has no new concerns or complaints at this time. Pt sts that he needs a refill of Metoprolol, Montelukast and Jardiance Cardiology Gauger Chief Pt sts that he i s supposed [...]
--- OUTSIDE RECORDS SUMMARY | 2024-02-17 05:10 | XMS_ITS ---
Author Organization [facility] Address [address] [facility] [address] [place] [id number] Care Team Providers Care Reverberatory Furnace Supervisor Name Role Phone Didier Sal Primary Care Provider Results Component Value Reference Range Notes P-Potassium Reviewed date:02/18/2024 10:02:31 AM Interpretation:Normal Performing Lab: Notes/Report: Test performed by [facility] [address] [place] [address] , [address], [place] [address] Kieran Quiñones MD, Supervisor Sulfuric Acid Plant CLIA: [id number] Potassium 5.1 3.5-5.3 mmol/L REASON FOR VISIT [...] Active Encounters Encounter Location Date Provider Diagnosis [facility] [address] [place] [id number] 02/17/2024 Didier Sal Hyperkalemia E87.5 Assessments Encounter Date Diagnosis (ICD Code) Assessment Notes Treatment Notes Treatment Clinical Notes Section Notes 02/17/2024 Hyperkalemia (ICD-10 - E87.5) Plan Of Treatment Next Appt Details Provider Name:Didier Fry ry, 01/24/2025 09:45:00 AM, [address], [address], [place], [id number], Progress Notes * ENRIQUETA AMAROOB: 6 (59 yo M)Acc No.[id number]:02/17/2024 Patient: MARILOU ALLISON Provider: Andrew Sal M.D. :1965 A ge:59 Y S ex:Male Date:02/17/2024 Address:[address] [place] [address] S, [id number] Subjective: * Chief Complaints: * 1 . [...] of Annika Sal MD on 12/28/2024 at 02:21 PM EDT Sign off status: Pending * Provider: Andrew Sal M.D. Date: 1 Generated for Mike islas/Arlene/Jennifer on: 0 12/28/2024 02:21 PM EDT
--- OUTSIDE RECORDS SUMMARY | 2024-07-25 06:00 | XMS_ITS ---
Author Organization [facility] Address [address] [facility] [address] [place], [place] [id number] Care Team Providers Care Instructor Industrial Design Name Role Phone Didier Sal Primary Care Provider [phone] Allergies No Known Allergies Results Component Value Reference Range Notes P-Comprehensive Metabolic Pa margie (CMP) Reviewed date:07/26/2024 12:28:19 PM Interpretation:gluc 117 Performing Lab: Notes/Report: Test performed by [facility] , [address], [place] [address] Kieran Quiñones MD, Engine Specialist CLIA: [id number] Sodium 140 135-145 mmol/L Potassium 4.9 3.5-5.3 mmol/L Chloride 104 97-108 mmol/L CO2 22 22-32 mmol/L Glucose 117 65-99 mg/dL BUN 18 6-20 mg/dL Creatinine 0.85 0.70-1.30 mg/dL Calcium 9.0 8.6-10.4 mg/dL eGFR by Creatinine 100 >59 mL/min/1.73m2 Protein 6.8 6.0-8.3 g/dL Albumin 4.3 3.5-5.3 g/dL Alkaline Phosphatase 64 40-129 IU/L ALT (SGPT) 12 <5-55 IU/L AST (SGOT) 10 <5-46 IU/L Bilirubin, Total 0.4 <0.2-1.2 mg/dL A/G Ratio 1.7 1.1-2.5 P-Hemoglobin A1C Reviewed date:07/26/2024 12:28:20 PM Interpretation:5.8 Performing Lab: Notes/Report: Test performed by [facility] [address] [place] [address] Deborah Weems, [place] [address] Kieran Quiñones MD, Engine Specialist CLIA: [id number] Hemoglobin A1C 5.8 <5.7 % The following HbA1c ranges recommended by the [place] Diabetes Association (ADA) may be used as an aid in the diagnosis of diabetes mellitus. HbA1c Suggested Diagnosis >=6.5% Diabetic 5.7% - 6.4% Pre-Diabetic <5.7% Non-Diabetic P-Lipid Panel Reviewed date:07/26/2024 12:28:20 PM Interpretation:trigs 175 Performing Lab: Notes/Report: Test performed by [facility] [address] [place] [address] Deborah Weems, [place] [address] Kieran Quiñones MD, Engine Specialist CLIA: [id number] Cholesterol 131 <200 mg/dL Triglycerides 175 <150 mg/dL HDL Cholesterol 40 >39 mg/dL Cholesterol / HDL Ratio 3.27 0.00-4.99 Ratio Non-HDL Cholesterol 91 <130 mg/dL LDL Cholesterol (Calculation) 56 <130 mg/dL LDL Cholesterol Levels* Less than [...] Results: 52 Units: mg/dL % Change: +20% Test Date: 07/25/2024 LDL Results: 56 Units: mg/dL % Change: +7% Estimated Average Glucose Reviewed date:07/26/2024 12:28:20 PM Interpretation:120 Performing Lab: Notes/Report: Test performed by [facility] [address] [place] [address] , [place] [address] Kieran Quiñones MD, Engine Specialist CLIA: [id number] Estimated Average Glucose (eAG) 120 Estimated Average Glucose (eAG) is calculated using the equation eAG = (28.7 x HbA1c) - 46.7 based on the guidelines established by the ADA. If the patient has certain diseases including kidney disease, sickle cell anemia, thalassemia, or is taking medications such as dapsone, erythropoietin, or iron, eAG should not be evaluated. REASON FOR VISIT 6 months Medications Medication SIG (Take, Route, Frequency, Duration) Notes Start Date End Date Status CareTouch CPAP & BIPAP Hose 1 DIRECTED 05/04/19 18 Active Prasugrel HCl 10 MG as directed Orally o nce daily Active Sildenafil Citrate 20 MG 1 to 5 tab(s) o rally once daily as needed 01/06/2022 Active Rosuvastatin Calcium 20 MG 1 tablet Oral ly Once a day Active Montelukast Sodium 10 MG 1 tab(s) orally once a day; Duration: 90 days Active Meloxicam 15 MG 1 tab(s) orally once a day; Duration: 30 days Active metFORMIN HCl ER 500 MG TAKE 3 TABLETS B Y MOUTH DAILY Active Nitroglycerin 0.4 MG as directed Sublingual Active Jardiance 25 MG 1 tablet Orally Once a day Active Metoprolol Succinate ER 100 MG 1 tablet Orally Once a day Active amLODIPine Besylate 10 MG 1 tablet Orall y Once a day Active Nicotine Step 1 21 MG/24HR 1 patch to sk in Transdermal Once a day; Duration: 30 day(s) Active Irbesartan 300 MG 1 tablet Orally Once a day Active Albuterol Sulfate HFA 108 (90 Base) MCG/ACT INHALE 1 PUFF BY MOUTH EVERY 4 HOURS NEEDED; Duration: 30 Active Loratadine 10 MG TAKE 1 TABLET BY JOHN TH DAILY; Duration: 90 Active Fluticasone Propionate 50 MCG/ACT ADMINISTER 1 SPRAY IN EACH NOSTRIL ONCE DAILY; Duration: 90 Active Aspirin 81 81 MG 1 tablet Orally Once a day; Duration: 90 days Active Furosemide 20 MG TAKE 1 TABLET BY JOHN TH EVERY DAY; Duration: 90 Active Combivent Respimat 20-100 MCG/ACT 1 puff(s) inhaled 4 times a day; Duration: 90 days Active Vital Signs Blood pressure systolic 120 mm Hg 07/26/19 25 Blood pressure diastolic 82 mm Hg 025 Heart Rate 68 /min 07/25/2024 Height 68.50 in 07/25/2024 Weight 291.2 lbs 07/25/2024 BMI 43.63 kg/m2 07/25/2024 Encounters Encounter Location Date Provider Diagnosis [facility] [address] [facility] [address] [place], [place] [id number] 07/25/2024 Didier Sal Type 2 diabetes sabrina itus without complication, unspecified whether half-way insulin use E11.9 ; Primary hypertension I10 ; Hypertriglyceridemia E78.1 ; RAKAN (obstructive sleep apnea) G47.33 and CAD in [place] artery I25.10 Assessments Encounter Date Diagnosis (ICD Code) Assessment Notes Treatment Notes Treatment Clinical Notes Section Notes 07/25/2024 Type 2 diabetes sabrina itus without complication, unspecified whether half-way insulin use (ICD-10 - E11.9) 07/25/2024 Primary hypertension (ICD-10 - I10) 07/25/2024 Hypertriglyceridemia (ICD-10 - E78.1) 07/25/2024 RAKAN (obstructive sle ep apnea) (ICD-10 - G47.33) Patient os doing well with CPAP and should continue using it every time he sleeps 07/25/2024 CAD in [place] artery (ICD-10 - I25.10) Plan Of Treatment Medication Medication Name Sig Start Date Stop Date Notes Prasugrel HCl 10 MG as directed Orally o nce daily Rosuvastatin Calcium 20 MG 1 tablet Orally Once a day metFORMIN HCl ER 500 MG TAKE 3 TABLETS B Y MOUTH DAILY Jardiance 25 MG 1 tablet Orally Once a day Metoprolol Succinate ER 100 MG 1 tablet Orally Once a day amLODIPine Besylate 10 MG 1 tablet Orally Once a day Irbesartan 300 MG 1 tablet Orally Once a day Treatment Notes Assessment Notes RAKAN (obstructive sleep apnea) Patient os doing well with CPAP and should continue using it every time he sleeps Next Appt Details Follow Up: 6 Months, Reason: Provider Name:Didier Fry ry, 01/24/2025 09:45:00 AM, [address] [facility] [address] [facility], [address], [place], [place], [id number], Progress Notes * AMARO SIGRIDMARIOOB: 6 (59 yo M)Acc No.[id number]:07/25/2024 Progress Notes Patient: MARILOU ALLISON Provider: Andrew Sal M.D. :1965 A ge:59 Y S ex:Male Date:07/25/2024 Address:[address] [place] [address] TONIA MURPHY, [id number] Subjective: * Chief Complaints: * 1 . 6 months. * HPI: C ardiology: 59 year old male presents with c/o Blood Pressure Elevated P t here for 6 mo f/u on hypertension, states he is doing well and does not have any concerns. c/o Hyperlipidemia P t is fasting today. E ndocrinology: c/o Recent Blood Sugars P t here to f/u on DM 2. * ROS: D ERMATOLOGY: no R randall. [...] RT Elbow Decompression , Percutaneous coronary intervention 2023, EGD 2024, colonoscopy 2024. * Hospitalization/Major Diagno stic Procedure: D enies [...] MACHINE AND SUPPLIES 1 DIRECTED , Taking Rosuvastatin Calcium 20 MG Tablet 1 tablet Orally Once a day , Taking Prasugrel HCl 10 MG Tablet as directed Orally once daily , Taking Irbesartan 300 MG Tablet 1 tablet Orally Once a day , Taking Montelukast Sodium 10 MG Tablet 1 tab(s) orally once a day , Taking Metoprolol Succinate ER 100 MG Tablet Extended Release 24 Hour 1 tablet Orally Once a day , Taking Jardiance 25 MG Tablet 1 tablet Orally Once a day , Taking Combivent Respimat 20-100 MCG/ACT Aerosol Solution 1 puff(s) inhaled 4 times a day , Taking Furosemide 20 MG Tablet TAKE 1 TABLET BY MOUTH EVERY DAY , Taking Aspirin 81 81 MG Tablet Delayed Release 1 tablet Orally Once a day , Taking Fluticasone Propionate 50 MCG/ACT Suspension ADMINISTER 1 SPRAY IN EACH NOSTRIL ONCE DAILY , Taking metFORMIN HCl ER 500 MG Tablet Extended Release 24 Hour TAKE 3 TABLETS BY MOUTH DAILY , Taking Loratadine 10 MG Tablet TAKE 1 TABLET BY MOUTH DAILY , Taking Albuterol Sulfate HFA 108 (90 Base) MCG/ACT Aerosol Solution INHALE 1 PUFF BY MOUTH EVERY 4 HOURS NEEDED , Discontinued Zithromax Z-Doe 250 MG Tablet as directed Orally , Discontinued Cefdinir 300 MG Capsule 1 cap(s) Orally Two times a day , Discontinued Tamiflu 75 MG Capsule 1 capsule Orally once daily , Discontinued Famotidine 40 MG Tablet TAKE 1 TABLET BY MOUTH DAILY AT BEDTIME , Discontinued Paxlovid (300/100) 20 x 150 MG & 10 x 100MG Tablet Therapy Pack 3 tablets Orally Twice a day , Medication List reviewed and reconciled with the patient * Allergies: N .K.D.A. Objective: * Vitals: W t: 291.2, Temp: 97.8, BP: 120/82, HR: 68, Nurse: tiffanie, Ht: 68.50, BMI:43.63. * Examination: E ndocrinology: General Appearance: N AD. H eart: R SR. L ungs:?clear to auscultation. E xtremities: n o leg edema. Assessment: * Assessment: 1. T ype 2 diabetes mellitus without complication, unspecified whether half-way insulin use - E11.9 (Primary) 2 . P rimary hypertension - I10 3 . H ypertriglyceridemia - E78.1 4 . O SA (obstructive sleep apnea) - G47.33 5. C AD in [place] artery - I25.10 Plan: * Treatment: Value Reference Range A /G Ratio 1.7 1.1-2.5 - * A lbumin 4.3 3.5-5.3 - g/dL * A lkaline Phosphatase 64 40-129 - IU/L * A LT (SGPT) 12 <5-55 - IU/L * A ST (SGOT) 10 <5-46 - IU/L * B ilirubin, Total 0.4 <0.2-1.2 - mg/dL * B UN 18 6-20 - mg/dL * C alcium 9.0 8.6-10.4 - mg/dL * C hloride 104 97-108 - mmol/L * C O2 22 22-32 - mmol/L * C reatinine 0.85 0.70-1.30 - mg/dL * G lucose 117 H 65-99 - mg/dL * P otassium 4.9 3.5-5.3 - mmol/L * S odium 140 135-145 - mmol/L * P rotein 6.8 6.0-8.3 - g/dL * e GFR by Creatinine 100 >59 - mL/min/1.73m2 * Rosalinda Chew 07/26/2024 12:28 :13 PM > See phone encounter ?LAB: P-Hemoglobin A1C (Collection Date & Time - 07/25/2024 09:30 AM)?5.8* Value Reference Range H emoglobin A1C 5.8 H <5.7 - % * Rosalinda Chew 07/26/2024 12:28 :13 PM > See phone encounter 2.?Primary hypertension? Continue amLODIPine Besylate Tablet, 10 MG, 1 tablet, Orally, Once a day;?Continue Irbesartan Tablet, 300 MG, 1 tablet, Orally, Once a day;?Continue Metoprolol Succinate ER Tablet Extended Release 24 Hour, 100 MG, 1 tablet, Orally, Once a day.?LAB: P-Comprehensive Metabolic Panel (CMP) (Collection Date & Time - 07/25/2024 09:30 AM)?gluc 117* Value Reference Range A /G Ratio 1.7 1.1-2.5 - * A lbumin 4.3 3.5-5.3 - g/dL * A lkaline Phosphatase 64 40-129 - IU/L * A LT (SGPT) 12 <5-55 - IU/L * A ST (SGOT) 10 <5-46 - IU/L * B ilirubin, Total 0.4 <0.2-1.2 - mg/dL * B UN 18 6-20 - mg/dL * C alcium 9.0 8.6-10.4 - mg/dL * C hloride 104 97-108 - mmol/L * C O2 22 22-32 - mmol/L * C reatinine 0.85 0.70-1.30 - mg/dL * G lucose 117 H 65-99 - mg/dL * P otassium 4.9 3.5-5.3 - mmol/L * S odium 140 135-145 - mmol/L * P rotein 6.8 6.0-8.3 - g/dL * e GFR by Creatinine 100 >59 - mL/min/1.73m2 * Rosalinda Chew 07/26/2024 12:28 :13 PM > See phone encounter ?LAB: P-Lipid Panel (Collection Date & Time - 07/25/2024 09:30 AM)?trigs 175 * Value Reference Range C holesterol / HDL Ratio 3.27 0.00-4.99 - Ratio * C holesterol 131 <200 - mg/dL * H DL Cholesterol 40 >39 - mg/dL * L DL Cholesterol (Calculation) 56 <130 - mg/d L * L DL/HDL Ratio 1.4 <3.3 - Ratio * N on-HDL Cholesterol 91 <130 - mg/dL * T riglycerides 175 H <150 - mg/dL * Rosalinda Chew 07/26/2024 12:28 :13 PM > See phone encounter 3.?Hypertriglyceridemia?LAB: P-Lipid Panel (Collection Date & Time - 07/25/2024 09:30 AM)?trigs 175 * Value Reference Range C holesterol / HDL Ratio 3.27 0.00-4.99 - Ratio * C holesterol 131 <200 - mg/dL * H DL Cholesterol 40 >39 - mg/dL * L DL Cholesterol (Calculation) 56 <130 - mg/d L * L DL/HDL Ratio 1.4 <3.3 - Ratio * N on-HDL Cholesterol 91 <130 - mg/dL * T riglycerides 175 H <150 - mg/dL * Rosalinda Chew 07/26/2024 12:28 :13 PM > See phone encounter 4.?RAKAN (obstructive sleep apnea)? Notes: Patient os doing well with CPAP and should continue using it every time he sleeps??5.?CAD in [place] artery? Continue Rosuvastatin Calcium Tablet, 20 MG, 1 tablet, Orally, Once a day;?Continue Prasugrel HCl Tablet, 10 MG, as directed, Orally, once daily.?? * Labs: * L ab: Estimated Average Glucose (Collection Date & Time - 07/25/2024 09:30 AM) 1 20 Value Reference Range E stimated Average Glucose 120 - mg/dL * [facility], IT support 07/26/2024 05:30:14 : This order was created by the Interface. Rosalinda Chew 07/26/2024 12:28:13 PM > See phone encounter * Procedure Codes: 3 044F HG A1C LEVEL LT 7.0%, 3074F SYST BP LT 130 MM HG, 3079F DIAST BP 80-89 MM HG * Follow Up: 6 Months * Images: Billing Information: * Visit Code: 08084 Office Visit, Est Pt., Level 4. * Procedure Codes: 3044F HG A1C LEVEL LT 7.0%. 3074F SYST BP LT 130 MM HG. 3079F DIAST BP 80-89 MM HG. * Electronic signature of Annika Sal MD on 12/28/2024 at 02:21 PM EDT Sign off status: Pending * Provider: Andrew Sal M.D. Date: 0 07/25/2024 Generated for Mike islas/Arlene/Geovannasmitting on: 0 12/28/2024 02:21 PM EDT History and Physical Notes * HPI (History of Present Illness) Category Sub-Category Detail Notes Category Not es Endocrinology Recent Blood Sugars Pt here to f/u on DM 2 Cardiology Blood Pressure Elevated Pt here for 6 mo f/u on hypertension, states he is doing well and does not have any concerns Hyperlipidemia Pt is fasting today Examination Category Sub-Category Detail Notes Category Not es Endocrinology Heart: RSR Lungs: clear to auscultatio n Extremities: no leg edema General Appearance: NAD
--- OUTSIDE RECORDS SUMMARY | 2024-11-29 06:30 | XMS_ITS ---
Author Organization [facility] Address [address] [id number] Care Team Providers Care Vocational Aide Name Role Phone Doron Didier Primary Care Provider Allergies No Known Allergies REASON FOR VISIT [facility] f/u shingles Medications Medication SIG (Take, [...] 11/29/2024 Encounters Encounter Location Date Provider Diagnosis [facility] [address] [facility] [address] [place], [place] [id number] 11/29/2024 Didier Sal Herpes zoster withou t [...] rt progress, Reason: Provider Name:Didier Fry ry, 01/24/2025 09:45:00 AM, [address] [facility] [address], [address], [place], [id number], Progress Notes * JENNIFER SIGRIDMARIOOB: 6 (59 yo M)Acc No.[id number]:11/29/2024 Progress Notes Patient: MARILOU ALLISON Provider: Andrew Sal M.D. :1965 A ge:59 Y S ex:Male Date:11/29/2024 Address:[address] [place], [place] [address], [id number] Subjective: * Chief Complaints: * 1 . [facility] f/u shingles. * HPI: D ermatology: 59 year old male presents with c/o Shingles P t here to f/u on 11/28/2024 [facility] ER visit. Pt went to er [...] * Images: Billing Information: * Visit Code: 07301 Office Visit, Est Pt., Level 3. * Procedure Codes: * Electronic signature of Annika Sal MD on 12/28/2024 at 02:21 PM EDT Sign off status: Pending * Provider: Andrew Sal M.D. Date: 11/29/2024 Generated for Printi ng/Arlene/eTransmitting on: 0 12/28/2024 02:21 PM EDT History and Physical Notes * HPI (History of Present Illness) Category Sub-Category Detail Notes Category Not es Dermatology Shingles Pt here to f/u o n 11/28/2024 [facility] ER visit. Pt went to er [...]
--- NOTE | 2024-12-28 14:10 | ECG_ITS ---
APPROVED REPORT Exam: Resting ECG HR:65 bpm ECG Measurements Heart Rate 65 AXES FL 202 P 66 QRSd 92 QRS 32 QT 371 T 58 QTc 383 Conclusion SINUS RHYTHM NORMAL ECG UNCONFIRMED REPORT Normal sinus rhythm. No ST elevation or depression Electronically signed by : BRIDGET FERGUSON, 12/28/2024 15:45:32
[2024-12-28 14:11] VITALS: BMI 40.1
[2024-12-28 14:12] VITALS: BP 148/91; PULSE 66; RESP 18; TEMP 36.8; O2SAT 94; BMI 40.1
[2024-12-28 14:15] VITALS: BP 135/86; PULSE 63; RESP 14; O2SAT 96
--- NOTE | 2024-12-28 14:18 | XR_ITS ---
FINAL REPORT CLINICAL HISTORY: SOA and CP COMPARISON: 04/21/2023 FINDINGS: A portable view of the chest was obtained. Cardiac and mediastinal silhouettes are within normal limits. The lungs are clear. There is no pleural effusion or pneumothorax. IMPRESSION: No acute process on this portable exam. Reviewed, Interpreted and Dictated by Brigida Curtis MD Transcribed by Deisy Campos Authenticated and . [facility]
--- OUTSIDE RECORDS SUMMARY | 2024-12-28 14:22 | XMS_ITS | Patient Health Record ---
Author Organization [facility] Address [address] [place] [id number] Care Team Providers Care Sock Drier Name Role Phone Doron Didier Primary Care Provider [phone] Radha Alyce Lelo [phone] Allergies Allergen (clinical drug ingredient) Drug/Non Drug Allergy documented on EMR Reaction Allergy Type Onset Date Status dexamethasone DexAMETHasone hives Drug Allergy Active Results Component Value Reference Range Notes Glucose [...] 21 Performing Lab: Notes/Report: Test performed by [facility] , [address], [place] [address] Kieran Quiñones MD, Emergency Room Rn CLIA: [id number] Sodium 140 135-145 mmol/L Potassium 5.4 3.5-5.3 [...] 36 Performing Lab: Notes/Report: Test performed by [facility], [address] , [address], [place] [address] Kieran Quiñones MD, Emergency Room Rn CLIA: [id number] Cholesterol 132 <200 mg/dL Triglycerides 220 <150 [...] Interpretation:Normal Performing Lab: Notes/Report: Test performed by [facility] [address] , [facility], [place] [address] Kieran Quiñones MD, Emergency Room Rn CLIA: [id number] Magnesium 2.4 1.6-2.4 mg/dL P-Phosphorus Reviewed date:02/02/2024 01:51:57 PM Interpretation:Normal Performing Lab: Notes/Report: Test performed by [facility] [address] , [address], [place] [address] Kieran Quiñones MD, Emergency Room Rn CLIA: [id number] Phosphorus 3.9 2.5-4.5 mg/dL P-PSA Reviewed date:02/02/2024 01:51:57 PM Interpretation:Normal Performing Lab: Notes/Report: Test performed by [facility] [address] [place] [address] , [address], [place] [address] Kieran Quiñones MD, Emergency Room Rn CLIA: [id number] PSA 1.18 <4.00 ng/mL Please note this is an ultrasensitive PSA assay with a lower limit of detection of 0.014 ng/mL. This test is performed by the Rickey ECLIA methodology. Values obtained with different assay methods or kits cannot be directly compared. P-TSH reflex to FT4 Reviewed date:02/02/2024 01:51:57 PM Interpretation:Normal Performing Lab: Notes/Report: Test performed by [facility] [address] , [address], [place] [address] Kieran Quiñones MD, Emergency Room Rn CLIA: [id number] TSH reflex to FT4 2.43 0.43-5.25 mU/L P-Microalbumin/Creatinine, R andom Urine Sample Reviewed date:02/02/2024 01:51:57 PM Interpretation:satisfactory Performing Lab: Notes/Report: Test performed by [facility] [address] , [address], [place] [address] Kieran Quiñones MD, Emergency Room Rn CLIA: [id number] Albumin/Creatinine Ratio, Urine See Comment 0-30 ug/mg Unable to calculate Urine Albumin/Creatinine Ratio when urine creatinine or urine albumin fall outside established reportable range. Microalbumin, Urine, Random <0.3 Creatinine, Urine 40.9 P-Potassium Reviewed date:02/18/2024 10:02:31 AM Interpretation:Normal Performing Lab: Notes/Report: Test performed by [facility] [address] , [address], [place] [address] Kieran Quiñones MD, Emergency Room Rn CLIA: [id number] Potassium 5.1 3.5-5.3 mmol/L P-Comprehensive Metabolic Pa margie (CMP) Reviewed date:07/26/2024 12:28:19 PM Interpretation:gluc 117 Performing Lab: Notes/Report: Test performed by [facility] [address] , [address], [place] [address] Kieran Quiñones MD, Emergency Room Rn CLIA: [id number] Sodium 140 135-145 mmol/L Potassium 4.9 3.5-5.3 [...] Interpretation:5.8 Performing Lab: Notes/Report: Test performed by [facility] [address] [place] [address] [place] [address] Kieran Quiñones MD, Emergency Room Rn CLIA: [id number] Hemoglobin A1C 5.8 <5.7 % The following HbA1c ranges recommended by the [place] [employer] (ADA) may be used as an aid in the diagnosis of diabetes mellitus. HbA1c Suggested Diagnosis >=6.5% Diabetic 5.7% - 6.4% Pre-Diabetic <5.7% Non-Diabetic P-Lipid Panel Reviewed date:07/26/2024 12:28:20 PM Interpretation:trigs 175 Performing Lab: Notes/Report: Test performed by [facility] [address] [place] [address] [address], [place] [address] Kieran Quiñones MD, Emergency Room Rn CLIA: [id number] Cholesterol 131 <200 mg/dL Triglycerides 175 <150 [...] Interpretation:120 Performing Lab: Notes/Report: Test performed by [facility] [address] [place] [address] , [address], [place] [address] Kieran Quiñones MD, Emergency Room Rn CLIA: [id number] Estimated Average Glucose (eAG) 120 Estimated Average Glucose (eAG) is calculated using the equation eAG = (28.7 x HbA1c) - 46.7 based on the guidelines established by the ADA. If the patient has certain diseases including kidney disease, sickle cell anemia, thalassemia, or is taking medications such as dapsone, erythropoietin, or iron, eAG should not be evaluated. Reason For Referral No Information Medications Medication SIG (Take, Route, Frequency, Duration) Notes Start Date End Date Status amLODIPine Besylate 10 MG 1 tablet Orall y Once a day Active valACYclovir HCl 1 GM 1 tablet Orally 3 times a day Active Albuterol Sulfate HFA 108 (90 Base) MCG/ACT INHALE 1 PUFF BY MOUTH EVERY 4 HOURS NEEDED; Duration: 30 Active Aspirin 81 81 MG 1 tablet Orally Once a day; Duration: 90 days Active Combivent Respimat 20-100 MCG/ACT 1 puff(s) inhaled 4 times a day; Duration: 90 days Active Irbesartan 300 MG 1 tablet Orally Once a day; Duration: 90 days Active predniSONE 20 MG 1 tablet with food o r milk Orally twice a day; Duration: 5 days 12/08/2024 Active Rosuvastatin Calcium 20 MG 1 tablet Oral ly Once a day; Duration: 90 days Active Metoprolol Succinate ER 100 MG TAKE 1 TABLET BY MOUTH DAILY; Duration: 90 Active Loratadine 10 MG TAKE 1 TABLET BY JOHN TH EVERY DAY; Duration: 90 Active Jardiance 25 MG 1 tablet Orally Once a day; Duration: 90 days Active metFORMIN HCl ER 500 MG TAKE 3 TABLETS B Y MOUTH DAILY; Duration: 90 Active Furosemide 20 MG TAKE 1 TABLET BY JOHN TH EVERY DAY; Duration: 90 Active Fluticasone Propionate 50 MCG/ACT ADMINISTER 1 SPRAY IN EACH NOSTRIL ONCE DAILY; Duration: 90 Active Nitroglycerin 0.4 MG as directed Sublingual Active Gabapentin 600 MG 1 tablet Orally 3 ti mes a day; Duration: 30 days 12/05/2024 Active Nicotine Step 1 21 MG/24HR 1 patch to sk in Transdermal Once a day; Duration: 30 day(s) Active Montelukast Sodium 10 MG 1 tab(s) orally once a day; Duration: 90 days Active [facility] CPAP & BIPAP Hose 1 DIRECTED 05/04/19 18 Active Sildenafil Citrate 20 MG 1 to 5 tab(s) o rally once daily as needed 01/06/2022 Active Meloxicam 15 MG 1 tab(s) orally once a day; Duration: 30 days Active Immunizations Vaccine Route Administration Date Status Comme nts Fluzone Quad (6months&older) IM Intramuscular 01/10/2023 Administered Fluzone PF Quad (6-35 months) Unknown 12/01/2020 Administered COVID 19 Pfizer Unknown 11/10/2020 Administered COVID 19 Pfizer Unknown 12/01/2020 Administered Problems Problem Type SNOMED Code ICD Code Onset Dates Problem Status W/U Status Risk Notes Problem Essential hypertension (48864304) Essential (primary) hypertension (I10) Active confirmed Problem Morbid obesity (801410616) Morbid obesity (E66.01) Active confirmed Problem Hypertriglyceridemia (277399236) Hypertriglyceridemia (E78.1) Active confirmed Problem Seasonal allergy (377149838) Seasonal allergies (J30.2) Active confirmed Problem Psoriasis (3070563) Psoriasis (L40.9) Active co nfirmed Problem Unstable angina (6115157) Unstable angina (I20.0) Active confirmed Problem Granuloma annulare (54419413) Granuloma annulare (L92.0) Active confirmed Problem Excessive thirst (37473233) Polydipsia (R63.1) Active confirmed Problem Male erectile disorder (584505257) Male erectile disorder (N52.9) Active confirmed Problem Chronic pain (06321106) Other chronic pain (G89.29) Active confirmed Problem Obstructive sleep apnea syndrome (91166511) Obstructive sleep apnea syndrome (G47.33) Active confirmed Problem Gastroesophageal reflux disease (512932468) Gastroesophageal reflux disease, esophagitis presence not specified (K21.9) Active confirmed Problem Erectile dysfunction (disorder) (586986024) Erectile dysfunction, unspecified erectile dysfunction type (N52.9) Active confirmed Problem Anemia (333124395) Anemia, unspe cified type (D64.9) Active confirmed Problem Obstructive sleep apnea syndrome (99644283) RAKAN (obstructive sleep apnea) (G47.33) Active confirmed Problem Body mass index 40+ - morbidly obese (315624952) BMI 40.0-44.9, adult (Z68.41) Active confirmed Problem Osteoarthritis of knee (288457702) Primary osteoarthritis of left knee (M17.12) Active confirmed Problem Hyperlipidaemia (87967994) Hyperlipidemia, unspecified hyperlipidemia type (E78.5) Active confirmed Problem Tobacco user (816102296) Cigarette nicotine dependence without complication (F17.210) Active confirmed Problem Skin infection (15133326) Skin infection (L08.9) Active confirmed Problem Cerebrovascular accident (190639579) Cerebrovascular accident (CVA), unspecified mechanism (I63.9) Active confirmed Problem Type II diabetes mellitus without complication (629137068) Type 2 diabetes mellitus without complication, without long-term current use of insulin (E11.9) Active confirmed Problem Pain in limb (41598452) Pain in thumb joint with movement of right hand (M79.644) Active confirmed Problem Atherosclerotic hear t disease of [place] coronary artery without angina pectoris (799873421525531) Atherosclerosis of [place] coronary artery without angina pectoris, unspecified whether [place] or transplanted heart (I25.10) Active confirmed Problem Ischemic stroke (036463330) Ischemic stroke (I63.9) Active confirmed Problem Tobacco use (585362219) Tobacco use disorder (F17.200) Active confirmed Problem MRSA (Methicillin resistant Staphylococcus aureus) infection (298176385) MRSA (methicillin resistant Staphylococcus aureus) infection (A49.02) Active confirmed Problem Pruritus ani (21565677) Perianal pruritus (L29.0) Active confirmed Problem Allergic rhinitis (29395384) Allergic rhinitis, unspecified seasonality, unspecified trigger (J30.9) Active confirmed Problem Type II diabetes mellitus without complication (511065697) Type 2 diabetes mellitus without complication, unspecified whether intermodal dispatcher insulin use (E11.9) Active confirmed Problem Plain X-ray of chest abnormal (finding) (4754286449) Abnormal CXR (R93.89) Active confirmed Problem Arthritis of right knee (9499356156811732) Arthritis of knee, right (M17.11) Active confirmed Problem Diastolic dysfunctio n (6671262) Diastolic dysfunction (I51.89) Active confirmed Problem Coronary arteriosclerosis (disorder) (98280765) CAD in [place] artery (I25.10) Active confirmed Problem Primary hypertension (28508911) Primary hypertension (I10) Active confirmed Problem Mild chronic obstructive pulmonary disease (180468892) Mild chronic obstructive pulmonary disease (J44.9) Active confirmed Vital Signs Heart Rate 70 /min 11/29/2024 Blood pressure diastolic 80 mm Hg 11/29/2024 Height 68.50 in 11/29/2024 Blood pressure systolic 130 mm Hg 11/29/2024 Weight 289.2 lbs 11/29/2024 BMI 43.33 kg/m2 11/29/2024 Encounters Encounter Location Date Provider Diagnosis [facility] [address] [place], [place] [id number] 01/30/2024 Didier Eva Type 2 diabetes sabrina itus without complication, without long-term current use of insulin E11.9 ; Hyperlipidemia, unspecified hyperlipidemia type E78.5 ; Hypertriglyceridemia E78.1 ; Essential (primary) hypertension I10 ; Allergic rhinitis, unspecified seasonality, unspecified trigger J30.9 ; Cramp in lower leg R25.2 ; Morbid obesity E66.01 and Prostate cancer screening Z12.5 [facility] [address] [facility] [address] [place], [place] [id number] 02/17/2024 Didier Eva Hyperkalemia E87.5 [facility] [address] [facility] [address] [place], [place] [id number] 07/25/2024 Didier Eva Type 2 diabetes sabrina itus without complication, unspecified whether intermodal dispatcher insulin use E11.9 ; Primary hypertension I10 ; Hypertriglyceridemia E78.1 ; RAKAN (obstructive sleep apnea) G47.33 and CAD in [place] artery I25.10 [facility] [address] [facility] [address] [place], [place] [id number] 11/29/2024 Didier Eva Herpes zoster withou t complication B02.9 [facility] [address] [facility] [address] [place] [id number] 02/02/2024 Didier Eva [facility] [address] [facility] [address] [place] [id number] 03/09/2024 Alyce Crowdy [facility] [address] [place], [place] [id number] 04/22/2024 Alyce Crowdy [facility] [address] [place], [place] [id number] 05/27/2024 Didier Eva Ischemic stroke I63. 9 [facility] [address] [place], [place] [id number] 06/10/2024 Didier Eva [facility] [address] [place] [id number] 07/05/2024 Didier Eva [facility] [address] [facility] [address] [place] [id number] 07/26/2024 Didier Eva [facility] [address] [place], [place] [id number] 12/05/2024 Didier Eva Herpes zoster withou t complication B02.9 [facility] [address] [place], [place] [id number] 12/06/2024 Didier Eva [facility] [address] [place] [id number] 12/06/2024 Didier Eva [facility] [address] [place] [id number] 12/06/2024 Didier Eva Assessments Encounter Date Diagnosis (ICD Code) Assessment Notes Treatment Notes Treatment Clinical Notes Section Notes 01/30/2024 Hyperlipidemia, unspecified hyperlipidemia type (ICD-10 - E78.5) 01/30/2024 Type 2 diabetes sabrina itus without complication, without long-term current use of insulin (ICD-10 - E11.9) 05/27/2024 Ischemic stroke (ICD -10 - I63.9) 07/25/2024 Type 2 diabetes sabrina itus without complication, unspecified whether longterm insulin use (ICD-10 - E11.9) 07/25/2024 Primary hypertension (ICD-10 - I10) 11/29/2024 Herpes zoster withou t complication (ICD-10 - B02.9) 12/05/2024 Herpes zoster withou t complication (ICD-10 - B02.9) 02/17/2024 Hyperkalemia (ICD-10 - E87.5) 07/25/2024 Hypertriglyceridemia (ICD-10 - E78.1) 01/30/2024 Hypertriglyceridemia (ICD-10 - E78.1) 01/30/2024 Essential (primary) hypertension (ICD-10 - I10) 07/25/2024 RAKAN (obstructive sle ep apnea) (ICD-10 - G47.33) Patient os doing well with CPAP and should continue using it every time he sleeps 07/25/2024 CAD in [place] artery (ICD-10 - I25.10) 01/30/2024 Allergic rhinitis, unspecified seasonality, unspecified trigger (ICD-10 - J30.9) 01/30/2024 Cramp in lower leg (ICD-10 - R25.2) 01/30/2024 Morbid obesity (ICD- 10 - E66.01) 01/30/2024 Prostate cancer screening (ICD-10 - Z12.5) Plan Of Treatment Next Appt Details Provider Name:Didier Ortabobby strange, 01/24/2025 09:45:00 AM, [address], [address], [place], [place], [id number], Insurance Providers Payer Name Payer Address Payer Phone Subscriber Number Group Number Insured Name Patient Relationship to Insured Coverage Start Date Coverage End Date [employer] [address] [place] [address] [id number] MARILOU AMARO Self - patient is the insured Medications Administered Medication Instructions Date of Administration Dosage Notes Dexamethasone 03/03/2014 1 mL Dexamethasone 04/26/2014 1 mL pt requeste d that he get a shot in the [...]
--- OUTSIDE RECORDS SUMMARY | 2024-12-28 14:22 | XMS_ITS | Clinical Summary ---
Author Organization [facility] Address [address] [place] [address] Care Team Providers Care Paint Prep Technician Name Role Phone None, Physician Primary Care Provider Unavailabl e Allergies Active Allergy Reactions Criticality Noted Date Comments Green Tea [place] Ext 06/07/2019 Medications * This document contains [...] Annual SDOH Screening 04/20/2024 Influenza Vaccine (#1) 2025 Haemophilus Influenzae Type B (Hib) Vaccine Aged [...] Name:ZAYRA ROJAS Date of :1965 Address: [address] [place] [address] Payer ID:[id number] Group ID:Not on file Type:Indemnity Address: [address] [address] [place] [address] Advance Directives Documents on File Type Date Recorded Patient Porter Bath Expl anation Power of Wire Brush Maker 08/30/2015 5:22 PM Care Teams Paint Prep Technician Relationship Specialty Start Date End Date None, Physician PCP - General 08/30/15
--- NOTE | 2024-12-28 14:28 | ED_ITS ---
<Statement entered by Nathaniel Lockwood MD - 12/28/24 18:57> I was consulted by the DAYNA, and we discussed the complexity of the problems being addressed. I approve the treatment and management plan for this patient's care in the emergency department, thus performing a substantive portion of the medical decision making. Nathaniel Lockwood MD Discharge Plan Disposition Patient Disposition: Home, Self-Care Condition: Good Prescriptions Prescriptions: New oxycodone 5 mg tablet 5 mg PO DAILY Qty: 6 0RF No Action fluticasone propionate 50 mcg/actuation spray,suspension 1 spray intranasal ONCE PRN (Reason: .) guaifenesin [Mucinex] 1,200 mg tablet extended release 12hr 1,200 mg PO BID Qty: 20 0RF metoprolol succinate 100 mg tablet extended release 24 hr 100 mg PO DAILY Qty: 90 3RF furosemide 20 mg tablet 20 mg PO DAILY Qty: 90 3RF irbesartan 300 mg tablet 300 mg PO DAILY aspirin [Adult Low Dose Aspirin] 81 mg tablet,delayed release (DR/EC) 81 mg PO DAILY Qty: 30 2RF lidocaine [Aspercreme (lidocaine)] 4 % adhesive patch,medicated 1 patch topical DAILY PRN (Reason: pain) Qty: 5 0RF cyclobenzaprine 5 mg tablet 5 mg PO HS PRN (Reason: muscle spasm) 4 Days Qty: 4 0RF albuterol sulfate 2.5 mg /3 mL (0.083 %) solution for nebulization 2.5 mg inhalation Q4H PRN (Reason: wheezing) Qty: 75 4RF amlodipine 5 mg tablet 5 mg PO DAILY Qty: 90 3RF rosuvastatin 20 mg tablet 20 mg PO DAILY Qty: 90 3RF nicotine 21 mg/24 hr patch 24 hour 1 patch topical DAILY Patient Comments: APPLY 1 PATCH ON THE SKIN DAILY DIRECTED omeprazole 40 mg capsule,delayed release(DR/EC) 40 mg PO DAILY Qty: 30 12RF Rx Instructions: Please take 1 capsule p.o. daily valacyclovir 1 gram tablet 1,000 mg PO Q8H 7 Days Qty: 21 0RF gabapentin 300 mg capsule 300 mg PO TID 10 Days Qty: 30 0RF gabapentin 300 mg capsule 300 mg PO TID 10 Days Qty: 30 0RF montelukast 10 mg Tablet 10 mg PO PM albuterol sulfate 90 mcg/actuation HFA aerosol inhaler 2 puff inhalation Q6HP PRN (Reason: Shortness Of Breath) Patient Comments: INHALE 1 PUFF BY MOUTH EVERY 4 HOURS NEEDED metformin 500 mg Tablet Extended Release 24 Hr 1,000 mg PO DAILYDM Rx Instructions: Take 1000mg in morning and 500mg at lunch loratadine 10 mg Tablet 10 mg PO DAILY Jardiance 25 mg Tablet 25 mg PO DAILY Combivent Respimat 20-100 mcg/actuation Mist 1 puff INHALATION DAILYP PRN (Reason: Breathing Problems) nitroglycerin 0.4 mg tablet, sublingual 0.4 mg sublingual Q5M PRN (Reason: chest pain) Qty: 20 0RF Rx Instructions: do not exceed 3 doses per episode Referrals Follow up/Referrals: Provider,Referral, MD [Referring, Medical] - See instructions Activity Restrictions/Add. Instructions Additional Instructions/Restrictions: Please return to the emergency department with any worsening signs or symptoms. Please take your medication as prescribed. Please utilize your pain medication either gabapentin or pain medication do not take both. Please follow-up with your PCP in the upcoming days/weeks. Clinical Impressions Clinical Impression: Herpes zoster infection of thoracic region Chest pain Qualifiers: Chest pain type: unspecified Qualified Code(s): R07.9 - Chest pain, unspecified Instructions Patient Instructions: DI for Atypical Chest Pain, Shingles Print Language Print Language: Pashto Discharge ED Provider: Nathaniel Lockwood General Chief Complaint: Chest Pain Stated Complaint: chest pain Time Seen by Provider: 12/28/24 14:17 Mode of Arrival: Ambulatory Source of Information: Patient and Spouse Description of Symptoms (Recalled from ER Triage Doc. by RN): patient presents to the ED for chest pain. Patient stated it started yesterday and stays in the left chest. patient also has active shingles on his left chest as well. Patient has a cardiac history of stents adn takes aspirin for anticoagulation. History of Present Illness HPI narrative: 59-year-old male presents to the emergency department accompanied by his spouse for some left-sided substernal chest pain that radiated into his jaw and left arm, patient endorses 2 episodes of this, first being yesterday afternoon which he rated a brief episode, rated 7 out of 10, states the chest pain waxed and waned all day, he states he had another episode this morning around 8:30 AM , patient states he broke out in a cold sweat, had some shortness of breath, as well as chest pain radiating to the jaw and left arm, patient currently rates his pain a 4-5 out of 10, he denies any fever chills no nausea vomiting no constipation no diarrhea no abdominal pain, no hematuria melena hematochezia or hematemesis, patient of note is undergoing an active herpes zoster infection over his left chest wall that radiates in a dermatomal pattern to his left mid back, he is currently taking gabapentin for this, he is unsure if his chest pain yesterday and today is related to his ongoing infection. Other past medical history is consistent with Chan's esophagus, HOCM, T2DM, hypertension, COPD, GERD, CAD status post 2 stent placement on daily aspirin, hyperlipidemia, obesity, initial triage vitals are unremarkable. Please note that above description of symptoms, in this electronic medical record under categorization of recalled from ER triage doctor by RN are reflective of an initial nursing assessment, however, is not reflective of my full history and physical exam that was personally taken and clarified. Consequentially, this preceding description of symptoms, which may include the patient's categorized chief complaint in the EMR, do not reflect my personal clinical impression, and the ultimate description of history of present illness and patient stated complaints should be deferred to this section of the note. Unless stated otherwise or congruent with this section of the note, additional signs, symptoms, or incongruence should be interpreted as inaccurate with my clinical impression. MD complaint: chest pain Related Data Home Medications ?Medication ?Instructions ?Recorded ?Confirmed albuterol sulfate 90 mcg/actuation 2 puff inhalation Q 6HP PRN 04/16/23 11/26/24 aerosol inhaler Shortness Of Breath empagliflozin 25 mg tablet 25 mg PO DAILY 04/16/2301/12 (Jardiance) ipratropium 20 mcg-albuterol 100 1 puff inhalation ARLENE LYP PRN 04/16/23 11/26/24 mcg/actuation mist for inhalation Breathing Problems (Combivent Respimat) loratadine 10 mg tablet 10 mg PO DAILY 04/16/2301/12 metformin 500 mg tablet,extended 1,000 mg PO DAILYDM D iabetes 04/16/23 11/26/24 release 24 hr montelukast 10 mg tablet 10 mg PO PM 04/16/23 5 nicotine 21 mg/24 hr daily 1 patch topical DAILY 04/2211/26/24 transdermal patch irbesartan 300 mg tablet 300 mg PO DAILY 01/13/2401/12 fluticasone propionate 50 1 spray intranasal ONCE PRN . 02/09/24 11/26/24 mcg/actuation nasal spray,suspension Previous Rx's ?Medication ?Instructions ?Recorded nitroglycerin 0.4 mg sublingual 0.4 mg sublingual Q5M PRN chest 04/18/23 tablet pain #20 tabs furosemide 20 mg tablet 20 mg PO DAILY #90 tabs 12/11 metoprolol succinate 100 mg 100 mg PO DAILY #90 tabs 0 04/27/23 tablet,extended release 24 hr albuterol sulfate 2.5 mg/3 mL 2.5 mg (3 mL) inhalation Q4H PRN 03/22/24 (0.083 %) solution for nebulization wheezing #75 mL aspirin 81 mg tablet,delayed 81 mg PO DAILY #30 tabs 0 05/19/24 release (Adult Low Dose Aspirin) omeprazole 40 mg capsule,delayed 40 mg PO DAILY #30 ca ps 05/26/24 release amlodipine 5 mg tablet 5 mg PO DAILY #90 tabs 05/27 guaifenesin 1,200 mg tablet, 1,200 mg PO BID #20 tabs 07/03/24 extended release 12 hr (Mucinex) rosuvastatin 20 mg tablet 20 mg PO DAILY #90 tabs 10/18 09/11 cyclobenzaprine 5 mg tablet 5 mg PO HS PRN muscle spas m 4 days 11/26/24 #4 tabs lidocaine 4 % topical patch 1 patch topical DAILY PRN pain #5 11/26/24 (Aspercreme (lidocaine)) ea gabapentin 300 mg capsule 300 mg PO TID 10 days #30 ca ps 11/28/24 gabapentin 300 mg capsule 300 mg PO TID 10 days #30 ca ps 11/28/24 valacyclovir 1 gram tablet 1,000 mg PO Q8H 7 days #21 tabs 11/28/24 oxycodone 5 mg tablet 5 mg PO DAILY #6 tabs Allergies Allergy/AdvReac Type Severity Reaction Status Date / Time dexamethasone Allergy Mild Other Verified 11/26/24 15:06 green tea Allergy Anaphylaxis Verified 11/26/24 15:06 isosorbide mon AdvReac Mild headache Uncoded 11/26/24 15:06 [facility] Disclaimer: The information contained in this section may have been updated after the patient was seen, as this information can be updated by other users. Medical History Sleep apnea COPD (chronic obstructive pulmonary disease) History of stroke Deviated septum right Preop cardiovascular exam History of non-ST elevation myocardial infarction (NSTEMI) HTN (hypertension) Left ventricular cardiac abnormality Coronary artery disease CAD (coronary artery disease) Allergies Diastolic dysfunction Arthritis GERD (gastroesophageal reflux disease) Eczema Sleep apnea Type 2 diabetes mellitus Hyperlipidemia Obesity Tobacco use Chest pain Skin problem Bronchitis Dyspnea Exposure to COVID-19 virus Knee pain, left Sinusitis Epiglottitis Surgical History H/O hand surgery right History of coronary artery stent placement Status post coronary artery stent placement History of esophagogastroduodenoscopy (EGD) S/P decompression of ulnar nerve at elbow History of medial meniscus repair of right knee Family History Other Cancer Colon cancer Family history of diabetes mellitus type II Liver cancer Lung cancer Social History Smoking Status: Current every day smoker tobacco type: cigarettes packs per day: 1 alcohol intake: never substance use type: denies use current occupational status: employed Travel in the last 8 weeks?: None household members: spouse and children housing: house current occupation: [employer] current occupational exposures/hazards: No caffeine: Yes Have you lived/traveled outside [place] in past 30 days?: No Contact w/someone who lives/traveled outside [place] past 30 days?: No Exposure to someone with infectious disease in past 14 days?: No Do you have a fever (greater than 100.4 F or 38 C)?: No Have you tested positive for COVID-19?: No Exposed to someone with COVID-19 in past 14 days?: No Do you have a sore throat?: No Do you have a cough?: No Do you have any weakness?: No Do you have any diarrhea?: No Are you experiencing any unusual bleeding?: No Do you have any muscle aches/pain?: No Do you have any abdominal pain?: No Are you experiencing loss of taste or smell?: No Other Medical History Have you received the Flu Vaccine for this season: No Have you received the Pneumonia Vaccine: No ROS Obtained: Yes All systems reviewed & no additional complaints except as documented Physical Exam General General appearance: alert and in no apparent distress Head Head exam: atraumatic and normocephalic Eye Eye exam: Present normal appearance, PERRL and EOMI Neck Neck exam: Present full ROM; Absent meningismus Chest Chest inspection: Present normal inspection Respiratory Respiratory exam: Absent respiratory distress, wheezes, stridor, accessory muscle use or prolonged expiratory phase Cardiovascular Cardiovascular exam: Present normal rhythm and other (Pulses equal and symmetric in bilateral upper and lower extremities) Abdominal Exam Abdominal exam: Absent distention, tenderness, guarding or rebound Extremities Exam Extremities exam: Absent edema Neurological Exam Neurological exam: Present alert Psychiatric Psychiatric exam: Present normal affect Skin Skin exam: Present warm, dry and other (Vesicular rash significant for ongoing herpes zoster infection over the left anterior chest wall spreading in dermatomal pattern around the mid thoracic region) HEART Score HEART Score HEART Score assessment performed?: Yes HEART Score: 3 Critical Care Critical Care Time Critical Care Time: No Medical Decision Making Medical Records Medical records reviewed: Yes I reviewed the patient's medical records. Albert Inquiry Pt receiving controlled substance: Yes Albert was queried for this patient: No Reason not queried -: Emergent pt cond-no time Risks and benefits of using a controlled substance: were discussed with pt by me Vital Signs Vital Signs: 12/28/24 14:12 12/28/24 14:15 12/28/24 15:24 Temperature 98.2 F Temperature Source Oral Pulse Rate 63 56 L Pulse Rate [Right Radial] 66 Respiratory Rate 18 14 Blood Pressure 135/86 120/78 Blood Pressure [Right Arm] 148/91 H Blood Pressure Mean [Right Arm] 110 Blood Pressure Source Automatic Cuff Blood Pressure Source [Right Arm] Automatic Cuff Blood Pressure Position Sitting Sitting Blood Pressure Position [Right Arm] Sitting 02 Sat by Pulse Oximetry 94 L 96 93 L Oxygen Delivery Method Room Air Room Air Room Air 12/28/24 15:30 12/28/24 16:00 Temperature Temperature Source Pulse Rate 59 L 61 Pulse Rate [Right Radial] Respiratory Rate 17 15 Blood Pressure Blood Pressure [Right Arm] Blood Pressure Mean [Right Arm] Blood Pressure Source Blood Pressure Source [Right Arm] Blood Pressure Position Blood Pressure Position [Right Arm] 02 Sat by Pulse Oximetry 96 95 Oxygen Delivery Method Room Air Room Air Lab Data Lab results reviewed: Yes I reviewed the patient's lab results. Labs: Lab Results 12/28/24 14:33: WBC 9.9, RBC 5.72, Hgb 16.8, Hct 49.9, MCV 87.2, MCH 29.4, MCHC 33.7, RDW 17.1, Plt Count 178, MPV 9.6, Neut % (Auto) 60.3, Lymph % (Auto) 27.3, [place] % (Auto) 9.5 H, Eos % (Auto) 1.9, Baso % (Auto) 0.6, Neut # (Auto) 6.0, Lymph # (Auto) 2.7, [place] # (Auto) 0.9, Eos # (Auto) 0.2, Baso # (Auto) 0.1, PT 10.8, INR 0.97, D-Dimer 0.63 H, Sodium 136, Potassium 4.3, Chloride 104, Carbon Dioxide 25, Anion Gap 11.3, BUN 16, Creatinine 0.90, Estimated Creat Clear 161, Estimated GFR 87, Est GFR ( Amer) 105, Glucose 104 H, Calcium 9.1, Magnesium 1.9, Total Bilirubin 0.6, AST 26, ALT 21, Alkaline Phosphatase 58, Troponin I < 0.01, NT-Pro-B Natriuret Pep 59.5, Total Protein 7.3, Albumin 4.4, Globulin 2.9, Albumin/Globulin Ratio 1.5, Lipase 70 12/28/24 14:33 12/28/24 14:33 Response Orders (Tests/Meds): ED MEDICATIONS Discontinued Medications Generic Name Dose Route Start Last Admin Trade Name Freq PRN Reason Stop Dose Admin Aspirin 243 mg 12/28/24 14:45 12/28/24 14:53 Aspirin 81mg Chewable Tablet PO 12/28/24 14:46 243 mg ONCE ONE Administration Morphine Sulfate 4 mg 12/28/24 14:26 12/28/24 14:53 Morphine 4mg/Ml Syringe IV 12/28/24 14:27 4 mg ONCE ONE Administration Ondansetron HCl 4 mg 12/28/24 14:26 12/28/24 14:53 Ondansetron 4mg/2ml Vial IV 12/28/24 14:27 4 mg ONCE ONE Administration ORDERS Category Date Time Status XR chest portable Stat Exams 12/28/24 14:18 Completed Complete Blood Count Auto Diff Stat Lab 12/28/24 14:33 Completed Comprehensive Metabolic Panel Stat Lab 12/28/24 14:33 Completed D-Dimer Stat Lab 12/28/24 14:33 Completed Lipase Stat Lab 12/28/24 14:33 Completed Magnesium Stat Lab 12/28/24 14:33 Completed NT Pro Brain Natriuretic Pep. Stat Lab 12/28/24 14:33 Completed PT INR [Prothrombin Time INR] Stat Lab 12/28/24 14:33 Completed Troponin I Q3H Lab 12/28/24 17:30 Ordered Troponin I Q3H Lab 12/28/24 20:30 Ordered Troponin I Stat Lab 12/28/24 14:33 Completed MDM Narrative Medical Decision Narrative: 59-year-old male presents the emergency department with chest pain, x 2, see HPI for detailed past medical history, differential diagnose include but not limited to, ACS, cardiac arrhythmia electrolyte disturbance, herpes zoster, postherpetic neuralgia, costochondritis, pneumonia, PE, gastritis, GERD, anxiety reaction, panic attack among others. I discussed this patient's case with the attending physician Dr. Lockwood Will obtain basic laboratory studies, EKG, CXR, D-dimer lipase magnesium level proBNP PT/INR, troponin, will give 244 mg p.o. aspirin and 4 mg IV Zofran and 4 mg IV morphine for pain and nausea. CBC unremarkable D-dimer is elevated at 0.63, however utilizing years criteria PE is excluded. As well as utilizing age-adjusted D-dimer criteria VTE unlikely Initial troponin is less than 0.01 proBNP within normal limits, otherwise unremarkable CMP I reviewed the patient's chest x-ray along the corresponding radiologic report, no acute process on portable exam. I discussed the results with the patient family the bedside, patient and family are in agreement with the current treatment plan/discharge plan, I do believe this is a degree of postherpetic neuralgia/active herpes zoster infection, that is resolving, but still present rash is still present over the left anterior chest wall, patient dates the IV morphine helped, will give additional dose of 2 mg IV morphine for pain. Also will send the patient home with p.o. analgesia for acute/subacute zoster infection. Patient was given strict ED return precautions. Patient and family voiced understanding and agreement with current treatment plan/discharge plan.
[2024-12-28 14:46] LABS: Hematocrit 49.9 % (42.0-52.0); Hemoglobin 16.8 g/dL (14.1-18.0); Immature Granulocytes % 0.4 %; Mean Corpuscular HGB Conc 33.7 g/dL (31.8-35.4); Mean Corpuscular Hemoglobin 29.4 pg (27.0-31.2); Mean Corpuscular Volume 87.2 fl (80-94); Nucleated Red Blood Cells % 0 %; Platelet Count 178 K/mm3 (142-424); Red Blood Count 5.72 M/mm3 (4.60-6.20); Red Cell Distribution Width-SD 51.7 fL; White Blood Count 9.9 K/mm3 (4.8-10.8)
[2024-12-28] MEDS: ASPIRIN 81MG CHEWABLE TABLET 243 MG PO (14:53)
[2024-12-28] MEDS: MORPHINE 4MG/ML SYRINGE 4 MG IV (14:53)
[2024-12-28] MEDS: ONDANSETRON 4MG/2ML VIAL 4 MG IV (14:53)
[2024-12-28 14:57] LABS: INR 0.97 (0.9-1.1); Prothrombin Time 10.8 seconds (10.1-12.5)
[2024-12-28 15:10] LABS: Alanine Aminotransferase 21 U/L (12-78); Albumin Level 4.4 g/dl (3.5-5.0); Albumin/Globulin Ratio 1.5 (1.1-1.8); Alkaline Phosphatase 58 U/L (38-126); Anion Gap 11.3 mEq/L (5-15); Aspartate Amino Transferase 26 U/L (17-59); Bilirubin,Total 0.6 mg/dl (0.2-1.3); Blood Urea Nitrogen 16 mg/dl (9-20); Calcium 9.1 mg/dl (8.4-10.2); Carbon Dioxide 25 mmol/L (22.0-30.0); Chloride 104 mmol/L (98-107); Creatinine Clearance Estimated 161 mL/min (50-200); Creatinine,Serum 0.90 mg/dl (0.66-1.25); Estimated Glomerular Filt Rate 87 ml/min (>60); GFR (African American) 105 ML/MIN (>60); Globulin 2.9 g/dL (1.3-3.2); Glucose 104 mg/dl (74-100); Lipase 70 U/L (23-300); Magnesium 1.9 mg/dl (1.6-2.3); Potassium 4.3 mmoL/L (3.5-5.1); Sodium 136 mmol/L (136-145); Total Protein,Serum 7.3 g/dl (6.3-8.2)
[2024-12-28 15:15] LABS: D-Dimer 0.63 ug/mL (0.0-0.5)
[2024-12-28 15:24] VITALS: BP 120/78; PULSE 56; O2SAT 93
[2024-12-28 15:24] LABS: NT Pro Brain Natriuretic Pep. 59.5 pg/mL (0-125)
[2024-12-28 15:29] LABS: Troponin I < 0.01 ng/ml (0.00-0.034)
[2024-12-28 15:30] VITALS: PULSE 59; RESP 17; O2SAT 96
[2024-12-28 16:00] VITALS: PULSE 61; RESP 15; O2SAT 95
[2024-12-28] MEDS: MORPHINE 2MG/ML SYRINGE 2 MG IM (16:59)
[2024-12-28 17:07] VITALS: BP 120/76; PULSE 68; RESP 20; TEMP 36.7; O2SAT 97
== END 2024-12-28 17:08 | disposition home or self-care (01) ==
PROVIDERS: Physician Assistant; Emergency Provider Student in an Organized Health Care Education/Training Program; PCP Family Medicine
DX: R07.9 Chest pain, unspecified (principal); B02.9 Zoster without complications; F17.290 Nicotine dependence, other tobacco product, uncomplicated; J44.9 Chronic obstructive pulmonary disease, unspecified
CPT/HCPCS: 71045; 80053; 83690; 83735; 83880; 84484; 85025; 85378; 85610; 93005; 96372; 96374; 96375; 99285; J2270; J2405

== ENCOUNTER 2025-02-11 10:43 | Outpatient (CLI) | payer BC, SELFPAY ==
--- OUTSIDE RECORDS SUMMARY | 2023-10-23 05:00 | XMS_ITS ---
Author Organization [facility] Address [address] [id number] Care Team Providers Care Manager Action Name Role Phone Didier Sal Primary Care Provider Allergies No Known Allergies Results Component Value Reference Range Notes Glucose (In-House) Reviewed date:10/26/2023 10:39:52 AM Interpretation:103 Normal Performing Lab: Notes/Report: 103 Normal blood glucose 103 74 - 106 mg/dL Glycohemoglobin A1c (in hous e) Reviewed date:10/26/2023 10:40:04 AM Interpretation:6.0 Normal Performing Lab: Notes/Report: 6.0 Normal glycohemoglobin 6.0% 5 - 6.5 % REASON FOR VISIT 3 Month Check Up Medications Medication SIG (Take, Route, Frequency, Duration) Notes Start Date End Date Status metFORMIN HCl ER 500 MG TAKE 3 TABLETS B Y MOUTH ONCE DAILY Active Promethazine-DM 6.25-15 MG/5ML 5 ml Orally every 6 hrs, prn 06/11/2023 Active Combivent Respimat 20-100 MCG/ACT 1 puff(s) inhaled 4 times a day; Duration: 90 days Active Fluticasone Propionate 50 MCG/ACT 1 spray in each nostril Nasally Once a day; Duration: 90 days 10/23/2023 Active Famotidine 40 MG 1 tablet at bedtime Orally Once a day; Duration: 90 days 05/04/2023 Active Prasugrel HCl 10 MG as directed Orally o nce daily; Duration: 90 days Active Loratadine 10 MG 1 tab(s) orally once a day; Duration: 90 days Active Jardiance 25 MG 1 tablet Orally Once a day Active Rosuvastatin Calcium 20 MG 1 tablet Oral ly Once a day; Duration: 90 days Active Irbesartan 300 MG 1 tablet Orally Once a day; Duration: 90 days 07/13/2023 Active Furosemide 20 MG 1 tab(s) orally once a day; Duration: 90 days Active Montelukast Sodium 10 MG 1 tab(s) orally once a day; Duration: 90 days Active Aspirin 81 81 MG 1 tablet Orally Once a day Active Albuterol Sulfate HFA 108 (90 Base) MCG/ACT 1 puff Inhalation every 4 hrs, prn 12/25/2022 Active Metoprolol Succinate ER 100 MG 1 tablet Orally Once a day; Duration: 90 days Active Nicotine Step 1 21 MG/24HR 1 patch to sk in Transdermal Once a day; Duration: 30 day(s) Active Nitroglycerin 0.4 MG as directed Sublingual Active CareTouch CPAP & BIPAP Hose 1 DIRECTED 05/04/19 18 Active Meloxicam 15 MG 1 tab(s) orally once a day; Duration: 30 days Active Sildenafil Citrate 20 MG 1 to 5 tab(s) o rally once daily as needed 01/06/2022 Active amLODIPine Besylate 10 MG 1 tablet Orall y Once a day; Duration: 30 day(s) Active Vital Signs Blood pressure systolic 122 mm Hg 10/23/19 24 Blood pressure diastolic 80 mm Hg 024 Heart Rate 65 /min 10/23/2023 Height 68.50 in 10/23/2023 Weight 295 lbs 10/23/2023 BMI 44.20 kg/m2 10/23/2023 Encounters Encounter Location Date Provider Diagnosis [facility] [address] [facility] [address] [place], [place] [id number] 10/23/2023 Didier Sal Type 2 diabetes sabrina itus without complication, unspecified whether residential insulin use E11.9 ; Primary hypertension I10 ; Allergic rhinitis, unspecified seasonality, unspecified trigger J30.9 and Morbid obesity E66.01 Assessments Encounter Date Diagnosis (ICD Code) Assessment Notes Treatment Notes Treatment Clinical Notes Section Notes 10/23/2023 Type 2 diabetes mellitus without complication, unspecified whether residential insulin use (ICD-10 - E11.9) 10/23/2023 Primary hypertension (ICD-10 - I10) 10/23/2023 Allergic rhinitis, unspecified seasonality, unspecified trigger (ICD-10 - J30.9) 10/23/2023 Morbid obesity (ICD-10 - E66.01) Plan Of Treatment Medication Medication Name Sig Start Date Stop Date Notes metFORMIN HCl ER 500 MG TAKE 3 TABLETS B Y MOUTH ONCE DAILY Fluticasone Propionate 50 MCG/ACT 1 spray in each nostril Nasally Once a day; Duration: 90 days 10/23/2023 Jardiance 25 MG 1 tablet Orally Once a day Irbesartan 300 MG 1 tablet Orally Once a day; Duration: 90 days 07/13/2023 Metoprolol Succinate ER 100 MG 1 tablet Orally Once a day; Duration: 90 days Next Appt Details Follow Up: 3 Months fasting, Reason: Provider Name:Didier Fry ry, 08/04/2025 09:30:00 AM, [address], [address] , [place], [place], [id number], Progress Notes * PREM SIGRIDMARIOOB: 6 (60 yo M)Acc No.[id number]:10/23/2023 Progress Notes Patient: MARILOU ALLISON Provider: Andrew Sal M.D. :1965 A ge:58 Y S ex:Male Date:10/23/2023 Address:[address] [place] [address] [place], [id number] Subjective: * Chief Complaints: * 1 . 3 Month Check Up. * HPI: E ndocrinology: 58 year old male presents with c/o Recent Blood Sugars P t here for 3 mo f/u on DM 2, states he does check blood sugar at home and it is typically within normal range. H PI: c/o Patient is here today for P t states he need rf on Flonase today. * ROS: D ERMATOLOGY: no R randall. n o H lee ann. G ASTROENTEROLOGY: no N ausea. n o V omiting. U ROLOGY: no D ifficulty urinating. n o B lood in urine. * Medical History: T ype 2 Diabetes, Sleep Apnea, Tobacco Abuse, LT Knee Meniscus Repair, LT Knee Pain, Eczema, Erectile Dysfunction, Esophageal Reflux, Arthritis, Multiple Joints, Diastolic Dysfunction, CVA, Coronary Artery Disease, PCI with 2 stents placed. * Surgical History: R T Hand, Torn Tendons 2004, RT Elbow Decompression , Percutaneous coronary intervention . * Hospitalization/Major Diagno stic Procedure: D enies Past Hospitalization. * Family History: F ather: alive, lung cancer. M other: alive. 3 brother(s) , 3 sister(s) . 1 son(s) . . * Social History: C URRENT TOBACCO USE S moking Status: P atient does smoke, p acks per day: 1 ,?number of cigarettes per day: 2 0, S cassie age of: 3 2, S moking preference: cigarettes. C affeine: yes, frequency:coffee, qd, occasional soda. Home smoke detector use: yes. Marital Status: Single. * Medications: T aking amLODIPine Besylate 10 MG Tablet 1 tablet Orally Once a day , Taking Nicotine Step 1 21 MG/24HR Patch 24 Hour 1 patch to skin Transdermal Once a day , Taking Nitroglycerin 0.4 MG Tablet Sublingual as directed Sublingual , Taking Meloxicam 15 MG Tablet 1 tab(s) orally once a day , Taking Sildenafil Citrate 20 MG Tablet 1 to 5 tab(s) orally once daily as needed , Taking CareTouch CPAP & BIPAP Hose MACHINE AND SUPPLIES 1 DIRECTED , Taking Albuterol Sulfate HFA 108 (90 Base) MCG/ACT Aerosol Solution 1 puff Inhalation every 4 hrs, prn , Taking Montelukast Sodium 10 MG Tablet 1 tab(s) orally once a day , Taking Furosemide 20 MG Tablet 1 tab(s) orally once a day , Taking Metoprolol Succinate ER 100 MG Tablet Extended Release 24 Hour 1 tablet Orally Once a day , Taking Aspirin 81 81 MG Tablet Delayed Release 1 tablet Orally Once a day , Taking Rosuvastatin Calcium 20 MG Tablet 1 tablet Orally Once a day , Taking Prasugrel HCl 10 MG Tablet as directed Orally once daily , Taking Loratadine 10 MG Tablet 1 tab(s) orally once a day , Taking Jardiance 25 MG Tablet 1 tablet Orally Once a day , Taking Irbesartan 300 MG Tablet 1 tablet Orally Once a day , Taking Promethazine-DM 6.25-15 MG/5ML Syrup 5 ml Orally every 6 hrs, prn , Taking Combivent Respimat 20-100 MCG/ACT Aerosol Solution 1 puff(s) inhaled 4 times a day , Taking Famotidine 40 MG Tablet 1 tablet at bedtime Orally Once a day , Taking metFORMIN HCl ER 500 MG Tablet Extended Release 24 Hour TAKE 3 TABLETS BY MOUTH ONCE DAILY , Medication List reviewed and reconciled with the patient * Allergies: N .K.D.A. Objective: * Vitals: W t:295, Temp:98.0, BP:122/80, HR:65, Nurse:tiffanie, Ht: 68.50, BMI:44.20. * Examination: E ndocrinology: General Appearance: N AD. H EENT: u nremarkable.?Heart: R SR. L ungs: c lear to auscultation. E xtremities: n o leg edema.? Assessment: * Assessment: 1. T ype 2 diabetes mellitus without complication, unspecified whether residential insulin use - E11.9 (Primary) 2 . P rimary hypertension - I10 3 . A llergic rhinitis, unspecified seasonality, unspecified trigger - J30.9 4 . M orbid obesity - E66.01 Plan: * Treatment: Value Reference Range b lood glucose 103 74 - 106 mg/dL * Etta Macias 10/23/2023 9:34:07 AM >Makayla Carter 10/26/2023 10:39:39 AM > pt informed of results ?LAB: Glycohemoglobin A1c (in house) (Collection Date & Time - 10/23/2023)? 6.0 Normal* Value Reference Range g lycohemoglobin 6.0% 5 - 6.5 % * Etta Macias 10/23/2023 9:48:21 AM >Makayla Carter 10/26/2023 10:39:39 AM > pt informed of results 2.?Primary hypertension? Refill Metoprolol Succinate ER Tablet Extended Release 24 Hour, 100 MG, 1 tablet, Orally, Once a day, 90 days, 90, Refills 1;?Refill Irbesartan Tablet, 300 MG, 1 tablet, Orally, Once a day, 90 days, 90, Refills 1.??3.?Allergic rhinitis, unspecified seasonality, unspecified trigger? Start Fluticasone Propionate Suspension, 50 MCG/ACT, 1 spray in each nostril, Nasally, Once a day, 90 days, 3, Refills 1.?? * Procedure Codes: 3 6416 CAPILLARY BLOOD DRAW, 53843 GLUCOSE TEST, 76298 GLYCATED HEMOGLOBIN TEST, Modifiers: QW * Follow Up: 3 Months fasting * Images: Billing Information: * Visit Code: 31955 Office Visit, Est Pt., Level 4. * Procedure Codes: 78610 CAPILLARY BLOOD DRAW. 24628 GLUCOSE TEST. 41637 GLYCATED HEMOGLOBIN TEST. Modifiers: QW * Electronic signature of Annika Sal MD on 02/11/2025 at 10:47 AM EDT Sign off status: Pending * Provider: Andrew Sal M.D. Date: 0 10/23/2023 Generated for Mike islas/Arlene/Geovannasmitting on: 1 10:47 AM EDT History and Physical Notes * HPI (History of Present Illness) Category Sub-Category Detail Notes Category Not es Endocrinology Recent Blood Sugars Pt here for 3 mo f/u on DM 2, states he does check blood sugar at home and it is typically within normal range HPI Patient is here today for Pt sta ori he need rf on Flonase today Examination Category Sub-Category Detail Notes Category Not es Endocrinology HEENT: unremarkable Heart: RSR Lungs: clear to auscultatio n Extremities: no leg edema General Appearance: NAD
--- OUTSIDE RECORDS SUMMARY | 2024-01-30 06:00 | XMS_ITS ---
Author Organization [facility] Address [address] [facility] [address] [place], [place] [id number] Care Team Providers Care Quarter Seamer Name Role Phone Didier Sal Primary Care [...] gluc 113, bun 21 Performing Lab: Notes/Report: CLIA: [id number] Kieran Quiñones MD, Service [employer] [facility] , [address], [place] [address] Test performed by [facility], [facility] Sodium 140 135-145 mmol/L Potassium 5.4 3.5-5.3 [...] 36 Performing Lab: Notes/Report: Test performed by [employer], [address] , [address], [place] [address] Kieran Quiñones MD, Service Tech CLIA: [id number] Cholesterol 132 <200 mg/dL Triglycerides 220 <150 [...] Interpretation:Normal Performing Lab: Notes/Report: Test performed by [facility] [address] [place], [place] [address] [place] , [place] [address] Kieran Quiñones MD, Service Tech CLIA: [id number] Magnesium 2.4 1.6-2.4 mg/dL P-Phosphorus Reviewed date:02/02/2024 01:51:57 PM Interpretation:Normal Performing Lab: Notes/Report: Test performed by [facility] [address] [place] [address] , [place] [address] Kieran Quiñones MD, Service Tech CLIA: [id number] Phosphorus 3.9 2.5-4.5 mg/dL P-PSA Reviewed date:02/02/2024 01:51:57 PM Interpretation:Normal Performing Lab: Notes/Report: Test performed by [facility] [address] [place] [address] , [address], [place] [address] Kieran Quiñones MD, Service Tech CLIA: [id number] PSA 1.18 <4.00 ng/mL Please note this is an ultrasensitive PSA assay with a lower limit of detection of 0.014 ng/mL. This test is performed by the Rickey ECLIA methodology. Values obtained with different assay methods or kits cannot be directly compared. P-TSH reflex to FT4 Reviewed date:02/02/2024 01:51:57 PM Interpretation:Normal Performing Lab: Notes/Report: Test performed by [facility] [address] [facility] , [address], [place] [address] Kieran Quiñones MD, Service Tech CLIA: [id number] TSH reflex to FT4 2.43 0.43-5.25 mU/L P-Microalbumin/Creatinine, R andom Urine Sample Reviewed date:02/02/2024 01:51:57 PM Interpretation:satisfactory Performing Lab: Notes/Report: Test performed by [facility] [address] [facility] , [address], [place] [address] Kieran Quiñones MD, Service Tech CLIA: [id number] Albumin/Creatinine Ratio, Urine See Comment 0-30 ug/mg [...] 01/30/2024 Encounters Encounter Location Date [facility] [address] [id number] 01/30/2024 Didier Sal Type 2 diabetes sabrina [...] 6 Months, Reason: Provider Name:Didier Fry ry, 08/04/2025 09:30:00 AM, [address], [address], [place], [place], [id number], Progress Notes * ENRIQUETA AMAROOB: 6 (60 yo M)Acc No.[id number]:01/30/2024 Progress Notes Patient: MARILOU ALLISON Provider: Andrew Sal M.D. :1965 A ge:58 Y S ex:Male Date:01/30/2024 Address:[address] [place] [address] [place], [id number] Subjective: * Chief Complaints: * 1 . Check up with fasting labs. * HPI: E ndocrinology: Maintenance P clementina presents today for a check up with fasting labs. Pt sts that he has no new concerns or complaints at this time. Pt sts that he needs a refill of Metoprolol, Montelukast and Jardiance. 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 * Procedure Codes: 06638 GLUCOSE TEST. 91213 GLYCATED HEMOGLOBIN TEST. Modifiers: QW * Electronic signature of Annika Sal MD on 02/11/2025 at 10:47 AM EDT Sign off status: Pending * Provider: Andrew Sal M.D. Date: Generated for Mike islas/Arlene/eTransmitting on: 10:47 AM EDT History and Physical Notes * HPI (History of Present Illness) Category Sub-Category Detail Notes Category Not es Endocrinology Maintenance Pt presents toda y for a check up with fasting labs. Pt sts that he has no new concerns or complaints at this time. 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
--- OUTSIDE RECORDS SUMMARY | 2024-02-17 05:10 | XMS_ITS ---
Author Organization [facility] Address [address] [facility] [address] [place] [id number] Care Team Providers Care Hand Profiler Name Role Phone Didier Sal Primary Care Provider Results Component Value Reference Range Notes P-Potassium Reviewed date:02/18/2024 10:02:31 AM Interpretation:Normal Performing Lab: Notes/Report: Test performed by [facility] [address] [place] [address] , [address], [place] [address] Kieran Quiñones MD, Jump Roll Operator CLIA: [id number] Potassium 5.1 3.5-5.3 mmol/L REASON FOR VISIT [...] Active Encounters Encounter Location Date Provider Diagnosis [facility] [address] [place] [id number] 02/17/2024 Didier Sal Hyperkalemia E87.5 Assessments Encounter Date Diagnosis (ICD Code) Assessment Notes Treatment Notes Treatment Clinical Notes Section Notes 02/17/2024 Hyperkalemia (ICD-10 - E87.5) Plan Of Treatment Next Appt Details Provider Name:Didier Fry ry, 08/04/2025 09:30:00 AM, [address], [address], [place], [phone], Progress Notes * ENRIQUETA AMAROOB: 6 (60 yo M)Acc No.[id number]:02/17/2024 Patient: MARILOU ALLISON Provider: Andrew Sal M.D. :1965 A ge:59 Y S ex:Male Date:02/17/2024 Address:[address] [place] [address] S, [id number] Subjective: * Chief Complaints: * 1 . [...] Date: 1 Generated for Mike islas/Arlene/Jennifer on: 1 10:47 AM EDT
--- OUTSIDE RECORDS SUMMARY | 2024-07-25 06:00 | XMS_ITS ---
Author Organization [facility] Address [address] [facility] [address] [place], [place] [id number] Care Team Providers Care Roentgenologist Name Role Phone Didier Sal Primary Care Provider [phone] Allergies No Known Allergies Results Component Value Reference Range Notes P-Comprehensive Metabolic Pa margie (CMP) Reviewed date:07/26/2024 12:28:19 PM Interpretation:gluc 117 Performing Lab: Notes/Report: Test performed by [facility] , [address], [place] [address] Kieran Quiñones MD, Broadcast Meteorologist CLIA: [id number] Sodium 140 135-145 mmol/L Potassium 4.9 3.5-5.3 [...] Interpretation:5.8 Performing Lab: Notes/Report: Test performed by [facility] [address] [place] [address] Deborah Weems, [place] [address] Kieran Quiñones MD, Broadcast Meteorologist CLIA: [id number] Hemoglobin A1C 5.8 <5.7 % The following HbA1c ranges recommended by the [place] Diabetes Association (ADA) may be used as an aid in the diagnosis of diabetes mellitus. HbA1c Suggested Diagnosis >=6.5% Diabetic 5.7% - 6.4% Pre-Diabetic <5.7% Non-Diabetic P-Lipid Panel Reviewed date:07/26/2024 12:28:20 PM Interpretation:trigs 175 Performing Lab: Notes/Report: Test performed by [facility] [address] [place] [address] Deborah Weems, [place] [address] Kieran Quiñones MD, Broadcast Meteorologist CLIA: [id number] Cholesterol 131 <200 mg/dL Triglycerides 175 <150 [...] Interpretation:120 Performing Lab: Notes/Report: Test performed by [facility] [address] [place] [address] , [place] [address] Kieran Quiñones MD, Broadcast Meteorologist CLIA: [id number] Estimated Average Glucose (eAG) 120 Estimated Average [...] Provider Diagnosis [facility] [address] [facility] [address] [place], [place] [phone] 07/25/2024 Didier Sal Type 2 diabetes sabrina itus without complication, unspecified whether snf insulin use E11.9 ; Primary hypertension I10 ; Hypertriglyceridemia E78.1 ; RAKAN (obstructive sleep apnea) G47.33 and CAD in [place] artery I25.10 Assessments Encounter Date Diagnosis (ICD Code) Assessment Notes Treatment Notes Treatment Clinical Notes Section Notes 07/25/2024 Type 2 diabetes sabrina itus without complication, unspecified whether snf insulin use (ICD-10 - E11.9) 07/25/2024 Primary hypertension (ICD-10 - I10) 07/25/2024 Hypertriglyceridemia (ICD-10 - E78.1) 07/25/2024 RAKAN (obstructive sle ep apnea) (ICD-10 - G47.33) Patient os doing well with CPAP and should continue using it every time he sleeps 07/25/2024 CAD in [place] artery (ICD-10 - I25.10) Plan Of Treatment [...] Fry ry, 08/04/2025 09:30:00 AM, [address] [facility] [address] [facility], [address], [place], [place], [id number], Progress Notes * AMARO SIGRIDMARIOOB: 6 (60 yo M)Acc No.[id number]:07/25/2024 Progress Notes Patient: MARILOU ALLISON Provider: Andrew Sal M.D. :1965 A ge:59 Y S ex:Male Date:07/25/2024 Address:[address] [place] [address] [place], [id number] Subjective: * Chief Complaints: * 1 . [...] 2 diabetes mellitus without complication, unspecified whether loading checker insulin use - E11.9 (Primary) 2 . P rimary hypertension - I10 3 . H ypertriglyceridemia - E78.1 4 . O SA (obstructive sleep apnea) - G47.33 5. C AD in [place] artery - I25.10 Plan: * Treatment: Value [...] using it every time he sleeps??5.?CAD in [place] artery? Continue Rosuvastatin Calcium Tablet, 20 MG, 1 tablet, Orally, Once a day;?Continue Prasugrel HCl Tablet, 10 MG, as directed, Orally, once daily.?? * Labs: * L ab: Estimated Average Glucose (Collection Date & Time - 07/25/2024 09:30 AM) 1 20 Value Reference Range E stimated Average Glucose 120 - mg/dL * [facility], IT support 07/26/2024 05:30:14 : This order was created by the Interface. Rosalinda Chew 07/26/2024 12:28:13 PM > See phone encounter * Procedure Codes: 3 044F HG A1C LEVEL LT 7.0%, 3074F SYST BP LT 130 MM HG, 3079F DIAST BP 80-89 MM HG * Follow Up: 6 Months * Images: Billing Information: * Visit Code: 18914 Office Visit, Est Pt., Level 4. * Procedure Codes: 3044F HG A1C LEVEL LT 7.0%. 3074F SYST BP LT 130 MM HG. 3079F DIAST BP 80-89 MM HG. * Electronic signature of Annika Sal MD on 02/11/2025 at 10:47 AM EDT Sign off status: Pending * Provider: Andrew Sal M.D. Date: 0 07/25/2024 Generated for Mike islas/Arlene/Geovannasmitting on: 1 10:47 [...]
--- OUTSIDE RECORDS SUMMARY | 2024-11-29 06:30 | XMS_ITS ---
Author Organization [facility] Address [address] [id number] Care Team Providers Care Pizza Cook Name Role Phone Doron Didier Primary Care Provider Allergies No Known Allergies REASON FOR VISIT [facility] f/u shingles Medications Medication SIG (Take, Route, Frequency, Duration) Notes Start Date End Date Status Aspirin 81 81 MG 1 tablet Orally Once a day; Duration: 90 days Active Metoprolol Succinate ER 100 MG TAKE 1 TABLET BY MOUTH DAILY; Duration: 90 Active Loratadine 10 MG TAKE 1 TABLET BY JOHN TH EVERY DAY; Duration: 90 Active metFORMIN HCl ER 500 MG TAKE 3 TABLETS B Y MOUTH DAILY; Duration: 90 Active Furosemide 20 MG TAKE 1 TABLET BY JOHN TH EVERY DAY; Duration: 90 Active amLODIPine Besylate 10 MG 1 tablet Orall y Once a day Active Irbesartan 300 MG 1 tablet Orally Once a day; Duration: 90 days Active Rosuvastatin Calcium 20 MG 1 tablet Oral ly Once a day; Duration: 90 days Active Jardiance 25 MG 1 tablet Orally Once a day Active Albuterol Sulfate HFA 108 (90 Base) MCG/ACT INHALE 1 PUFF BY MOUTH EVERY 4 HOURS NEEDED; Duration: 30 Active Fluticasone Propionate 50 MCG/ACT ADMINISTER 1 SPRAY IN EACH NOSTRIL ONCE DAILY; Duration: 90 Active Combivent Respimat 20-100 MCG/ACT 1 puff(s) inhaled 4 times a day; Duration: 90 days Active Montelukast Sodium 10 MG 1 tab(s) orally once a day; Duration: 90 days Active CareTouch CPAP & BIPAP Hose 1 DIRECTED 05/04/19 18 Active valACYclovir HCl 1 GM 1 tablet Orally 3 times a day Active Nitroglycerin 0.4 MG as directed Sublingual Active Nicotine Step 1 21 MG/24HR 1 patch to sk in Transdermal Once a day; Duration: 30 day(s) Active Sildenafil Citrate 20 MG 1 to 5 tab(s) o rally once daily as needed 01/06/2022 Active Meloxicam 15 MG 1 tab(s) orally once a day; Duration: 30 days Active Gabapentin 300 MG 2 capsules Orally 3 times a day Active Vital Signs Blood pressure systolic 130 mm Hg 11/30/19 25 Blood pressure diastolic 80 mm Hg 025 Heart Rate 70 /min 11/29/2024 Height 68.50 in 11/29/2024 Weight 289.2 lbs 11/29/2024 BMI 43.33 kg/m2 11/29/2024 Encounters Encounter Location Date Provider Diagnosis [facility] [address] [facility] [address] [facility] [address] [place], [place] [id number] 11/29/2024 Didier Sal Herpes zoster withou t complication B02.9 Assessments Encounter Date Diagnosis (ICD Code) Assessment Notes Treatment Notes Treatment Clinical Notes Section Notes 11/29/2024 Herpes zoster without complication (ICD-10 - B02.9) Plan Of Treatment Medication Medication Name Sig Start Date Stop Date Notes valACYclovir HCl 1 GM 1 tablet Orally 3 times a day Gabapentin 300 MG 2 capsules Orally 3 times a day Next Appt Details Follow Up: via phone to repo rt progress, Reason: Provider Name:Didier Fry ry, 08/04/2025 09:30:00 AM, [address] [facility] [address] [facility], [address], [place] [id number], Progress Notes * PREM SIGRIDMARIOOB: 6 (60 yo M)Acc No.[id number]:11/29/2024 Progress Notes Patient: MARILOU ALLISON Provider: Andrew Sal M.D. :1965 A ge:59 Y S ex:Male Date:11/29/2024 Address:[address] [place], [place] [address], [id number] Subjective: * Chief Complaints: * [address] [facility] f/u shingles. * HPI: D ermatology: 59 year old male presents with c/o Shingles P t here to f/u on 11/28/[address] [facility] ER visit. Pt went to er for rash on abdomen and back. Pt dx with Shingles and was rx'd Valacyclovir and Gabapentin. Pt states he is having excruciating back pain on the left side?. * ROS: C ARDIOLOGY: no D izziness. n o C hest pain. G ASTROENTEROLOGY: no N ausea. n o [...] Marital Status: Single. * Medications: T aking valACYclovir HCl 1 GM Tablet 1 tablet Orally 3 times a day , Taking Gabapentin 300 MG Capsule 1 capsule Orally 3 times a day , Taking Nicotine Step 1 [...] MACHINE AND SUPPLIES 1 DIRECTED , Taking Montelukast Sodium 10 MG Tablet 1 tab(s) orally once a day , Taking Combivent Respimat 20-100 MCG/ACT Aerosol Solution 1 puff(s) inhaled 4 times a day , Taking Fluticasone Propionate 50 MCG/ACT Suspension ADMINISTER 1 SPRAY IN EACH NOSTRIL ONCE DAILY , Taking Albuterol Sulfate HFA 108 (90 Base) MCG/ACT Aerosol Solution INHALE 1 PUFF BY MOUTH EVERY 4 HOURS NEEDED , Taking amLODIPine Besylate 10 MG Tablet 1 tablet Orally Once a day , Taking Jardiance 25 MG Tablet 1 tablet Orally Once a day , Taking Rosuvastatin Calcium 20 MG Tablet 1 tablet Orally Once a day , Taking Irbesartan 300 MG Tablet 1 tablet Orally Once a day , Taking Furosemide 20 MG Tablet TAKE 1 TABLET BY MOUTH EVERY DAY , Taking metFORMIN HCl ER 500 MG Tablet Extended Release 24 Hour TAKE 3 TABLETS BY MOUTH DAILY , Taking Loratadine 10 MG Tablet TAKE 1 TABLET BY MOUTH EVERY DAY , Taking Metoprolol Succinate ER 100 MG Tablet Extended Release 24 Hour TAKE 1 TABLET BY MOUTH DAILY , Taking Aspirin 81 81 MG Tablet Delayed Release 1 tablet Orally Once a day , Discontinued Prasugrel HCl 10 MG Tablet as directed Orally once daily , Medication List reviewed and reconciled with the patient * Allergies: N .K.D.A. Objective: * Vitals: W t: 289.2, Temp: 98.0, BP: 130/80, HR: 70, Nurse: tiffanie, Ht: 68.50, BMI:43.33. * Examination: G eneral Examination: General Appearance: N AD. S kin: r eddened rash over the left chest in a band like pattern, stops at the midline. Assessment: * Assessment: 1. H erpes zoster without complication - B02.9 (Primary) Plan: * Treatment: * Follow Up: v ia phone to report progress * Images: Billing Information: * Visit Code: 36960 Office Visit, Est Pt., Level 3. * Procedure Codes: * Electronic signature of Annika Sal MD on 02/11/2025 at 10:47 AM EDT Sign off status: Pending * Provider: Andrew Sal M.D. Date: 0 11/29/2024 Generated for Printi ng/Arlene/eTransmitting on: 1 10:47 AM EDT History and Physical Notes * HPI (History of Present Illness) Category Sub-Category Detail Notes Category Not es Dermatology Shingles Pt here to f/u o n 11/28/[address] [facility] ER visit. Pt went to er for rash on abdomen and back. Pt dx with Shingles and was rx'd Valacyclovir and Gabapentin. Pt states he is having excruciating back pain on the left side Examination Category Sub-Category Detail Notes Category Not es General Examination General Appearance: NAD Skin: reddened rash over t he left chest in a band like pattern, stops at the midline
--- OUTSIDE RECORDS SUMMARY | 2025-02-03 06:15 | XMS_ITS ---
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 Name Role Phone Didier Sal Primary Care Provider [phone] Allergies Allergen (clinical drug ingredient) Drug/Non Drug Allergy documented on EMR Reaction Allergy Type Onset Date Status dexamethasone DexAMETHasone hives Drug Allergy Active Results Component Value Reference Range Notes Glucose (In-House) Reviewed date:2025 10:09:50 AM Interpretation:107 Performing Lab: Notes/Report: 107 blood glucose 107 74 - 106 mg/dL Glycohemoglobin A1c (in hous e) Reviewed date:2025 10:09:50 AM Interpretation:5.9% Normal Performing Lab: Notes/Report: 5.9% Normal glycohemoglobin 5.9% 5 - 6.5 % P-Comprehensive Metabolic Pa margie (CMP) Reviewed date:2025 10:09:50 AM Interpretation:Normal Normal Performing Lab: Notes/Report: Test performed by [facility], [facility] , [address], [place] [address] Kieran Quiñones MD, Associate Buyer CLIA: [id number] Sodium 139 135-145 mmol/L Potassium 4.6 3.5-5.3 mmol/L Chloride 104 97-108 mmol/L CO2 24 20-32 mmol/L Glucose 98 65-99 mg/dL BUN 18 6-20 mg/dL Creatinine 0.87 0.70-1.30 mg/dL Calcium 9.1 8.6-10.4 mg/dL eGFR by Creatinine 99 >59 mL/min/1.73m2 Protein 6.9 6.0-8.3 g/dL Albumin 4.5 3.5-5.3 g/dL Alkaline Phosphatase 64 40-129 IU/L ALT (SGPT) 13 <5-55 IU/L AST (SGOT) 14 <5-46 IU/L Bilirubin, Total 0.5 <0.2-1.2 mg/dL A/G Ratio 1.9 1.1-2.5 P-Lipid Panel Reviewed date:2025 10:09:50 AM Interpretation:trigs 220, hdl 37 Performing Lab: Notes/Report: Test performed by [facility], [address] , [facility], [place] [address] Kieran Quiñones MD, Associate Buyer CLIA: [id number] Lipid Panel Footnote See Below *Based on optimal reference values. Please refer to the DOS for additional information regarding diagnostic lipid reference ranges, patient management based on the recently updated lipid guidelines ([employer]/[place] [employer] Task Force on Clinical Practice Guidelines (2018), and pediatric diagnostic lipid reference values (<18 years old). Total Cholesterol 137 <200 mg/dL Triglycerides 220 <150 mg/dL HDL Cholesterol 37 >40 mg/dL Total Cholesterol / HDL Ratio* 3.70 <4.99 Ratio Non-HDL Cholesterol 100 <130 mg/dL LDL Cholesterol (Calculation) 56 <100 mg/dL LDL / HDL Ratio* 1.51 <2.49 Ratio LDL Cholesterol Patient History Test Date: 01/30/2024 LDL Results: 52 Units: mg/dL % Change: +20% Test Date: 07/25/2024 LDL Results: 56 Units: mg/dL % Change: +7% Test Date: 02/03/2025 LDL Results: 56 Units: mg/dL % Change: 0% P-PSA Reviewed date:2025 10:09:50 AM Interpretation:Normal Normal Performing Lab: Notes/Report: Test performed by [facility] , [facility] [place] [address] Kieran Quiñones MD, Associate Buyer CLIA: [id number] PSA 0.94 <4.00 ng/mL Please note this is an ultrasensitive PSA assay with a lower limit of detection of 0.014 ng/mL. This test is performed by the Rickey ECLIA methodology. Values obtained with different assay methods or kits cannot be directly compared. P-TSH reflex to FT4 Reviewed date:2025 10:09:50 AM Interpretation:Normal Normal Performing Lab: Notes/Report: Test performed by [facility] , [place] [address] Kieran Quiñones MD, Associate Buyer CLIA: [id number] TSH reflex to FT4 2.15 0.43-5.25 mU/L P-Microalbumin/Creatinine, R andom Urine Sample Reviewed date:2025 10:09:50 AM Interpretation:Normal Normal Performing Lab: Notes/Report: Test performed by [facility], [address] , [address], [place] [address] Kieran Quiñones MD, Associate Buyer CLIA: [id number] Albumin/Creatinine Ratio, Urine <7.24 0-30 ug/mg Microalbumin, Urine, Random <0.3 Creatinine, Urine 41.4 REASON FOR VISIT 6 months Medications Medication SIG (Take, Route, Frequency, Duration) Notes Start Date End Date Status metFORMIN HCl ER 500 MG 3 tablets Orally Once a day Active Loratadine 10 MG TAKE 1 TABLET BY JOHN TH EVERY DAY; Duration: 90 Active Metoprolol Succinate ER 100 MG TAKE 1 TABLET BY MOUTH DAILY Active Jardiance 25 MG 1 tablet Orally Once a day Active Furosemide 20 MG TAKE 1 TABLET BY JOHN TH EVERY DAY Active Montelukast Sodium 10 MG 1 tab(s) orally once a day; Duration: 90 days Active Combivent Respimat 20-100 MCG/ACT 1 puff(s) inhaled 4 times a day; Duration: 90 days Active Albuterol Sulfate HFA 108 (90 Base) MCG/ACT INHALE 1 PUFF BY MOUTH EVERY 4 HOURS NEEDED; Duration: 30 Active Irbesartan 300 MG 1 tablet Orally Once a day Active amLODIPine Besylate 10 MG 1 tablet Orall y Once a day Active Clobetasol Propionate 0.05 % 1 application Externally Twice a day 02/03/2025 Active CareTouch CPAP & BIPAP Hose 1 DIRECTED 05/04/19 Active Nitroglycerin 0.4 MG as directed Sublingual Active Sildenafil Citrate 20 MG 1 to 5 tab(s) o rally once daily as needed 01/06/2022 Active Meloxicam 15 MG 1 tab(s) orally once a day; Duration: 30 days Active Gabapentin 600 MG 1 tablet Orally 3 ti mes a day; Duration: 30 days 12/05/2024 Active Nicotine Step 1 21 MG/24HR 1 patch to sk in Transdermal Once a day; Duration: 30 day(s) Active Fluticasone Propionate 50 MCG/ACT ADMINISTER 1 SPRAY IN EACH NOSTRIL ONCE DAILY; Duration: 90 Active Rosuvastatin Calcium 20 MG 1 tablet Oral ly Once a day Active Aspirin 81 81 MG 1 tablet Orally Once a day; Duration: 90 days Active Immunizations Vaccine Route Administration Date Status Comme nts PNEUMOVAX 23 VACCINE IM Intramuscular 02/03/2025 Administe red Vital Signs Blood pressure systolic 130 mm Hg 02/04/20 25 Blood pressure diastolic 80 mm Hg 025 Heart Rate 69 /min 02/03/2025 Height 68.50 in 02/03/2025 Weight 289.2 lbs 02/03/2025 BMI 43.33 kg/m2 02/03/2025 Encounters Encounter Location Date Provider Diagnosis [facility] [address] [place], [place] [id number] 02/03/2025 Didier Sal Type 2 diabetes sabrina itus without complication, without long-term current use of insulin E11.9 ; Essential (primary) hypertension I10 ; Hyperlipidemia, unspecified hyperlipidemia type E78.5 ; Pain in right knee M25.561 ; Pain in left knee M25.562 ; Prostate cancer screening Z12.5 ; Psoriasis L40.9 and Encounter for immunization Z23 Assessments Encounter Date Diagnosis (ICD Code) Assessment Notes Treatment Notes Treatment Clinical Notes Section Notes 02/03/2025 Type 2 diabetes mellitus without complication, without long-term current use of insulin (ICD-10 - E11.9) 02/03/2025 Essential (primary) hypertension (ICD-10 - I10) 02/03/2025 Hyperlipidemia, unspecified hyperlipidemia type (ICD-10 - E78.5) 02/03/2025 Pain in right knee (ICD-10 - M25.561) 02/03/2025 Pain in left knee (ICD-10 - M25.562) 02/03/2025 Prostate cancer screening (ICD-10 - Z12.5) 02/03/2025 Psoriasis (ICD-10 - L40.9) Patient will call and make an appointment with his blood bank laboratory professional 02/03/2025 Encounter for immunization (ICD-10 - Z23) Plan Of Treatment Medication Medication Name Sig Start Date Stop Date Notes metFORMIN HCl ER 500 MG 3 tablets Orally Once a day Metoprolol Succinate ER 100 MG TAKE 1 TABLET BY MOUTH JAMEY Y Jardiance 25 MG 1 tablet Orally Once a day Furosemide 20 MG TAKE 1 TABLET BY JOHN TH EVERY DAY Irbesartan 300 MG 1 tablet Orally Once a day amLODIPine Besylate 10 MG 1 tablet Orally Once a day Clobetasol Propionate 0.05 % 1 applicati on Externally Twice a day 02/03/2025 Rosuvastatin Calcium 20 MG 1 tablet Orally Once a day Treatment Notes Assessment Notes Psoriasis Patient will call an d make an appointment with his blood bank laboratory professional Pending Test Test Name Order Date X ray : Knee, left 02/03/2025 X ray : Knee, right 02/03/2025 Next Appt Details Follow Up: 6 Months, Reason: Provider Name:Didier Fry ry, 08/04/2025 09:30:00 AM, [address], [address], [place], [place], [id number], Progress Notes * ENRIQUETA AMAROOB: 6 (60 yo M)Acc No.[id number]:02/03/2025 Progress Notes Patient: MARILOU ALLISON Provider: Andrew Sal M.D. :1965 A ge:59 Y S ex:Male Date:02/03/2025 Address:[address] [place] [address], [place], [id number] Subjective: * Chief Complaints: * 1 . 6 months. * HPI: C ardiology: Blood Pressure Elevated P t is here today for 6 month follow up on Hypertension. Pt states he is doing well and has no concerns at this time. H yperlipidemia P t is fasting today. E ndocrinology: Recent Blood Sugars P t is here today for 6 month follow up on DM2. * Medical History: T ype 2 Diabetes, [...] . * Social History: C URRENT TOBACCO USE: Yes S moking Status: P atient does smoke, p acks per day:?1, n umber of cigarettes per day: 2 0, S cassie age of: 3 2, S moking preference: c andrés. C affeine: yes, frequency:coffee, qd, occasional soda. Home smoke detector use: yes. Marital Status: Single. * Medications: T aking Nicotine Step 1 21 MG/24HR Patch 24 [...] inhaled 4 times a day , Taking Albuterol Sulfate HFA 108 (90 [...] TABLET BY MOUTH EVERY DAY , Taking Loratadine 10 MG Tablet TAKE 1 TABLET BY MOUTH EVERY DAY , Taking Metoprolol Succinate ER 100 MG Tablet Extended Release 24 Hour TAKE 1 TABLET BY MOUTH DAILY , Taking Aspirin 81 81 MG Tablet Delayed Release 1 tablet Orally Once a day , Taking Gabapentin 600 MG Tablet 1 tablet Orally 3 times a day , Taking Jardiance 25 MG Tablet 1 tablet Orally Once a day , Taking Fluticasone Propionate 50 MCG/ACT Suspension ADMINISTER 1 SPRAY IN EACH NOSTRIL ONCE DAILY , Taking metFORMIN HCl ER 500 MG Tablet Extended Release 24 Hour 3 tablets Orally Once a day , Discontinued valACYclovir HCl 1 GM Tablet 1 tablet Orally 3 times a day , Discontinued predniSONE 20 MG Tablet 1 tablet with food or milk Orally twice a day , Medication List reviewed and reconciled with the patient * Allergies: D exAMETHasone: hives - Criticality Unknown. Objective: * Vitals: W t: 289.2, Temp: 98.2, BP: 130/80, HR: 69, Nurse: DONOAVN, Ht: 68.50, BMI:43.33. * Examination: E ndocrinology: General Appearance: N AD. H eart: R SR. L ungs:?clear to auscultation. E xtremities: n o leg edema. S kin: d istal right lateral leg with a fairly large patch of dry scaling skin with an overlying silver scale. ? Assessment: * Assessment: 1. T ype 2 diabetes mellitus without complication, without long-term current use of insulin - E11.9 (Primary) 2 . E ssential (primary) hypertension - I10 3 .?Hyperlipidemia, unspecified hyperlipidemia type - E78.5 4 . P ain in right knee - M25.561 5 . P ain in left knee - M25.562 6 . P rostate cancer screening - Z12.5 7 . P soriasis - L40.9 8 . E ncounter for immunization - Z23 Plan: * Treatment: Value Reference Range A /G Ratio 1.9 1.1-2.5 - * A lbumin 4.5 3.5-5.3 - g/dL * A lkaline Phosphatase 64 40-129 - IU/L * A LT (SGPT) 13 <5-55 - IU/L * A ST (SGOT) 14 <5-46 - IU/L * B ilirubin, Total 0.5 <0.2-1.2 - mg/dL * B UN 18 6-20 - mg/dL * C alcium 9.1 8.6-10.4 - mg/dL * C hloride 104 97-108 - mmol/L * C O2 24 20-32 - mmol/L * C reatinine 0.87 0.70-1.30 - mg/dL * G lucose 98 65-99 - mg/dL * P otassium 4.6 3.5-5.3 - mmol/L * S odium 139 135-145 - mmol/L * P rotein 6.9 6.0-8.3 - g/dL * e GFR by Creatinine 99 >59 - mL/min/1.73m2 * Rosalinda Chew 2025 10: 09:45 AM EDT > See phone encounter ?LAB: P-TSH reflex to FT4 (Collection Date & Time - 02/03/2025 09:41 AM)? Normal Normal* Value Reference Range T SH reflex to FT4 2.15 0.43-5.25 - mU/L * Rosalinda Chew 2025 10: 09:45 AM EDT > See phone encounter ?LAB: P-Microalbumin/Creatinine, Random Urine Sample (Collection Date & Time - 02/03/2025 09:41 AM)?Normal Normal* Value Reference Range A lbumin/Creatinine Ratio, Urine <7.24 0-30 - ug /mg * C reatinine, Urine 41.4 - mg/dL * M icroalbumin, Urine, Random <0.3 - mg/dL * Rosalinda Chew 2025 10: 09:45 AM EDT > See phone encounter ?LAB: Glucose (In-House) (Collection Date & Time - 02/03/2025)?107* Value Reference Range b lood glucose 107 74 - 106 mg/dL * Lili Calzada 02/03/2025 11 :11:35 AM EDT > Rosalinda Chew 2025 10:09:45 AM EDT > See phone encounter ?LAB: Glycohemoglobin A1c (in house) (Collection Date & Time - 02/03/2025)? 5.9% Normal* Value Reference Range g lycohemoglobin 5.9% 5 - 6.5 % * Lili Calzada 02/03/2025 11 :18:48 AM EDT > Rosalinda Chew 2025 10:09:45 AM EDT > See phone encounter 2.?Essential (primary) hypertension? Continue amLODIPine Besylate Tablet, 10 MG, 1 tablet, Orally, Once a day;?Continue Irbesartan Tablet, 300 MG, 1 tablet, Orally, Once a day;?Continue Furosemide Tablet, 20 MG, TAKE 1 TABLET BY MOUTH EVERY DAY;?Continue Metoprolol Succinate ER Tablet Extended Release 24 Hour, 100 MG, TAKE 1 TABLET BY MOUTH DAILY.?LAB: P-Comprehensive Metabolic Panel (CMP) (Collection Date & Time - 02/03/2025 09:41 AM)?Normal Normal* Value Reference Range A /G Ratio 1.9 1.1-2.5 - * A lbumin 4.5 3.5-5.3 - g/dL * A lkaline Phosphatase 64 40-129 - IU/L * A LT (SGPT) 13 <5-55 - IU/L * A ST (SGOT) 14 <5-46 - IU/L * B ilirubin, Total 0.5 <0.2-1.2 - mg/dL * B UN 18 6-20 - mg/dL * C alcium 9.1 8.6-10.4 - mg/dL * C hloride 104 97-108 - mmol/L * C O2 24 20-32 - mmol/L * C reatinine 0.87 0.70-1.30 - mg/dL * G lucose 98 65-99 - mg/dL * P otassium 4.6 3.5-5.3 - mmol/L * S odium 139 135-145 - mmol/L * P rotein 6.9 6.0-8.3 - g/dL * e GFR by Creatinine 99 >59 - mL/min/1.73m2 * Rosalinda Chew 2025 10: 09:45 AM EDT > See phone encounter 3.?Hyperlipidemia, unspecified hyperlipidemia type? Continue Rosuvastatin Calcium Tablet, 20 MG, 1 tablet, Orally, Once a day.?LAB: P-Comprehensive Metabolic Panel (CMP) (Collection Date & Time - 02/03/2025 09:41 AM)?Normal Normal* Value Reference Range A /G Ratio 1.9 1.1-2.5 - * A lbumin 4.5 3.5-5.3 - g/dL * A lkaline Phosphatase 64 40-129 - IU/L * A LT (SGPT) 13 <5-55 - IU/L * A ST (SGOT) 14 <5-46 - IU/L * B ilirubin, Total 0.5 <0.2-1.2 - mg/dL * B UN 18 6-20 - mg/dL * C alcium 9.1 8.6-10.4 - mg/dL * C hloride 104 97-108 - mmol/L * C O2 24 20-32 - mmol/L * C reatinine 0.87 0.70-1.30 - mg/dL * G lucose 98 65-99 - mg/dL * P otassium 4.6 3.5-5.3 - mmol/L * S odium 139 135-145 - mmol/L * P rotein 6.9 6.0-8.3 - g/dL * e GFR by Creatinine 99 >59 - mL/min/1.73m2 * Rosalinda Chew 2025 10: 09:45 AM EDT > See phone encounter ?LAB: P-Lipid Panel (Collection Date & Time - 02/03/2025 09:41 AM)?trigs 220, hdl 37* Value Reference Range C holesterol / HDL Ratio 3.70 <4.99 - Ratio * C holesterol 137 <200 - mg/dL * H DL Cholesterol 37 L >40 - mg/dL * L DL Cholesterol (Calculation) 56 <100 - mg/d L * L DL/HDL Ratio 1.51 <2.49 - Ratio * N on-HDL Cholesterol 100 <130 - mg/dL * T riglycerides 220 H <150 - mg/dL * L ipid Panel Footnote See Below - * Rosalinda Chew 2025 10: 09:45 AM EDT > See phone encounter 4.?Pain in right knee?Imaging: X ray : Knee, right5.?Pain in left knee?Imaging: X ray : Knee, left6.?Prostate cancer screening?LAB: P-PSA (Collection Date & Time - 02/03/2025 09:41 AM)?Normal Normal* Value Reference Range P SA 0.94 <4.00 - ng/mL * Rosalinda Chew 2025 10: 09:45 AM EDT > See phone encounter 7.?Psoriasis? Start Clobetasol Propionate Cream, 0.05 %, 1 application, Externally, Twice a day, 60 grams, Refills 0.?? Notes: Patient will call and make an appointment with his blood bank laboratory professional?? * Immunizations: PNEUMOVAX 23 VACCINE : 0.5 mL (Route: Intramuscular) given by Lili Calzada on Left Deltoid (Encounter for immunization) * Procedure Codes: 8 2950 GLUCOSE TEST, 30347 GLYCATED HEMOGLOBIN TEST, Modifiers: QW * Follow Up: 6 Months * Images: Billing Information: * Visit Code: 58208 Office Visit, Est Pt., Level 4. * Procedure Codes: 37091 GLUCOSE TEST. 78572 GLYCATED HEMOGLOBIN TEST. Modifiers: QW * Electronic signature of Annika Sal MD on 02/11/2025 at 10:47 AM EDT Sign off status: Pending * Provider: Andrew Sal M.D. Date: 1 Generated for Mike islas/Arlene/Saryitting on: 1 10:47 AM EDT History and Physical Notes * HPI (History of Present Illness) Category Sub-Category Detail Notes Category Not es Endocrinology Recent Blood Sugars Pt is here t skye for 6 month follow up on DM2 Cardiology Blood Pressure Elevated Pt is he re today for 6 month follow up on Hypertension. Pt states he is doing well and has no concerns at this time Hyperlipidemia Pt is fasting today Examination Category Sub-Category Detail Notes Category Not es Endocrinology Heart: RSR Lungs: clear to auscultatio n Extremities: no leg edema General Appearance: NAD Skin: distal right lateral leg with a fairly large patch of dry scaling skin with an overlying silver scale
--- NOTE | 2025-02-11 | XR_ITS ---
PROCEDURE INFORMATION: Exam: XR Left Knee Exam date and time: 02/11/2025 10:56 AM Age: 60 years old Clinical indication: Pain; Knee; Left TECHNIQUE: Imaging protocol: Radiologic exam of the left knee. Views: 3 views. COMPARISON: No relevant prior studies available. FINDINGS: Bones/joints: There is no evidence acute fracture or dislocation. There is medial and patellofemoral compartment narrowing. Soft tissues: Dystrophic soft tissue calcification is noted in the posterior aspect of the knee. IMPRESSION: No evidence for acute fracture. Degenerative change.
--- NOTE | 2025-02-11 | XR_ITS ---
PROCEDURE INFORMATION: Exam: XR Right Knee Exam date and time: 02/11/2025 10:56 AM Age: 60 years old Clinical indication: Pain; Knee; Right; Additional info: RT knee pain TECHNIQUE: Imaging protocol: Radiologic exam of the right knee. Views: 3 views. COMPARISON: MR KNEE RT WO CON 03/02/2021 11:20 AM FINDINGS: Bones/joints: There is no acute fracture or dislocation. There is medial and patellofemoral compartment narrowing and osteophytosis. Mineralization is within normal limits. Soft tissues: Normal. IMPRESSION: Degenerative change, right knee.
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
--- OUTSIDE RECORDS SUMMARY | 2025-02-11 10:48 | XMS_ITS | Clinical Summary ---
Author Organization [facility] Address [address] [place] [address] Care Team Providers Care Thickener Operator Name Role Phone None, Physician Primary Care Provider Unavailabl e Allergies Active Allergy Reactions Criticality Noted Date Comments Green Tea [place] Ext 06/07/2019 Medications * This document contains [...] SDOH Screening 04/20/2024 Influenza Vaccine (#1) 2024 RSV 50+ and (1 - 1 -dose 75+ series) 2041 Haemophilus Influenzae Type B (Hib) Vaccine Aged [...] patient's age to complete this topic Insurance [employer] Member Subscriber Plan / Payer (Ef fective 2015-Present) Name:AmaroAlfred mccauley Relation to Subscriber:Employee Name:ZAYRA ROJAS Date of :1965 Address: [address] [place] [id number] Payer ID:[id number] Group ID:Not on file Type:Indemnity Address: [address] [address] [place] [address] Advance Directives Documents on File Type Date Recorded Patient Reservation Agent Expl anation Power of Custom Wood Stair Builder 08/30/2015 5:22 PM Care Teams Thickener Operator Relationship Specialty Start Date End Date None, Physician PCP - General 08/30/15
--- OUTSIDE RECORDS SUMMARY | 2025-02-11 10:48 | XMS_ITS | Patient Health Record ---
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 Name Role Phone [place] Didier Primary Care Provider Radha Alyce Lind [phone] Allergies Allergen (clinical drug ingredient) Drug/Non Drug Allergy documented on EMR Reaction Allergy Type Onset Date Status dexamethasone DexAMETHasone hives Drug Allergy Active Results Component Value Reference Range Notes P-Potassium Reviewed date:02/18/2024 10:02:31 AM Interpretation:Normal Performing Lab: Notes/Report: Test performed by [facility] [address] [place] [address] , [address] , [place] [address] Kieran Quiñones MD, Business Analysis Specialist CLIA: [id number] Potassium 5.1 3.5-5.3 mmol/L P-Comprehensive Metabolic Pa margie (CMP) Reviewed date:07/26/2024 12:28:19 PM Interpretation:gluc 117 Performing Lab: Notes/Report: Test performed by [facility] [address] [place], [place] [address] [place] , [address], [place] [address] Kieran Quiñones MD, Business Analysis Specialist CLIA: [id number] Sodium 140 135-145 mmol/L Potassium 4.9 3.5-5.3 [...] Interpretation:5.8 Performing Lab: Notes/Report: Test performed by [facility] [address] [place], [place] [address] [place] , [address], [place] [address] Kieran Quiñones MD, Business Analysis Specialist CLIA: [id number] Hemoglobin A1C 5.8 <5.7 % The following HbA1c ranges recommended by the [place] Diabetes Association (ADA) may be used as an aid in the diagnosis of diabetes mellitus. HbA1c Suggested Diagnosis >=6.5% Diabetic 5.7% - 6.4% Pre-Diabetic <5.7% Non-Diabetic P-Lipid Panel Reviewed date:07/26/2024 12:28:20 PM Interpretation:trigs 175 Performing Lab: Notes/Report: Test performed by [facility] [address] [place] [address] , [address], [place] [id number] Kieran Quiñones MD, Business Analysis Specialist CLIA: [id number] Cholesterol 131 <200 mg/dL Triglycerides 175 <150 [...] Interpretation:120 Performing Lab: Notes/Report: Test performed by [facility], [address] , [address], [place] [address] Kieran Quiñones MD, Business Analysis Specialist EVE: [id number] Estimated Average Glucose (eAG) 120 Estimated Average Glucose (eAG) is calculated using the equation eAG = (28.7 x HbA1c) - 46.7 based on the guidelines established by the ADA. If the patient has certain diseases including kidney disease, sickle cell anemia, thalassemia, or is taking medications such as dapsone, erythropoietin, or iron, eAG should not be evaluated. Glucose (In-House) Reviewed date:2025 10:09:50 AM Interpretation:107 Performing Lab: Notes/Report: 107 blood glucose 107 74 - 106 mg/dL Glycohemoglobin A1c (in hous e) Reviewed date:2025 10:09:50 AM Interpretation:5.9% Normal Performing Lab: Notes/Report: 5.9% Normal glycohemoglobin 5.9% 5 - 6.5 % P-Comprehensive Metabolic Pa margie ([facility]) Reviewed date:2025 10:09:50 AM Interpretation:Normal Normal Performing Lab: Notes/Report: Test performed by [facility] [address] [place] [address] , [address], [place] [address] Kieran Quiñones MD, Business Analysis Specialist CLIA: [id number] Sodium 139 135-145 mmol/L Potassium 4.6 3.5-5.3 [...] 37 Performing Lab: Notes/Report: Test performed by [facility] [address] [place] [address] , [address], [place] [address] Keiran Quiñones MD, Business Analysis Specialist CLIA: [id number] Lipid Panel Footnote See Below *Based on optimal reference values. Please refer to the DOS for additional information regarding diagnostic lipid reference ranges, patient management based on the recently updated lipid guidelines ([place] College of Cardiology/Swedish Heart Association Task Force on Clinical Practice [...] Normal Performing Lab: Notes/Report: Test performed by [facility] [address] , [place] [address] Kieran Quiñones MD, Business Analysis Specialist CLIA: [id number] PSA 0.94 <4.00 ng/mL Please note this is an ultrasensitive PSA assay with a lower limit of detection of 0.014 ng/mL. This test is performed by the Antidot ECLIA methodology. Values obtained with different assay methods or kits cannot be directly compared. P-TSH reflex to FT4 Reviewed date:2025 10:09:50 AM Interpretation:Normal Normal Performing Lab: Notes/Report: Test performed by [facility] [address] , [address], [place] [address] Kieran Quiñones MD, Business Analysis Specialist CLIA: [id number] TSH reflex to FT4 2.15 0.43-5.25 mU/L P-Microalbumin/Creatinine, R andom Urine Sample Reviewed date:2025 10:09:50 AM Interpretation:Normal Normal Performing Lab: Notes/Report: Test performed by [facility] [address] , [address], [place] [address] Kieran Quiñones MD, Business Analysis Specialist CLIA: [id number] Albumin/Creatinine Ratio, Urine <7.24 0-30 ug/mg Microalbumin, Urine, Random <0.3 Creatinine, Urine 41.4 Reason For Referral No Information Medications Medication SIG (Take, Route, Frequency, Duration) Notes Start Date End Date Status Albuterol Sulfate HFA 108 (90 Base) MCG/ACT INHALE 1 PUFF BY MOUTH EVERY 4 HOURS NEEDED; Duration: 30 Active Fluticasone Propionate 50 MCG/ACT ADMINISTER 1 SPRAY IN EACH NOSTRIL ONCE DAILY; Duration: 90 Active Furosemide 20 MG TAKE 1 TABLET BY JOHN TH EVERY DAY Active Clobetasol Propionate 0.05 % 1 application Externally Twice a day 02/03/2025 Active Montelukast Sodium 10 MG 1 tab(s) orally once a day; Duration: 90 days Active [facility] CPAP & BIPAP Hose 1 DIRECTED 05/04/19 Active Gabapentin 600 MG 1 tablet Orally 3 ti mes a day; Duration: 30 days 12/05/2024 Active Combivent Respimat 20-100 MCG/ACT 1 puff(s) inhaled 4 times a day; Duration: 90 days Active metFORMIN HCl ER 500 MG 3 tablets Orally Once a day Active Nitroglycerin 0.4 MG as directed Sublingual Active Loratadine 10 MG TAKE 1 TABLET BY JOHN TH EVERY DAY; Duration: 90 Active Metoprolol Succinate ER 100 MG TAKE 1 TABLET BY MOUTH DAILY Active Nicotine Step 1 21 MG/24HR 1 patch to sk in Transdermal Once a day; Duration: 30 day(s) Active Rosuvastatin Calcium 20 MG 1 tablet Oral ly Once a day Active Sildenafil Citrate 20 MG 1 to 5 tab(s) o rally once daily as needed 01/06/2022 Active Aspirin 81 81 MG 1 tablet Orally Once a day; Duration: 90 days Active Jardiance 25 MG 1 tablet Orally Once a day Active Meloxicam 15 MG 1 tab(s) orally once a day; Duration: 30 days Active Irbesartan 300 MG 1 tablet Orally Once a day Active amLODIPine Besylate 10 MG 1 tablet Orall y Once a day Active Immunizations Vaccine Route Administration Date Status Comme nts PNEUMOVAX 23 VACCINE IM Intramuscular 02/03/2025 Administe red Fluzone Quad (6months&older) IM Intramuscular 01/10/2023 Administered Fluzone PF Quad (6-35 months) Unknown 12/01/2020 Administered COVID 19 Pfizer Unknown 11/10/2020 Administered COVID 19 Pfizer Unknown 12/01/2020 Administered Problems Problem Type SNOMED Code ICD Code Onset Dates Problem Status W/U Status Risk Notes Problem Essential hypertension (77763820) Essential (primary) hypertension (I10) Active confirmed Problem Morbid obesity (104812979) Morbid obesity (E66.01) Active confirmed Problem Hypertriglyceridemia (413659212) Hypertriglyceridemia (E78.1) Active confirmed Problem Seasonal allergy (528497300) Seasonal allergies (J30.2) Active confirmed Problem Psoriasis (0338714) Psoriasis (L40.9) Active co nfirmed Problem Unstable angina (2653974) Unstable angina (I20.0) Active confirmed Problem Granuloma annulare (57247755) Granuloma annulare (L92.0) Active confirmed Problem Excessive thirst (09704782) Polydipsia (R63.1) Active confirmed Problem Male erectile disorder (634790953) Male erectile disorder (N52.9) Active confirmed Problem Chronic pain (33985211) Other chronic pain (G89.29) Active confirmed Problem Obstructive sleep apnea syndrome (81658490) Obstructive sleep apnea syndrome (G47.33) Active confirmed Problem Gastroesophageal reflux disease (491843013) Gastroesophageal reflux disease, esophagitis presence not specified (K21.9) Active confirmed Problem Erectile dysfunction (disorder) (428674085) Erectile dysfunction, unspecified erectile dysfunction type (N52.9) Active confirmed Problem Anemia (414065052) Anemia, unspe cified type (D64.9) Active confirmed Problem Obstructive sleep apnea syndrome (58817594) RAKAN (obstructive sleep apnea) (G47.33) Active confirmed Problem Body mass index 40+ - morbidly obese (985813308) BMI 40.0-44.9, adult (Z68.41) Active confirmed Problem Osteoarthritis of knee (702067357) Primary osteoarthritis of left knee (M17.12) Active confirmed Problem Hyperlipidaemia (22450845) Hyperlipidemia, unspecified hyperlipidemia type (E78.5) Active confirmed Problem Tobacco user (711567507) Cigarette nicotine dependence without complication (F17.210) Active confirmed Problem Skin infection (65605517) Skin infection (L08.9) Active confirmed Problem Cerebrovascular accident (300451822) Cerebrovascular accident (CVA), unspecified mechanism (I63.9) Active confirmed Problem Type II diabetes mellitus without complication (323496361) Type 2 diabetes mellitus without complication, without long-term current use of insulin (E11.9) Active confirmed Problem Pain in limb (37007585) Pain in thumb joint with movement of right hand (M79.644) Active confirmed Problem Atherosclerotic hear t disease of [place] coronary artery without angina pectoris (474795741321539) Atherosclerosis of [place] coronary artery without angina pectoris, unspecified whether [place] or transplanted heart (I25.10) Active confirmed Problem Ischemic stroke (470633983) Ischemic stroke (I63.9) Active confirmed Problem Tobacco use (032541651) Tobacco use disorder (F17.200) Active confirmed Problem MRSA (Methicillin resistant Staphylococcus aureus) infection (550060099) MRSA (methicillin resistant Staphylococcus aureus) infection (A49.02) Active confirmed Problem Pruritus ani (05901709) Perianal pruritus (L29.0) Active confirmed Problem Allergic rhinitis (70136257) Allergic rhinitis, unspecified seasonality, unspecified trigger (J30.9) Active confirmed Problem Type II diabetes mellitus without complication (191858988) Type 2 diabetes mellitus without complication, unspecified whether mcfp insulin use (E11.9) Active confirmed Problem Plain X-ray of chest abnormal (finding) (6688827073) Abnormal CXR (R93.89) Active confirmed Problem Arthritis of right knee (1361701675008331) Arthritis of knee, right (M17.11) Active confirmed Problem Diastolic dysfunctio n (6182750) Diastolic dysfunction (I51.89) Active confirmed Problem Coronary arteriosclerosis (disorder) (61708696) CAD in [place] artery (I25.10) Active confirmed Problem Primary hypertension (69292963) Primary hypertension (I10) Active confirmed Problem Mild chronic obstructive pulmonary disease (109559827) Mild chronic obstructive pulmonary disease (J44.9) Active confirmed Vital Signs Heart Rate 69 /min 02/03/2025 Blood pressure diastolic 80 mm Hg 02/03/2025 Height 68.50 in 02/03/2025 Blood pressure systolic 130 mm Hg 02/03/2025 Weight 289.2 lbs 02/03/2025 BMI 43.33 kg/m2 02/03/2025 Encounters Encounter Location Date Provider Diagnosis [facility] [address] [place], [place] [id number] 02/17/2024 Didier [place] Hyperkalemia E87.5 [facility] [address] [place], [place] [id number] 07/25/2024 Didier [place] Type 2 diabetes sabrina itus without complication, unspecified whether long term care social worker insulin use E11.9 ; Primary hypertension I10 ; Hypertriglyceridemia E78.1 ; RAKAN (obstructive sleep apnea) G47.33 and CAD in [place] artery I25.10 [facility] [address] [place], [place] [id number] 11/29/2024 Didier [place] Herpes zoster withou t complication B02.9 [facility] [address] [place], [place] [id number] 02/03/2025 Didier [place] Type 2 diabetes sabrina itus without complication, without long-term current use of insulin E11.9 ; Essential (primary) hypertension I10 ; Hyperlipidemia, unspecified hyperlipidemia type E78.5 ; Pain in right knee M25.561 ; Pain in left knee M25.562 ; Prostate cancer screening Z12.5 ; Psoriasis L40.9 and Encounter for immunization Z23 [facility] [address] [place], [place] [id number] 2025 Didier [place] [facility] [address] [place], [place] [id number] 03/09/2024 Alyce Crowdy [facility] [address] [place] [id number] 04/22/2024 Alyce Crowdy [facility] [address] [place] [id number] 05/27/2024 Didier [place] Ischemic stroke I63. 9 [facility] [address] [place] [id number] 06/10/2024 Didier [place] [facility] [address] [place] [id number] 07/05/2024 Didier [place] [facility] [address] [place], [place] [id number] 07/26/2024 Didier [place] [facility] [address] [place], [place] [id number] 12/05/2024 Didier [place] Herpes zoster withou t complication B02.9 [facility] [address] [place] [id number] 12/06/2024 Didier [place] [facility] [address] [place], [place] [id number] 12/06/2024 Didier [facility] [address] [place] [id number] 12/06/2024 Didier Sal Assessments Encounter Date Diagnosis (ICD Code) Assessment Notes Treatment Notes Treatment Clinical Notes Section Notes 05/27/2024 Ischemic stroke (ICD -10 - I63.9) 07/25/2024 Type 2 diabetes mellitus without complication, unspecified whether mcfp insulin use (ICD-10 - E11.9) 07/25/2024 Primary hypertension (ICD-10 - I10) 11/29/2024 Herpes zoster withou t complication (ICD-10 - B02.9) 12/05/2024 Herpes zoster withou t complication (ICD-10 - B02.9) 02/03/2025 Essential (primary) hypertension (ICD-10 - I10) 02/03/2025 Type 2 diabetes mellitus without complication, without long-term current use of insulin (ICD-10 - E11.9) 02/03/2025 Hyperlipidemia, unspecified hyperlipidemia type (ICD-10 - E78.5) 02/17/2024 Hyperkalemia (ICD-10 - E87.5) 07/25/2024 Hypertriglyceridemia (ICD-10 - E78.1) 07/25/2024 RAKAN (obstructive sle ep apnea) (ICD-10 - G47.33) Patient os doing well with CPAP and should continue using it every time he sleeps 02/03/2025 Pain in right knee (ICD-10 - M25.561) 02/03/2025 Pain in left knee (ICD-10 - M25.562) 07/25/2024 CAD in [place] artery (ICD-10 - I25.10) 02/03/2025 Prostate cancer screening (ICD-10 - Z12.5) 02/03/2025 Psoriasis (ICD-10 - L40.9) Patient 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]
== END 2025-02-11 23:59 | disposition home or self-care (01) ==
LOC: RAD 10:45
PROVIDERS: PCP Family Medicine; Visit Provider Family Medicine
DX: M17.11 Unilateral primary osteoarthritis, right knee (principal); M17.12 Unilateral primary osteoarthritis, left knee
CPT/HCPCS: 73562